=== PATIENT | male | born 1940 | race Caucasian/White ===

== ENCOUNTER 2018-08-21 10:20 | Day surgery (SDC) | payer MEDICARE, MEDICAID ==
[2018-08-20 13:38] VITALS: BMI 31.1
[2018-08-21] MEDS ORDERED: Iopamidol 370 76% 50 ML VIAL FS ONE (11:26)
[2018-08-21 11:27] LABS: INR-International Normal Ratio 2.1; PTT 56.7 SEC (22.9-36.1); Prothrombin Time 23.4 SEC (12.0-14.7)
[2018-08-21 11:31] LABS: Anion Gap 13 mmol/L (10-20); BUN (Urea Nitrogen) 41 mg/dL (8.4-25.7); Calc. Creatinine Clearance 21 mL/min (70-130); Calcium 9.2 mg/dL (7.8-10.44); Carbon Dioxide 25 mmol/L (23-31); Chloride 107 mmol/L (98-107); Estimated GFR-MDRD 14; Glucose 91 mg/dL (83-110); Potassium 4.4 mmol/L (3.5-5.1); Sodium 141 mmol/L (136-145)
[2018-08-21 11:47] LABS: #Eosinphils 0.4 thou/uL (0.0-0.7); #Neutrophils 8.5 thou/uL (1.40-6.50); %Basophils 0.3 % (0.0-1.0); %Eosinophils 3.4 % (0.0-10.0); %Lymphocytes 16.9 % (21.0-51.0); %Monocytes 8.3 % (0.0-10.0); %Neutrophils 71.2 % (42.0-75.0); Hemoglobin 11.7 g/dL (14.0-18.0); Mean Corpuscular HGB CONC 32.6 g/dL (32.0-36.0); Mean Corpuscular Hemoglobin 35.5 pg (27.0-31.0); Mean Platelet Volume 7.9 fL (7.4-10.4); Platelet Count 191 thou/uL (130-400); RBC Distribution Width 13.2 % (11.5-14.5); Red Blood Cell (RBC) Count 3.29 mill/uL (4.70-6.10); White Blood Cell (WBC) Count 11.9 thou/uL (4.8-10.8)
[2018-08-21 12:00] LABS: MDiff Complete? YES; Macrocytosis SLIGHT = 6-15 cells (100X) (0-5/hpf); PLT Morphology Comment Appears Adequate
[2018-08-21] MEDS ORDERED: CEFAZOLIN/Water 2 GM/20 ML SYRINGE ONE (13:11)
[2018-08-21] MEDS ORDERED: Lidocaine 1% (PF) 30 ML VIAL ONE (13:11)
[2018-08-21] MEDS ORDERED: Gentamicin 80 MG/2 ML VIAL ONE (13:11)
[2018-08-21] MEDS ORDERED: Midazolam HCl 2 mg/2 ml Vial ONE (14:31)
[2018-08-21] MEDS ORDERED: Ketamine 50 MG/ML VIAL ONE (14:31)
[2018-08-21] MEDS ORDERED: Propofol 500 MG/50 ML VIAL ONE (14:31)
[2018-08-21] MEDS ORDERED: Fentanyl 100 MCG/2 ML VIAL ONE (14:31)
[2018-08-21] MEDS ORDERED: PROPOFOL 200 MG/20 ML VIAL ONE (17:03)
--- NOTE | 2018-08-21 19:27 | RAD ---
CHEST ONE VIEW: 08/21/18 HISTORY: Defibrillator exchange. COMPARISON: 06/22/17. FINDINGS: Cardiac silhouette is magnified, enlarged, and partially obscured by patchy infiltrate or atelectasis at the left base that is similar in appearance to the previous study. Pulmonary vasculature remains engorged. Scattered calcified granuloma are consistent with healed granulomatous disease. Mediastinum is midline with a multilead left subclavian cardiac electronic device, postoperative hernandez ges, and aortic calcifications. IMPRESSION: Chronic left basilar infiltrate, atelectasis, not significantly changed from the exam over a year ago . Left subclavian cardiac electronic device is in good radiographic position. No evidence of pneumothor ax. Atherosclerosis. POS: [facility]
--- NOTE | 2018-08-23 08:10 | EKG ---
Test Reason : PREOP Blood Pressure : / mmHG Vent. Rate : 074 BPM Atrial Rate : 070 BPM P-R Int : 000 ms QRS Dur : 148 ms QT Int : 456 ms P-R-T Axes : 000 -50 -36 degrees QTc Int : 506 ms Ventricular-paced rhythm Biventricular pacemaker detected Abnormal ECG When compared with ECG of 14-MAR-2017 18:27, (Unconfirmed) Vent. rate has increased BY 4 BPM Confirmed by CORRIE HAWKINS ([id number]) on 08/23/2018 8:09:26 AM Referred By: TRAVIS Confirmed By:CORRIE HAWKINS
--- NOTE | 2018-08-23 08:11 | EKG ---
Test Reason : Blood Pressure : / mmHG Vent. Rate : 071 BPM Atrial Rate : 060 BPM P-R Int : 000 ms QRS Dur : 086 ms QT Int : 410 ms P-R-T Axes : 000 -14 142 degrees QTc Int : 445 ms Electronic ventricular pacemaker Biventricular pacemaker detected When compared with ECG of 14-MAR-2017 18:27, (Unconfirmed) No significant change was found Confirmed by CORRIE HAWKINS ([id number]) on 08/23/2018 8:10:29 AM Referred By: [facility] Confirmed By:CORRIE HAWKINS
== END 2018-08-21 19:40 | disposition home or self-care (01) ==
LOC: CCL 10:20
PROVIDERS: ATTEND Internal Medicine Cardiovascular Disease
PROC: 0JPT0PZ Removal of Cardiac Rhythm Related Device from Trunk Subcutaneous Tissue and Fascia, Open Approach (ICD-10-PCS; principal; 2018-08-21)
PROC: 0JH608Z Insertion of Defibrillator Generator into Chest Subcutaneous Tissue and Fascia, Open Approach (ICD-10-PCS; 2018-08-21)
PROC: 02PA3MZ Removal of Cardiac Lead from Heart, Percutaneous Approach (ICD-10-PCS; 2018-08-21)
PROC: 02HL3KZ Insertion of Defibrillator Lead into Left Ventricle, Percutaneous Approach (ICD-10-PCS; 2018-08-21)
DX: T82.190A Other mechanical complication of cardiac electrode, initial encounter (principal); N18.6 End stage renal disease; I50.22 Chronic systolic (congestive) heart failure; I25.5 Ischemic cardiomyopathy; I48.1 Persistent atrial fibrillation; I25.10 Atherosclerotic heart disease of native coronary artery without angina pectoris; Z79.01 Long term (current) use of anticoagulants; Z79.82 Long term (current) use of aspirin; Z79.899 Other long term (current) drug therapy; Z88.7 Allergy status to serum and vaccine; Z95.1 Presence of aortocoronary bypass graft; Z99.2 Dependence on renal dialysis
CPT/HCPCS: 33225; 33264; 36005; 71045; 75820; 80048; 85025; 85610; 85730; 93005; 93010; C1882; C1900; J1580; J2001; J2250; J2704; J3010; J3490

== ENCOUNTER 2018-09-23 08:13 | Emergency (ER) | payer MEDICARE, MEDICAID ==
[2018-09-23 09:49] LABS: #Eosinphils 0.4 thou/uL (0.0-0.7); #Lymphocytes 1.9 thou/uL (1.20-3.40); #Monocytes 0.9 thou/uL (0.11-0.59); #Neutrophils 5.8 thou/uL (1.40-6.50); %Basophils 0.3 % (0.0-1.0); %Eosinophils 4.1 % (0.0-10.0); %Lymphocytes 20.7 % (21.0-51.0); %Monocytes 9.8 % (0.0-10.0); Hemoglobin 11.6 g/dL (14.0-18.0); Mean Corpuscular HGB CONC 32.8 g/dL (32.0-36.0); Mean Corpuscular Hemoglobin 35.3 pg (27.0-31.0); Mean Platelet Volume 8.3 fL (7.4-10.4); Platelet Count 179 thou/uL (130-400); RBC Distribution Width 13.8 % (11.5-14.5); Red Blood Cell (RBC) Count 3.28 mill/uL (4.70-6.10)
[2018-09-23 09:55] LABS: INR-International Normal Ratio 2.8; PTT 54.2 SEC (22.9-36.1); Prothrombin Time 29.9 SEC (12.0-14.7)
[2018-09-23 10:13] LABS: ALT (SGPT) 10 U/L (8-55); AST (SGOT) 13 U/L (5-34); Albumin 3.8 g/dL (3.4-4.8); Alkaline Phosphatase 94 U/L (40-150); Anion Gap 15 mmol/L (10-20); BUN (Urea Nitrogen) 48 mg/dL (8.4-25.7); Bilirubin, Total 0.6 mg/dL (0.2-1.2); Calc. Creatinine Clearance 0 mL/min (70-130); Calcium 9.3 mg/dL (7.8-10.44); Carbon Dioxide 27 mmol/L (23-31); Chloride 107 mmol/L (98-107); Estimated GFR-MDRD 11; Glucose 97 mg/dL (83-110); Potassium 4.1 mmol/L (3.5-5.1); Protein, Total 6.8 g/dL (5.8-8.1); Sodium 145 mmol/L (136-145)
[2018-09-23 10:15] LABS: Troponin I Less than 0.010 ng/mL (< 0.028)
--- NOTE | 2018-09-23 10:48 | RAD ---
LEFT HAND 3 VIEWS: Date: 09/23/18 HISTORY: Injury. Left hand pain. FINDINGS/IMPRESSION: No acute fracture or dislocation is seen. POS: [facility]
--- NOTE | 2018-09-23 10:52 | RAD ---
LEFT FOREARM 2 VIEWS: Date: 09/23/18 HISTORY: Injury, left forearm pain. FINDINGS/IMPRESSION: The left radius and ulna appear intact. POS: [facility]
--- NOTE | 2018-09-23 10:54 | RAD ---
LEFT WRIST 3 VIEWS: Date: 09/23/18 HISTORY: Injury, left wrist pain. FINDINGS/IMPRESSION: No fracture or dislocation is seen. If there is tenderness in the anatomic snuffbox and symptoms do not improve, a follow-up exam should be obtained in 7-10 days. POS: [facility]
--- NOTE | 2018-09-23 11:18 | CT ---
CT BRAIN NONCONTRAST: DATE: 09/23/18 TIME: 0938 hours HISTORY: 78-year-old male with history of stroke, presents with increasing weakness. COMPARISON: 06/22/17. FINDINGS: Small to moderate size region of encephalomalacia and gliosis in the upper portion of the right front al lobe. Ventricles are normal in size and configuration. No mass effect, midline shift, acute intra- axial hemorrhage, acute extra-axial hemorrhage, or any extra-axial fluid collection. No calvarial fra cture. No interval change overall since last year. IMPRESSION: 1. Old infarction in the right frontal lobe, in the right middle cerebral artery territory. 2. No acute intracranial findings. THERESA Ordoñez POS: [facility]
--- NOTE | 2018-09-23 11:48 | CT ---
CT CERVICAL SPINE WITH CORONAL AND SAGITTAL REFORMATIONS: Date: 09/23/18 HISTORY: Trauma. Fall. Worsening weakness. FINDINGS/IMPRESSION: Comparison made with exam of 06/22/17. Extensive degenerative changes are again noted with bilateral neural foraminal stenosis and central c anal stenosis, most prominent at the C5-6 and C6-7 levels. No fracture or subluxation is identified. No facet malalignment is seen. POS: [facility]
== END 2018-09-23 11:04 | disposition home or self-care (01) ==
LOC: ERS 08:13
DX: S60.212A Contusion of left wrist, initial encounter (principal); I49.9 Cardiac arrhythmia, unspecified; I10 Essential (primary) hypertension; F17.220 Nicotine dependence, chewing tobacco, uncomplicated; Z71.6 Tobacco abuse counseling; W06.XXXA Fall from bed, initial encounter
CPT/HCPCS: 70450; 72125; 80053; 82553; 84484; 85025; 85610; 85730; 93005

== ENCOUNTER 2019-02-15 19:18 | Inpatient (IN) | payer MEDICARE, MEDICAID ==
[~2019-02-15 19:18] MED LIST: ISOVUE-370 76%-LOCM 1 ML ONE
--- NOTE | 2019-02-15 19:44 | RAD ---
Chest one view HISTORY: Chest pain. COMPARISON: 08/29/2018. FINDINGS: Cardiac silhouette is magnified, enlarged, and partially obscured by parenchymal opacity at the left base that has the appearance of atelectasis and is unchanged from the previous exam. Slight leftward shift of the mediastinum. Calcification in the aorta, postoperative changes, and a mu ltilead left subclavian cardiac electronic device again demonstrated. Pulmonary vasculature is unremarkable. No evidence of pneumothorax. IMPRESSION: Left basilar atelectasis and other chronic-type findings are stable.
[2019-02-15 19:51] LABS: Hemoglobin 11.4 g/dL (14.0-18.0); Mean Corpuscular HGB CONC 32.5 g/dL (32.0-36.0); Mean Corpuscular Hemoglobin 35.9 pg (27.0-31.0); Mean Platelet Volume 8.6 fL (7.4-10.4); Platelet Count 178 thou/uL (130-400); RBC Distribution Width 12.9 % (11.5-14.5); Red Blood Cell (RBC) Count 3.17 mill/uL (4.70-6.10); White Blood Cell (WBC) Count 20.5 thou/uL (4.8-10.8)
[2019-02-15 20:07] LABS: Band 7 % (5-11); Lymphocytes 4 % (21-51); MDiff Complete? YES; Monocytes 6 % (0-10); Neutrophil 83 % (42-75)
[2019-02-15 20:10] LABS: ALT (SGPT) 9 U/L (8-55); AST (SGOT) 14 U/L (5-34); Albumin 3.5 g/dL (3.4-4.8); Alkaline Phosphatase 110 U/L (40-150); Anion Gap 14 mmol/L (10-20); BUN (Urea Nitrogen) 24 mg/dL (8.4-25.7); Bilirubin, Total 0.7 mg/dL (0.2-1.2); CK (CPK) 74 U/L (30-200); Calc. Creatinine Clearance 0 mL/min (70-130); Calcium 8.9 mg/dL (7.8-10.44); Carbon Dioxide 32 mmol/L (23-31); Chloride 98 mmol/L (98-107); Estimated GFR-MDRD 17; Globulin 3.2 g/dL (2.4-3.5); Glucose 95 mg/dL (83-110); Lipase 12 U/L (8-78); Potassium 3.4 mmol/L (3.5-5.1); Protein, Total 6.7 g/dL (5.8-8.1); Sodium 141 mmol/L (136-145)
[2019-02-15] MEDS ORDERED: Piperacillin/Tazobactam 2.25 GM VIAL ONE (20:19)
[2019-02-15 20:31] LABS: CKMB 0.6 ng/mL (0-6.6)
[2019-02-15] MEDS ORDERED: Vancomycin HCl 1.5 GM in Sodium Chloride 0.9% 250 ML 300 ML IVPB SCH (20:45)
--- NOTE | 2019-02-15 20:58 | CT ---
CT ANGIOGRAM CHEST AND ABDOMEN WITH IV CONTRAST AND 3D MIP RECONSTRUCTIONS 02/15/19 PROVIDED CLINICAL HISTORY: Chest pain and fever. FINDINGS: Postoperative changes of CABG are demonstrated. Vascular calcification is noted. The heart, pericardi um and great vessels demonstrate no evidence for an acute abnormality. There is no evidence of aortic dissection. There is a left basilar loculated pleural fluid collection, which appears similar to CT examination p erformed of the abdomen and pelvis dated 07/18/16. There is consolidation involving the majority of th e left lower lobe. The right lung is free of significant opacity. There is no right sided pleural flu id. There is no evidence for pneumothorax. Left sided cardiac pacing device is noted. The solid abdominal organs are suboptimally evaluated in the arterial phase of contrast but demonstra te an unremarkable CT appearance for the phase of contrast in which this study was acquired. Increase d density within the gallbladder compatible with gallstones. Right renal cyst appears similar to the prior examination. No bowel dilatation, inflammatory fat stranding, free fluid or free air apparent. Extensive calcified and noncalcified atheromatous plaque involves the abdominal aorta and its branche s. The osseous structures demonstrate no concerning lytic or blastic lesions. IMPRESSION: 1. No evidence for aortic dissection. 2. Left lower lobe consolidation. This likely reflects some combination of volume loss and pneum onia. Other etiologies are not excluded and followup is recommended. 3. Loculated left pleural fluid collection, appearing similar to the CT examination of 07/18/16. POS: [facility]
[2019-02-15] MEDS ORDERED: Acetaminophen 325 MG TAB PO PRN (22:47)
[2019-02-15] MEDS ORDERED: Midodrine HCl 5 MG TAB PO SCH (23:00)
[2019-02-16 00:32] LABS: Lactic Acid 1.4 mmol/L (0.5-2.2)
[2019-02-16 00:54] VITALS: BMI 30.1
[2019-02-16] MEDS ORDERED: Vancomycin HCl 500 MG in Sodium Chloride 0.9% 100 ML IVPB SCH (01:30)
[2019-02-16] MEDS ORDERED: Vancomycin Sliding Scale 1 EACH FS ONE (01:30)
[2019-02-16] MEDS ORDERED: Vancomycin HCl 1 GM in Premix Bag 1 BAG IVPB SCH ×2 (01:30→09:00)
[2019-02-16] MEDS ORDERED: HOLD VANCOMYCIN FOR LEVEL >20 FS SCH (01:30)
[2019-02-16] MEDS ORDERED: Vancomycin HCl 1.25 GM in Sodium Chloride 0.9% 250 ML 250 ML IVPB SCH (01:30)
[2019-02-16] MEDS ORDERED: Vancomycin HCl 750 MG in Sodium Chloride 0.9% 250 ML 250 ML IVPB SCH (01:30)
--- NOTE | 2019-02-16 03:13 | HP ---
CHIEF COMPLAINT: Chest pain. HISTORY OF PRESENT ILLNESS: The patient is a 78-year-old male, who has end-stage renal disease and is on dialysis. The patient also has a history of prior [place] with a severe ischemic cardiomyopathy with an EF of 15% to 20% with a pacemaker defibrillator placed. The patient reports a history of two prior strokes, which has left him with some occasional memory issues and an intermittent Parkinson's like tremor of his right upper extremity. The patient went to dialysis today. Apparently, his weight was up because he overindulged with drinking too much water and tea as he is prone to do, and he had over 2 L of fluid removed. He reports that after dialysis on any given day, he feels generally washed out and weak, but today was slightly worse. He also experienced heaviness in his chest, which is not typical. He called his . She came home and assessed him and he was febrile and generally weak. He ultimately did not want to come to the hospital, but his daughter came over, saw that he was running fever and called an ambulance. He reports that he has developed a bit of a cough since he has been here over the last couple of hours, but it is generally nonproductive. He is feeling somewhat better here now. In the emergency department, the patient was noted to be somewhat hypotensive with his systolic pressures running in the mid 80s and diastolic in the 40s and 50s. Dr. Huff was called and he ordered 500 mL of fluid for the patient, but given his cardiomyopathy, no more than that. REVIEW OF SYSTEMS: The patient does admit to having some occasional dysphagia. His reports she has to cut his meats very small and even then he will occasionally have some vomiting. This has been true since the strokes, and as above, the patient does have this tremor in his right upper extremity that his reports occurs even while he is sleeping at night. He does have the ability to make it stop intentionally, but when he is not intentionally doing that, it will frequently recur. Note, the patient was given aspirin and Motrin in the emergency department. The patient reports that he typically only gets about half a liter of fluids taken off at dialysis. All other systems were reviewed and all pertinent positives and negatives noted in the history of present illness. PAST MEDICAL HISTORY: Significant for chronic systolic congestive heart failure. He has ischemic cardiomyopathy, [place] Heart Association class 3; ejection fraction of 15% to 20%; coronary artery disease, status post coronary artery bypass grafting; chronic atrial fibrillation requiring anticoagulation; end-stage renal disease, on dialysis; history of ventricular aneurysm resection; history of prior CVAs with the chronic intermittent tremor of the right upper extremity; and history of hyperlipidemia. PAST SURGICAL HISTORY: Four-vessel CABG in 2002; appendectomy; AICD and pacemaker placement, several months ago had wire replacement. FAMILY HISTORY: No coronary disease or cardiac disease. SOCIAL HISTORY: The patient dips snuff, but he does not smoke cigarettes. Denies drugs or alcohol. He is . He is willing to undergo initial resuscitation efforts, but states that he is really only interested in brief effort and if it does not work, he is okay with that. His states they have discussed this before in the past. He has typically been DNR, but that is his wish presently. ALLERGIES: TETANUS VACCINE AND TOXOID. MEDICATIONS: 1. Simvastatin 40 mg daily. 2. Aspirin 81 mg daily. 3. Eliquis 2.5 mg b.i.d. 4. Amiodarone 200 mg daily. 5. Midodrine 5 mg p.o. t.i.d. PHYSICAL EXAMINATION: GENERAL: Most recent blood pressure 104/50, pulse 88, respirations 16, O2 saturation 96% on room air. GENERAL APPEARANCE: Age-appropriate male, in no distress. He is awake, alert, oriented, pleasant, and cooperative. HEENT: PERRL. No OP lesions. NECK: Supple and symmetric. HEART: Irregular without significant murmurs, gallops, or rubs. LUNGS: Clear to auscultation bilaterally with no significant wheezes or rales. ABDOMEN: Soft, nontender, and nondistended. Positive bowel sounds. No masses. No organomegaly. EXTREMITIES: He has trace edema of the ankles. He has onychomycosis of the toenails. NEUROLOGIC: The patient does have an intermittent Parkinson's type low-frequency tremor of the right hand and upper extremity. PSYCHIATRIC: The patient has normal affect and behavior. LABORATORY DATA: White count is 20.5, hemoglobin 11.4, platelets 178, 83 neutrophils, 7 bands, 4 lymphocytes. Sodium 141, potassium 3.4, chloride 98, CO2 of 32, BUN 24, creatinine 3.52. Lactic acid 2.3. LFTs normal. Troponin 0.035. BNP 744.3. Flu screen is negative. Chest x-ray shows left basilar atelectasis and other chronic type findings, which are stable. CT chest with dissection protocol shows left lower lobe consolidation, likely reflecting some combination of volume loss and pneumonia. Loculated pleural fluid collection appearing stable from July 2016 on the left side. IMPRESSION AND PLAN: 1. Sepsis. This patient has a difficult assessment given that he has always felt poorly and apparently having some blood pressure problems following dialysis and requiring midodrine. Today, the patient had some hypotension as well, but it is in the setting of a white count of 20,000 and some evidence of pneumonia and an elevated lactic acid level. His fluids cannot be aggressively resuscitated because of his severe underlying cardiomyopathy. 2. Pneumonia. The patient has had vancomycin and Zosyn. We will continue those and have pharmacy help adjust the dosing based on his renal disease. 3. Chest pain, may be related to the pneumonia. We will continue to track his troponins. 4. Elevated troponin. This is normal given the patient's renal function and does not at present represent new pathology. 5. Severe cardiomyopathy. The patient has ischemic cardiomyopathy and has AICD in place, appears to be reasonably well compensated at the moment. 6. End-stage renal disease, on dialysis. Dr. Huff has been consulted. We will continue with his normal dialysis regimen. 7. Dysphagia. The patient reported dysphagia in his review of systems. He has some choking and vomiting. We will ask our speech therapist to evaluate the patient. 8. Chronic atrial fibrillation. Continue with amiodarone and Eliquis. 9. Hyperlipidemia. Continue simvastatin. 10. History of coronary artery disease. Continue with his aspirin. Job ID: [id number]
[2019-02-16] MEDS: Piperacillin/Tazobactam 2.25 GM in Sodium Chloride 0.9% 100 ML IVPB SCH ×3 (05:42→21:20)
[2019-02-16 06:29] LABS: Anion Gap 16 mmol/L (10-20); BUN (Urea Nitrogen) 29 mg/dL (8.4-25.7); Calc. Creatinine Clearance 20 mL/min (70-130); Calcium 8.7 mg/dL (7.8-10.44); Carbon Dioxide 30 mmol/L (23-31); Chloride 98 mmol/L (98-107); Estimated GFR-MDRD 13; Glucose 124 mg/dL (83-110); Potassium 3.6 mmol/L (3.5-5.1); Sodium 140 mmol/L (136-145)
[2019-02-16 06:42] LABS: Band 4 % (5-11); Eosinophils 1 % (0-10); Hemoglobin 10.7 g/dL (14.0-18.0); Lymphocytes 10 % (21-51); MDiff Complete? YES; Macrocytosis SLIGHT = 6-15 cells (100X) (0-5/hpf); Mean Corpuscular Hemoglobin 35.4 pg (27.0-31.0); Mean Platelet Volume 9.1 fL (7.4-10.4); Monocytes 2 % (0-10); Neutrophil 83 % (42-75); Platelet Count 175 thou/uL (130-400); RBC Distribution Width 13.1 % (11.5-14.5); Red Blood Cell (RBC) Count 3.02 mill/uL (4.70-6.10)
[2019-02-16] MEDS ORDERED: Enoxaparin Sodium 30 MG/0.3 ML SYRINGE SC SCH (09:00)
[2019-02-16] MEDS: Amiodarone 200 MG TAB PO SCH (10:07)
[2019-02-16] MEDS: Aspirin 81 mg Enteric Coated Tablet PO SCH (10:07)
[2019-02-16] MEDS: Apixaban 2.5 MG TAB PO SCH ×2 (10:07→21:25)
[2019-02-16] MEDS: Midodrine HCl 5 MG TAB PO SCH ×3 (10:07→21:21)
--- NOTE | 2019-02-16 12:22 | CON ---
DATE OF CONSULTATION: HISTORY OF PRESENT ILLNESS: A 78-year-old gentleman, who comes to the hospital with left-sided chest pain, shortness of breath, fever, chills, and cough. X-ray shows a left-sided pleural effusion. CT dissection protocol was unremarkable, except for the loculated pleural effusion. I reviewed some of his old x-rays from August 2018. He still had the pleural effusion at that time. In fact, his x-rays from 2017, two years ago also showed a left-sided pleural effusion. He has an AICD in place. This morning, he said he is feeling somewhat better. Apparently, he is nonsmoker prior history of TB, pneumonia. PAST MEDICAL HISTORY: Pertinent for a recent diagnosis of tremors, history of coronary artery disease, high cholesterol, hypertension, previous CVA, chronic renal failure, apparently on dialysis. PAST SURGICAL HISTORY: Appendix, AICD, aneurysm surgery. SOCIAL HISTORY: Alcohol, none. Tobacco, none. 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 HOME MEDICATIONS: 1. Cordarone 400. 2. Zocor 40. 3. Midodrine 5. 4. Pramipexole 0.125 at night. 5. Coreg 6.25. 6. Eliquis 2.5. 7. Now started on vancomycin and Zosyn. REVIEW OF SYSTEMS: Ten-point negative. PHYSICAL EXAMINATION: VITAL SIGNS: His saturations are 99% on room air. His pulse is 80, respiratory rate is 18, and blood pressure is 130/80. CHEST: Reveals decreased breath sounds at the left base. There is no wheezing or crackles. CARDIAC: Normal S1, S2. No gallops or masses. LABORATORY DATA: White count is 23,000, H and H 10 and 30, platelet count 175. Creatinine 4.5. IMPRESSION: 1. Left pleural effusion, possibly superimposed pneumonia. 2. Loculated pleural effusion, longstanding duration. 3. Cerebrovascular accident. 4. Automatic implantable cardioverter-defibrillator. PLAN: 1. Await sputum culture results. He is on broad-spectrum antibiotics. At this stage, I will not attempt to do a thoracentesis. Pleural effusion is loculated. 2. It looks like clinically he is improved. Nephrology has seen the patient. 3. Pulmonary will follow. TIME SPENT: 70 minutes, 50% direct patient care. Job ID: [id number]
--- NOTE | 2019-02-16 15:15 | CON ---
DATE OF CONSULTATION: HISTORY OF PRESENT ILLNESS: Mr. Chaudhary is a 78-year-old white male with ESRD and presented today complaining of fever and chills. He also had mild chest pain at that time. He was admitted and was empirically treated for a presumptive pneumonia. He is on IV antibiotics. We are being consulted for his maintenance hemodialysis. When he first came in, he was noted to be hypotensive. We gave him 500 mL of fluid. REVIEW OF SYSTEMS: Positive for fever and chills. Positive for mild chest pain. No syncopal episode. No nausea. No vomiting. No diarrhea. No constipation. No productive cough. No dysuria. Appetite and energy level are fair. Occasional joint pains. Positive for chronic resting tremor. MEDICATIONS: The patient is currently on, 1. Tylenol 650 mg q.4 p.r.n. 2. Cordarone 200 mg daily. 3. Eliquis 2.5 mg p.o. b.i.d. 4. Ecotrin 81 mg daily. 5. Lipitor 20 mg at bedtime. 6. Midodrine 5 mg p.o. t.i.d. 7. Zosyn 2.25 g IV q.8, status post vancomycin. PAST MEDICAL HISTORY: 1. The patient has history of cardiomyopathy-decreased EF. 2. Chronic atrial fibrillation. 3. ESRD and currently on maintenance hemodialysis. 4. The patient has history of chronic hypotension, on midodrine support. 5. Status post nephrolithiasis. 6. Coronary artery disease. 7. Peripheral vascular disease. 8. Type 2 diabetes mellitus. 9. History of hypertension. PAST SURGICAL HISTORY: Status post cardiac cath, status post CABG, status post appendectomy, status post AV fistula placement, status post percutaneous nephrostomy, status post ureteroscopy with stone extraction. ALLERGIES: TETANUS. TRAUMA: None. IMMUNIZATION: Up-to-date. HOSPITALIZATION: Please see past medical history. SOCIAL HISTORY: The patient is ,lives in [place]. 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 No alcohol intake. No history of smoking. No IV drug abuse. He occasionally uses snuff. Education, 12th grade. Sedentary lifestyle. FAMILY HISTORY: No family history of ESRD. PHYSICAL EXAMINATION: VITAL SIGNS: Blood pressure is 108/61, heart rate 60, respiratory rate 16, pulse ox is 97%. GENERAL: The patient is awake, comfortable, sitting, not in distress. SKIN: Adequate turgor. HEENT: He has a pinkish conjunctivae. Anicteric sclerae. No neck mass. No carotid bruits. No JVD. CHEST: No deformities. LUNGS: Decreased breath sounds. HEART: Irregular. No murmur, no gallops, no rubs. ABDOMEN: Globular, soft, nontender. No masses. EXTREMITIES: No edema. LABORATORY DATA: Laboratories of February 16, 2019; white count 23, hemoglobin 10.7. Sodium 140, potassium 3.6, chloride 98, carbon dioxide 30, BUN 29, creatinine 4.45, glucose 124, calcium 8.7. Troponin I 0.035. IMAGING STUDIES: Chest x-ray of February 15, 2019, left basilar atelectasis with chronic findings. Blood culture, no growth today. Influenza A and B negative. ASSESSMENT AND PLAN: 1. Fever and chills- empiric pneumonia. On IV antibiotics. Continue supportive care. Awaiting final results of blood culture. 2. End-stage renal disease, stable. No indication for any emergent hemodialysis. Continue Monday, Monday, Monday dialysis regimen with fluid removal only as tolerated. 3. Borderline anemia. We will continue to observe. If this further drops down, we will resume weekly Epogen with this patient. 4. Recheck CBC, basic metabolic profile in a.m. Job ID: [id number]
[2019-02-16 15:29] LABS: HBSAg Index 0.33 S/CO (0-0.99); Hep B Surf Ag Non-Reactive S/CO (NonReactive)
--- NOTE | 2019-02-16 16:58 | PDOC.PN ---
- Subjective Encounter Start Date: 02/16/19 Encounter Start Time: 10:30 Subjective: pt up in bed no complains - Objective Resuscitation Status - Order Detail: 02/15/19 22:47 Resuscitation Status Routine Resuscitation Status: FULL: Full Resuscitation Vital Signs & Weight: Vital Signs (12 hours) Temp BP BP Pulse Ox 02/16/19 14:51 98.4 F 02/16/19 12:36 110/46 L 02/16/19 12:25 172/66 H 02/16/19 10:33 98.2 F 02/16/19 08:00 97 02/16/19 07:07 98.2 F Weight Weight 215 lb 12.8 oz Most Recent Monitor Data Heart Rate from ECG 61 NIBP 115/50 NIBP BP-Mean 71 Respiration from ECG 17 SpO2 99 I&O: 02/15/19 02/16/19 02/17/19 06:59 06:59 06:59 Intake Total 500 Output Total 50 Balance 450 Result Diagrams: 02/16/19 05:14 02/16/19 05:13 Phys Exam - Physical Examination Neck: no nodes, no JVD, supple, full ROM Respiratory: no wheezing, no rales, no rhonchi, wheezing present, clear to auscultation bilateral Cardiovascular: RRR, no significant murmur, no rub, gallop, irregular Gastrointestinal: soft, non-tender, no distention, positive bowel sounds Dx/Plan (1) Sepsis Code(s): A41.9 - SEPSIS, UNSPECIFIED ORGANISM Status: Acute (2) Pneumonia Code(s): J18.9 - PNEUMONIA, UNSPECIFIED ORGANISM Status: Acute (3) HTN (hypertension) Code(s): I10 - ESSENTIAL (PRIMARY) HYPERTENSION Status: Chronic Qualifiers: Hypertension type: renovascular hypertension Qualified Code(s): I15.0 - Renovascular hypertension (4) Pleural effusion, left Code(s): J90 - PLEURAL EFFUSION, NOT ELSEWHERE CLASSIFIED Status: Acute - Plan continue broad abx for now -: pt's has chronic left plerual effusion -: if wbc continue to worsen may need thoracentesis -: vitals are stable * . Review of Systems - Review of Systems Respiratory: negative: Cough, Dry, Shortness of Breath, Hemoptysis, SOB with Excertion, Pleuritic Pain, Sputum, Wheezing Cardiovascular: negative: chest pain, palpitations, orthopnea, paroxysmal nocturnal dyspnea, edema, light headedness, other Gastrointestinal: negative: Nausea, Vomiting, Abdominal Pain, Diarrhea, Constipation, Melena, Hematochezia, Other - Medications/Allergies Allergies/Adverse Reactions: Allergies Allergy/AdvReac Type Severity Reaction Status Date / Time Tetanus Vaccines and Toxoid Allergy MOUTH Verified 08/20/18 13:39 SWELLING Medications: Current Medications Acetaminophen (Tylenol) 650 mg PO Q4H PRN PRN Reason: Headache/Fever/Mild Pain (1-3) Amiodarone HCl (Cordarone) 200 mg PO DAILY [facility] Last Admin: 02/16/19 10:07 Dose: 200 mg Apixaban (Eliquis) 2.5 mg PO BID [facility] Last Admin: 02/16/19 10:07 Dose: 2.5 mg Aspirin (Ecotrin) 81 mg PO DAILY [facility] Last Admin: 02/16/19 10:07 Dose: 81 mg Atorvastatin Calcium (Lipitor) 20 mg PO [facility] Piperacillin Sod/Tazobactam (Sod 2.25 gm/ Sodium Chloride) 100 mls @ 200 mls/ hr IVPB 0400,1200,2000 [facility] Last Admin: 02/16/19 12:25 Dose: 100 mls Vancomycin HCl 1.25 gm/ Sodium (Chloride) 250 mls @ 166.667 mls/hr IVPB [facility]CALL [facility] Vancomycin HCl 1 gm/ Device 200 mls @ 200 mls/hr IVPB [facility] Vancomycin HCl 750 mg/ Sodium (Chloride) 250 mls @ 250 mls/hr IVPB [facility] Vancomycin HCl 500 mg/ Sodium (Chloride) 100 mls @ 100 mls[facility]hr [facility] Midodrine (Proamatine) 5 mg PO TID [facility] Last Admin: 02/16/19 14:49 Dose: 5 mg Hold Vancomycin For (Level >20) 0 each FS .AT DIALYSIS [facility] Tamsulosin HCl (Flomax) 0.4 mg PO [facility]
[2019-02-16] MEDS ORDERED: Tamsulosin HCl 0.4 MG CAP PO SCH (17:30)
[2019-02-16] MEDS: Atorvastatin Calcium 20 MG TAB PO SCH (21:21)
[2019-02-16 22:31] LABS: Vancomycin, Random 14.3 ug/mL (See Comment)
[2019-02-17] MEDS: Piperacillin/Tazobactam 2.25 GM in Sodium Chloride 0.9% 100 ML IVPB SCH (04:03)
[2019-02-17 07:03] LABS: #Eosinphils 0.3 thou/uL (0.0-0.7); #Lymphocytes 1.7 thou/uL (1.20-3.40); #Monocytes 0.8 thou/uL (0.11-0.59); #Neutrophils 8.3 thou/uL (1.40-6.50); %Basophils 0.4 % (0.0-1.0); %Eosinophils 2.9 % (0.0-10.0); %Lymphocytes 15.4 % (21.0-51.0); %Monocytes 7.5 % (0.0-10.0); %Neutrophils 73.9 % (42.0-75.0); Hemoglobin 10.2 g/dL (14.0-18.0); Mean Corpuscular HGB CONC 33.9 g/dL (32.0-36.0); Mean Corpuscular Hemoglobin 36.8 pg (27.0-31.0); Mean Platelet Volume 8.9 fL (7.4-10.4); Platelet Count 159 thou/uL (130-400); RBC Distribution Width 12.9 % (11.5-14.5); Red Blood Cell (RBC) Count 2.78 mill/uL (4.70-6.10); White Blood Cell (WBC) Count 11.2 thou/uL (4.8-10.8)
[2019-02-17 07:12] LABS: Anion Gap 15 mmol/L (10-20); BUN (Urea Nitrogen) 45 mg/dL (8.4-25.7); Calc. Creatinine Clearance 15 mL/min (70-130); Carbon Dioxide 29 mmol/L (23-31); Chloride 100 mmol/L (98-107); Estimated GFR-MDRD 9; Glucose 91 mg/dL (83-110); Potassium 3.6 mmol/L (3.5-5.1); Sodium 140 mmol/L (136-145)
[2019-02-17] MEDS: Amiodarone 200 MG TAB PO SCH (09:15)
[2019-02-17] MEDS: Aspirin 81 mg Enteric Coated Tablet PO SCH (09:15)
[2019-02-17] MEDS: Apixaban 2.5 MG TAB PO SCH ×2 (09:15→20:01)
[2019-02-17] MEDS: Midodrine HCl 5 MG TAB PO SCH ×3 (09:15→20:57)
[2019-02-17] MEDS ORDERED: Epoetin (ESRD) 20,000 UNITS/ML SC SCH (10:15)
--- NOTE | 2019-02-17 10:58 | PRG ---
DATE OF SERVICE: 02/17/2019 SUBJECTIVE: This morning, he is better. OBJECTIVE: VITAL SIGNS: Temperature 97, pulse 62, blood pressure 139/51, and respiratory rate 18. CHEST: No wheezing or crackles. CARDIAC: Normal S1 and S2. No gallops. ABDOMEN: No masses. LABORATORY DATA: Creatinine 5.8. White count 11,000, hemoglobin and hematocrit unremarkable. ASSESSMENT: 1. Herminia pleural effusion, chronic, possibly superimposed pneumonia. 2. Chronic renal failure. PLAN: Switch over to oral antibiotics. All cultures are negative. Clearly, his white count is normal. He is afebrile. He can probably be transferred out of the MICU to an unmonitored bed. Job ID: [id number]
--- NOTE | 2019-02-17 11:38 | PRG ---
DATE OF SERVICE: 02/17/2019 SERVICE: Renal Medicine. SUBJECTIVE: Mr. Chaudhary is a 78-year-old white male with ESRD and followed by the Renal Service for his maintenance hemodialysis. I evaluated the patient. He does complain of some leg edema. I do not think there is any indication for an emergent hemodialysis today. In addition, he initially was admitted for fever and chills. He has a presumptive diagnosis of pneumonia and currently on IV antibiotics. It was made mention about his resting tremor. I have offered neurology consult in the past with him, but he has declined. He may have early Parkinson's versus just essential resting tremors. He also had difficulty passing his urine and was started on Flomax. No other complaints today. No chest pain or shortness of breath. OBJECTIVE: VITAL SIGNS: Blood pressure 139/51, heart rate 62, respiratory rate 15, temperature 98, pulse ox 99%. GENERAL: Awake, sitting, comfortable, not in distress. SKIN: Adequate turgor. HEENT: He has a slightly pale conjunctivae. Anicteric sclerae. NECK: No neck mass. No carotid bruits. No JVD. CHEST: No deformities. LUNGS: Clear breath sounds. HEART: Normal sinus rhythm. No murmur. No gallops. No rubs. ABDOMEN: Globular, soft, nontender. No masses. EXTREMITIES: No edema. No deformities. LABORATORY DATA: Blood culture on February 15, 2019, no growth to date. On February 17, 2019; white count 11.2, hemoglobin 10.2. Sodium 140, potassium 3.6, chloride 100, carbon dioxide 29, BUN 45, creatinine 5.83, glucose 91, calcium 9. ASSESSMENT AND PLAN: 1. End-stage renal disease, stable. Continuing Monday, Monday, and Monday hemodialysis. Fluid removal only as tolerated. No indication for any emergent hemodialysis today. 2. Anemia. We will start weekly Epogen 7500 units subcu every week. 3. Pneumonia, on IV antibiotics. 4. Resting tremor-continue to observe. Consider neurology consult as an outpatient. 5. BPH-currently started on Flomax. Overall, agree with current management. Job ID: [id number]
--- NOTE | 2019-02-17 17:48 | PDOC.PN ---
- Subjective Encounter Start Date: 02/17/19 Encounter Start Time: 17:47 Subjective: pt up in chair feels well, complains of soft stool - Objective Resuscitation Status - Order Detail: 02/15/19 22:47 Resuscitation Status Routine Resuscitation Status: FULL: Full Resuscitation Vital Signs & Weight: Vital Signs (12 hours) Temp Pulse Ox 02/17/19 15:42 97.8 F 02/17/19 10:23 97.5 F L 02/17/19 08:00 99 02/17/19 07:07 98.0 F Weight Weight 219 lb Most Recent Monitor Data Heart Rate from ECG 60 NIBP 117/59 NIBP BP-Mean 78 Respiration from ECG 15 SpO2 99 I&O: 02/16/19 02/17/19 02/18/19 06:59 06:59 06:59 Intake Total 500 400 Output Total 50 75 Balance 450 325 Result Diagrams: 02/17/19 06:38 02/17/19 06:38 Phys Exam - Physical Examination Neck: no nodes, no JVD, supple, full ROM decreased breath sound to left lower lung Cardiovascular: RRR, no significant murmur, no rub, gallop, irregular Gastrointestinal: soft, non-tender, no distention, positive bowel sounds Musculoskeletal: no edema, pulses present, edema present Dx/Plan (1) Sepsis Code(s): A41.9 - SEPSIS, UNSPECIFIED ORGANISM Status: Acute (2) Pneumonia Code(s): J18.9 - PNEUMONIA, UNSPECIFIED ORGANISM Status: Acute (3) HTN (hypertension) Code(s): I10 - ESSENTIAL (PRIMARY) HYPERTENSION Status: Chronic Qualifiers: Hypertension type: renovascular hypertension Qualified Code(s): I15.0 - Renovascular hypertension (4) Pleural effusion, left Code(s): J90 - PLEURAL EFFUSION, NOT ELSEWHERE CLASSIFIED Status: Acute - Plan pt's wbc has improved. He states he did not have any cough -: just had chills and fever. His LLL effusion has been [id number] -: would recommend follow up ct chest as ouptatient. -: will start pt on floastar. * . Review of Systems - Review of Systems Respiratory: negative: Cough, Dry, Shortness of Breath, Hemoptysis, SOB with Excertion, Pleuritic Pain, Sputum, Wheezing Cardiovascular: negative: chest pain, palpitations, orthopnea, paroxysmal nocturnal dyspnea, edema, light headedness, other Genitourinary: negative: Dysuria, Frequency, Incontinence, Hematuria, Retention , Other - Medications/Allergies Allergies/Adverse Reactions: Allergies Allergy/AdvReac Type Severity Reaction Status Date / Time Tetanus Vaccines and Toxoid Allergy MOUTH Verified 08/20/18 13:39 SWELLING Medications: Current Medications Acetaminophen (Tylenol) 650 mg PO Q4H PRN PRN Reason: Headache/Fever/Mild Pain (1-3) Amiodarone HCl (Cordarone) 200 mg PO DAILY [facility] Last Admin: 02/17/19 09:15 Dose: 200 mg Amoxicillin/Clavulanate Potassium (Augmentin) 250 mg PO Q12HR [facility] Apixaban (Eliquis) 2.5 mg PO BID [facility] Last Admin: 02/17/19 09:15 Dose: 2.5 mg Aspirin (Ecotrin) 81 mg PO DAILY [facility] Last Admin: 02/17/19 09:15 Dose: 81 mg Atorvastatin Calcium (Lipitor) 20 mg PO HS [facility] Last Admin: 02/16/19 21:21 Dose: 20 mg Epoetin Danial (Procrit) 7,500 units SC Q7D [facility] Midodrine (Proamatine) 5 mg PO TID [facility] Last Admin: 02/17/19 14:39 Dose: 5 mg Hold Vancomycin For (Level >20) 0 each FS .AT DIALYSIS [facility] Saccharomyces Boulardii (Florastor) 250 mg PO DAILY [facility] Tamsulosin HCl (Flomax) 0.4 mg PO HS [facility]
[2019-02-17] MEDS: Atorvastatin Calcium 20 MG TAB PO SCH (20:00)
[2019-02-17] MEDS: Tamsulosin HCl 0.4 MG CAP PO SCH (20:00)
[2019-02-17] MEDS: Amoxicillin/Potassium Clav 250 MG TAB PO SCH (20:00)
--- NOTE | 2019-02-18 08:03 | RAD ---
EXAM: Single view of the chest HISTORY: chest pain COMPARISON: 02/15/2019 FINDINGS: Single view of the chest shows an enlarged cardiomediastinal silhouette. The pacemaker is u nchanged in position. The patient is status post sternotomy. Opacity is again seen in the inferior aspect of the left thorax which likely represents a pleural effusion and adjacent atelectasis versus infiltrate. A calcified granuloma projects over the right mid thorax. Degenerative changes are seen in the spine. IMPRESSION: Left pleural effusion with adjacent atelectasis versus infiltrate
[2019-02-18 08:25] LABS: #Eosinphils 0.3 thou/uL (0.0-0.7); #Lymphocytes 1.5 thou/uL (1.20-3.40); #Monocytes 0.6 thou/uL (0.11-0.59); #Neutrophils 6.1 thou/uL (1.40-6.50); %Basophils 0.2 % (0.0-1.0); %Lymphocytes 17.7 % (21.0-51.0); %Monocytes 7.4 % (0.0-10.0); %Neutrophils 70.8 % (42.0-75.0); Hemoglobin 10.2 g/dL (14.0-18.0); Mean Corpuscular HGB CONC 33.2 g/dL (32.0-36.0); Mean Corpuscular Hemoglobin 36.5 pg (27.0-31.0); Mean Platelet Volume 9.2 fL (7.4-10.4); Platelet Count 196 thou/uL (130-400); Red Blood Cell (RBC) Count 2.78 mill/uL (4.70-6.10); White Blood Cell (WBC) Count 8.6 thou/uL (4.8-10.8)
[2019-02-18] MEDS: Amiodarone 200 MG TAB PO SCH (09:27)
[2019-02-18] MEDS: Midodrine HCl 5 MG TAB PO SCH ×3 (09:27→20:48)
[2019-02-18] MEDS: Saccharomyces boulardii 250 MG CAP PO SCH (09:27)
[2019-02-18] MEDS: Doxycycline 100 MG CAP PO SCH ×2 (09:27→20:47)
[2019-02-18] MEDS: Aspirin 81 mg Enteric Coated Tablet PO SCH (09:27)
[2019-02-18] MEDS: Apixaban 2.5 MG TAB PO SCH ×2 (09:28→20:47)
[2019-02-18] MEDS: Amoxicillin/Potassium Clav 250 MG TAB PO SCH ×2 (09:28→20:47)
--- NOTE | 2019-02-18 10:15 | PRG ---
DATE OF SERVICE: SUBJECTIVE: Mr. Chaudhary is a 78-year-old white male with ESRD and followed up by the Renal Service and continue to have his maintenance hemodialysis. He is due for dialysis this morning. He voices no new complaints. He denies any chest pain or shortness of breath. He was initially admitted for fever and chills. Empiric IV antibiotics has been given. He is feeling better. OBJECTIVE: VITAL SIGNS: Blood pressure 104/62, heart rate 60, respiratory rate 20, temperature 97.9, pulse ox 97%. GENERAL: Awake, alert, comfortable, not in distress. SKIN: Adequate turgor. HEENT: Pinkish conjunctivae. Anicteric sclerae. NECK: No neck mass. No carotid bruits. No JVD. CHEST: No deformities. LUNGS: Decreased breath sounds. HEART: Normal sinus rhythm. No murmurs. No gallops. No rubs. ABDOMEN: Globular, soft, nontender. No masses. EXTREMITIES: Positive for edema. No deformities. MEDICATIONS: Medications of February 18, 2019, was reviewed. LABORATORY DATA: Laboratories of February 18, 2019; white count 8.6, hemoglobin 10.2. Sodium 140, potassium 3.6, chloride 100, carbon dioxide 29, BUN 45, creatinine 5.83, glucose 91, calcium 9.0. Chest x-ray of February 18, 2019, showed left pleural effusion with adjacent infiltrate/atelectasis. ASSESSMENT AND PLAN: 1. Fever and chills-presumptive pneumonia, currently on p.o. antibiotics. Clinically improving. 2. End-stage renal disease, stable. Continue current Monday, Monday, and Monday hemodialysis. Again, fluid removal only as tolerated by the patient. Overall, agree with current management. Job ID: [id number]
--- NOTE | 2019-02-18 15:16 | PDOC.PN ---
- Subjective Encounter Start Date: 02/18/19 Encounter Start Time: 11:14 Subjective: Seen and examined . No new problem. Feeling better. -: Denied chest pain, fever or dizziness. -: For HD today. - Objective Resuscitation Status - Order Detail: 02/15/19 22:47 Resuscitation Status Routine Resuscitation Status: FULL: Full Resuscitation Vital Signs & Weight: Vital Signs (12 hours) Temp Pulse Resp BP BP Pulse Ox 02/18/19 08:00 97.9 F 60 20 104/62 97 02/18/19 04:49 98.2 F 59 L 18 94/54 L 96 Weight Weight 219 lb Most Recent Monitor Data Heart Rate from ECG 62 NIBP 129/54 NIBP BP-Mean 79 Respiration from ECG 18 SpO2 98 I&O: 02/17/19 02/18/19 02/19/19 06:59 06:59 06:59 Intake Total 400 720 480 Output Total 75 150 Balance 325 570 480 Result Diagrams: 02/18/19 07:59 02/17/19 06:38 Phys Exam - Physical Examination Constitutional: NAD HEENT: moist MMs Neck: no JVD, supple Respiratory: no wheezing, no rales, no rhonchi, clear to auscultation bilateral Cardiovascular: RRR Gastrointestinal: soft, non-tender, no distention, positive bowel sounds mild bilateral leg edema Neurological: moves all 4 limbs ambulant Psychiatric: A&O x 3 Dx/Plan (1) Gram-negative bacteremia Code(s): R78.81 - BACTEREMIA Status: Acute (2) Sepsis Code(s): A41.9 - SEPSIS, UNSPECIFIED ORGANISM Status: Acute (3) Pleural effusion, left Code(s): J90 - PLEURAL EFFUSION, NOT ELSEWHERE CLASSIFIED Status: Acute (4) Pneumonia Code(s): J18.9 - PNEUMONIA, UNSPECIFIED ORGANISM Status: Acute (5) Demand ischemia of myocardium Code(s): I24.8 - OTHER FORMS OF ACUTE ISCHEMIC HEART DISEASE Status: Acute (6) Chronic systolic CHF (congestive heart failure) Code(s): I50.22 - CHRONIC SYSTOLIC (CONGESTIVE) HEART FAILURE Status: Acute (7) Atrial fibrillation, chronic Code(s): I48.2 - CHRONIC ATRIAL FIBRILLATION Status: Chronic (8) Chronic anticoagulation Code(s): Z79.01 - CHCF (CURRENT) USE OF ANTICOAGULANTS Status: Chronic Comment: Coumadin therapeutic again (9) Ischemic cardiomyopathy Code(s): I25.5 - ISCHEMIC CARDIOMYOPATHY Status: Chronic Comment: s/p AICD in the past.s/p BiV Pacer upgrade 02/23/17 (10) Hypotension Status: Resolved Qualifiers: Hypotension type: hemodialysis-associated hypotension Qualified Code(s): I95.3 - Hypotension of hemodialysis - Plan Patient has been afebrile on augmentin. Will add doxycycline for atypicals -: Await microbial ID and susceptibility. -: HD as per Nephrology. -: Continue other treatments * .
[2019-02-18] MEDS: Atorvastatin Calcium 20 MG TAB PO SCH (20:47)
[2019-02-18] MEDS: Tamsulosin HCl 0.4 MG CAP PO SCH (20:48)
[2019-02-19 06:16] LABS: #Eosinphils 0.4 thou/uL (0.0-0.7); #Lymphocytes 1.5 thou/uL (1.20-3.40); #Monocytes 0.6 thou/uL (0.11-0.59); #Neutrophils 3.8 thou/uL (1.40-6.50); %Basophils 0.1 % (0.0-1.0); %Eosinophils 5.7 % (0.0-10.0); %Lymphocytes 23.9 % (21.0-51.0); %Monocytes 10.1 % (0.0-10.0); %Neutrophils 60.2 % (42.0-75.0); Hemoglobin 10.2 g/dL (14.0-18.0); Mean Corpuscular HGB CONC 32.5 g/dL (32.0-36.0); Mean Corpuscular Hemoglobin 35.9 pg (27.0-31.0); Mean Platelet Volume 8.5 fL (7.4-10.4); Platelet Count 182 thou/uL (130-400); RBC Distribution Width 12.9 % (11.5-14.5); Red Blood Cell (RBC) Count 2.84 mill/uL (4.70-6.10); White Blood Cell (WBC) Count 6.3 thou/uL (4.8-10.8)
[2019-02-19] MEDS: Amoxicillin/Potassium Clav 250 MG TAB PO SCH ×2 (07:58→20:33)
[2019-02-19] MEDS: Apixaban 2.5 MG TAB PO SCH ×2 (07:58→20:33)
[2019-02-19] MEDS: Doxycycline 100 MG CAP PO SCH ×2 (07:58→20:33)
[2019-02-19] MEDS: Midodrine HCl 5 MG TAB PO SCH ×3 (07:58→20:33)
[2019-02-19] MEDS: Amiodarone 200 MG TAB PO SCH (07:59)
[2019-02-19] MEDS: Aspirin 81 mg Enteric Coated Tablet PO SCH (07:59)
[2019-02-19] MEDS: Saccharomyces boulardii 250 MG CAP PO SCH (07:59)
--- NOTE | 2019-02-19 08:30 | PRG ---
DATE OF SERVICE: 02/19/2019 SERVICE: Renal Medicine SUBJECTIVE: Mr. Chaudhary is a 78-year-old white male with known history of ESRD and followed by the Renal Service for his maintenance hemodialysis. He underwent hemodialysis yesterday. His treatment was shortened to 3 hours due to cramping. This morning, he voices no new complaints. He denies any chest pain or shortness of breath. Please note, he was admitted for presumptive pneumonia/fever and chills. Doing better, currently on p.o. antibiotics. Blood cultures showed a gram-negative patrick in 1/2 blood cultures. Sensitivity is still currently pending. OBJECTIVE: VITAL SIGNS: Blood pressure 114/65 with a heart rate of 62, respiratory rate 16, temperature 97.6, and pulse ox 97%. GENERAL: Noted to be awake, alert, comfortable, not in overt distress. SKIN: Adequate turgor. HEENT: He has a pinkish conjunctivae. Anicteric sclerae. NECK: No neck mass. No carotid bruits. No JVD. CHEST: No deformities. LUNGS: Clear breath sounds. HEART: Normal sinus rhythm. No murmur. No gallops. No rubs. ABDOMEN: Globular, soft, and nontender. No masses. EXTREMITIES: No edema. No deformities. MEDICATIONS: Medications of February 19, 2019, was reviewed. LABORATORY DATA: Laboratories of February 19, 2019; white count 6.2, hemoglobin 10.2. Sodium 140, potassium 3.6, chloride 100, carbon dioxide 29, BUN 45, creatinine 5.83, glucose 91, and calcium 9. ASSESSMENT AND PLAN: 1. Left lower lobe pneumonia - clinically improved. Blood culture did show gram-negative rods. Sensitivities pending. He is currently on empiric p.o. antibiotics - on Augmentin and doxycycline. 2. End-stage renal disease, stable. We will continue current Monday, Monday, and Monday hemodialysis. Fluid removal only as tolerated. Overall, agree with current management. Job ID: [id number]
--- NOTE | 2019-02-19 14:07 | PRG ---
DATE OF SERVICE: 02/19/2019 SERVICE: Pulmonary Medicine. INTERVAL HISTORY: The patient is doing okay from respiratory standpoint. Breathing comfortably. Denies any current chest pain, fevers, chills, nausea, or vomiting. He is down to room air. He had no complaints other than a little bit of a cough. He does not bring up any sputum with this. PHYSICAL EXAMINATION: VITAL SIGNS: Afebrile, pulse 62, blood pressure 114/65, respirations 16, and saturation 97% on room air. GENERAL: The patient is awake and alert, in no apparent distress. LUNGS: Decent air entry. Dependent crackles are present on the left. No prolonged expiratory phase or wheezing is appreciated. HEART: Normal rate and regular. ABDOMEN: Soft, nontender, and nondistended. Bowel sounds are positive. MUSCULOSKELETAL: No cyanosis or clubbing. No pitting in the bilateral lower extremities. NEUROLOGIC: Grossly nonfocal. LABORATORY DATA: WBC 6.3, hemoglobin 10.2, and platelets 182,000. Creatinine 5.83. Basic metabolic profile is otherwise unremarkable. One of two blood cultures growing gram-negative rods. Influenza A and B are negative. IMAGING STUDIES: Chest x-ray demonstrates left pleural effusion with adjacent atelectasis versus infiltrate. ASSESSMENT: 1. Acute hypoxic respiratory failure. 2. Health care associated pneumonia. 3. There is not a pleural effusion. The chest x-ray is suggestive of it, but the CT on presentation did not have any fluid in the pleural space. DISCUSSION AND PLAN: The patient is doing really well from respiratory perspective. At this point, he is stable for transition out of the hospital. He will need to repeat a chest x-ray in the outpatient setting in 4 to 6 weeks once he returns to euvolemia. Antibiotic course of 7 to 10 days more than adequate. At this point , he has no further inpatient requirements for Pulmonary/Critical Care opinion, and I will sign off. Please call with additional questions or concerns through time. Job ID: [id number] [facility]
--- NOTE | 2019-02-19 16:01 | PDOC.PN ---
- Subjective Encounter Start Date: 02/19/19 Encounter Start Time: 10:59 Subjective: Seen and examined. -: No new complaints. -: Denied fever, SOB or cough. - Objective Resuscitation Status - Order Detail: 02/15/19 22:47 Resuscitation Status Routine Resuscitation Status: FULL: Full Resuscitation Vital Signs & Weight: Vital Signs (12 hours) Temp Pulse Resp BP Pulse Ox 02/19/19 14:59 97.6 F 62 16 107/62 97 02/19/19 08:00 97 02/19/19 07:31 97.6 F 62 16 114/65 97 02/19/19 04:00 97.8 F 62 18 112/65 98 Weight Weight 219 lb Most Recent Monitor Data Heart Rate from ECG 62 NIBP 129/54 NIBP BP-Mean 79 Respiration from ECG 18 SpO2 98 I&O: 02/18/19 02/19/19 02/20/19 06:59 06:59 06:59 Intake Total 720 1440 Output Total 150 Balance 570 1440 Result Diagrams: 02/19/19 05:53 02/17/19 06:38 Phys Exam - Physical Examination Constitutional: NAD HEENT: PERRLA, moist MMs Neck: supple good air entry with mildly decrease air entry left basewith few crackles Cardiovascular: RRR Gastrointestinal: soft, non-tender, no distention, positive bowel sounds mild to moderate bilateral leg edema Neurological: non-focal, moves all 4 limbs ambulant. Tremor ++ mostly with intention and stress Psychiatric: A&O x 3 Dx/Plan (1) Gram-negative bacteremia Code(s): R78.81 - BACTEREMIA Status: Acute Comment: Gram negative rods noted in 1/2 bottles. (2) Sepsis Code(s): A41.9 - SEPSIS, UNSPECIFIED ORGANISM Status: Acute Comment: Resolved. (3) Pleural effusion, left Code(s): J90 - PLEURAL EFFUSION, NOT ELSEWHERE CLASSIFIED Status: Acute Comment: chronic but loculated. ? Infectious or related to ESRD. (4) Pneumonia Code(s): J18.9 - PNEUMONIA, UNSPECIFIED ORGANISM Status: Acute (5) Demand ischemia of myocardium Code(s): I24.8 - OTHER FORMS OF ACUTE ISCHEMIC HEART DISEASE Status: Acute (6) Chronic systolic CHF (congestive heart failure) Code(s): I50.22 - CHRONIC SYSTOLIC (CONGESTIVE) HEART FAILURE Status: Acute (7) Atrial fibrillation, chronic Code(s): I48.2 - CHRONIC ATRIAL FIBRILLATION Status: Chronic (8) Chronic anticoagulation Code(s): Z79.01 - USP (CURRENT) USE OF ANTICOAGULANTS Status: Chronic Comment: On Eliquis. (9) Ischemic cardiomyopathy Code(s): I25.5 - ISCHEMIC CARDIOMYOPATHY Status: Chronic Comment: s/p AICD in the past.s/p BiV Pacer upgrade 02/23/17 (10) Hypotension Status: Resolved Qualifiers: Hypotension type: hemodialysis-associated hypotension Qualified Code(s): I95.3 - Hypotension of hemodialysis Comment: Improved. 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 - Plan Continue current antibiotic augmentin anddoxycycline. -: Await microbe ID and susceptibility -: Consult ID. -: care plan discussed with patient. -: HD as per Nephrology. * .
--- NOTE | 2019-02-19 19:01 | CON ---
DATE OF CONSULTATION: 02/19/2019 REASON FOR CONSULTATION: Positive blood cultures. HISTORY OF PRESENT ILLNESS: A 78-year-old patient, whom I had seen in 2016 when he presented with a history of end-stage renal disease, hypertension, prior CVAs, cardiomyopathy with AICD in place. At that time, he had a hemodialysis catheter tunneled in the right IJ position and he had some exit site changes with erythema. He was treated with antimicrobial therapy, eventually had an AV fistula placed, which has been used at this moment for his hemodialysis. He presents to the hospital this time with new onset of fever and pain in the chest area, dull in nature, radiating to the back. He had some dysuria in the first 2 days after admission. His temperature elevation was maximum of 102.9. His blood pressure on arrival was 86/39 and initial findings included are normal heart exam and the lungs with diminished breath sounds in the lower bases. The patient had a chest CT which showed no evidence of aortic dissection and there was a loculated left pleural effusion which is unchanged from the findings in July 2016. The patient was given Zosyn for about 3 days and then transition to oral Augmentin. His white cell count has diminished from 20.5 to 6.3, hemoglobin is at 10.2, platelets 182, and now we have 1 out of 2 sets of blood cultures positive for gram-negative patrick. Currently, Mr. Chaudhary is sitting in a chair at the bedside. He appears awake, alert, and oriented. Denies any headaches. No visual symptoms, sore throat, odynophagia, dysphagia, chest pain has improved. The back pain has improved. He has no abdominal pain or diarrhea. Dysuria has improved. He still has pretty good urinary output. No joint symptoms. No skin disorder. PAST MEDICAL HISTORY: Includes CHF, EF in 15% range with AICD in place, bypass graft surgery, chronic atrial fibrillation on anticoagulation, end-stage renal disease on hemodialysis with an AV fistula, prior CVAs, and ventricular aneurysm resection. PAST SURGICAL HISTORY: Also includes appendectomy and AICD placement. FAMILY HISTORY: Noncontributory. SOCIAL HISTORY: He dips tobacco, but does not smoke. No alcoholic beverage use. . ALLERGIES: TETANUS VACCINE. CURRENT MEDICATIONS: 1. Tylenol. 2. Cordarone. 3. Augmentin. 4. Eliquis. 5. Ecotrin. 6. Lipitor. 7. Vibramycin. 8. Primatene. PHYSICAL EXAMINATION: VITAL SIGNS: Temperature has been normal through the hospital stay. BP 107/62, pulse 62, respirations 16, and O2 saturation 97%. SKIN: He has a functioning AV fistula left upper extremity and peripheral IV access and is urinating in the urinal. No lymphadenopathy. HEENT: Ocular movements conjugate. Oral cavity with numerous missing teeth. Oral mucosa is normal. NECK: Supple. No jugular vein distention or carotid bruits. LUNGS: With diminished breath sounds on the left base with inspiratory crackles. HEART: S1 and S2 with irregular rate with a soft aortic murmur. AICD pocket site appears normal ABDOMEN: Soft, not distended or tender. No ascites. No bladder distention. No organomegaly. EXTREMITIES: No joint inflammatory activity. The patient is able to move extremities equally. Plantar response are flexor. Pulse 1+ in dorsalis pedis. NEUROLOGIC: He is awake and oriented. He does have a resting tremor in the right upper extremity. A little bit of lack of facial expression suggestive of Parkinson disease. LABORATORY DATA: White cell count is now at 6.3, hemoglobin 10, and platelets 182,000. Differential has improved over the past few days and blood cultures 1 out of 2 sets with gram-negative patrick, yet to be identified and susceptibility tested. Influenza A and B were negative. ASSESSMENT: 1. Atrial fibrillation with prior cerebrovascular accidents, ischemic cardiomyopathy with AICD in place, end-stage renal disease on hemodialysis. Chest pain and back pain. Some dysuria. 2. Gram-negative patrick bacteremia. DISCUSSION: Differential diagnosis includes a respiratory tract infection versus a vascular infection, endocarditis, colonization of the AICD lead or urinary tract infection with bacteremia. Spondylodiskitis would be another possibility, but the pain has pretty much resolved in the back area at this time. I would advise awaiting for the full identification and susceptibility of the organism. The nature of the organism may give us some clues as to where it is coming from. For example, if he were to have Haemophilus species bacteremia, then an upper respiratory tract infection would be more likely. In the other hand, if there was an E. coli or Klebsiella, then the either urinary tract or intraabdominal source would be more likely. The left chest changes are chronic and unchanged and I do not think that they are contributing to the current presentation. If only 1 out of 2 sets remain positive, then colonization of the AICD lead with bacteremia would be less likely. Job ID: [id number]
[2019-02-19] MEDS: Tamsulosin HCl 0.4 MG CAP PO SCH (20:33)
[2019-02-19] MEDS: Atorvastatin Calcium 20 MG TAB PO SCH (20:33)
[2019-02-20] MEDS: Amoxicillin/Potassium Clav 250 MG TAB PO SCH (08:08)
[2019-02-20] MEDS: Midodrine HCl 5 MG TAB PO SCH ×2 (08:09→15:12)
[2019-02-20] MEDS: Doxycycline 100 MG CAP PO SCH ×2 (08:09→17:48)
[2019-02-20] MEDS: Apixaban 2.5 MG TAB PO SCH (08:09)
--- NOTE | 2019-02-20 08:55 | PDOC.PN ---
- Subjective Encounter Start Date: 02/20/19 Encounter Start Time: 08:53 Subjective: No new problem -: Awaiting blood culture result. - Objective Resuscitation Status - Order Detail: 02/15/19 22:47 Resuscitation Status Routine Resuscitation Status: FULL: Full Resuscitation Vital Signs & Weight: Vital Signs (12 hours) Temp Pulse Resp BP Pulse Ox 02/20/19 07:58 97.9 F 63 18 119/70 98 Weight Weight 219 lb Most Recent Monitor Data Heart Rate from ECG 62 NIBP 129/54 NIBP BP-Mean 79 Respiration from ECG 18 SpO2 98 I&O: 02/19/19 02/20/19 02/21/19 06:59 06:59 06:59 Intake Total 1440 1080 Balance 1440 1080 Result Diagrams: 02/19/19 05:53 02/17/19 06:38 Phys Exam - Physical Examination Constitutional: NAD HEENT: moist MMs Neck: no JVD, supple Respiratory: no rales fair air entry bilaterally Cardiovascular: RRR Gastrointestinal: soft, non-tender, no distention, positive bowel sounds Musculoskeletal: pulses present moderate bilateral leg edema Neurological: non-focal, moves all 4 limbs Psychiatric: A&O x 3 Dx/Plan (1) Gram-negative bacteremia Code(s): R78.81 - BACTEREMIA Status: Acute Comment: Gram negative rods noted in 1/2 bottles. (2) Sepsis Code(s): A41.9 - SEPSIS, UNSPECIFIED ORGANISM Status: Acute Comment: Resolved. (3) Pleural effusion, left Code(s): J90 - PLEURAL EFFUSION, NOT ELSEWHERE CLASSIFIED Status: Acute Comment: chronic but loculated. ? Infectious or related to ESRD. (4) Pneumonia Code(s): J18.9 - PNEUMONIA, UNSPECIFIED ORGANISM Status: Acute (5) Demand ischemia of myocardium Code(s): I24.8 - OTHER FORMS OF ACUTE ISCHEMIC HEART DISEASE Status: Acute (6) Chronic systolic CHF (congestive heart failure) Code(s): I50.22 - CHRONIC SYSTOLIC (CONGESTIVE) HEART FAILURE Status: Acute (7) Atrial fibrillation, chronic Code(s): I48.2 - CHRONIC ATRIAL FIBRILLATION Status: Chronic (8) Chronic anticoagulation Code(s): Z79.01 - LICENSED PROFESSIONAL COUNSELOR (CURRENT) USE OF ANTICOAGULANTS Status: Chronic Comment: On Eliquis. (9) Ischemic cardiomyopathy Code(s): I25.5 - ISCHEMIC CARDIOMYOPATHY Status: Chronic Comment: s/p AICD in the past.s/p BiV Pacer upgrade 02/23/17 (10) Hypotension Status: Resolved Qualifiers: Hypotension type: hemodialysis-associated hypotension Qualified Code(s): I95.3 - Hypotension of hemodialysis Comment: Resolved. 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 - Plan Continue current antibiotics -: Awaiting blood culture microbe ID and susceptibility asrecommended by ID -: HD asper Nephrology. * .
--- NOTE | 2019-02-20 10:19 | PRG ---
DATE OF SERVICE: 02/20/2019 SERVICE: Renal Medicine. SUBJECTIVE: Mr. Chaudhary is a 78-year-old white male with ESRD and admitted for fever and chills. He had a presumptive diagnosis of pneumonia. Blood culture showed a gram-negative bacilli in 1/2 cultures. He is on empiric antibiotics. ID consult has been done. Currently, we are awaiting for full identification of this gram-negative bacilli. No other complaints today. No chest pain or shortness of breath. He is currently undergoing dialysis. I am at the bedside supervising his dialysis. OBJECTIVE: VITAL SIGNS: Blood pressure 119/70, heart rate 63, respiratory rate 18, temperature 97.9, and pulse ox 98%. GENERAL: Awake, alert, comfortable, not in distress. SKIN: Adequate turgor. HEENT: Pinkish conjunctivae. Anicteric sclerae. NECK: No neck mass. No carotid bruits. No JVD. CHEST: No deformities. LUNGS: Decreased breath sounds. HEART: Normal sinus rhythm. No murmurs. No gallops. No rubs. ABDOMEN: Globular, soft, and nontender. No masses. EXTREMITIES: No edema. No deformities. MEDICATIONS: Medications of February 20, 2019, reviewed. LABORATORY DATA: Laboratories of February 19, 2019; white count 6.3, hemoglobin 10.2. On February 17, 2019; sodium 140, potassium 3.6, chloride 100, carbon dioxide 29, BUN 45, creatinine 5.83, glucose 91, and calcium 9. ASSESSMENT AND PLAN: 1. End-stage renal disease, stable. Continue current Monday, Monday, and Monday dialysis. Fluid removal only as tolerated. 2. Pneumonia - gram-negative patrick bacilli on blood culture - empiric antibiotics. The patient currently on Augmentin and doxycycline. Awaiting full identification of the gram-negative bacilli. 3. Chronic hypotension, on midodrine supplementation. 4. Anemia, continuing weekly Epogen. Overall, agree with current management. Job ID: [id number]
[2019-02-20] MEDS: Saccharomyces boulardii 250 MG CAP PO SCH (13:12)
[2019-02-20] MEDS: Amiodarone 200 MG TAB PO SCH (13:12)
[2019-02-20] MEDS: Aspirin 81 mg Enteric Coated Tablet PO SCH (13:12)
[2019-02-20 15:13] VITALS: BP 110/64
[2019-02-20 17:54] VITALS: TEMP 97.8
[2019-02-22 16:04] LABS: Ref Lab Test Ordered SUSCEPTIBILITY; Reference Lab Name LABCORP
[2019-02-24] MEDS ORDERED: Epoetin (ESRD) 20,000 UNITS/ML SC SCH (13:00)
== END 2019-02-20 18:00 | disposition home or self-care (01) | DRG 871 ==
LOC: ERS 19:18 → IMCU/EMU 21:28 → T4-A 02-17 20:32
PROVIDERS: ADMIT Internal Medicine; ATTEND Internal Medicine
PROC: 5A1D70Z Performance of Urinary Filtration, Intermittent, Less than 6 Hours Per Day (ICD-10-PCS; principal; 2019-02-15)
DX: A41.59 Other Gram-negative sepsis (principal); J15.6 Pneumonia due to other Gram-negative bacteria; N18.6 End stage renal disease; I13.2 Hypertensive heart and chronic kidney disease with heart failure and with stage 5 chronic kidney disease, or end stage renal disease; I24.8 Other forms of acute ischemic heart disease; I50.22 Chronic systolic (congestive) heart failure; Z66 Do not resuscitate; Z95.0 Presence of cardiac pacemaker; I25.5 Ischemic cardiomyopathy; I25.10 Atherosclerotic heart disease of native coronary artery without angina pectoris; I48.2 Chronic atrial fibrillation; E78.00 Pure hypercholesterolemia, unspecified; R13.10 Dysphagia, unspecified; N40.0 Benign prostatic hyperplasia without lower urinary tract symptoms; G25.2 Other specified forms of tremor; D63.1 Anemia in chronic kidney disease; I95.3 Hypotension of hemodialysis; T50.3X5A Adverse effect of electrolytic, caloric and water-balance agents, initial encounter; Z79.01 Long term (current) use of anticoagulants; Z95.810 Presence of automatic (implantable) cardiac defibrillator; Z99.2 Dependence on renal dialysis; Z95.1 Presence of aortocoronary bypass graft; Z90.49 Acquired absence of other specified parts of digestive tract; Z88.7 Allergy status to serum and vaccine; Z79.82 Long term (current) use of aspirin; Z79.899 Other long term (current) drug therapy
CPT/HCPCS: 36415; 71045; 71275; 80048; 80053; 80202; 82550; 82553; 83605; 83690; 83880; 84484; 85025; 87040; 87077; 87149; 87340; 87804; 93005; 94760; 96365; 96366; 96367; J2543; J3370; J3490; J7050; Q4081; Q9966

== ENCOUNTER 2019-03-26 11:12 | Outpatient (CLI) | payer MEDICARE, MEDICAID ==
[2019-03-26 12:16] LABS: Hemoglobin 11.1 g/dL (14.0-18.0); Mean Corpuscular HGB CONC 33.2 g/dL (32.0-36.0); Mean Corpuscular Hemoglobin 36.3 pg (27.0-31.0); Mean Platelet Volume 8.2 fL (7.4-10.4); Platelet Count 184 thou/uL (130-400); RBC Distribution Width 12.6 % (11.5-14.5); Red Blood Cell (RBC) Count 3.05 mill/uL (4.70-6.10); White Blood Cell (WBC) Count 8.2 thou/uL (4.8-10.8)
[2019-03-26 12:19] LABS: INR-International Normal Ratio 1.4; PTT 40.3 SEC (22.9-36.1); Prothrombin Time 16.8 SEC (12.0-14.7)
[2019-03-26 12:41] LABS: Anion Gap 17 mmol/L (10-20); BUN (Urea Nitrogen) 45 mg/dL (8.4-25.7); Calc. Creatinine Clearance 0 mL/min (70-130); Calcium 9.4 mg/dL (7.8-10.44); Carbon Dioxide 31 mmol/L (23-31); Chloride 99 mmol/L (98-107); Estimated GFR-MDRD 10; Glucose 99 mg/dL (83-110); Potassium 3.5 mmol/L (3.5-5.1); Sodium 143 mmol/L (136-145)
== END 2019-03-26 11:13 | disposition home or self-care (01) ==
LOC: LABBT 11:12
PROVIDERS: ATTEND Internal Medicine Cardiovascular Disease
DX: Z01.818 Encounter for other preprocedural examination (principal)
CPT/HCPCS: 80048; 85027; 85610; 85730; 93005; 93010

== ENCOUNTER → 2019-03-28 | Day surgery (SDC) | payer MEDICARE, MEDICAID ==
[2019-03-26 11:51] VITALS: BMI 30.7
[~2019-03-28] MED LIST changes: -ISOVUE-370 76%-LOCM 1 ML ONE; +Ketamine 50 MG/ML (10ML VIAL) ONE; +PROPOFOL 20 ML ONE
--- NOTE | 2019-03-28 12:31 | ECHO ---
REFERRING PHYSICIAN: Dr. Alfredo Kaye REASON FOR PROCEDURE: The patient is a 78-year-old male with prior history of ischemic cardiomyopathy. Previously severely reduced LVEF at 15-20%, persistent atrial fibrillation and end-stage renal disease on dialysis. He i s here for a PRABHU to evaluate clot burden on a somewhat suboptimal Eliquis dose prior to planned cardi oversion. PROCEDURE: The patient received Propofol by Anesthesia specialist. After adequate level of sedation achieved, a standard transesophageal echocardiogram probe was passed into the esophagus without diff iculty. Patient tolerated the procedure well, no complications noted. RESULTS: Left atrium is moderately enlarged about 5.2 cm in horizontal diameter. The left atrial appendage we ll visualized and contains very heavy spontaneous echo contrast, possible early formation of clots ca nnot be ruled out. The left atrial appendage velocities are severely reduced. Four out of four pulmon anastasia veins were well seen. Intra-atrial septum is free of defect. The mitral valve has only mild regu rgitation. The left ventricular systolic function is moderately reduced. LVEF estimated at about 40% with global hypokinesis. Right sided chambers has a pacemaker wires in place. No pericardial effusion is seen. Tricuspid valve has mild regurgitation. The aortic valve has three leaflets without regurg itation or stenosis. The pulmonary valve is borderline visualized and appears to be normal. Right nicki ed chambers are minimally dilated. The visualized portion of ascending and descending aorta without aneurysm, dissection or significant atheroma. CONCLUSION: 1. Heavy spontaneous echo contrast visualized in the left atrial appendage, possibly early formation of clots cannot be ruled out. 2. Moderate left atrial enlargement. 3. Mild mitral regurgitation and tricuspid regurgitation. 4. Moderately reduced LVEF about 40% noted. 5. Pacemaker/ICD wires in the right sided chambers in appropriate location. PLAN: At this point, I would hold off anticoagulation and increase Eliquis to full 5 mg dose twice a day, m onitor for bleeding and strokes. Consider repeat PRABHU cardioversion in a month or six weeks.
== END ==
LOC: CCL 05:35
PROVIDERS: ATTEND Internal Medicine Cardiovascular Disease
PROC: B245ZZ4 Ultrasonography of Left Heart, Transesophageal (ICD-10-PCS; principal; 2019-03-28)
DX: I48.1 Persistent atrial fibrillation (principal); I25.5 Ischemic cardiomyopathy; I08.1 Rheumatic disorders of both mitral and tricuspid valves; N18.6 End stage renal disease; I50.22 Chronic systolic (congestive) heart failure; I25.10 Atherosclerotic heart disease of native coronary artery without angina pectoris; Z79.01 Long term (current) use of anticoagulants; Z79.82 Long term (current) use of aspirin; Z79.899 Other long term (current) drug therapy; Z88.7 Allergy status to serum and vaccine; Z95.1 Presence of aortocoronary bypass graft; Z95.810 Presence of automatic (implantable) cardiac defibrillator; Z98.890 Other specified postprocedural states
CPT/HCPCS: 92960; 93312; J2704

== ENCOUNTER → 2019-04-22 | Day surgery (SDC) | payer MEDICARE, MEDICAID ==
[2019-04-18 11:39] VITALS: BMI 30.7
== END ==
LOC: CCL 06:00
PROVIDERS: ATTEND Internal Medicine Cardiovascular Disease
DX: I48.91 Unspecified atrial fibrillation (principal); E78.5 Hyperlipidemia, unspecified; I10 Essential (primary) hypertension; I42.9 Cardiomyopathy, unspecified; N28.9 Disorder of kidney and ureter, unspecified; Z86.73 Personal history of transient ischemic attack (TIA), and cerebral infarction without residual deficits; Z79.01 Long term (current) use of anticoagulants; Z79.82 Long term (current) use of aspirin; Z79.899 Other long term (current) drug therapy; Z88.7 Allergy status to serum and vaccine; Z53.9 Procedure and treatment not carried out, unspecified reason; Z95.1 Presence of aortocoronary bypass graft; Z95.810 Presence of automatic (implantable) cardiac defibrillator; Z99.2 Dependence on renal dialysis; Z98.890 Other specified postprocedural states

== ENCOUNTER 2019-05-14 17:08 | Observation (INO) | payer MEDICARE, MEDICAID ==
--- NOTE | 2019-05-14 19:20 | PDOC.FPRHP ---
- History of Present Illness Chief Complaint: Fall, Weakness History of Present Illness: Patient is a 78 yo male with PMHx of CKD on HD, CHF, and AFib who presents today after falling earlier this morning. He has experienced several falls over the past month for which he has been seen at the ER in [place] 2-3x. He usually falls during the 1st 24 hours after he has had a dialysis treatment. He is aware during all of his falls and denies any loss of consciousness prior to falls. He says he usually feels extremely weak and knows he is about to fall so he shouts out to family members he is falling/has fallen. Additionally patient was treated for a UTI approx. 2 weeks ago. It is unclear if he completed the ABx course. A urine culture on 05/08/19 showed no growth. Patient's reports that she noticed blood in patient's urine yesterday and today. Patient denies dysuria, frequency. Patient usually sees Dr. Headley, Cardiology for management of his pacemaker and chronic Afib. Pacemaker was placed in approx. 2016. At that time cardioversion procedure was considered but abandoned after RPABHU showed possible clots. He recently had his pacemaker interrogated about 1 month ago and it was normal at that time. Pacemaker interrogation in the ER today also showed that the device was working normally. He was started on Amiodarone about 2 months ago. Subsequently he developed a tremor in his right arm which may or may not be related. The patient also usually sees Dr. Huff, Nephrology for management of his chronic kidney disease and dialysis. He has been on dialysis since about 2017 and goes to dialysis [facility]. Patient was told by Dr. Huff that he has chronic anemia, and that he should take iron. However he has not started this. ED Course: Patient was initially seen in [place] ER where labs and head CT were obtained. Head CT was negative for bleeding or any acute pathology. Labs demonstrated Hgb 9.7, Troponin 0.46, and BNP 2200. Patient was transferred to [place] ER for pacemaker interrogation and further workup. Pacemaker interrogation completed in ER showed no issues with device or lead performance. Patient was then admitted to [facility] for Telemetry placement. - Allergies/Adverse Reactions Allergies Allergy/AdvReac Type Severity Reaction Status Date / Time Tetanus Vaccines and Toxoid Allergy MOUTH Verified 04/18/19 11:40 SWELLING - Home Medications Medication Instructions Recorded Confirmed Type Amiodarone [Cordarone] 200 mg PO BID 02/16/19 05/14/19 History Apixaban [Eliquis] 5 mg PO BID 02/16/19 05/14/19 History Midodrine HCl 5 mg PO TID 02/16/19 05/14/19 History Pramipexole Di-HCl [Pramipexole 0.125 mg PO HS 02/16/19 05/14/19 History Dihydrochloride] Tamsulosin HCl [Flomax] 0.4 mg PO HS #30 cap 02/17/19 05/14/19 Rx Aspirin [Ecotrin] 81 mg PO DAILY 05/14/19 05/14/19 History Atorvastatin Calcium 40 mg PO DAILY 05/14/19 05/14/19 History - History PMHx: CKD on HD, HTN, HLD, Right UE tremor x 6 mo, OK in 2002, CVA x2 in 2015 PSHx: Pacemaker placement 2017, Appendectomy at unknown date Social: Tobacco dip x 40 years, rare EtOH use. Denies smoking, drug use. - Review of Systems General: reports: fatigue. denies: fever/chills Eyes: denies: vision changes Respiratory: denies: cough, congestion, shortness of breath Cardiovascular: reports: edema (swelling in bilateral lower extremities.). denies: chest pain Gastrointestinal: reports: constipation (chronic, uses Miralax regularly at home ). denies: nausea, vomiting, diarrhea Genitourinary: denies: incontinence, dysuria, polyuria Skin: reports: lesions (healing cut across right forehead/brow). denies: rashes , itching Musculoskeletal: reports: other (general weakness). denies: pain, tenderness, swelling Neurological: reports: other (Dizziness upon standing.) Psychological: denies: anxiety, depression - Vital signs BP: 100/64 HR: 63, paced RR: 16 Tmax: 97.7F Pox: 100% on RA Wt: 100 kg - Physical Exam Constitutional: NAD, awake, alert and oriented -Constitutional: appears chronically ill HEENT: EOMI, conjunctiva clear, grossly normal vision, grossly normal hearing Neck: supple, no JVD Heart: RRR, normal S1/S2, pulses present -Heart: 1+ pitting edema in bilateral lower extremities Lungs: CTAB, no respiratory distress, no wheezing Abdomen: soft, non-tender, bowel sounds present Musculoskeletal: normal structure, normal tone -Neurological: Resting tremor present in right hand and upper extremity Skin: good turgor, no jaundice -Skin: Healing lesion on right forehead, present from previous fall. Psychiatric: normal mood and affect, intact recent and remote memory -Psychiatric: Alert and oriented to person, place, time. Recent and remote memory intact. Appropriate mood and affect. Insight and judgment appropriate. FMR H&P: Results - Labs Lab results: Laboratory Tests 05/14/19 05/14/19 05/14/19 05/14/19 11:24 11:24 11:24 17:59 WBC 6.1 RBC 2.74 L Hgb 9.5 L Hct 28.6 L MCV 104.3 H MCH 34.6 H MCHC 33.2 RDW 13.0 Plt Count 149 MPV 8.8 Neutrophils % 58.6 Lymphocytes % 22.9 Monocytes % 13.7 H Eosinophils % 3.7 Basophils % 1.2 H Neutrophils # 3.6 Lymphocytes # 1.4 Monocytes # 0.8 H Eosinophils # 0.2 Basophils # 0.1 Polychromasia SLIGHT = 2-3 cells Macrocytosis SLIGHT = 6-15 cells PT 21.5 H INR 1.9 APTT 41.7 H Sodium 142 Potassium 4.1 Chloride 99 Carbon Dioxide 32 H Anion Gap 15 BUN 37 H Creatinine 5.19 H Estimated GFR (MDRD) 11 Glucose 79 L Calcium 8.8 Magnesium 2.1 Total Bilirubin 0.5 AST 21 ALT 17 Alkaline Phosphatase 94 CK-MB (CK-2) 1.1 Troponin I 0.045 H 0.031 H B-Natriuretic Peptide 2214.4 H Serum Total Protein 6.7 Albumin 3.6 Globulin 3.1 Albumin/Globulin Ratio 1.2 TSH 3rd Generation 4.5161 - EKG Interpretation EKG: Ventricular paced rhythm at 60 bpm - Radiology Interpretation Other Status: report reviewed by me (Pacemaker interrogation 05/14/19 showed no device or lead performance issues. On 05/14/19 at 1800 there were 10 treated atrial arrhythmias, 13 min, 36 sec, A=174 bpm, V=61bpm and the device delivered 14 sequences of Antitachycardia pacing. The most recent ventricular sensing episode was on 05/14/19 at 1115, 13 sec, A=167 bpm, V=75 bpm. There was possible intrathoracic fluid accumulation based on Optivol data. The device and leads appear to be functioning as programmed.) FMR H&P: A/P - Problem List (1) Multiple falls Current Visit: Yes Status: Acute Code(s): R29.6 - REPEATED FALLS (2) Pre-syncope Current Visit: Yes Status: Acute (3) Atrial fibrillation, chronic Current Visit: Yes Status: Chronic Code(s): I48.2 - CHRONIC ATRIAL FIBRILLATION (4) Chronic anticoagulation Current Visit: Yes Status: Chronic Code(s): Z79.01 - CUSTODIAL (CURRENT) USE OF ANTICOAGULANTS Comment: On Eliquis. (5) ESRD (end stage renal disease) on dialysis Current Visit: Yes Status: Chronic Code(s): N18.6 - END STAGE RENAL DISEASE ; Z99.2 - DEPENDENCE ON RENAL DIALYSIS (6) Ischemic cardiomyopathy Current Visit: Yes Status: Chronic Code(s): I25.5 - ISCHEMIC CARDIOMYOPATHY Comment: s/p AICD in the past.s/p BiV Pacer upgrade 02/23/17 (7) Anemia in chronic kidney disease (CKD) Current Visit: Yes Status: Acute Code(s): N18.9 - CHRONIC KIDNEY DISEASE, UNSPECIFIED; D63.1 - ANEMIA IN CHRONIC KIDNEY DISEASE (8) Heart failure with reduced ejection fraction Current Visit: Yes Status: Acute Code(s): I50.20 - UNSPECIFIED SYSTOLIC ( CONGESTIVE) HEART FAILURE (9) History of CVA (cerebrovascular accident) Current Visit: Yes Status: Acute Code(s): Z86.73 - PRSNL HX OF TIA (TIA), AND CEREB INFRC W/O RESID DEFICITS (10) Tremor of right hand Current Visit: Yes Status: Acute Code(s): R25.1 - TREMOR, UNSPECIFIED (11) Hematuria Current Visit: Yes Status: Acute Code(s): R31.9 - HEMATURIA, UNSPECIFIED Qualifiers: Hematuria type: unspecified type Qualified Code(s): R31.9 - Hematuria, unspecified - Plan 1. Multiple Falls--Patient will see Cardiology consult with Dr. Kaye and Nephrology consult with Dr. Huff in the morning for further evaluation for etiology of falls. He sees both these physicians normally as outpatient. Will hold Amiodarone for now per Dr. Hooker recommendation. 2. Presyncope--as above 3. Anemia in Chronic Kidney Disease--Will continue to monitor with AM CBC. May consider further workup on outpatient basis. 4. Tremor of right hand--Continue to monitor. Consider Parkinson disease vs. Amiodarone cause vs. idiopathic 5. Heart failure with reduced ejection fraction--Recent echo showed EF of 40%. Patient to see Cardiology in the morning. 6. Chronic Atrial Fibrillation--Has pacemaker placed with ventricular paced rhythm about 60 bpm. Pacemaker interrogated today showed no issue with device. Will continue Eliquis and ASA home meds. 7. End stage renal disease on hemodialysis--Patient due for next dialysis tomorrow. Dr. Huff is aware and will assess in the AM. Will monitor with CMP in AM. 8. History of CVA 9. Ischemic cardiomyopathy 10. Chronic anticoagulation--Will continue Eliquis home med. 11. Hematuria--Possible UTI considered. UA was ordered in ER with results pending. Will address with consideration of ABx when results received. Code Status: Cardiac only, DNI Diet: Renal with high protein, Heart Healthy, and Low Sodium VTE PPX: Eliquis, ASA, SCDs Disposition/LOS: Admitted to Observation on Telemetry, expected stay of <48 hours. D/C to home expected. FMR H&P: Upper Level - Pertinent history 78 y/o M PMHx ESRD on HD, chronic a-fib, HFrEF (EF 40%), Ischemic Cardiomyopathy presented to [place] ED for recurrent falls. The patient reports that over the past month he has started falling more frequently. He will start to feel weak and then suddenly falls. Denies any mechanical falls, denies any syncope. He doesn't miss dialysis and reports he last received it yesterday. Most of his falls are within 24 hours of dialysis and he reports that he feels more weak after dialysis. He also was started on amiodarone about 2 months ago and that is when he started falling more. He reports a tremor in his right hand for the past 6 months or so, but says that doesn't contribute to his falls. He walks with a walker when he is at home and with a cane out of the house. 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 Pertinent changes/additions are listed here. 1. Recurrent Falls 2/2 presyncope DDx: amiodarone side effect vs fluid shifts during dialysis vs vertigo vs cardiac arrythmia. The last one is less likely as pt is ventricularly paced. No electrolyte abnormalities or CT changes found. Spoke to Dr. Hooker who recommended holding amiodarone. -Will obs on telemetry -Will hold amio -Dr. Kaye with cardiology has been consulted, appreciate recs -Dr. Huff with nephrology has been consulted, appreciate recs -Fall precautions -Consult PT/OT 2. ESRD on HD Pt gets MWF dialysis -Dr. Huff with nephrology has been consulted, appreciate recs -Renally dose medications 3. HFrEF Last EF was 40% on PRABHU when pt being evaluated for possible cardioversion 2/2 chronic a-fib. This was not performed due to possible thrombus. AICD in place. -Strict I/O's -Fluid restrict 4. Chronic a-fib Pt was on amiodarone, but we have held this. Ventricularly paced. -Continue eliquis and aspirin -Fall precautions -Monitor on tele 5. Tremor -Continue mirapex 6. Anemia of CKD -stable, consider further workup if worsens 7. h/o CVA -Cont atorvastatin VTE ppx: Eliquis Code status: cardiac code only, DNI Diet: renal high protein Dispo: Obs on tele
[2019-05-14 19:48] LABS: Troponin I 0.031 ng/mL (< 0.028)
[2019-05-14 19:52] VITALS: BMI 30.8
[2019-05-14] MEDS ORDERED: Acetaminophen 325 MG TAB PO PRN (20:10)
[2019-05-14] MEDS ORDERED: Calcium Carbonate 500 MG ChewTAB PO PRN (20:10)
[2019-05-14] MEDS ORDERED: Senokot S 8.6-50 MG TAB PO PRN (20:10)
[2019-05-14] MEDS ORDERED: Ondansetron ODT 4 MG TAB PO PRN (20:10)
[2019-05-14] MEDS: Pramipexole Di-HCl 0.125 MG TAB PO SCH (21:35)
[2019-05-14] MEDS: Apixaban 5 MG TAB PO SCH (21:35)
[2019-05-14] MEDS: Midodrine HCl 5 MG TAB PO SCH (21:35)
[2019-05-14] MEDS: Tamsulosin HCl 0.4 MG CAP PO SCH ×2 (21:35→21:36)
[2019-05-14] MEDS: Atorvastatin Calcium 10 MG TAB PO SCH (21:35)
[2019-05-14 22:14] LABS: Bilirubin Negative (Negative); Blood, Urine Negative (Negative); Glucose, Urine (Dipstick) Negative (Negative); Leukocyte Negative (Negative); Nitrite Negative (Negative); Protein, Urine (Dipstick) 100 mg/dL (Neg-Trace)
[2019-05-14 22:16] LABS: Clarity Clear (Clear)
[2019-05-14 22:18] LABS: Bacteria/HPF None Seen HPF (None Seen); RBC/HPF 0-3 HPF (0-3); Squamous Epithelial 0-3 HPF (0-3); WBC/HPF 0-3 HPF (0-3)
--- NOTE | 2019-05-15 05:54 | PDOC.FM ---
- Subjective Subjective: Mr. Chaudhary is doing well this morning and in good spirits. He states that earlier this morning he did have one episode similar to his presyncopal events prior to admission. He was sitting in the chair when he began to fill light- headed and faint. He states he did not experience any nausea/vomiting, complete LOC, or seizure-like activity. He states the episode lasted just a few seconds and after initial confusion thinking he was on the floor, he was back to baseline and A/O. He states that all of these sxs began and worsened since starting Amiodarone 2 months ago and attributes the symptoms to the medication. He is eager to find answers and get back to being able to ambulate without fear of syncope and falls. He also states he feels constipated and has not have a BM in >2days. - Objective MAR Reviewed: Yes Vital Signs & Weight: Vital Signs (12 hours) Temp Pulse Resp BP BP BP Pulse Ox 05/15/19 03:45 60 96/51 L 05/15/19 03:44 62 83/44 L 05/15/19 03:43 98.0 F 60 16 105/54 L 99 05/14/19 23:26 97.6 F 82 16 137/87 97 05/14/19 19:34 97.7 F 63 16 100/64 100 Weight Weight 100.244 kg I&O: 05/13/19 05/14/19 05/15/19 06:59 06:59 06:59 Intake Total 240 Output Total 400 Balance -160 Result Diagrams: 05/15/19 05:41 05/15/19 05:41 Additional Labs: Hb 9.5, MCV 104.3, WBC 6.1, Plt 149. INR 1.9, PTT 41.7 Trop 0.045 -> 0.031 TSH 4.516 Mg 2.1 EKG Reviewed by me: Yes (Tele: V-paced in 60s) Phys Exam - Physical Examination Constitutional: NAD HEENT: moist MMs Neck: supple Respiratory: no wheezing, no rales, no rhonchi, clear to auscultation bilateral Cardiovascular: RRR, no significant murmur, no rub Gastrointestinal: soft, non-tender, no distention, positive bowel sounds Musculoskeletal: no edema, pulses present Neurological: non-focal, moves all 4 limbs resting tremor of RUE Psychiatric: normal affect, A&O x 3 Dx/Plan (1) Multiple falls Code(s): R29.6 - REPEATED FALLS Status: Acute (2) Anemia in chronic kidney disease (CKD) Code(s): N18.9 - CHRONIC KIDNEY DISEASE, UNSPECIFIED; D63.1 - ANEMIA IN CHRONIC KIDNEY DISEASE Status: Chronic (3) Heart failure with reduced ejection fraction Code(s): I50.20 - UNSPECIFIED SYSTOLIC (CONGESTIVE) HEART FAILURE Status: Chronic (4) Atrial fibrillation, chronic Code(s): I48.2 - CHRONIC ATRIAL FIBRILLATION Status: Chronic (5) Chronic anticoagulation Code(s): Z79.01 - NURSING HOME (CURRENT) USE OF ANTICOAGULANTS Status: Chronic (6) ESRD (end stage renal disease) on dialysis Code(s): N18.6 - END STAGE RENAL DISEASE; Z99.2 - DEPENDENCE ON RENAL DIALYSIS Status: Chronic - Plan Plan: 78yo M with h/o ESRD on HD, CHF, and Afib on anticoagulation presents with multiple falls. 1. Recurrent Falls 2/2 presyncope - Medications (amiodarone) vs fluid shifts during dialysis vs vertigo vs cardiac arrhythmia. Arrhythmia less likely due to pt ventricularly paced and no events on Pacemaker with interrogation. - No electrolyte abnormalities or CT changes found. Spoke to Dr. Hooker who recommended holding amiodarone. - No acute events on Tele, will continue to monitor and hold Amiodarone at this time. - TSH WNL, Lytes WNL. - Vit D low. Will replace. - Will d/c flomax. Pt states he no longer takes and this could contribute to his orthostatics. - Dr. Kaye with cardiology has been consulted, appreciate recs - Dr. Huff with nephrology has been consulted, appreciate recs - Fall precautions. Consulted PT/OT 2. ESRD on HD - Pt gets MWF dialysis - Dr. Huff with nephrology has been consulted, appreciate recs - Renally dose medications 3. HFrEF - Last EF was 40% on PRABHU when pt being evaluated for possible cardioversion 2/2 chronic a-fib. This was not performed due to possible thrombus. - AICD in place. - Strict I/O's - Fluid restrict 4. Chronic a-fib - Pt was on amiodarone, but currently held. Ventricularly paced. - Continue eliquis and aspirin - Fall precautions - Continue to monitor on tele 5. Tremor - Continue home mirapex 6. Anemia of CKD - stable, macrocytic in nature. B12 normal. Folate low, will replace. 7. h/o CVA - Cont home atorvastatin 8. Constipation - Last BM >2days ago. Will provide Miralax prn. VTE ppx: Eliquis Diet: renal high protein Code status: cardiac code only, DNI Dispo: Placed on Obs in Tele. Will await cards and nerphro recs and further workup for falls this morning. Anticipate d/c within 48 hours of admission. Addendum - Attending - Attending Attestation Date/Time: 05/15/19 [id number] I personally evaluated the patient and discussed the management with Dr. Herrmann. I agree with the History, Examination, Assessment and Plan documented above with any addition or exceptions noted below.
[2019-05-15 06:03] LABS: #Eosinphils 0.3 thou/uL (0.0-0.7); #Lymphocytes 1.6 thou/uL (1.20-3.40); #Monocytes 0.7 thou/uL (0.11-0.59); #Neutrophils 3.4 thou/uL (1.40-6.50); %Basophils 0.5 % (0.0-1.0); %Eosinophils 4.8 % (0.0-10.0); %Lymphocytes 26.6 % (21.0-51.0); %Monocytes 11.7 % (0.0-10.0); %Neutrophils 56.5 % (42.0-75.0); Mean Corpuscular HGB CONC 32.3 g/dL (32.0-36.0); Mean Corpuscular Hemoglobin 35.4 pg (27.0-31.0); Mean Platelet Volume 8.9 fL (7.4-10.4); Platelet Count 147 thou/uL (130-400); RBC Distribution Width 13.3 % (11.5-14.5); Red Blood Cell (RBC) Count 2.83 mill/uL (4.70-6.10); White Blood Cell (WBC) Count 5.9 thou/uL (4.8-10.8)
[2019-05-15 06:24] LABS: ALT (SGPT) 21 U/L (8-55); AST (SGOT) 24 U/L (5-34); Albumin 3.5 g/dL (3.4-4.8); Alkaline Phosphatase 89 U/L (40-150); Anion Gap 14 mmol/L (10-20); BUN (Urea Nitrogen) 45 mg/dL (8.4-25.7); Bilirubin, Total 0.6 mg/dL (0.2-1.2); Calc. Creatinine Clearance 14 mL/min (70-130); Carbon Dioxide 32 mmol/L (23-31); Chloride 99 mmol/L (98-107); Estimated GFR-MDRD 8; Glucose 81 mg/dL (83-110); Potassium 3.8 mmol/L (3.5-5.1); Protein, Total 6.5 g/dL (5.8-8.1); Sodium 141 mmol/L (136-145)
[2019-05-15 08:00] LABS: Phosphorus 4.7 mg/dL (2.3-4.7)
[2019-05-15 08:35] LABS: Folate (Folic Acid) 5.1 ng/mL (7.0-31.4)
[2019-05-15] MEDS: Aspirin 81 mg Enteric Coated Tablet PO SCH (08:49)
[2019-05-15] MEDS: Midodrine HCl 5 MG TAB PO SCH ×3 (08:49→21:24)
[2019-05-15] MEDS: Apixaban 5 MG TAB PO SCH ×2 (08:49→21:24)
[2019-05-15] MEDS ORDERED: Polyethylene Glycol 3350 17 GM Packet PO PRN (08:51)
[2019-05-15] MEDS: Folic Acid 1 MG TAB PO SCH (09:38)
[2019-05-15] MEDS: Cholecalciferol (Vitamin D3) 400 UNITS TAB PO SCH (09:38)
--- NOTE | 2019-05-15 10:08 | PRG ---
DATE OF SERVICE: 05/15/2019 SUBJECTIVE: Mr. Chaudhary is a 78-year-old white male with history of ESRD and currently on maintenance hemodialysis. He has been having frequent falls and near syncopal episode. He tells me this usually happens after his dialysis. We have made adjustment with his dialysis regimen, where we are pulling less fluid with him. He also has underlying cardiac problem. Please note he has a history of atrial fibrillation. At one time, his Cardiology is contemplating to do a cardioversion with him. We are being consulted for his maintenance hemodialysis. REVIEW OF SYSTEMS: Positive for generalized malaise. Positive for occasional dizziness. No chest pain or shortness of breath. No nausea. No vomiting. No diarrhea. No constipation. Appetite and energy level are fair. No headache. No hematochezia. No melena. No dysuria. No fever or chills. No chest pain. MEDICATIONS: Medications of May 15, 2019: 1. Tylenol 650 mg q.4 p.r.n. 2. Eliquis 5 mg p.o. b.i.d. 3. Ecotrin 81 mg daily. 4. Lipitor 40 mg at bedtime. 5. Tums 1000 mg q.4 p.r.n. 6. Folvite 1 mg daily. 7. Vitamin D 400 international units daily. 8. Midodrine 5 mg p.o. t.i.d. 9. MiraLAX 17 g daily. 10. Flomax 0.4 mg at bedtime. PAST MEDICAL HISTORY: 1. Status post CHF. 2. ESRD - maintenance hemodialysis. 3. Atrial fibrillation. 4. History of cardiomyopathy, decreased EF. 5. Chronic hypotension, on midodrine. 6. Status post nephrolithiasis. 7. Coronary artery disease. 8. Peripheral vascular disease. 9. Type 2 diabetes mellitus. 10. History of hypertension. PAST SURGICAL HISTORY: Status post ureteroscopy with stone extraction, status post percutaneous nephrostomy, status post AV fistula placement, status post appendectomy, status post cardiac cath, status post CABG, status post tunneled dialysis catheter placement. ALLERGIES: TETANUS. TRAUMA: None. IMMUNIZATION: Up-to-date. HOSPITALIZATIONS: Please see past medical history. SOCIAL HISTORY: The patient is , lives in [place]. 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 No alcohol. No history of smoking. No IV drug abuse. Education, 12th grade. Status post blood transfusion. Sedentary lifestyle. FAMILY HISTORY: No family history of ESRD. PHYSICAL EXAMINATION: VITAL SIGNS: Blood pressure is ranging from 83/44 to 110/59, heart rate 77, respiratory rate 16, temperature 97.4, and pulse ox 97%. GENERAL: Noted to be awake, alert, comfortable, not in overt distress. SKIN: Adequate turgor. HEENT: Slightly pale conjunctivae. Anicteric sclerae. NECK: No neck mass. No carotid bruits. No JVD. CHEST: No deformities. LUNGS: Clear breath sounds. HEART: Irregularly irregular. No murmur. No gallops. No rubs. ABDOMEN: Globular, soft, and nontender. No masses. EXTREMITIES: No edema. No deformities. NEUROLOGIC: Awake and oriented to 3 spheres. Moving all extremities. No tremors. No asterixis. No ataxia. LABORATORY DATA: CT scan of the brain May 14, 2019, no acute intracranial abnormalities. Laboratories of May 15, 2019; white count 5.9, hemoglobin 10. Sodium 141, potassium 3.8, chloride 99, carbon dioxide 32, BUN 45, creatinine 6.47, glucose 81. AST 24, ALT 21, phosphorus 4.7. Troponin I 0.031. Albumin is 3.5, vitamin D of 22, and TSH is 4.5. ASSESSMENT AND PLAN: 1. Near syncopal episode - frequent fall - unclear etiology. CT scan of the head was essentially negative. We are trying to remove less fluid with the dialysis with this patient. 2. Chronic hypotension, on midodrine support. 3. End-stage renal disease. We will continue current Monday, Monday, and Monday dialysis. Schedule for dialysis today. The plan is to remove minimal fluid with him due to episodes of dizziness. 4. Chronic atrial fibrillation. Cardiology consult has been done. Previously, he was considered for a possible cardiac ablation. 5. Overall agree with current management. Job ID: [id number]
--- NOTE | 2019-05-15 15:14 | CON ---
DATE OF CONSULTATION: 05/15/2019 HISTORY OF PRESENT ILLNESS: I am seeing Mr. 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 His problems are; 1. Recurrent atrial arrhythmias. a. Chronic persistent atrial fibrillation status post amiodarone loading. b. Recent improved rhythm control noted after full amiodarone loading with intermittent recurrence of atrial fibrillation still seen. 2. Complete AV block. 3. Chronic systolic congestive heart failure with ischemic cardiomyopathy. a. History of myocardial infarction in 2004. b. History of coronary artery bypass grafting surgery. 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 c. Reduced LVEF of 20% to 25% range. 4. History of a Bi-V ICD status post lead revision. 5. End-stage renal disease, on hemodialysis. 6. Orthostatic hypotension, on midodrine. 7. Chronic anticoagulation, on apixaban. 8. History of hypertension and hypercholesterolemia. 9. History of peripheral vascular disease. ALLERGIES: TETANUS VACCINE TOXOID. MEDICATIONS: At home included; 1. Pramipexole. 2. Midodrine 5 mg three times a day. 3. Apixaban 5 mg twice a day. 4. Amiodarone 2 mg p.o. b.i.d. 5. Aspirin 81 mg daily. 6. Lipitor 40 mg daily. SUBJECTIVE: Mr. Chaudhary is here due to weakness and falls. This seems to have occurred on the days when he gets hemodialysis, which seems to be worrying him now fairly much. He does not seem to be losing consciousness. He also complains of poor balance. He has some tremors. He denies chest pains. No ICD shocks. No recent angina. He did have a UTI about 2 weeks ago. Rest of 12-point system otherwise unremarkable. PAST MEDICAL HISTORY: As above. The patient has a history of persistent atrial fibrillation, but high grade AV block required RV pacing. He had a failing LV lead and it was revised in August 2018. Subsequently, he continued to be symptomatic, it is adequate with LV pacing and we concerned restoring sinus rhythm. Due to his comorbidities, he is a poor candidate for ablation therapy and amiodarone was initiated. Initial cardioversion was postponed due to early formation of clots noted on PRABHU in March. A subsequent PRABHU and cardioversion were not necessary, hence the patient already returned to sinus rhythm. He currently continues on low-dose amiodarone 200 mg a day and mostly maintained sinus rhythm with intermittent episodes of atrial fibrillation still noted, but decreasing in tendency. SOCIAL HISTORY: The patient denies smoking, EtOH, or drug abuse. FAMILY HISTORY: Not contributory. OBJECTIVE DATA: VITAL SIGNS: Blood pressure is most recently 107/71, heart rate 60, respiratory rate is 18, temperature 97.1 degrees Fahrenheit. Blood pressures from this morning reveals supine blood pressure 105/54 and sitting 93/44. GENERAL: The physical exam reveals an alert and oriented elderly man in no apparent distress. NECK: Supple. Jugular veins difficult to visualize. CHEST: Coarse without crackles. HEART: Sounds are regular to rate and rhythm. No murmur or gallop. ABDOMEN: Benign. Bowel sounds are positive. EXTREMITIES: Lower extremities without edema, clubbing, or cyanosis. NEUROLOGIC: The patient is nonfocal. Tremors are noted. MUSCULOSKELETAL: No joint swelling or deformity. SKIN: Without rash. Left precordial ICD insertion site is well healed. DIAGNOSTIC STUDIES: Interrogation of ICD reveals adequately functioning Medtronic Viva quad ACID BATH MIXER-D device. The battery longevity is 4.8 years. Lead parameters are adequate 380, 323, and 513 ohms impedances respectively. Sensing 0.6 and 14.4 mV. The LV capture threshold is 2.25 with 4.8 milliseconds. The atrial fibrillation, which persisted since implant up until April, now has decreasing tendency since last interrogation in end of April. Occasional up to five-day duration of atrial fibrillation since May 04, but since May 09, less than one day duration of atrial fibrillation is seen. Atrial ATP seems to be partially terminating the arrhythmia. LABORATORY DATA: White cell count 5.9, hemoglobin 10, and platelet count is 147. Sodium 141, potassium 3.8, BUN is 45, and creatinine 6.47. Troponin I 0.031. ASSESSMENT AND PLAN: 1. Mr. Chaudhary is a 78-year-old man with history of chronic atrial fibrillation, currently on amiodarone with intermittent success of termination of the atrial fibrillation/flutter with atrial ATP therapies. He still has significant burden though, but somewhat better than before. He has episodes of weakness and dizziness, falls, not truly loss of consciousness associated with hemodialysis. He also has lower blood pressure standing up. He is taking midodrine for this. The fall is not clearly associated with arrhythmias. Even though, his atrial fibrillation still comes and goes. His ventricular rates are well controlled and I suspect there is no direct correlation with his symptoms to this. On the other hand, blood pressure still fluctuates and he has some orthostatic hypotension, possibly due to hypovolemia. Dr. Huff is already following the case and we will adjust dialysis accordingly. Also, the patient raises the possibility of peritoneal dialysis, which also a potential possibility, if Dr. Huff agrees. 2. Chronic systolic congestive heart failure, poor LV function. Maintain sinus rhythm will be desired. So far, we were not able to achieve with amiodarone alone. Ablation option is potential possibility and he feels better in sinus rhythm, even though his AV block is present. He is high risk due to his comorbidities. We will for now keep this a remote possibility in the future. 3. His falls makes anticoagulation difficult proposition. For now, he continues on full dose Eliquis. Watchman device placement may be a consideration for him. 4. Chronic amiodarone use could potentially worsen his neuropathy. Neurologic evaluation might be a consideration hence the significant tremors, evaluate alternative explanations as well. For now if possible, continue amiodarone, hence the improving trend in sinus rhythm. 5. Congestive heart failure, currently appears to be compensated. We discussed this with Dr. Kaye. Thank you for allowing me to participate in care of this patient. Job ID: [id number]
--- NOTE | 2019-05-15 16:03 | CON ---
DATE OF CONSULTATION: HISTORY OF PRESENT ILLNESS: The patient is a 78-year-old gentleman who presents after having several falls. This patient has a history of an ischemic cardiomyopathy. He has previously undergone coronary artery bypass surgery and had resection of a ventricular aneurysm. The patient also has placement of automatic implantable cardioverter-defibrillator. The patient has previously suffered a cerebrovascular accident and is on chronic anticoagulation therapy. The patient has subsequently developed end-stage renal disease and he has been undergoing dialysis. He has had great difficulty since with dialysis treatments. He has had multiple falls. The patient once again presented after having a fall. Most recently, the patient underwent a PRABHU to possibly undergo cardioversion for atrial fibrillation and he was found to have a left ventricular clot. He then went back into sinus rhythm. The patient has been treated with amiodarone. PAST MEDICAL HISTORY: 1. Ischemic cardiomyopathy. 2. Hypertension. 3. Dyslipidemia. 4. Atrial fibrillation. 5. Peripheral vascular disease. 6. COPD. 7. End-stage renal disease. PAST SURGICAL HISTORY: 1. Appendectomy. 2. Coronary artery bypass surgery. 3. Aneurysm resection. ALLERGIES: LIPITOR, PRAVACHOL, TETANUS. MEDICATIONS: See nursing list. FAMILY HISTORY: Strong family history of heart disease. REVIEW OF SYSTEMS: A 10-point system otherwise unremarkable for increasing weakness. PHYSICAL EXAMINATION: GENERAL: Elderly gentleman, in no acute distress. VITAL SIGNS: Blood pressure 112/53. NECK: No jugular venous distention. LUNGS: Clear to auscultation. HEART: Regular rate and rhythm. Normal S1 and S2. A 1/6 systolic murmur. ABDOMEN: Distended. EXTREMITIES: Mild edema. LABORATORY DATA: Sodium 141, potassium 3.8, chloride 99, bicarbonate 32, BUN 45 , creatinine 6.47, and glucose 81. White blood cell count 5.9, hemoglobin 10.0, hematocrit 31.0, and platelets are 147. EKG electronic ventricular pacemaker. IMPRESSION: 1. Multiple falls. 2. History of coronary artery disease status post coronary artery bypass surgery. 3. Ischemic cardiomyopathy. 4. End-stage renal disease. 5. History of automatic implantable cardioverter-defibrillator. PLAN: This is an unfortunate gentleman who continues to have falls. He has been treated with midodrine for a while. He has been off Flomax. From a cardiac standpoint, the only medication that lowers his blood pressure is amiodarone. I would recommend EP to evaluate his AICD. Interrogation shows multiple episodes of atrial fibrillation. The patient's prognosis is guarded. Job ID: [id number] [facility]
[2019-05-15] MEDS ORDERED: Amiodarone 200 MG TAB PO SCH ×2 (18:00→21:00)
[2019-05-15] MEDS: Atorvastatin Calcium 10 MG TAB PO SCH (21:23)
[2019-05-15] MEDS: Pramipexole Di-HCl 0.125 MG TAB PO SCH (21:24)
[2019-05-16] MEDS ORDERED: Calcitriol 0.25 MCG CAP PO SCH (09:00)
[2019-05-16] MEDS: Midodrine HCl 5 MG TAB PO SCH ×2 (09:06→16:36)
[2019-05-16] MEDS: Apixaban 5 MG TAB PO SCH (09:06)
[2019-05-16] MEDS: Aspirin 81 mg Enteric Coated Tablet PO SCH (09:06)
[2019-05-16] MEDS: Folic Acid 1 MG TAB PO SCH (09:06)
--- NOTE | 2019-05-16 09:37 | PRG ---
DATE OF SERVICE: 05/16/2019 SERVICE: Renal Medicine. SUBJECTIVE: Mr. Chaudhary is a 78-year-old white male with ESRD and followed by the Renal Service for his maintenance hemodialysis. He underwent hemodialysis yesterday, but he requested to shorten the treatment. We are currently minimizing the fluid removal due to the fact that the patient has been having frequent falls. Cardiology has evaluated the patient and the feeling is that the frequent falls are not related to his cardiac problem. This morning, he feels better. He denies any chest pain or shortness of breath. OBJECTIVE: VITAL SIGNS: Blood pressure is 126/59, heart rate 108, respiratory rate 18, temperature 97.5, pulse ox 99% on room air. GENERAL: Awake, alert, sitting comfortable, not in distress. SKIN: Adequate turgor. HEENT: Pinkish conjunctivae. Anicteric sclerae. NECK: No neck mass. No carotid bruits. No JVD. CHEST: No deformities. LUNGS: Clear breath sounds. HEART: Normal sinus rhythm. No murmurs. No gallops. No rubs. ABDOMEN: Globular, soft, nontender. No masses. EXTREMITIES: No edema. No deformities. MEDICATIONS: Medications of May 16, 2019, reviewed. LABORATORY DATA: Laboratories of May 15, 2019; BUN is 45, creatinine 6.47. Hemoglobin 10, hematocrit 31. ASSESSMENT AND PLAN: 1. History of frequent falls/dizziness-the patient may be volume depleted. For this reason, we are minimizing fluid removal with dialysis. 2. End-stage renal disease, stable, tolerating current hemodialysis regimen. The patient had shortened treatment yesterday per his request. 3. Borderline anemia. We will simply observe this. He will resume back his Epogen and outpatient dialysis. 4. Overall agree with current management. Job ID: [id number]
[2019-05-16] MEDS: Cholecalciferol (Vitamin D3) 400 UNITS TAB PO SCH (12:43)
[2019-05-16 16:11] VITALS: BP 124/60; TEMP 97.3
--- NOTE | 2019-05-16 17:33 | PRG ---
DATE OF SERVICE: 05/16/2019 SUBJECTIVE: Mr. Chaudhary seems to be doing well. He still has some tremor and imbalance sensation on walking, but improved, hence he did not receive hemodialysis today. OBJECTIVE: VITAL SIGNS: Blood pressure is 124/60, heart rate 60, respiratory rate 18, and temperature 97.3 degrees Fahrenheit. GENERAL: Alert and oriented man, in no apparent distress. NECK: Supple. Jugular veins not distended. CHEST: Coarse without crackles. HEART: Sounds are regular to rate and rhythm. No murmur or gallop. ABDOMEN: Benign. Bowel sounds positive. EXTREMITIES: Lower extremities without edema, clubbing, or cyanosis. Left precordial ICD insertion site is well healed. DIAGNOSTIC DATA: The telemetry strips revealed continued atrial flutter with ventricular pacing. ASSESSMENT AND PLAN: 1. Mr. Chaudhary is a pleasant 78-year-old man with history of congestive heart failure and ischemic cardiomyopathy, remote bypass surgery, who has reduced left ventricular ejection fraction 20% to 25% range. He has high-grade atrioventricular block . On the other hand, he also has recurrent atrial fibrillation and recently has been placed on amiodarone, has continued dyspneic symptoms, now has intermittent episodes of sinus rhythm after atrial overdrive pacing to maintain. 2. The current admission is regarding post hemodialysis dizziness and falling suggesting most likely orthostatic as witnessed by our measurements, and some degree of imbalance could also contribute to this. 3. Due to his falls, I think he is at some risk of bleeding, but also significant stroke risk. Therefore, I would continue Eliquis, but would consider Watchman device placement terminal makeup operator. Risks and benefits of this discussed with the patient. We will see him in the office for making further arrangements. 4. For now, continue amiodarone, as some degree of success is seen on the implantable cardioverter defibrillator interrogation. 5. Implantable cardioverter defibrillator function adequate, no recent medical arrhythmias to correlate to his falls. 6. End-stage renal disease on hemodialysis. Dr. Huff adjusting the volume status. Job ID: [id number] [facility]
== END 2019-05-16 18:10 | disposition home or self-care (01) ==
LOC: ERS 17:08 → 2SW 18:18
PROVIDERS: ADMIT Family Medicine; ATTEND Family Medicine
DX: R29.6 Repeated falls (principal); R55 Syncope and collapse; I13.2 Hypertensive heart and chronic kidney disease with heart failure and with stage 5 chronic kidney disease, or end stage renal disease; N18.6 End stage renal disease; D63.1 Anemia in chronic kidney disease; I50.20 Unspecified systolic (congestive) heart failure; I25.5 Ischemic cardiomyopathy; I48.2 Chronic atrial fibrillation; R25.1 Tremor, unspecified; R31.9 Hematuria, unspecified; Z79.01 Long term (current) use of anticoagulants; Z79.82 Long term (current) use of aspirin; Z79.899 Other long term (current) drug therapy; Z86.73 Personal history of transient ischemic attack (TIA), and cerebral infarction without residual deficits; Z88.7 Allergy status to serum and vaccine; Z99.2 Dependence on renal dialysis
CPT/HCPCS: 80053; 81001; 82306; 82607; 82746; 84100; 84484; 85025; 97116; 97139 ×3; 97530; 99284; G0378 ×2; 36415; 90935; G0257

== ENCOUNTER 2019-09-13 12:57 | Inpatient (IN) | payer MEDICARE, MEDICAID ==
[2019-09-13] MEDS ORDERED: Acetaminophen 325 MG TAB PO PRN (15:41)
[2019-09-13] MEDS ORDERED: Acetaminophen 650 MG Suppository PR PRN (15:41)
[2019-09-13 15:57] LABS: Hemoglobin 9.8 g/dL (14.0-18.0)
--- NOTE | 2019-09-13 16:07 | RAD ---
XR Ribs Lt>=2 View W/PA CXR HISTORY: Fall with left rib injury. COMPARISON: None. FINDINGS: The heart size is enlarged with postop sternotomy change and an internal defibrillator heike ce. No pneumothorax is identified. There is blunting to the left costophrenic angle, this is similar to a previous 02/18/2019 study and is felt to represent chronic pleural change. No acute rib f ractures are identified. IMPRESSION: No evidence of rib fracture.
--- NOTE | 2019-09-13 17:12 | HP ---
TIME OF ADMISSION: 1500. PRIMARY CARE PHYSICIAN: Solange Robbins MD CHIEF COMPLAINT: Bleeding from AV fistula during hemodialysis. HISTORY OF PRESENT ILLNESS: Mr. Chaudhary is a pleasant 79-year-old gentleman with known history of end-stage renal disease, who is under the care of Dr. Huff and was undergoing hemodialysis this morning when he suddenly began to bleed from the fistula. He states he was about an hour and a half into the hemodialysis session. He states clamps were placed and eventually the bleeding was controlled. Denies feeling lightheaded or dizzy. States typically after completing dialysis he tends to be short of breath. The patient denies having any shortness of breath at this present time. He was brought to the emergency department and underwent laboratory studies which showed a hemoglobin of 9.7. On assessment, he notified the ED physician that he had been experiencing dark blood, maroon in color, in his stool for the last week. Denies any associated abdominal pain. Has not had any nausea or vomiting. The patient states he has not experienced in the past and has never had bleeding from his fistula in the past either. He is on anticoagulation with Xarelto, was previously on Coumadin for a long time and this was switched to Eliquis by Dr. Kaye due to history of strokes. Eventually, the Eliquis was then switched to Xarelto. He currently takes a dose of 50 mg by mouth daily. The patient denies any other symptoms of bleeding. Has not had any hematuria. No bleeding of his gums. No hemoptysis. The patient states he had a fall yesterday. He sat in a chair that suddenly broke underneath him causing him to injure his right elbow, left knee and left lower back. He denies any head injury. Has not had any headaches or dizziness. He denies any pain at this present time at any of those sites. He states he feels well in himself. He did not seek medical attention for this. REVIEW OF SYSTEMS: The patient reports having a fairly good appetite. Again denies any nausea or vomiting. No abdominal pain. Has not had any headaches or dizziness. No vision changes. No speech changes. All other review of systems apart from those mentioned above in HPI are negative. PAST MEDICAL HISTORY: 1. Hypertension. 2. End-stage renal disease, on dialysis. 3. Coronary artery disease. 4. Atrial fibrillation. 5. History of UTIs. 6. Right upper extremity tremor. 7. History of HI in 2002. 8. CVA x1 in 2015. 9. Hyperlipidemia. 10. Nephrolithiasis. PAST SURGICAL HISTORY: 1. Pacemaker placement in 2016. 2. AICD. 3. Left arm dialysis fistula. 4. Heart surgery, repair of aneurysm in 2002. 5. CABG x4 in 2002. 6. Pacemaker/defibrillator placement in September 2018. SOCIAL HISTORY: The patient lives with his . Fully independent. The patient currently dips. Denies any alcohol consumption or illicit drug use. FAMILY HISTORY: Noncontributory. ALLERGIES: TETANUS TOXOID. CURRENT MEDICATIONS: 1. Amiodarone 200 mg p.o. daily. 2. Aspirin 81 mg p.o. daily. 3. Carvedilol 6.25 mg p.o. daily. 4. Xarelto 50 mg p.o. daily. 5. Atorvastatin 40 mg p.o. daily. 6. Pramipexole 0.125 mg p.o. daily. 7. Tylenol with Codeine 1 tablet p.o. every 6 hours as needed. PHYSICAL EXAMINATION: GENERAL: The patient appears well developed, well nourished, and is in no acute distress. He is resting comfortably on the stretcher. VITAL SIGNS: Temperature 98.2, pulse 60, blood pressure 124/59, respirations 14, O2 saturation 100% on room air. HEENT: Normocephalic and atraumatic. Pupils are equal, round, and reactive to light. Extraocular movements intact. Oropharynx is clear. NECK: Supple with full range of motion. No tenderness on palpation. LUNGS: Notable for crackles at the bilateral bases. Area of ecchymosis involving the left lower posterior ribs. No rib deformity. No palpable emphysema. Nontender to palpation. CARDIAC: Regular rate and rhythm. No chest wall tenderness, bruising, or bone deformities. ABDOMEN: Soft, obese, nontender, nondistended. No guarding or rigidity. Normal bowel sounds present. EXTREMITIES: Notable for +2 edema bilaterally. No calf tenderness. No erythema. Very small superficial abrasion involving the left knee with well-healing scab, very small area of bruising over the right elbow with good range of movement and no tenderness to palpation. NEUROLOGIC: Alert and oriented x3. No neuro deficits on exam. SKIN: Bruising as mentioned above, otherwise normal. Warm and dry. LABORATORY DATA: Laboratory studies showed a white count of 6.4, hemoglobin of 9.7, hematocrit 31.8, platelets 221. PT 19.5, INR 1.7, PTT 42.2. Sodium 144, potassium 4.1, chloride 99, carbon dioxide 29, anion gap of 20, BUN 41, creatinine 5.74, GFR 10, glucose 98, calcium 8.5, total bilirubin 0.6, AST 19, ALT 11, alkaline phosphatase 99, total protein 6.8, albumin 3.5. IMAGING DATA: None. IMPRESSION AND PLAN: Mr. Chaudhary is a very pleasant 79-year-old gentleman, who has been referred for management of the following. 1. Acute bleeding from AV fistula. Bleeding is under control. This was the first time this has happened. Hemoglobin was 9.7 when he came in this morning. We will repeat H and H given complaints of lower gastrointestinal bleed. On assessment to ensure no further drop in his hemoglobin. With regard to the AV fistula. Consultation has been placed to Dr. Huff who is aware and initially did advise consultation to General Surgery. However, he will wait to assess in the morning and recheck to General Surgery if input needed. We will hold anticoagulation. 2. Gastrointestinal bleed. The patient with blood in stools for the last week. No associated abdominal pain. Consultation has been placed to GI. As mentioned above, given bleeding, we will hold his Xarelto. Per discussion with Dr. Larsen, we will continue Protonix. 3. End-stage renal disease, on hemodialysis. The patient did only complete 1.5 hours of his hemodialysis session. Dr. Huff is aware. Further dialysis as per Dr. Huff's recommendations. 4. Fall. The patient with area of bruising over the left lower posterior ribs and did not seek medical attention for this. Rib series has been requested as well as a chest x-ray. The patient without any significant pain at present. No head injury. Therefore, CT head imaging not indicated. 5. Fluid overload. The patient with +2 edema and crackles on exam at the bilateral bases. BNP added on to labs. We will assess for evidence of fluid overload on the chest x-ray once that is complete. 6. Code status full. The patient's surrogate decision maker is his , Kamini Chaudhary. The patient's case was discussed with Dr. Larsen, who agrees with plan of care as described above. Job ID: [id number]
[2019-09-13 18:00] VITALS: BMI 30.7
[2019-09-13] MEDS: Pantoprazole 80 MG in Sodium Chloride 0.9% 100 ML IVP SCH (18:27)
[2019-09-14] MEDS: Pantoprazole 80 MG in Sodium Chloride 0.9% 100 ML IVP SCH (04:04)
[2019-09-14 05:17] LABS: Anion Gap 17 mmol/L (10-20); BUN (Urea Nitrogen) 50 mg/dL (8.4-25.7); Calc. Creatinine Clearance 13 mL/min (70-130); Calcium 8.3 mg/dL (7.8-10.44); Carbon Dioxide 27 mmol/L (23-31); Chloride 101 mmol/L (98-107); Estimated GFR-MDRD 8; Glucose 88 mg/dL (83-110); Potassium 4.1 mmol/L (3.5-5.1); Sodium 141 mmol/L (136-145)
[2019-09-14 07:13] LABS: #Eosinphils 0.3 thou/uL (0.0-0.7); #Lymphocytes 1.6 thou/uL (1.20-3.40); #Monocytes 0.7 thou/uL (0.11-0.59); #Neutrophils 3.2 thou/uL (1.40-6.50); %Basophils 0.3 % (0.0-1.0); %Eosinophils 5.7 % (0.0-10.0); %Lymphocytes 27.2 % (21.0-51.0); %Monocytes 11.8 % (0.0-10.0); %Neutrophils 55.1 % (42.0-75.0); Anisocytosis SLIGHT = 6-15 cells (100X) (0-5/hpf); Hemoglobin 9.5 g/dL (14.0-18.0); MDiff Complete? YES; Macrocytosis SLIGHT = 6-15 cells (100X) (0-5/hpf); Mean Corpuscular Hemoglobin 36.5 pg (27.0-31.0); Mean Platelet Volume 7.7 fL (7.4-10.4); Platelet Count 160 thou/uL (130-400); Platelet Morphology Comment Appears Adequate; RBC Distribution Width 14.4 % (11.5-14.5); Red Blood Cell (RBC) Count 2.61 mill/uL (4.70-6.10); White Blood Cell (WBC) Count 5.8 thou/uL (4.8-10.8)
[2019-09-14] MEDS ORDERED: Calcium Carbonate 500 MG ChewTAB PO PRN (08:08)
[2019-09-14] MEDS ORDERED: FLU VACC TS2019-20(65YR UP)/PF 180 MCG/0.5 ML SYRINGE IM ONE (09:00)
--- NOTE | 2019-09-14 09:53 | CON ---
DATE OF CONSULTATION: 09/14/2019 REASON FOR CONSULTATION: GI bleeding. HISTORY OF PRESENT ILLNESS: Mr. Rylan Chaudhary is a very pleasant 79-year-old man with a history significant for end-stage renal disease, on hemodialysis, also coronary artery disease and atrial fibrillation. He has a prior history of stroke. He has CHF with AICD placement in September 2018. He reports that he had been on Coumadin for many years. He was switched from this to Eliquis by Dr. Kaye, he says about a month ago. Around that time, he started having blood in his stool. He describes this as bright red or dark red blood occurring with every bowel movement. He denies melena. There is no abdominal or anal pain associated with this. His baseline constipation is well controlled on stool softeners, and he does not have to strain to defecate. Regardless, he will typically have blood with every bowel movements over the past four weeks. The Eliquis was then switched to Xarelto within the past 2 weeks, but he states nothing changed regarding his bloody stools. He has been having worse bruising in the upper extremities since switching to the Xarelto. He was admitted to the hospital yesterday after undergoing hemodialysis and being noted to have significant bleeding from his fistula site. Upon admission here, his hemoglobin was 9.8. This morning, it is essentially stable at 9.5. His baseline hemoglobin appears to be in the 10 to 11 range. He has not had any hematemesis. He has never undergone EGD or colonoscopy in the past. He is not on any acid suppression. He is currently getting dialysis. REVIEW OF SYSTEMS: Full review of systems including constitutional, head, eyes, ears, nose, throat, GI, , cardiovascular, respiratory, musculoskeletal, neurologic systems is negative except as noted in the HPI. PAST MEDICAL HISTORY: Hypertension, end-stage renal disease on dialysis, coronary artery disease, atrial fibrillation, right upper extremity tremor, myocardial infarction 2002, CVA 2015, hyperlipidemia, nephrolithiasis, pacemaker placement 2016, pacemaker/defibrillator placement September 2018, left arm dialysis fistula, CABG x4 2002. SOCIAL HISTORY: The patient is fully independent. Lives with his . He uses chewing tobacco. No alcohol or drug use. FAMILY HISTORY: Noncontributory. ALLERGIES: TETANUS TOXOID. OUTPATIENT MEDICATIONS: 1. Amiodarone. 2. Aspirin 81 mg daily. 3. Xarelto 50 mg daily. 4. Carvedilol 6.25 mg daily. 5. Lipitor 40 mg daily. 6. Pramipexole 0.125 mg daily. 7. Tylenol with Codeine every 6 hours as needed. INPATIENT MEDICATIONS: 1. Pantoprazole drip. 2. Tylenol p.r.n. PHYSICAL EXAMINATION: VITAL SIGNS: Temperature 97.8, pulse 61, blood pressure 127/60, 99% oxygen saturation on room air. GENERAL: A 79-year-old man, lying in dialysis bed comfortably, appearing frail, but nontoxic. SKIN: No jaundice. No rashes were palpable, but he does have significant ecchymosis to multiple areas in the upper extremities with some minor skin breaks, which are oozing. EYES: No scleral icterus. Extraocular movements intact. ENT: Mucous membranes moist. No oral lesions. LYMPH: No submandibular or supraclavicular lymphadenopathy. Thyroid nontender to palpation. HEART: Regular rate and rhythm. LUNGS: Clear to auscultation bilaterally. ABDOMEN: Bowel sounds present. Soft, nontender to palpation throughout. EXTREMITIES: No peripheral edema. VESSELS: Radial pulses 2+ bilaterally. NEURO: Cranial nerves 2 through 12 intact bilaterally. No focal deficits. MENTAL STATUS: Alert and fully oriented. Pleasant, conversational. Can give a detailed coherent history. LABORATORY STUDIES: Hemoglobin initially 9.8, today is 9.5. MCV is 111. WBC 5.8, platelets 160. BNP elevated to 821.8. Magnesium 2.3. Sodium 141, potassium 4.1, BUN 50, creatinine 6.73, glucose 88. ASSESSMENT AND PLAN: 1. Gastrointestinal bleeding, in the context of chronic anticoagulation with Xarelto. 2. Anemia, chronic. 3. End-stage renal disease, on hemodialysis. The patient has been having overt bleeding for several weeks. Despite this, hemoglobin is only slightly below his baseline. Further investigation is certainly warranted. Xarelto has been held today and he is currently getting dialysis. We will plan for bowel preparation this evening followed by EGD and colonoscopy tomorrow. I discussed the risks and benefits of the procedure with the patient and he desires to proceed. Please continue to hold Xarelto in the meantime. Thank you for the consultation. Please call anytime with questions or concerns. Job ID: [id number]
[2019-09-14] MEDS ORDERED: Cyanocobalamin (Vitamin B-12) 1,000 MCG TAB PO SCH (10:15)
[2019-09-14] MEDS ORDERED: Folic Acid 1 MG TAB PO SCH (10:15)
[2019-09-14] MEDS ORDERED: EPOETIN ALFA-EPBX (ESRD) 4,000 UNIT/ML VIAL SC SCH (10:30)
--- NOTE | 2019-09-14 10:47 | CON ---
DATE OF CONSULTATION: HISTORY OF PRESENT ILLNESS: Mr. Chaudhary is a 79-year-old white male with known history of ESRD-on maintenance hemodialysis and was initially admitted for GI bleed. He also has a bleeding site from his AV fistula. Of interest, this patient has been on Xarelto. He also makes mention about passing some melena in the last few days. We are being consulted for his maintenance hemodialysis. He had an incomplete dialysis treatment yesterday. For that reason, he is undergoing hemodialysis today. REVIEW OF SYSTEMS: Positive for hematoma. Positive for melena. No nausea. No vomiting. No diarrhea or constipation. Occasional dizziness. No chest pain. No shortness of breath. No syncopal episode. No fever or chills. Appetite and energy level are fair. No gross hematuria. No dysuria. MEDICATIONS: 1. Currently on amiodarone 200 mg at bedtime. 2. Xarelto on hold. 3. Cyanocobalamin 1000 mcg once a day. 4. Folic acid 1 mg tablet daily. 5. Protonix 80 mg tablet once a day. PAST MEDICAL HISTORY: 1. BPH, atrial fibrillation, ESRD, hyperlipidemia. 2. Status post nephrolithiasis, coronary artery disease, peripheral vascular disease, type 2 diabetes mellitus, history of hypertension, cardiomyopathy, decreased EF. PAST SURGICAL HISTORY: Status post cardiac cath, status post CABG, status post appendectomy, status post AV fistula placement, status post percutaneous nephrostomy, status post ureteroscopy with stone extraction, status post cuffed dialysis catheter placement, status post cardioversion? ALLERGIES: TETANUS. TRAUMA: None. IMMUNIZATIONS: Up-to-date. HOSPITALIZATIONS: Please see past medical history. 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 He is . The patient lives in [place]. No history of smoking. No alcohol intake. No IV drug abuse. Occasionally uses snuff. Education, 12th grade. Sedentary lifestyle. FAMILY HISTORY: No family history of ESRD. PHYSICAL EXAMINATION: VITAL SIGNS: Blood pressure 129/67, heart rate 80. GENERAL: Awake, alert, supine, comfortable, not in overt distress. SKIN: Adequate turgor. HEENT: Slightly pale conjunctivae. Anicteric sclerae. NECK: No neck mass. No carotid bruits. No JVD. CHEST: No deformities. LUNGS: Clear breath sounds. No wheezing. No crackles. HEART: Irregular. Grade 2/6 systolic murmur. No gallops or rubs. ABDOMEN: Globular, soft, nontender. EXTREMITIES: Trace edema. LABORATORY DATA: Laboratories of September 14, 2019; white count 5.8, hemoglobin 9.5. Sodium 141, potassium 4.1, chloride 101, carbon dioxide 27, BUN 50, creatinine 6.73, calcium 8.3, magnesium 2.3. ASSESSMENT AND PLAN: 1. GI bleed-GI has evaluated this patient. His Xarelto is placed on hold. The patient will undergo a planned upper and lower GI endoscopy. Dr. Mayo is following this patient. 2. End-stage renal disease, stable. We will continue current Monday, Monday, and Monday hemodialysis regimen. Currently using no heparin due to the recent bleed. Fluid removal only as tolerated. 3. Chronic anemia. I have restarted Epogen at 7500 units subcu weekly. 4. Overall agree with current management. Job ID: [id number]
--- NOTE | 2019-09-14 12:24 | PRG ---
DATE OF SERVICE: 09/14/2019 PRIMARY TONGUE STITCHER: Dr. Alfredo Kaye. SUBJECTIVE: A 79-year-old white male with atrial fibrillation, on anticoagulation, end-stage renal disease, on hemodialysis and coronary artery disease, presented to the hospital with bleeding from the AV fistula during hemodialysis. His bleeding was controlled. He was sent to the emergency room for evaluation. He notified the ED physician that he has been experiencing dark blood in his stool over the last 1 week. He denies any hematemesis or melena. Last night he had 2 episodes of bowel movement mixed with fresh blood. He denies any dizziness or syncope. No fever or chills reported. OBJECTIVE: VITAL SIGNS: Temperature 97.8, pulse rate of 61, respiration of 16, blood pressure 127/60, O2 saturation 99% on room air. EKG by my review showed paced rhythm. GENERAL: A 79-year-old male in no apparent distress. LUNGS: Showed scattered rhonchi. No significant rales. Lungs were symmetrical. No wheezing appreciated. HEART: S1 and S2 present. Regular. No rubs or gallops. No heaves or pulsation. ABDOMEN: Soft, nontender. Bowel sounds present. No rebound or guarding. EXTREMITIES: 2+ edema in bilateral lower extremity. No calf tenderness PSYCHIATRY: Alert, awake, and oriented x3. Normal affect. LABORATORY FINDINGS: Hemoglobin 9.5 today. His baseline hemoglobin is between 10 and 11. Creatinine 6.73 with BUN of 50, magnesium 2.3. IMAGING STUDIES: Chest x-ray by my review was negative for infiltrate. IMPRESSION: 1. Gastrointestinal bleeding. 2. Acute blood loss anemia. 3. Chronic atrial fibrillation, on Xarelto. 4. Benign prostatic hypertrophy. 5. End-stage renal disease, on hemodialysis, with bleeding from the dialysis access yesterday. 6. Coronary artery disease. 7. Peripheral vascular disease. 8. Diabetes mellitus type 2. 9. Hypertension. 10. Chronic systolic heart failure, status post AICD. 11. History of myocardial infarction in the past. 12. Obesity with a BMI of 30.7. 13. History of folic acid deficiency. PLAN: 1. We will continue monitoring in the observation unit. Gastroenterology team has been consulted. We will monitor hemoglobin closely. We will also check orthostatic vitals every morning. The patient has been typed and screen if needed. Bleeding from the dialysis access has resolved. Dr. Huff has been notified for maintenance hemodialysis. Yulyrelheide is currently on hold. We will resume home medications once verified. Continue Protonix drip for now. We will recheck labs in a.m. We will add vitamin B12 and folic acid supplementation. 2. Plan was discussed with the patient in detail. He stated understanding. Job ID: [id number]
[2019-09-14] MEDS ORDERED: GoLYTELY 4,000 ml Bottle PO SCH (16:00)
[2019-09-14 16:29] LABS: Hemoglobin 9.8 g/dL (14.0-18.0)
[2019-09-14] MEDS: Amiodarone 200 MG TAB PO SCH (21:05)
[2019-09-15] MEDS: Pantoprazole 80 MG in Sodium Chloride 0.9% 100 ML IVP SCH (01:54)
[2019-09-15 06:42] LABS: #Eosinphils 0.2 thou/uL (0.0-0.7); #Lymphocytes 1.4 thou/uL (1.20-3.40); #Monocytes 0.8 thou/uL (0.11-0.59); %Basophils 0.3 % (0.0-1.0); %Eosinophils 2.9 % (0.0-10.0); %Lymphocytes 22.2 % (21.0-51.0); %Neutrophils 62.5 % (42.0-75.0); Hemoglobin 9.5 g/dL (14.0-18.0); Mean Corpuscular HGB CONC 32.9 g/dL (32.0-36.0); Mean Corpuscular Hemoglobin 35.9 pg (27.0-31.0); Mean Platelet Volume 8.1 fL (7.4-10.4); Platelet Count 189 thou/uL (130-400); RBC Distribution Width 14.6 % (11.5-14.5); Red Blood Cell (RBC) Count 2.65 mill/uL (4.70-6.10); White Blood Cell (WBC) Count 6.4 thou/uL (4.8-10.8)
[2019-09-15 07:04] LABS: ALT (SGPT) 10 U/L (8-55); AST (SGOT) 14 U/L (5-34); Albumin 3.6 g/dL (3.4-4.8); Alkaline Phosphatase 95 U/L (40-110); Anion Gap 16 mmol/L (10-20); BUN (Urea Nitrogen) 28 mg/dL (8.4-25.7); Bilirubin, Total 0.8 mg/dL (0.2-1.2); Calc. Creatinine Clearance 17 mL/min (70-130); Calcium 8.7 mg/dL (7.8-10.44); Carbon Dioxide 27 mmol/L (23-31); Chloride 101 mmol/L (98-107); Estimated GFR-MDRD 11; Globulin 2.9 g/dL (2.4-3.5); Glucose 78 mg/dL (83-110); Potassium 4.3 mmol/L (3.5-5.1); Protein, Total 6.5 g/dL (5.8-8.1); Sodium 140 mmol/L (136-145)
[2019-09-15] MEDS ORDERED: Ketamine 50 MG/ML (10ML VIAL) ONE (09:29)
[2019-09-15] MEDS ORDERED: Promethazine HCl 25 MG/ML VIAL IM PRN (10:29)
[2019-09-15] MEDS ORDERED: Promethazine HCl 25 MG/ML VIAL SLOW IVP PRN (10:29)
[2019-09-15] MEDS ORDERED: Ondansetron HCl/PF 4 MG/2 ML Vial IVP PRN (10:29)
[2019-09-15] MEDS ORDERED: Pantoprazole 80 MG, Admixture Fee 1 EACH in Sodium Chloride 0.9% 100 ML IVP SCH (11:30)
[2019-09-15] MEDS: Folic Acid 1 MG TAB PO SCH (11:49)
[2019-09-15] MEDS: Cyanocobalamin (Vitamin B-12) 1,000 MCG TAB PO SCH (11:49)
--- NOTE | 2019-09-15 14:48 | OP ---
DATE OF PROCEDURE: 09/15/2019 GAME OPERATOR SURGEON: None. PROCEDURES: 1. EGD. 2. Colonoscopy with control of hemorrhage, and snare polypectomy. INDICATIONS: 1. Overt gastrointestinal bleeding, in a patient on Xarelto with end-stage renal disease, on dialysis. 2. Chronic anemia. MEDICATIONS: See Anesthesia record. FINDINGS: After discussion of the risks, benefits, and alternatives of the procedure, informed consent was obtained and witnessed. Pre-endoscopic cardiopulmonary examination was satisfactory. Time-out was performed before sedation was achieved. Sedation was achieved with Anesthesia assistance in the endoscopy unit. A Pentax adult upper endoscope was placed into the oropharynx and passed through the cricopharyngeus under direct visualization. The esophageal mucosa appeared normal throughout with a normal-appearing Z-line at 45 cm from the incisors. The endoscope was advanced into the stomach. Forward and retroflexed views of the entire gastric mucosa were obtained. The gastric mucosa appeared normal throughout. The endoscope was advanced through the pylorus and into the first and second portions of the duodenum, which also appeared normal. The upper endoscope was completely withdrawn and the patient was repositioned. Digital rectal exam was performed, which was unremarkable. A Pentax adult colonoscope was inserted into the anus and passed forward to the cecum in the usual fashion. The cecal base was identified by the appendiceal orifice as well as the ileocecal valve. The terminal ileum was not intubated. The colonoscope was slowly withdrawn in a gradual and circumferential manner with careful examination of the entire colonic mucosa. The quality of the prep was good. There was a moderate amount of bloody effluent throughout the entire colon. This was able to be completely suctioned and the entire colon examined. In the ascending colon in close proximity to the ileocecal valve, there is a single tiny arteriovenous malformation. However, it is actively bleeding. This area was watched for over 3 minutes, and bleeding continued from this area spontaneously. This AVM was treated with argon plasma coagulation at settings of 0.5 L/minute and 15 kraft. Good hemostasis was achieved. Following this, there was no evidence of any further bleeding or any new blood coming into the colon. The remainder of the colonic mucosa appeared normal. There were no other bleeding lesions. There is diverticulosis throughout the colon, particularly in the left side of the colon. In the descending colon, there was a single sessile polyp measuring 2 mm in diameter. This was completely removed with cold snare and retrieved for pathology. Retroflexion in the rectum demonstrates small internal hemorrhoids. The colonoscope was completely withdrawn and the patient allowed to recover. The patient tolerated the procedure well. There were no immediate postprocedure complications. IMPRESSION: 1. Normal esophagogastroduodenoscopy. 2. 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 3. A 2 mm descending colon polyp, completely removed with cold snare and retrieved for pathology. 4. Left-sided diverticulosis of the colon. 5. Small internal hemorrhoids. RECOMMENDATIONS: 1. Advance diet. 2. Follow up pathology on the colon polyp. But no repeat colonoscopy will be recommended, given the patient's age and comorbidities. 3. I would recommend consideration of discontinuing the Xarelto in favor of some other agent if possible, in this patient with gastrointestinal AVMs and end-stage renal disease, on dialysis. GI will sign off, but please call back anytime with questions or concerns. Job ID: [id number]
[2019-09-15] MEDS: Amiodarone 200 MG TAB PO SCH (21:06)
--- NOTE | 2019-09-15 21:16 | PDOC.HOSPP ---
- Subjective Encounter Date: 09/15/19 Encounter Time: 08:00 Subjective: Patient seen and examined for GI bleeding. No new episodes of melena or hematochezia. No N/V. No new complaints. No overnight events - Objective Vital Signs & Weight: Vital Signs (12 hours) Temp Pulse Resp BP BP Pulse Ox 09/15/19 20:11 98.3 F 63 14 115/62 95 09/15/19 15:45 98.0 F 62 20 121/60 98 09/15/19 11:35 60 16 138/70 98 09/15/19 11:09 98.2 F 61 20 132/65 100 Weight Weight 218 lb 14.4 oz I&O: 09/14/19 09/15/19 09/16/19 06:59 06:59 06:59 Intake Total 345 5320 720 Output Total 150 2200 Balance 195 3120 720 Result Diagrams: 09/15/19 06:12 09/15/19 06:12 Hospitalist ROS - Review of Systems Respiratory: denies: cough, dry, shortness of breath, hemoptysis, SOB with excertion, pleuritic pain, sputum, wheezing, other Cardiovascular: denies: chest pain, palpitations, orthopnea, paroxysmal noc. dyspnea, edema, light headedness, other - Medication Medications: Active Medications Generic Name Dose Route Start Last Admin Trade Name Rajiv PRN Reason Stop Dose Admin Amiodarone HCl 200 mg 09/14/19 21:00 09/15/19 21:06 Cordarone PO 200 mg HS CHARISSE Administration Cyanocobalamin 1,000 mcg 09/15/19 09:00 09/15/19 11:49 Vitamin B-12 PO 1,000 mcg DAILY CHARISSE Administration Epoetin Danial-epbx 7,500 unit 09/14/19 10:30 09/14/19 11:49 Retacrit SC 7,500 unit Q7D CHARISSE Administration Folic Acid 1 mg 09/15/19 09:00 09/15/19 11:49 Folvite PO 1 mg DAILY CHARISSE Administration - Exam General Appearance: NAD Neck: supple, no JVD Heart: RRR, no gallops Respiratory: CTAB, no rales Gastrointestinal: soft, non-tender, non-distended, normal bowel sounds Extremities: no edema Hosp A/P - Plan DVT proph w/SCDs IMPRESSION: 1. Gastrointestinal bleeding. 2. Acute blood loss anemia. 3. Chronic atrial fibrillation, on Xarelto. 4. Benign prostatic hypertrophy. 5. End-stage renal disease, on hemodialysis, with bleeding from the dialysis access yesterday. 6. Coronary artery disease. 7. Peripheral vascular disease. 8. Diabetes mellitus type 2. 9. Hypertension. 10. Chronic systolic heart failure, status post AICD. 11. History of myocardial infarction in the past. 12. Obesity with a BMI of 30.7. 13. History of folic acid deficiency. PLAN: EGD/Colon today Cont Protonix drip Clarify home meds Dialysis per Nephrology Cont other meds
[2019-09-16] MEDS ORDERED: PROPOFOL 200 MG/20 ML VIAL ONE (00:01)
[2019-09-16] MEDS ORDERED: Lidocaine 1% PF 5 ML VIAL ONE (00:01)
--- NOTE | 2019-09-16 08:58 | PRG ---
DATE OF SERVICE: 09/16/2019 SUBJECTIVE: Mr. Chaudhary is a 79-year-old white male with ESRD, was admitted for GI bleed. He underwent an upper GI endoscopy. The lower GI endoscopy found an AV malformation which was treated with argon plasma coagulation. He has no new complaints today. Recommendation is to temporarily hold off anticoagulation with Xarelto. No other complaints today. OBJECTIVE: VITAL SIGNS: Blood pressure is 132/62, heart rate 65, respiratory rate 16, temperature 97.4, pulse ox 98%. GENERAL: Awake, alert, comfortable, not in distress. SKIN: Adequate turgor. HEENT: Slightly pale conjunctivae. Anicteric sclerae. NECK: No neck mass. No carotid bruits. No JVD. CHEST: No deformities. LUNGS: Clear breath sounds. No wheezing. No crackles. HEART: Normal sinus rhythm. No murmurs, gallops, or rubs. ABDOMEN: Globular, soft, nontender, no masses. EXTREMITIES: No edema, no deformities. MEDICATIONS: September 16, 2019, reviewed. LABORATORY DATA: September 15, 2019, white count 6.4, hemoglobin 9.5. Sodium 140, potassium 4.3, chloride 101, carbon dioxide 27, BUN 28, creatinine 5.17, calcium 8.7. LFTs normal. ASSESSMENT AND PLAN: 1. Lower gastrointestinal bleed-arteriovenous malformation/angiodysplasia-plasma argon coagulation was done. Stable. Recheck CBC in a.m. 2. Endstage renal disease, stable. Currently using heparin free hemodialysis. Fluid removal with this patient as tolerated. Agree with current management. Job ID: [id number]
[2019-09-16] MEDS: Cyanocobalamin (Vitamin B-12) 1,000 MCG TAB PO SCH (12:36)
[2019-09-16] MEDS: Folic Acid 1 MG TAB PO SCH (12:36)
--- NOTE | 2019-09-16 15:51 | PDOC.HOSPP ---
- Subjective Encounter Date: 09/16/19 Encounter Time: 13:30 Subjective: Patient seen and examined for GI bleeding. No new episodes of GI bleeding. No CP /SOB. No new complaints. No overnight events - Objective Vital Signs & Weight: Vital Signs (12 hours) Temp Pulse Resp BP BP BP Pulse Ox 09/16/19 12:00 60 20 112/69 99 09/16/19 07:28 97.4 F L 65 16 132/62 98 09/16/19 04:20 98.0 F 60 16 129/68 96 Weight Weight 218 lb 14.4 oz I&O: 09/15/19 09/16/19 09/17/19 06:59 06:59 06:59 Intake Total 5320 960 Output Total 2200 75 Balance 3120 885 Result Diagrams: 09/15/19 06:12 09/15/19 06:12 Hospitalist ROS - Review of Systems Respiratory: denies: cough, dry, shortness of breath, hemoptysis, SOB with excertion, pleuritic pain, sputum, wheezing, other Cardiovascular: denies: chest pain, palpitations, orthopnea, paroxysmal noc. dyspnea, edema, light headedness, other Gastrointestinal: denies: nausea, vomiting, abdominal pain, diarrhea, constipation, melena, hematochezia, other - Medication Medications: Active Medications Generic Name Dose Route Start Last Admin Trade Name Brianq PRN Reason Stop Dose Admin Amiodarone HCl 200 mg 09/14/19 21:00 09/15/19 21:06 Cordarone PO 200 mg HS CHARISSE Administration Cyanocobalamin 1,000 mcg 09/15/19 09:00 09/16/19 12:36 Vitamin B-12 PO 1,000 mcg DAILY CHARISSE Administration Epoetin Danial-epbx 7,500 unit 09/14/19 10:30 09/14/19 11:49 Retacrit SC 7,500 unit Q7D CHARISSE Administration Folic Acid 1 mg 09/15/19 09:00 09/16/19 12:36 Folvite PO 1 mg DAILY CHARISSE Administration - Exam General Appearance: NAD Neck: supple, no JVD Heart: RRR, no rubs Respiratory: CTAB, no rales, no ronchi Gastrointestinal: soft, non-tender, non-distended, normal bowel sounds Extremities: no cyanosis Neurological: no new deficit Hosp A/P - Plan DVT proph w/SCDs IMPRESSION: 1. Gastrointestinal bleeding due to AVMs in ascending colon with active hemorrhage. 2. Acute blood loss anemia. 3. Chronic atrial fibrillation, on Xarelto. 4. Benign prostatic hypertrophy. 5. End-stage renal disease, on hemodialysis, with bleeding from the dialysis access yesterday. 6. Coronary artery disease. 7. Peripheral vascular disease. 8. Diabetes mellitus type 2. 9. Hypertension. 10. Chronic systolic heart failure, status post AICD. 11. History of myocardial infarction in the past. 12. Obesity with a BMI of 30.7. 13. History of folic acid deficiency. 14. Colon polyp/Diverticulosis/Small hemorrhoids PLAN: s/p EGD/Colonoscopy Await Cardiology input on anticoagulation Resume ASA Dialysis per Nephrology I d/w Dr Mayo Cont other meds
[2019-09-16 16:22] VITALS: BP 118/58; TEMP 97.3
[2019-09-16] MEDS ORDERED: Warfarin Sodium 2 MG TAB PO SCH (17:30)
--- NOTE | 2019-09-16 21:19 | CON ---
DATE OF CONSULTATION: I am seeing Mr. Chaudhary at our [facility] Telemetry Floor as Electrophysiology technical services consultant. PROBLEMS: 1. Elevated CHADS-VASc score, previously on Coumadin then Eliquis, more recently on Xarelto. a. Current admission with GI bleed prompting discontinuation of Xarelto. 2. Recurrent atrial arrhythmias. a. Persistent atrial fibrillation eventually prompting amiodarone initiation earlier this year with intermittently maintaining normal rhythm on amiodarone. Adequate ventricular rate control and atrial fibrillation. 3. Chronic systolic congestive heart failure with ischemic cardiomyopathy. a. Reduced LVEF about 40% on the most recent PRABHU in 03/29/2019, presently 15 to 20 percent. 4. Status post Bi-V ICD implantation in 04/20/2004 with generator change on 08/21/2018. Currently with [employer] Viva quad device without evident new function. 5. End-stage renal disease on hemodialysis. 6. Remote history of ventricular aneurysm resection. 7. History of coronary artery disease with remote bypass surgery. 8. History of hypertension. 9. History of orthostatic hypotension on midodrine. 10. History of peripheral vascular disease. ALLERGIES: TETANUS VACCINE AND TOXOID. MEDICATIONS: At home included: Pramipexole. 1. Midodrine. 2. Aspirin. 3. Lipitor. 4. Amiodarone 200 mg p.o. at bedtime. 5. Cholecalciferol. 6. Tamsulosin. 7. Rivaroxaban 50 mg daily. SUBJECTIVE: Mr. Chaudhary is here due to GI bleed. His hemoglobin dropped to 9.8. 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 Active hemorrhage is treated with APC with good hemostasis achieved. Also 2 mm descending colon polyp noted, which was snared. Left colon diverticulosis is seen. Internal hemorrhoids are noted. Currently he is doing better. His hemoglobin levels are stable. He is overall feeling well. Denies PND or orthopnea. No chest pain. No fever, chills, or cough. Rest of 12-point system unremarkable. PAST MEDICAL HISTORY: Past history as above. He has been routinely followed in the office and most recently on August 08 due to falls and skin discoloration. We are discussing the option of Watchman device. In fact he was in touch with the loan secretary, but so far he has not been able to organize a trip up there. He did change his Eliquis to Xarelto as requested to a lower dose to appropriate his renal function. Now, he is though off Xarelto and Eliquis both. His device function was adequate in the office. SOCIAL HISTORY: The patient denies smoking, EtOH or drug abuse. FAMILY HISTORY: Not contributory. OBJECTIVE DATA: VITAL SIGNS: Blood pressure is 112/69, heart rate 60, respirations 20, temperature 97.4 degrees Fahrenheit. PHYSICAL EXAMINATION: GENERAL: Alert and oriented man, in no apparent distress. NECK: Supple. Jugular veins not distended. CHEST: Coarse without crackles. HEART: Sounds are regular to rate and rhythm. Left precordial ICD insertion site is well healed. ABDOMEN: Benign. Bowel sounds positive. EXTREMITY: Lower extremity with 1+ lower extremity edema. NEUROLOGIC: The patient is nonfocal. MUSCULOSKELETAL: No joint deformity, skin without rash, but significant bruising in the left and right upper extremity is seen. LABORATORY DATA: The initial hemoglobin is 9.8, white cells 5.8, platelet count is 160. Sodium 141, potassium 4.5, BUN is 50, creatinine is 6.73. The chest x-ray shows no rib fracture. IMAGING: EKG is reviewed revealing an ongoing atypical atrial flutter with ventricular pacing. ASSESSMENT AND PLAN: Mr. Chaudhary is a 79-year-old man with history of congestive heart failure, ischemic cardiomyopathy, moderately reduced left ventricular ejection fraction adequate functioning biventricular implantable cardioverter defibrillator in place, recurrent atrial arrhythmias with intermittent success with suppression with amiodarone. Due to his falls extreme skin bruising as well as more recent gastrointestinal bleed, he clearly has difficulty maintaining anticoagulation with both Eliquis and Xarelto. He has done well with Coumadin in the past, although he did not like the regular checks. Now, he indeed has a gastrointestinal bleed. Even though that is treated with polyp removal, recurrence of gastrointestinal bleed in the future is very high. At this point, I would encourage him to again consider Watchman device. He will likely need to be back on some form of anticoagulation once gastroenterology service allows, Coumadin would be most optimal. I expedite his appointment in [place] to have this procedure performed. Persistent atrial fibrillation, suboptimally suppressed with amiodarone, but with adequate rate control. For now, we will continue hence in the past some efficacy was noted with amiodarone alone. He is a limited ablation candidate, but especially in view of the persistent left atrial clot seen on prior transesophageal echocardiographies. History of presumed left atrial clot also could jeopardize the option for Watchman device placement. He needs to start back his anticoagulation as soon as GI service arrives and possibly a CT scan prior to the procedure is advocated. I will make arrangements to see him back in the office within next month. Thank you again for letting me to participate in the care of this patient. Job ID: [id number]
--- NOTE | 2019-09-16 23:28 | CON ---
DATE OF CONSULTATION: HISTORY OF PRESENT ILLNESS: The patient is a pleasant 79-year-old gentleman who presented with a GI hemorrhage and has a history of chronic atrial fibrillation. The patient has previously undergone coronary artery bypass surgery and a resection of a ventricular aneurysm. He has also had placement of AICD. The patient also has a history of cerebrovascular accident. He has had previous TIAs that have revealed clots to be in his left atrial appendage. The patient is followed by EP and has been evaluated for Watchman device. The patient prior to his admission for a GI hemorrhage was on Xarelto. He presented with GI bleed. The patient denied to have any chest pain or dyspnea. PAST MEDICAL HISTORY: 1. Ischemic cardiomyopathy. 2. Atrial fibrillation. 3. History of ventricular aneurysm resection. 4. Peripheral vascular disease. 5. End-stage renal disease. 6. Hypertension. 7. Dyslipidemia. 8. COPD. PAST SURGICAL HISTORY: Appendectomy, aneurysm dissection, coronary artery bypass graft surgery. ALLERGIES: HE IS ALLERGIC TO LIPITOR, PRAVACHOL, TETANUS. MEDICATIONS: See nursing list. SOCIAL HISTORY: Strong family history of heart disease. REVIEW OF SYSTEMS: Ten-point system is otherwise unremarkable. PHYSICAL EXAMINATION: GENERAL: Well-developed gentleman, in no acute distress. VITAL SIGNS: Blood pressure 118/58. NECK: No jugular venous distention. LUNGS: Clear to auscultation. HEART: Regular rate and rhythm. Normal S1, S2. ABDOMEN: Distended. EXTREMITIES: Show trace edema. VASCULAR: Radial pulses are 2+. LABORATORY DATA: White blood cell count 6.4, hemoglobin 9.5, hematocrit 28.9, and his platelets are 189. Sodium is 140, potassium 4.3, chloride 101, bicarbonate 27, BUN 28, creatinine 5.1. BNP 821. EKG revealed atrial fibrillation with electronic ventricular pacemaker. IMPRESSION: 1. Gastrointestinal hemorrhage. 2. Chronic atrial fibrillation. 3. History of atrial clot. 4. History of ventricular aneurysm resection. 5. Ischemic cardiomyopathy. 6. End-stage renal disease. 7. Peripheral vascular disease. 8. Dyslipidemia. PLAN: This gentleman presents with a GI bleed. He has a history of cerebrovascular accident and atrial fibrillation. From a cardiac standpoint, EP consultation has been obtained. It is recommended he switch to Coumadin. We will need to find from Gastroenterology when he can be safely started on this medication. The patient is agreeable to the Watchman device which will be hopefully arranged in the near future. Job ID: [id number]
--- NOTE | 2019-09-17 03:40 | DIS ---
DATE OF ADMISSION: 09/16/2019 DATE OF DISCHARGE: 09/16/2019 DISCHARGE DISPOSITION: Home. FOLLOWUP: 1. Follow up with primary care physician, Dr. Robbins, in 1 week. 2. Follow up with Dr. Alfredo Kaye and Electrophysiology, Dr. Angelo as scheduled. 3. PT/INR after three days is recommended. Primary care physician advised to follow. DISCHARGE MEDICATION: Coumadin 2 mg daily. Patient was advised to discontinue Xarelto. All other home medications were left unchanged. SIGNIFICANT LABS: Hemoglobin at discharge was 9.5. His baseline hemoglobin is between 10 and 11. Creatinine at discharge was 5.17. INPATIENT PROCEDURES: On September 15, 2019, patient underwent EGD and colonoscopy. The EGD was normal. Colonoscopy showed small arteriovenous malformation in the ascending colon with active hemorrhage treated with argon plasma coagulation with good hemostasis. There was also a 2 mm descending colon polyp that was completely removed with cold snare and retrieved for pathology. It showed left-sided diverticulosis of the colon with small internal hemorrhoid. BRIEF HOSPITAL COURSE: Patient is a 79-year-old male with atrial fibrillation, on anticoagulation, presented to the hospital with bleeding from the AV fistula. While in the emergency room, he mentioned that he has been having dark tarry stool of one week duration. Please refer to the history and physical for further details. The patient was admitted to the hospital with a diagnosis of GI bleeding. He was closely monitored with frequent hemoglobin check. His hemoglobin stabilized around 9.5. Patient was also evaluated by Cardiology and Electrophysiology for anticoagulation recommendation. He will follow up as outpatient for Watchman device. For time being, he will be started on warfarin 2 mg daily. He was advised to follow up with Dr. Robbins for PT/INR check in 2 to 3 days. Patient was also seen by Nephrology for maintenance hemodialysis. FINAL DIAGNOSES: 1. Gastrointestinal bleeding secondary to arteriovenous malformations in the ascending colon with active hemorrhage. 2. Acute blood loss anemia. 3. Chronic atrial fibrillation. Patient was on Xarelto on admission. This has been changed to Coumadin. 4. Benign prostatic hypertrophy. 5. End-stage renal disease, on hemodialysis with bleeding from the dialysis access on admission, resolved. 6. Coronary artery disease. 7. Peripheral vascular disease. 8. Diabetes mellitus, type 2. 9. Hypertension. 10. Chronic systolic heart failure, status post AICD. 11. History of myocardial infarction in the past. 12. Obesity with a BMI of 30.7. 13. History of folic acid deficiency. Folic acid prescription was sent to the pharmacy. 14. Colonic polyp. 15. Diverticulosis. 16. Small hemorrhoid. PLAN: Plan of care was discussed with the patient in detail. He stated understanding. Job ID: [id number]
[2019-09-17] MEDS ORDERED: Aspirin 81 mg Enteric Coated Tablet PO SCH (09:00)
[2019-09-17] MEDS ORDERED: Warfarin Sodium 2 MG TAB PO SCH (17:00)
== END 2019-09-16 18:21 | disposition home or self-care (01) | DRG 377 ==
LOC: ERS 12:57 → 2SW 14:38 → OBSVTOIN 09-16 10:50
PROVIDERS: ADMIT Internal Medicine; ATTEND Internal Medicine
PROC: 5A1D70Z Performance of Urinary Filtration, Intermittent, Less than 6 Hours Per Day (ICD-10-PCS; 2019-09-13)
PROC: 3E02340 Introduction of Influenza Vaccine into Muscle, Percutaneous Approach (ICD-10-PCS; 2019-09-14)
PROC: 0DJ08ZZ Inspection of Upper Intestinal Tract, Via Natural or Artificial Opening Endoscopic (ICD-10-PCS; principal; 2019-09-15)
PROC: 0W3P8ZZ Control Bleeding in Gastrointestinal Tract, Via Natural or Artificial Opening Endoscopic (ICD-10-PCS; 2019-09-15)
PROC: 0DBM8ZZ Excision of Descending Colon, Via Natural or Artificial Opening Endoscopic (ICD-10-PCS; 2019-09-15)
DX: K55.21 Angiodysplasia of colon with hemorrhage (principal); N18.6 End stage renal disease; I13.2 Hypertensive heart and chronic kidney disease with heart failure and with stage 5 chronic kidney disease, or end stage renal disease; Z23 Encounter for immunization; D62 Acute posthemorrhagic anemia; I50.22 Chronic systolic (congestive) heart failure; I48.19 Other persistent atrial fibrillation; T82.838A Hemorrhage due to vascular prosthetic devices, implants and grafts, initial encounter; I25.10 Atherosclerotic heart disease of native coronary artery without angina pectoris; E78.5 Hyperlipidemia, unspecified; D63.1 Anemia in chronic kidney disease; N40.0 Benign prostatic hyperplasia without lower urinary tract symptoms; E11.22 Type 2 diabetes mellitus with diabetic chronic kidney disease; E11.51 Type 2 diabetes mellitus with diabetic peripheral angiopathy without gangrene; E66.9 Obesity, unspecified; I25.5 Ischemic cardiomyopathy; J44.9 Chronic obstructive pulmonary disease, unspecified; K63.5 Polyp of colon; K57.30 Diverticulosis of large intestine without perforation or abscess without bleeding; K64.8 Other hemorrhoids; Y84.8 Other medical procedures as the cause of abnormal reaction of the patient, or of later complication, without mention of misadventure at the time of the procedure; Z90.49 Acquired absence of other specified parts of digestive tract; Z68.30 Body mass index [BMI] 30.0-30.9, adult; Z99.2 Dependence on renal dialysis; Z91.81 History of falling; Z91.15 Patient's noncompliance with renal dialysis; Z86.73 Personal history of transient ischemic attack (TIA), and cerebral infarction without residual deficits; Z87.440 Personal history of urinary (tract) infections; I25.2 Old myocardial infarction; Z95.810 Presence of automatic (implantable) cardiac defibrillator; Z95.1 Presence of aortocoronary bypass graft; Z88.7 Allergy status to serum and vaccine; Z79.01 Long term (current) use of anticoagulants; Z79.82 Long term (current) use of aspirin; Z79.899 Other long term (current) drug therapy
CPT/HCPCS: 36415; 80048; 80053; 83735; 83880; 85025; 86850; 86900; 86901; 88305; 93005; C9113; J2001; J2704; J3490; Q5105

== ENCOUNTER 2019-11-30 10:13 | Inpatient (IN) | payer MEDICARE, MEDICAID ==
[2019-11-30] MEDS ORDERED: Iopamidol-370 76% 500 ML 1 ML ONE (11:14)
--- NOTE | 2019-11-30 11:20 | RAD ---
Portable chest: HISTORY: Cough. Pneumonia follow-up. COMPARISON: 11/12/2019 FINDINGS:Persistent opacification of left lung base consistent with left effusion and left basilar in filtrate/consolidation. Right lung appears clear and stable. Calcified granuloma in the right midlung. Cardiomegaly and postop sternotomy changes appear stable. IMPRESSION:Continued left basilar opacification, increased since prior exam.
[2019-11-30 11:58] LABS: #Eosinphils 0.1 thou/uL (0.0-0.7); #Lymphocytes 1.3 thou/uL (1.20-3.40); #Monocytes 1.1 thou/uL (0.11-0.59); #Neutrophils 4.8 thou/uL (1.40-6.50); %Basophils 0.5 % (0.0-1.0); %Eosinophils 1.7 % (0.0-10.0); %Lymphocytes 17.9 % (21.0-51.0); %Monocytes 14.4 % (0.0-10.0); %Neutrophils 65.6 % (42.0-75.0); Hemoglobin 12.3 g/dL (14.0-18.0); Mean Corpuscular HGB CONC 31.7 g/dL (32.0-36.0); Mean Corpuscular Hemoglobin 32.5 pg (27.0-31.0); Platelet Count 179 thou/uL (130-400); RBC Distribution Width 16.5 % (11.5-14.5); Red Blood Cell (RBC) Count 3.77 mill/uL (4.70-6.10); White Blood Cell (WBC) Count 7.3 thou/uL (4.8-10.8)
--- NOTE | 2019-11-30 12:02 | CT ---
EXAM: CT brain without contrast HISTORY: Fall from standing with head trauma COMPARISON: 05/14/2019 TECHNIQUE: Multiple contiguous axial images were obtained and a CT of the brain without contrast. FINDINGS: There are scattered hypodensities in the subcortical and periventricular white matter consi stent with small vessel ischemic disease. There is no evidence of hydrocephalus, intracranial hemorrhage, or extra-axial fluid collection. The calvarium and overlying soft tissues are unremarkable. There is partial opacification of the fron vianca sinuses. The other mastoid air cells are well aerated. IMPRESSION: No evidence of acute intracranial abnormality
--- NOTE | 2019-11-30 12:03 | CT ---
EXAM: CT of the cervical spine without contrast HISTORY: Head trauma with neck pain COMPARISON: 04/23/2019 TECHNIQUE: Multiple contiguous axial images were obtained in a CT of the cervical spine without contr ast. Sagittal and coronal reformats were performed. FINDINGS: The vertebral bodies demonstrate normal height and alignment without fracture or subluxatio n. Moderate degenerative changes are seen throughout the cervical spine with intervertebral disc space narrowing and osteophyte formation. No prevertebral soft tissue swelling is seen. The posterior facets are well aligned. Normal alignment of the skull base with the cervical spine is seen. The lung apices and cervical soft tissues are unremarkable. IMPRESSION: Stable severe degenerative changes without evidence of acute osseous abnormality of the c ervical spine.
[2019-11-30 12:09] LABS: INR-International Normal Ratio 2.9; PTT 49.2 SEC (22.9-36.1); Prothrombin Time 29.9 SEC (12.0-14.7)
[2019-11-30 12:20] LABS: ALT (SGPT) 13 U/L (8-55); AST (SGOT) 20 U/L (5-34); Albumin 3.7 g/dL (3.4-4.8); Alkaline Phosphatase 120 U/L (40-110); Anion Gap 16 mmol/L (10-20); BUN (Urea Nitrogen) 29 mg/dL (8.4-25.7); Bilirubin, Total 0.9 mg/dL (0.2-1.2); Calc. Creatinine Clearance 0 mL/min (70-130); Calcium 9.5 mg/dL (7.8-10.44); Carbon Dioxide 33 mmol/L (23-31); Chloride 100 mmol/L (98-107); Estimated GFR-MDRD 10; Globulin 3.6 g/dL (2.4-3.5); Glucose 82 mg/dL (83-110); Potassium 3.9 mmol/L (3.5-5.1); Protein, Total 7.3 g/dL (5.8-8.1); Sodium 145 mmol/L (136-145)
[2019-11-30] MEDS ORDERED: Cefepime 2 GM VIAL ONE (12:25)
[2019-11-30 12:43] LABS: CKMB 2.5 ng/mL (0-6.6)
--- NOTE | 2019-11-30 12:47 | RAD ---
EXAM: 2 views of the right forearm HISTORY: Forearm pain after fall COMPARISON: None FINDINGS: There is no evidence of acute fracture or dislocation. No soft tissue swelling is seen. No degenerative changes are seen in the wrist or elbow. Vascular calcifications are seen. IMPRESSION: No evidence of acute osseous abnormality.
[2019-11-30 16:34] VITALS: BMI 30.2
[2019-11-30] MEDS ORDERED: Acetaminophen 325 MG TAB PO PRN (17:06)
[2019-11-30] MEDS ORDERED: Ondansetron PF 4 MG/2 ML Vial IVP PRN (17:06)
[2019-11-30] MEDS ORDERED: Ondansetron ODT 4 MG TAB SL PRN (17:06)
[2019-11-30 18:11] LABS: Troponin I 0.044 ng/mL (< 0.028)
[2019-11-30] MEDS ORDERED: Vancomycin HCl 1 GM in Premix Bag 1 BAG IVPB SCH (18:45)
[2019-11-30] MEDS: Tamsulosin HCl 0.4 MG CAP PO SCH (22:23)
[2019-11-30] MEDS: Midodrine HCl 5 MG TAB PO SCH (22:23)
[2019-11-30] MEDS: Pramipexole Di-HCl 0.125 MG TAB PO SCH (22:23)
[2019-11-30] MEDS: Atorvastatin Calcium 40 MG TAB PO SCH (22:23)
[2019-11-30] MEDS: Amiodarone 200 MG TAB PO SCH (22:23)
[2019-12-01 05:06] LABS: #Eosinphils 0.1 thou/uL (0.0-0.7); #Lymphocytes 1.2 thou/uL (1.20-3.40); #Neutrophils 4.8 thou/uL (1.40-6.50); %Basophils 0.1 % (0.0-1.0); %Eosinophils 0.8 % (0.0-10.0); %Lymphocytes 16.4 % (21.0-51.0); %Monocytes 14.5 % (0.0-10.0); %Neutrophils 68.3 % (42.0-75.0); Hemoglobin 10.4 g/dL (14.0-18.0); Mean Corpuscular HGB CONC 31.3 g/dL (32.0-36.0); Mean Corpuscular Hemoglobin 32.1 pg (27.0-31.0); Mean Platelet Volume 8.6 fL (7.4-10.4); Platelet Count 173 thou/uL (130-400); RBC Distribution Width 16.8 % (11.5-14.5); Red Blood Cell (RBC) Count 3.23 mill/uL (4.70-6.10); White Blood Cell (WBC) Count 7.1 thou/uL (4.8-10.8)
[2019-12-01 05:22] LABS: Anion Gap 15 mmol/L (10-20); BUN (Urea Nitrogen) 41 mg/dL (8.4-25.7); Calc. Creatinine Clearance 13 mL/min (70-130); Calcium 8.3 mg/dL (7.8-10.44); Carbon Dioxide 30 mmol/L (23-31); Chloride 100 mmol/L (98-107); Estimated GFR-MDRD 8; Glucose 86 mg/dL (83-110); Sodium 141 mmol/L (136-145)
[2019-12-01] MEDS: Levothyroxine Sodium 25 MCG TAB PO SCH (06:20)
[2019-12-01] MEDS: Cholecalciferol (Vitamin D3) 400 UNITS TAB PO SCH (09:20)
[2019-12-01] MEDS: Midodrine HCl 5 MG TAB PO SCH ×2 (09:20→20:51)
[2019-12-01] MEDS: Aspirin 81 mg Enteric Coated Tablet PO SCH (09:20)
[2019-12-01] MEDS: Folic Acid 1 MG TAB PO SCH (09:20)
[2019-12-01] MEDS ORDERED: HOLD VANCOMYCIN FOR LEVEL >20 FS SCH (10:00)
[2019-12-01] MEDS ORDERED: Vancomycin HCl 1.25 GM in Sodium Chloride 0.9% 250 ML 250 ML IVPB SCH (10:00)
[2019-12-01] MEDS ORDERED: Vancomycin HCl 750 MG in Sodium Chloride 0.9% 250 ML 250 ML IVPB SCH (10:00)
[2019-12-01] MEDS ORDERED: Vancomycin HCl 1 GM in Premix Bag 1 BAG IVPB SCH (10:00)
[2019-12-01] MEDS ORDERED: Vancomycin HCl 500 MG in Sodium Chloride 0.9% 100 ML IVPB SCH (10:00)
--- NOTE | 2019-12-01 10:45 | CT ---
CT CHEST WITH IV CONTRAST: INDICATIONS: Persistent pleural effusion. CORRELATION: Chest film from 11/30/2019, which demonstrated left basilar opacification. FINDINGS: There is dense consolidation and atelectasis in the posterior left lung base. There is a focal fluid collection in the posterior lung base, which appears loculated posteriorly and may represent developi ng empyema. The right lung is clear. The left upper lobe is clear. The mediastinum shows nonspecific lymph nodes. There is nonspecific hilar adenopathy. There are calci fied mediastinal and hilar lymph nodes, indicating a prior granulomatous process. Images through the upper abdomen are unremarkable. IMPRESSION: Dense left basilar consolidation and atelectasis. There is a loculated fluid collection in the wire technician ior left lung base. POS: H
[2019-12-01] MEDS ORDERED: Cefepime 0.5 GM in Sodium Chloride 0.9% 100 ML IVPB SCH (12:00)
--- NOTE | 2019-12-01 12:50 | PDOC.HOSPP ---
- Subjective Encounter Date: 12/01/19 Encounter Time: 07:00 Subjective: Pt seen for followup re; pneumonia. Cough+, minimal sputum. - Objective Vital Signs & Weight: Vital Signs (12 hours) Temp Pulse Resp BP BP Pulse Ox 12/01/19 08:05 98.1 F 60 18 108/55 L 97 12/01/19 04:48 18 93/46 L 12/01/19 03:15 99.7 F H 63 16 99/54 L 92 L Weight Weight 216 lb 14.4 oz I&O: 11/30/19 12/01/19 12/02/19 06:59 06:59 06:59 Intake Total 240 Output Total 50 Balance 190 Result Diagrams: 12/01/19 04:34 12/01/19 04:34 Additional Labs: Labs and MARs reviewed by me EKG Reviewed by me: Yes (Tele: V-paced) Hospitalist ROS - Review of Systems Constitutional: reports: weakness. denies: fever, chills, sweats, malaise Respiratory: reports: cough, dry, SOB with excertion. denies: shortness of breath, hemoptysis, pleuritic pain, sputum, wheezing Cardiovascular: denies: chest pain, palpitations, orthopnea, paroxysmal noc. dyspnea, edema, light headedness Gastrointestinal: denies: nausea, vomiting, abdominal pain, diarrhea, constipation, melena, hematochezia Genitourinary: denies: dysuria, frequency, incontinence, hematuria, retention - Medication Medications: Active Medications Generic Name Dose Route Start Last Admin Trade Name Freq PRN Reason Stop Dose Admin Amiodarone HCl 200 mg 11/30/19 21:00 11/30/19 22:23 Cordarone PO 200 mg HS CHARISSE Administration Aspirin 81 mg 12/01/19 09:00 12/01/19 09:20 Ecotrin PO 81 mg DAILY CHARISSE Administration Atorvastatin Calcium 40 mg 11/30/19 21:00 11/30/19 22:23 Lipitor PO 40 mg QPM CHARISSE Administration Cholecalciferol 400 units 12/01/19 09:00 12/01/19 09:20 Vitamin D PO 400 units DAILY CHARISSE Administration Folic Acid 1 mg 12/01/19 09:00 12/01/19 09:20 Folvite PO 1 mg DAILY CHARISSE Administration Cefepime HCl 0.5 gm/ Sodium 100 mls @ 200 mls/hr 12/01/19 12:00 12/01/19 12: 36 Chloride IVPB 100 mls Q24HR CHARISSE Administration Levothyroxine Sodium 25 mcg 12/01/19 06:00 12/01/19 06:20 Synthroid PO 25 mcg 0600 CHARISSE Administration Midodrine 5 mg 11/30/19 21:00 12/01/19 09:20 Proamatine PO 5 mg BID CHARISSE Administration Pramipexole Dihydrochloride 0.125 mg 11/30/19 21:00 11/30/19 22:23 Mirapex PO 0.125 mg HS CHARISSE Administration Tamsulosin HCl 0.4 mg 11/30/19 21:00 11/30/19 22:23 Flomax PO 0.4 mg QPM CHARISSE Administration - Exam General Appearance: NAD Eye: anicteric sclera ENT: moist mucosa Neck: supple, symmetric, no JVD, no thyromegaly Heart: RRR, no gallops, no rubs, normal peripheral pulses Respiratory - other findings: L bronchial breathing Gastrointestinal: soft, non-tender, non-distended, normal bowel sounds Extremities: 1+ LE edema Psychiatric: normal affect, normal behavior, A&O x 3 Hosp A/P - Plan IMPRESSION: 1. Pneumonia 2. Pleural effusion 3. Fall 4. Benign prostatic hypertrophy. 5. End-stage renal disease, on hemodialysis MWF 6. Coronary artery disease. 7. Peripheral vascular disease. 8. Diabetes mellitus type 2. 9. Hypertension. 10. Chronic systolic heart failure, status post AICD. 11. History of myocardial infarction in the past. 12. Obesity with a BMI of 30.7. 13. History of folic acid deficiency. 14. Colon polyp/Diverticulosis/Small hemorrhoids 15. Hypothyroidism 3. Chronic atrial fibrillation, on warfarin. PLAN: Discussed with pulm service. No clear evidence of infection, and the effusion is chronic. Will deescalate antibiotics. Continue synthroid HTN controlled.
[2019-12-01] MEDS: Warfarin Sodium 3 MG TAB PO SCH (16:27)
[2019-12-01] MEDS ORDERED: diphenhydrAMINE 50 MG/ML VIAL IVP PRN (16:45)
[2019-12-01] MEDS: Pramipexole Di-HCl 0.125 MG TAB PO SCH (20:51)
[2019-12-01] MEDS: Amiodarone 200 MG TAB PO SCH (20:51)
[2019-12-01] MEDS: Atorvastatin Calcium 40 MG TAB PO SCH (20:52)
[2019-12-01] MEDS: Cefdinir 300 MG CAP PO SCH (20:52)
[2019-12-01] MEDS: Tamsulosin HCl 0.4 MG CAP PO SCH (20:52)
[2019-12-02 04:45] LABS: INR-International Normal Ratio 2.1; Prothrombin Time 23.6 SEC (12.0-14.7)
[2019-12-02] MEDS: Levothyroxine Sodium 25 MCG TAB PO SCH (05:35)
--- NOTE | 2019-12-02 07:51 | HP ---
CHIEF COMPLAINT: Fall. HISTORY OF PRESENT ILLNESS: This patient is a 79-year-old male with a history of end-stage renal disease, on dialysis; history of severely reduced ejection fraction at 15% to 20% with apparent improvement up to 40% and also atrial fibrillation. The patient reports that he has had numerous previous falls and presented to the emergency department today after experiencing a fall as well. The patient reports that he got up to go the bathroom, he walked a bit and subsequently fell. He believes he likely passed out, he does not remember feeling any premonition or lightheadedness prior to the event. Denied any chest pain, shortness of breath, or headache. Feels basically back to baseline now. Reports he believes this has happened to him about 20 times. He is suspicious that medications are culprit. He says he feels profoundly weak on the days that he is getting dialysis, ambulates with a walker. Feels better on days when he is not dialyzed. Of note, the patient was diagnosed with pneumonia on 11/12, looks like he presented to the [place] [facility] at that time. He had a chest x-ray that revealed left lower lobe pneumonia and he subsequently had repeat chest x-ray today which shows slight worsening with some pleural effusion. He has had a persistent cough over the past week. He denies any significant pain in the chest. REVIEW OF SYSTEMS: All systems reviewed. All pertinent positives and negatives noted in the history of present illness. PAST MEDICAL HISTORY: Hypertension; end-stage renal disease, on dialysis; coronary artery disease, atrial fibrillation, history of UTIs, right upper extremity tremor, history of LA in 2002, CVA in 2015, hyperlipidemia, nephrolithiasis, and apparent history of strokes requiring change from Eliquis to Xarelto, sounds like he is currently on Coumadin. The patient did have admission here in September for GI bleeding from AVMs. PAST SURGICAL HISTORY: Pacemaker placement in 2016, AICD, left arm dialysis fistula, aneurysm repair in 2002, coronary artery bypass in 2002 at the same time. FAMILY HISTORY: Reviewed and noncontributory. SOCIAL HISTORY: The patient continues to live independently. Lives with his . Denies alcohol or drugs. He does use snuff tobacco. CURRENT MEDICATIONS: 1. Warfarin 6 mg p.o. daily. 2. Flomax 0.4 mg at bedtime. 3. Pramipexole 0.125 mg at bedtime. 4. Midodrine 5 mg b.i.d. 5. Levothyroxine 25 mcg daily. 6. Folic acid 1 mg p.o. daily. 7. Vitamin D3 400 units p.o. daily. 8. Atorvastatin 40 mg q.p.m. 9. Aspirin 81 mg daily. 10. Amiodarone 200 mg p.o. at bedtime. ALLERGIES: TETANUS VACCINE AND TOXOID. PHYSICAL EXAMINATION: VITAL SIGNS: Temperature was 99.2, pulse 67, respirations 18, O2 saturation 96% on room air, BP 110/57. GENERAL APPEARANCE: Age-appropriate male. He is in no distress. He is awake and alert, pleasant, cooperative. HEENT: PERRL. Has no OP lesions. He does have approximately 1 cm occipital scalp laceration with one staple closing it, scab that has dried bleeding and minimal area of ecchymoses around it. NECK: Supple and symmetric without lymphadenopathy, JVD, or carotid bruits. HEART: Regular rate and rhythm without murmurs presently. LUNGS: Diminished on the left without wheezes or rales. ABDOMEN: Soft, nontender, and nondistended. Positive bowel sounds. No masses. No organomegaly. EXTREMITIES: No cyanosis, clubbing, or edema. MUSCULOSKELETAL: The patient demonstrates his weakness by trying to get up out of a chair and is unable to come to a fully erect position. However, when I re-entered the room sometime later, the patient had gotten up and got himself over to the portable toilet and was able to stand himself up and over, grabbed his pants, pulled them up and did not seem to have major challenges with that. PSYCH: Normal affect. NEUROLOGICAL: He tends to have a bit of a stone face, but otherwise seems to be moving all extremities spontaneously. Has a significant tremor in the right upper extremity, which is severe at times, but it appears that he can voluntarily control it. LABORATORY DATA: White count 7.3, hemoglobin 13.1, platelets 179. INR is 2.9, PTT 49.2. Sodium is 145, potassium 3.9, chloride 100, CO2 is 33, BUN 29, creatinine is 5.71, glucose 82, lactic acid 1.5, calcium 9.5, AST 20, ALT 13, alkaline phosphatase 120. Troponin initial 0.049, subsequent 0.020 and 0.044. BNP 974.5, TSH 5.93. Flu screen negative for flu A and flu B. CT of the brain, no evidence of acute intracranial abnormality. CT of the C-spine, stable severe degenerative changes without evidence of acute osseous abnormalities of the cervical spine. Chest x-ray shows continued left basilar opacification, increased from the prior exam on 11/12. Forearm x-ray shows no evidence of acute osseous abnormality. EKG shows paced rhythm at 61 beats per minute. IMPRESSION AND PLAN: 1. Fall. The patient has a history of repeated falls. It sounds like he had a syncopal event with this particular episode concerning for possible orthostatic hypotension. The patient is on tamsulosin, but also on midodrine, suggesting that it has been the treatment for these falls. He does demonstrates some generalized weakness. We will get orthostatic vital signs and PT and OT evaluations. 2. Left lower lobe pneumonia. This appears to be worse from his exam on chest x-ray on 11/12/2019. We will obtain CT of the chest in order to reassess in the emergency department. He did receive antibiotics including vancomycin and cefepime. We will continue those until this is further elucidated, although this may only represent a normal progression of what was initially an early pneumonia. 3. End-stage renal disease. He had dialysis yesterday. We will consult Dr. Huff. 4. History of chronic atrial fibrillation, therapeutic on warfarin. Continue with his usual home dose. 5. History of tremor. Continue with the pramipexole. 6. Hypothyroidism. Continue levothyroxine supplementation. 7. Hyperlipidemia. Continue statin. 8. Atrial fibrillation. Continue with Coumadin and amiodarone. Job ID: [id number]
[2019-12-02] MEDS ORDERED: Epoetin (ESRD) 20,000 UNITS/ML SC SCH (08:30)
[2019-12-02 09:00] LABS: Hemoglobin 10.6 g/dL (14.0-18.0); Platelet Count 152 thou/uL (130-400)
--- NOTE | 2019-12-02 09:40 | CON ---
DATE OF CONSULTATION: HISTORY OF PRESENT ILLNESS: Mr. Chaudhary is a 79-year-old white male, who was admitted due to frequent falls. The patient also history of ESRD and currently on maintenance hemodialysis. The patient has also been diagnosed with pneumonia previously and continues to have persistent cough. He was admitted for further management of this pneumonia. Please note, the patient has significant heart problem with a decreased EF. A Watchman procedure has been contemplated by his roll scale man. We are following this patient for management of his ESRD. He is currently undergoing hemodialysis. I am attempting about 3 L fluid removal with this patient as tolerated. REVIEW OF SYSTEMS: Positive for generalized malaise. Positive for frequent falls. Occasional shortness of breath. No chest pain. Denies syncopal episode. No gross hematuria. No productive cough. No fever or chills. No sore throat. Appetite and energy level are fair. No abdominal pain. No diarrhea. No constipation. No dysuria. MEDICATIONS: The patient is currently on, 1. Amiodarone 200 mg daily. 2. Ecotrin 81 mg daily. 3. Lipitor 40 mg q.p.m. 4. Omnicef 300 mg p.o. b.i.d. 5. Vitamin D 400 units daily. 6. Folvite 1 mg once a day. 7. Levothyroxine 25 mcg daily. 8. Midodrine 5 mg p.o. b.i.d., status post vancomycin. 9. Pramipexole 0.125 mg at bedtime. 10. Flomax 0.4 mg q.p.m., status post vancomycin. 11. Coumadin as directed. PAST MEDICAL HISTORY: 1. ESRD - maintenance hemodialysis, Monday, Monday and Monday. 2. Hypothyroidism. 3. AFib, status post CHF with decreased ejection fraction. 4. Cardiomyopathy. 5. Hypertension. 6. Type 2 diabetes mellitus. 7. Peripheral vascular disease status post nephrolithiasis. 8. Status post GI bleed - Xarelto was change previously. PAST SURGICAL HISTORY: Status post cardiac cath, status post CABG, status post cardioversion, status post cuffed dialysis catheter placement, status post ureteroscopy with stone extraction, status post percutaneous nephrostomy placement, status post AV fistula placement, and status post appendectomy. ALLERGIES: TETANUS. TRAUMA: None. IMMUNIZATION: Up-to-date. HOSPITALIZATIONS: Please see past medical history. SOCIAL HISTORY: The patient is , lives in [place]. 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 Two children. No history of smoking. No alcohol intake. No IV drug abuse. Education, 12th grade. Sedentary lifestyle. FAMILY HISTORY: No family history of ESRD. PHYSICAL EXAMINATION: VITAL SIGNS: Blood pressure is noted at 130/70 and heart rate 70. GENERAL: Awake, lethargic, not in overt distress. SKIN: Adequate turgor. HEENT: He has slightly pale conjunctivae. Anicteric sclerae. No neck mass. No carotid bruits. No JVD. CHEST: No deformities. LUNGS: Decreased breath sounds. HEART: Irregular, grade 2/6 systolic murmur. No gallops. No rubs. ABDOMEN: Globular, soft, and nontender. No masses. EXTREMITIES: No edema. No deformities. LABORATORY DATA: December 01, 2019; white count 7.1, hemoglobin 10.4, sodium 141 , potassium 4, chloride 100, carbon dioxide 30, BUN 41, creatinine 6.81, glucose 86, and calcium 8.3. ASSESSMENT AND PLAN: 1. End stage renal disease, stable. We will continue current Monday, Monday , and Monday hemodialysis. Fluid removal only as tolerated. 2. Anemia. Start Epogen at 7500 units subcu every week. 3. Pneumonia, currently on p.o. cefdinir and on vancomycin. He has a failed treatment for outpatient pneumonia. 4. Overall agree with current management. We will recheck base met and CBC in a.m. Job ID: [id number] [facility]
[2019-12-02 10:07] LABS: INR-International Normal Ratio 1.9; Prothrombin Time 21.5 SEC (12.0-14.7)
[2019-12-02] MEDS ORDERED: EPOETIN ALFA-EPBX (ESRD) 4,000 UNIT/ML VIAL SC SCH (12:00)
[2019-12-02] MEDS: Cefdinir 300 MG CAP PO SCH ×2 (12:01→21:02)
[2019-12-02] MEDS: Cholecalciferol (Vitamin D3) 400 UNITS TAB PO SCH (12:02)
[2019-12-02] MEDS: Midodrine HCl 5 MG TAB PO SCH ×2 (12:02→21:03)
[2019-12-02] MEDS: Folic Acid 1 MG TAB PO SCH (12:02)
[2019-12-02] MEDS: Aspirin 81 mg Enteric Coated Tablet PO SCH (12:02)
[2019-12-02 14:14] LABS: Vancomycin, Random 14.6 ug/mL (See Comment)
--- NOTE | 2019-12-02 16:01 | PDOC.HOSPP ---
- Subjective Encounter Date: 12/02/19 Encounter Time: 07:20 Subjective: Pt seen for followup re: generalized weakness. feels weak. No chest pain or shortness of breath. No fevers. - Objective Vital Signs & Weight: Vital Signs (12 hours) Temp Pulse Pulse Pulse Resp BP BP 12/02/19 15:07 99.3 F 61 20 12/02/19 12:45 69 65 141/59 H 100/55 L 12/02/19 12:44 69 65 141/59 H 100/55 L 12/02/19 11:56 98.6 F 61 20 12/02/19 07:42 98.1 F 61 20 12/02/19 07:40 12/02/19 04:00 98.9 F 76 18 BP Pulse Ox Pulse Ox Pulse Ox Pulse Ox 12/02/19 15:07 114/70 97 12/02/19 12:45 100 90 L 98 12/02/19 12:44 100 90 L 98 12/02/19 11:56 132/61 98 12/02/19 07:42 131/55 L 98 12/02/19 07:40 98 12/02/19 04:00 127/61 98 Weight Admit Weight 216 lb 14.4 oz Weight 216 lb 14.4 oz I&O: 12/01/19 12/02/19 12/03/19 06:59 06:59 06:59 Intake Total 240 600 Output Total 50 250 Balance 190 350 Result Diagrams: 12/02/19 08:41 12/01/19 04:34 Additional Labs: Labs and MARs reviewed by me EKG Reviewed by me: Yes (Tele; V-paced) Hospitalist ROS - Review of Systems Constitutional: reports: weakness Respiratory: denies: cough, shortness of breath, SOB with excertion, pleuritic pain, wheezing Cardiovascular: denies: chest pain, palpitations, orthopnea, paroxysmal noc. dyspnea, edema, light headedness Gastrointestinal: denies: nausea, vomiting, abdominal pain, diarrhea, constipation, melena, hematochezia Genitourinary: denies: dysuria, frequency, incontinence, hematuria, retention Skin: denies: rash, lesions, kimberli, bruising Neurological: reports: weakness - Medication Medications: Active Medications Generic Name Dose Route Start Last Admin Trade Name Freq PRN Reason Stop Dose Admin Amiodarone HCl 200 mg 11/30/19 21:00 12/01/19 20:51 Cordarone PO 200 mg HS CHARISSE Administration Aspirin 81 mg 12/01/19 09:00 12/02/19 12:02 Ecotrin PO 81 mg DAILY CHARISSE Administration Atorvastatin Calcium 40 mg 11/30/19 21:00 12/01/19 20:52 Lipitor PO 40 mg QPM CHARISSE Administration Cefdinir 300 mg 12/01/19 21:00 12/02/19 12:01 Omnicef PO 300 mg BID CHARISSE Administration Cholecalciferol 400 units 12/01/19 09:00 12/02/19 12:02 Vitamin D PO 400 units DAILY CHARISSE Administration Diphenhydramine HCl 25 mg 12/01/19 16:45 12/01/19 17:48 Benadryl IVP 25 mg Q8H PRN Administration Allergies Epoetin Danial-epbx 7,500 unit 12/02/19 12:00 12/02/19 13:16 Retacrit SC 7,500 unit Q7D CHARISSE Administration Folic Acid 1 mg 12/01/19 09:00 12/02/19 12:02 Folvite PO 1 mg DAILY CHARISSE Administration Vancomycin HCl 1 gm/ Device 200 mls @ 200 mls/hr 12/01/19 10:00 12/02/19 14: 34 IVPB 200 mls WILLCALL CHARISSE Administration Levothyroxine Sodium 25 mcg 12/01/19 06:00 12/02/19 05:35 Synthroid PO 25 mcg 0600 CHARISSE Administration Midodrine 5 mg 11/30/19 21:00 12/02/19 12:02 Proamatine PO 5 mg BID CHARISSE Administration Pramipexole Dihydrochloride 0.125 mg 11/30/19 21:00 12/01/19 20:51 Mirapex PO 0.125 mg HS CHARISSE Administration Tamsulosin HCl 0.4 mg 11/30/19 21:00 12/01/19 20:52 Flomax PO 0.4 mg QPM CHARISSE Administration Warfarin Sodium 6 mg 12/01/19 17:00 12/01/19 16:27 Coumadin PO 6 mg 1700 CHARISSE Administration - Exam General - other findings: Obese Eye: anicteric sclera ENT: moist mucosa Neck: supple, symmetric, no JVD, no thyromegaly Heart: RRR, no gallops, no rubs, normal peripheral pulses Respiratory: no wheezes, no rales, no ronchi Respiratory - other findings: L bronchial breathing Gastrointestinal: soft, non-tender, non-distended, normal bowel sounds Musculoskeletal: no muscle wasting Psychiatric: normal affect, normal behavior, A&O x 3 Hosp A/P - Plan IMPRESSION: 1. Generalized weakness 2. Pleural effusion 3. Pneumonia 4. Benign prostatic hypertrophy. 5. End-stage renal disease, on hemodialysis MWF 6. Coronary artery disease. 7. Peripheral vascular disease. 8. Diabetes mellitus type 2. 9. Hypertension. 10. Chronic systolic heart failure, status post AICD. 11. History of myocardial infarction in the past. 12. Obesity with a BMI of 30.7. 13. History of folic acid deficiency. 14. Colon polyp/Diverticulosis/Small hemorrhoids 15. Hypothyroidism 16. Chronic atrial fibrillation, on warfarin. PLAN: Continue cefdinir, discontinue vancomycin. Dialysis per nephrology service. Await PT/OT recommendations. Continue synthroid HTN controlled.
[2019-12-02] MEDS: Warfarin Sodium 3 MG TAB PO SCH (17:04)
[2019-12-02] MEDS: Atorvastatin Calcium 40 MG TAB PO SCH (21:02)
[2019-12-02] MEDS: Amiodarone 200 MG TAB PO SCH (21:02)
[2019-12-02] MEDS: Pramipexole Di-HCl 0.125 MG TAB PO SCH (21:03)
[2019-12-02] MEDS: Tamsulosin HCl 0.4 MG CAP PO SCH (21:03)
[2019-12-03 04:50] LABS: INR-International Normal Ratio 1.8; Prothrombin Time 20.4 SEC (12.0-14.7)
[2019-12-03 05:13] LABS: Anion Gap 15 mmol/L (10-20); BUN (Urea Nitrogen) 42 mg/dL (8.4-25.7); Calc. Creatinine Clearance 13 mL/min (70-130); Calcium 8.3 mg/dL (7.8-10.44); Carbon Dioxide 28 mmol/L (23-31); Chloride 101 mmol/L (98-107); Estimated GFR-MDRD 9; Glucose 95 mg/dL (83-110); Potassium 4.1 mmol/L (3.5-5.1); Sodium 140 mmol/L (136-145)
[2019-12-03 05:25] LABS: Band 4 % (5-11); Eosinophils 6 % (0-10); Hemoglobin 10.9 g/dL (14.0-18.0); Hypochromia SLIGHT = 6-15 cells (100X) (0-5/hpf); Lymphocytes 28 % (21-51); MDiff Complete? YES; Macrocytosis SLIGHT = 6-15 cells (100X) (0-5/hpf); Mean Corpuscular HGB CONC 31.4 g/dL (32.0-36.0); Mean Corpuscular Hemoglobin 32.6 pg (27.0-31.0); Mean Platelet Volume 8.8 fL (7.4-10.4); Monocytes 10 % (0-10); Neutrophil 52 % (42-75); Platelet Count 140 thou/uL (130-400); Platelet Morphology Comment Appears Adequate; RBC Distribution Width 16.8 % (11.5-14.5); Red Blood Cell (RBC) Count 3.35 mill/uL (4.70-6.10); White Blood Cell (WBC) Count 4.1 thou/uL (4.8-10.8)
[2019-12-03] MEDS: Levothyroxine Sodium 25 MCG TAB PO SCH (06:50)
--- NOTE | 2019-12-03 08:44 | PRG ---
DATE OF SERVICE: 12/03/2019 SUBJECTIVE: Mr. Chaudhary is a 79-year-old white male with known history of ESRD and followed by the Renal Service for his hemodialysis. He underwent dialysis yesterday without any problem. He was initially admitted for a failed outpatient treatment of the pneumonia, currently on IV antibiotics. No new complaints today. OBJECTIVE: VITAL SIGNS: Blood pressure is 101/52 heart rate 60, respiratory rate 16, temperature 97.7, and pulse ox 95%. GENERAL: Awake, alert, and comfortable, not in distress. SKIN: Adequate turgor. HEENT: Pinkish conjunctivae. Anicteric sclerae. NECK: No neck mass. No carotid bruits. No JVD. CHEST: No deformities. LUNGS: Clear breath sounds. HEART: Irregular. No murmur. No gallops or rubs. ABDOMEN: Globular, soft, and nontender. No masses. EXTREMITIES: No edema. No deformities. MEDICATIONS: Medications of December 03, 2019 reviewed. LABORATORY DATA: Laboratories of December 03, 2019; white count 4.1, hemoglobin 10.9, sodium 140, potassium 4.1, chloride 101, carbon dioxide 28, BUN 42, creatinine 6.27, and calcium 8.3. ASSESSMENT AND PLAN: 1. End-stage renal disease, stable. Continue current Monday, Monday, and Monday hemodialysis tolerating said treatment. Fluid removal as tolerated. 2. Anemia. We have restarted him on weekly Epogen. 3. Pneumonia, currently on antibiotics. Continue current management. 4. Recheck basic metabolic panel and CBC in a.m. Job ID: [id number]
[2019-12-03 09:42] LABS: INR-International Normal Ratio 1.7; Prothrombin Time 19.7 SEC (12.0-14.7)
[2019-12-03] MEDS: Aspirin 81 mg Enteric Coated Tablet PO SCH (09:44)
[2019-12-03] MEDS: Midodrine HCl 5 MG TAB PO SCH ×2 (09:44→20:12)
[2019-12-03] MEDS: Cefdinir 300 MG CAP PO SCH ×2 (09:44→20:12)
[2019-12-03] MEDS: Cholecalciferol (Vitamin D3) 400 UNITS TAB PO SCH (09:44)
[2019-12-03] MEDS: Folic Acid 1 MG TAB PO SCH (09:44)
--- NOTE | 2019-12-03 15:58 | PDOC.HOSPP ---
- Subjective Encounter Date: 12/03/19 Encounter Time: 07:20 Subjective: Pt seen for followup re: generalized weakness. Continues to feel weak. - Objective Vital Signs & Weight: Vital Signs (12 hours) Temp Pulse Resp BP Pulse Ox 12/03/19 15:38 97.8 F 60 18 120/56 L 94 L 12/03/19 11:05 97.6 F 60 19 102/55 L 96 12/03/19 07:42 97.7 F 60 16 101/52 L 95 12/03/19 07:40 95 Weight Admit Weight 216 lb 14.4 oz Weight 211 lb 3.2 oz I&O: 12/02/19 12/03/19 12/04/19 06:59 06:59 06:59 Intake Total 600 1300 Output Total 250 360 Balance 350 940 Result Diagrams: 12/03/19 04:21 12/03/19 04:21 Additional Labs: labs and MARs reviewed by me EKG Reviewed by me: Yes (Tele: A-paced) Hospitalist ROS - Review of Systems Constitutional: reports: weakness Respiratory: reports: cough, sputum. denies: shortness of breath, hemoptysis, SOB with excertion, pleuritic pain, wheezing Cardiovascular: denies: chest pain, palpitations, orthopnea, paroxysmal noc. dyspnea, edema, light headedness - Medication Medications: Active Medications Generic Name Dose Route Start Last Admin Trade Name Freq PRN Reason Stop Dose Admin Amiodarone HCl 200 mg 11/30/19 21:00 12/02/19 21:02 Cordarone PO 200 mg HS CHARISSE Administration Aspirin 81 mg 12/01/19 09:00 12/03/19 09:44 Ecotrin PO 81 mg DAILY CHARISSE Administration Atorvastatin Calcium 40 mg 11/30/19 21:00 12/02/19 21:02 Lipitor PO 40 mg QPM CHARISSE Administration Cefdinir 300 mg 12/01/19 21:00 12/03/19 09:44 Omnicef PO 300 mg BID CHARISSE Administration Cholecalciferol 400 units 12/01/19 09:00 12/03/19 09:44 Vitamin D PO 400 units DAILY CHARISSE Administration Diphenhydramine HCl 25 mg 12/01/19 16:45 12/01/19 17:48 Benadryl IVP 25 mg Q8H PRN Administration Allergies Epoetin Danial-epbx 7,500 unit 12/02/19 12:00 12/02/19 13:16 Retacrit SC 7,500 unit Q7D CHARISSE Administration Folic Acid 1 mg 12/01/19 09:00 12/03/19 09:44 Folvite PO 1 mg DAILY CHARISSE Administration Levothyroxine Sodium 25 mcg 12/01/19 06:00 12/03/19 06:50 Synthroid PO 25 mcg 0600 CHARISSE Administration Midodrine 5 mg 11/30/19 21:00 12/03/19 09:44 Proamatine PO 5 mg BID CHARISSE Administration Pramipexole Dihydrochloride 0.125 mg 11/30/19 21:00 12/02/19 21:03 Mirapex PO 0.125 mg HS CHARISSE Administration Tamsulosin HCl 0.4 mg 11/30/19 21:00 12/02/19 21:03 Flomax PO 0.4 mg QPM CHARISSE Administration - Exam General Appearance: NAD Eye: PERRL, anicteric sclera ENT: moist mucosa Neck: supple, symmetric Heart: RRR Respiratory: CTAB Gastrointestinal: soft, non-tender Musculoskeletal: no muscle wasting Psychiatric: normal affect, normal behavior Hosp A/P - Plan IMPRESSION: 1. Generalized weakness 2. Pleural effusion 3. Pneumonia 4. Benign prostatic hypertrophy. 5. End-stage renal disease, on hemodialysis MWF 6. Coronary artery disease. 7. Peripheral vascular disease. 8. Diabetes mellitus type 2. 9. Hypertension. 10. Chronic systolic heart failure, status post AICD. 11. History of myocardial infarction in the past. 12. Obesity with a BMI of 30.7. 13. History of folic acid deficiency. 14. Colon polyp/Diverticulosis/Small hemorrhoids 15. Hypothyroidism 16. Chronic atrial fibrillation, on warfarin. PLAN: Dispo: to swing bed. Continue cefdinir Dialysis per nephrology service. Continue synthroid HTN controlled.
[2019-12-03] MEDS: Warfarin Sodium 7.5 MG TAB PO SCH (17:06)
[2019-12-03] MEDS: Atorvastatin Calcium 40 MG TAB PO SCH (20:12)
[2019-12-03] MEDS: Tamsulosin HCl 0.4 MG CAP PO SCH (20:12)
[2019-12-03] MEDS: Pramipexole Di-HCl 0.125 MG TAB PO SCH (20:12)
[2019-12-03] MEDS: guaiFENesin 200 MG TAB PO PRN (20:12)
[2019-12-03] MEDS: Amiodarone 200 MG TAB PO SCH (20:12)
[2019-12-03] MEDS: Benzonatate 100 MG CAP PO PRN (20:12)
[2019-12-04] MEDS: Benzonatate 100 MG CAP PO PRN (02:15)
[2019-12-04] MEDS: guaiFENesin 200 MG TAB PO PRN ×2 (02:15→07:43)
[2019-12-04 04:26] LABS: INR-International Normal Ratio 1.6; Prothrombin Time 19.3 SEC (12.0-14.7)
[2019-12-04 04:48] LABS: Anion Gap 16 mmol/L (10-20); BUN (Urea Nitrogen) 60 mg/dL (8.4-25.7); Calc. Creatinine Clearance 11 mL/min (70-130); Calcium 8.1 mg/dL (7.8-10.44); Carbon Dioxide 28 mmol/L (23-31); Chloride 100 mmol/L (98-107); Estimated GFR-MDRD 7; Glucose 87 mg/dL (83-110); Potassium 4.2 mmol/L (3.5-5.1); Sodium 140 mmol/L (136-145)
[2019-12-04 04:56] LABS: Eosinophils 10 % (0-10); Hemoglobin 10.1 g/dL (14.0-18.0); Lymphocytes 37 % (21-51); MDiff Complete? YES; Mean Corpuscular Hemoglobin 31.6 pg (27.0-31.0); Mean Platelet Volume 8.4 fL (7.4-10.4); Monocytes 11 % (0-10); Neutrophil 42 % (42-75); Platelet Count 135 thou/uL (130-400); Platelet Morphology Comment Appears Adequate; RBC Distribution Width 16.4 % (11.5-14.5); Red Blood Cell (RBC) Count 3.18 mill/uL (4.70-6.10); White Blood Cell (WBC) Count 3.7 thou/uL (4.8-10.8)
[2019-12-04] MEDS: Levothyroxine Sodium 25 MCG TAB PO SCH (05:35)
--- NOTE | 2019-12-04 08:48 | PRG ---
DATE OF SERVICE: 12/04/2019 SERVICE: Renal Medicine. SUBJECTIVE: Mr. Chaudhary is a 79-year-old white male with ESRD-on maintenance hemodialysis for pneumonia. He is still complaining of cough. He has been empirically treated with antibiotics. No complaints of chest pain or shortness of breath. He still feels tired. OBJECTIVE: VITAL SIGNS: Blood pressure 102/54, heart rate 68, respiratory rate 18, temperature 97.5, pulse ox 99%. GENERAL: Noted to be awake, alert, comfortable, not in overt distress. SKIN: Adequate turgor. HEENT: He has a slightly pale conjunctivae. Anicteric sclerae. NECK: No neck mass. No carotid bruits. No JVD. CHEST: No deformities. LUNGS: Decreased breath sounds. HEART: Irregular. ABDOMEN: Globular, soft, nontender. No masses. EXTREMITIES: No edema. No deformities. MEDICATIONS: Medications of December 04, 2019, was reviewed. LABORATORY DATA: Laboratories of December 04, 2019, white count 3.7, hemoglobin 10.1. Sodium 140, potassium 4.2, chloride 100, carbon dioxide 28, BUN 60, creatinine 7.53, glucose 87, calcium 8.1. Hemoglobin 10.1. ASSESSMENT AND PLAN: 1. Chronic cough/bronchitis/pneumonia-on p.o. antibiotics. Continue supportive care. 2. End-stage renal disease, stable, tolerating current hemodialysis regimen. He is undergoing dialysis and we are trying to max out fluid removal only as tolerated by the patient. 3. Anemia. Continuing weekly Epogen with the patient. 4. Chronic atrial fibrillation-the patient being evaluated for possible Watchman procedure this coming month. 5. Agree with current management. Job ID: [id number]
[2019-12-04] MEDS: Cefdinir 300 MG CAP PO SCH (12:34)
[2019-12-04] MEDS: Aspirin 81 mg Enteric Coated Tablet PO SCH (12:34)
[2019-12-04] MEDS: Folic Acid 1 MG TAB PO SCH (12:35)
[2019-12-04] MEDS: Midodrine HCl 5 MG TAB PO SCH (12:36)
[2019-12-04] MEDS: Cholecalciferol (Vitamin D3) 400 UNITS TAB PO SCH (12:38)
[2019-12-04 15:35] VITALS: TEMP 97.6
[2019-12-04 15:59] VITALS: BP 110/56
[2019-12-04] MEDS: Warfarin Sodium 7.5 MG TAB PO SCH (16:39)
--- NOTE | 2019-12-04 19:09 | DIS ---
DATE OF ADMISSION: 11/30/2019 DATE OF DISCHARGE: 12/04/2019 PRIMARY CARE PROVIDER: Solange Robbins MD DISCHARGE DIAGNOSES: 1. Pleural effusion. 2. Generalized weakness. 3. Acute bronchitis, present on admission. CONDITION OF PATIENT ON THE DAY OF DISCHARGE: Stable. I assessed Mr. Chaudhary on the day of discharge. He denies any chest pain. Cough is better. Vital signs are stable. S1 and S2 are heard, regular. Lungs are clear to auscultation bilaterally. DISCHARGE MEDICATIONS: 1. Aspirin 81 mg daily. 2. Atorvastatin 40 mg every evening. 3. Synthroid 25 mcg daily. 4. Midodrine 5 mg 2 times a day. 5. Pramipexole 0.125 mg at bedtime. 6. Flomax 0.4 mg in the evening. 7. Warfarin 6 mg daily. 8. Amiodarone 200 mg at bedtime. 9. Tessalon 100 mg every 8 hours as needed. 10. Omnicef 300 mg 2 times a day for 6 more days. 11. Vitamin D3 400 units daily. 12. Folic acid 1 mg daily. HOSPITAL COURSE: Mr. Chaudhary is a pleasant 79-year-old gentleman, who was admitted to [facility] on 11/30/2019, for suspected pneumonia and pleural effusion on the left side. He was started on antibiotics. I discussed his case with Pulmonology Service. After review of films, they felt that this was a chronic process and not pneumonia. He did have cough and sputum production suggestive of bronchitis. He was continued on oral antibiotics. He also had generalized weakness and came in to the hospital following a fall. He was seen by Therapy Services and recommended senior care. He was referred to swing bed at [place]. The patient did not wish to go to swing bed at [place] after learning that it will be a few days before he can have a bed there. He also did not wish to stay in the hospital and wanted to be discharged home with home health for senior care and therapy services. This is being done at the time of discharge. LABORATORY DATA: On the day of discharge, he has white count 3700, hemoglobin 10.1, platelet count 135,000. Sodium 140, potassium 4.2, blood urea nitrogen 60, and creatinine 7.53 prior to dialysis. INR is 1.6. He is advised to follow up with primary care provider for management of warfarin. Many thanks for allowing me to participate in your patient's care. Please feel free to contact me with any questions or concerns. DISCHARGE DESTINATION: Home with home health. DIET: Renal and cardiac. ACTIVITY: As tolerated. TIME SPENT: Total amount of time spent coordinating this discharge: 32 minutes. POST-ACUTE CARE FOLLOWUP: With primary care provider in 3 days. CONSULTATIONS DURING THIS HOSPITALIZATION: Nephrology, Dr. Huff. Job ID: [id number]
== END 2019-12-04 15:35 | disposition home or self-care (01) | DRG 202 ==
LOC: ERS 10:13 → 2NO 14:24
PROVIDERS: ADMIT Internal Medicine; ATTEND Internal Medicine
PROC: 5A1D70Z Performance of Urinary Filtration, Intermittent, Less than 6 Hours Per Day (ICD-10-PCS; principal; 2019-12-02)
DX: J20.9 Acute bronchitis, unspecified (principal); N18.6 End stage renal disease; I13.2 Hypertensive heart and chronic kidney disease with heart failure and with stage 5 chronic kidney disease, or end stage renal disease; J90 Pleural effusion, not elsewhere classified; I50.22 Chronic systolic (congestive) heart failure; I48.20 Chronic atrial fibrillation, unspecified; I42.9 Cardiomyopathy, unspecified; I95.1 Orthostatic hypotension; Z99.2 Dependence on renal dialysis; I25.10 Atherosclerotic heart disease of native coronary artery without angina pectoris; I25.2 Old myocardial infarction; Z86.73 Personal history of transient ischemic attack (TIA), and cerebral infarction without residual deficits; Z87.440 Personal history of urinary (tract) infections; Z95.1 Presence of aortocoronary bypass graft; Z95.810 Presence of automatic (implantable) cardiac defibrillator; E78.5 Hyperlipidemia, unspecified; Z79.01 Long term (current) use of anticoagulants; Z79.82 Long term (current) use of aspirin; Z79.899 Other long term (current) drug therapy; E03.9 Hypothyroidism, unspecified; N40.0 Benign prostatic hyperplasia without lower urinary tract symptoms; I73.9 Peripheral vascular disease, unspecified; E66.9 Obesity, unspecified; Z68.30 Body mass index [BMI] 30.0-30.9, adult
CPT/HCPCS: 12001; 36415; 70450; 71045; 71260; 72125; 80048; 80053; 80202; 82553; 83605; 83880; 84443; 84484; 85014; 85018; 85025; 85049; 85610; 85730; 87040; 87804; 93005; 94640; 94760; 96365; 96367; J0692; J1200; J3370; J3490; J7050; J7620; Q5105; Q9967

== ENCOUNTER 2019-12-07 19:19 | Inpatient (IN) | payer MEDICARE, MEDICAID ==
[2019-12-07 21:04] LABS: Troponin I 0.038 ng/mL (< 0.028)
--- NOTE | 2019-12-07 22:11 | HP ---
PRIMARY CARE PHYSICIAN: Solange Robbins MD. CHIEF COMPLAINT: Weakness and falls with persistent cough. HISTORY OF PRESENT ILLNESS: This is a 79-year-old white male with a known history of end-stage renal disease and systolic congestive heart failure with atrial fibrillation. He has a history of hypotension after dialysis and recurrent falls over the last year, has been admitted multiple times for this and 2 weeks ago he developed a productive cough with some chest tightness and wheezing. The patient was admitted to the hospital on November 30. He was given IV antibiotics. CT scan of the chest was done. This showed a persistent loculated pleural effusion that looked similar to the CT scan done a year ago. Pulmonology was consulted and they looked at it and it was found that this was not a pneumonia. He had no elevated white blood cell count, so he was transitioned to oral Omnicef for bronchitis. The patient was weak with ambulation and so was recommended an unstable unsteady and so it was recommended that he go to a swing bed or fci facility; however, there were no beds left at [facility] until 2 days later and so patient determined he wanted to go home instead, so he went home with Home Health on Monday, 3 days ago. The patient has felt bad ever since. He has had persistent cough. Apparently his antibiotics were called in to a different pharmacy in [place] than he expected and so he never picked them up. He is going to be on 6 more days of Omnicef. He has not had any fevers though and the cough is the same as it was previously. He went to dialysis yesterday evening. He reports that there was no fluid for them to take off at that time. He felt really bad afterwards than normal after his dialysis. He was in a car driving out of town and when he got to the person's house he could not get out of the car, he felt too weak. His family had to drag him inside the house, and later he was walking to the door and went to go open the door and he felt his legs become like concrete and he could not move at all and eventually had to be lowered down to the ground. So the patient presented back to the [place] [facility]. There he had a chest x-ray that showed a persistent left-sided infiltrate/effusion and he had a single episode of hypotension as well going from 100 systolic down to 60 and it went back up to 100 in about 10 minutes systolic. No tachycardia with this. He was given fluids because of that, and there was concern for possibility of sepsis given his chest x-ray, so he was given cefepime and transferred back over here. Speaking to the patient now he states he just feels about the same over the last 2 weeks, but he has significant weakness after his dialysis, was the reason he went back into the emergency room. PAST MEDICAL HISTORY: 1. Hypertension. 2. End-stage renal disease, on dialysis with post dialysis hypotension. 3. Coronary artery disease. 4. Systolic congestive heart failure with improved ejection fraction up to 40% most recently. 5. Chronic atrial fibrillation. 6. History of UTIs. 7. Right upper extremity tremor. 8. History of previous NC. 9. History of ischemic stroke in 2016. 10. Hyperlipidemia. 11. Nephrolithiasis. 12. 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 PAST SURGICAL HISTORY: 1. Pacemaker placement in 2016. 2. AICD. 3. Left arm dialysis fistula. 4. Aneurysm repair in 2002. 5. Coronary artery bypass grafting in 2002. FAMILY HISTORY: No family history of early heart disease. SOCIAL HISTORY: The patient continues to live independently. He lives with his . He uses snuff tobacco. No alcohol or illicit drugs. ALLERGIES: TETANUS VACCINE AND TOXOID. MEDICATIONS: 1. Amiodarone 200 mg at night. 2. Aspirin 81 mg daily. 3. Atorvastatin 40 mg at night. 4. Benzoate Tessalon Perles 100 mg every 8 hours as needed for cough. 5. Cefdinir 300 mg twice a day. He is not on this. 6. Vitamin D3 at 400 units daily. 7. Folic acid 1 mg daily. 8. Levothyroxine 25 mcg daily. 9. Midodrine 5 mg twice a day. 10. Pramipexole 0.125 mg at night. 11. Tamsulosin 0.4 mg at night. 12. Warfarin 6 mg every afternoon. REVIEW OF SYSTEMS: CONSTITUTIONAL: No fevers. No chills. EYES: No double vision or blurred vision. ENT: He has had chronic nasal congestion and drainage, nothing unusual. No sore throat. CARDIOVASCULAR: No chest pain. No palpitations or racing heart. PULMONARY: See HPI. GASTROINTESTINAL: No abdominal pain. No nausea or vomiting. No diarrhea or constipation. GENITOURINARY: No dysuria or hematuria. MUSCULOSKELETAL: No muscle aches or joint pain. SKIN: No rashes or lesions noted. NEUROLOGIC: See HPI. No focal weakness or numbness or tingling. PHYSICAL EXAMINATION: VITAL SIGNS: Blood pressure 117/50, pulse 60, respirations 16, temperature 98.2, O2 saturation 97% on room air. GENERAL: This is a well-developed, well-nourished white male, in no acute distress with occasional coughing fits. HEENT: Pupils equal, round, and reactive to light. Oropharynx clear without lesions, erythema, or exudate. NECK: Supple. No lymphadenopathy. No thyroid nodules or enlargement. No JVD. HEART: Regular rate and rhythm. No murmurs, rubs, or gallops. LUNGS: The patient has some mild expiratory wheezing bilaterally. No focal findings and decent air movement throughout. ABDOMEN: Soft, nontender to palpation. Normoactive bowel sounds. No hepatosplenomegaly or other masses. EXTREMITIES: No clubbing, cyanosis, or edema. SKIN: No rashes or other lesions noted. NEUROLOGIC: The patient has intact strength and sensation in all extremities. No facial droop. PSYCHIATRIC: Alert and oriented x3. Normal mood and affect. LABORATORY DATA: Labs from the [place] shows a CBC with a normal white blood cell count, hemoglobin is 10 which is stable from previous. The rest is normal. Complete metabolic panel is notable for sodium of 146, carbon dioxide of 32, BUN of 41, creatinine of 7, AST of 39, alkaline phosphatase of 133. The rest is all normal. Brain natriuretic peptide was elevated at 713, which is actually about average for him. Troponin is 0.048, which is chronic for him. Lactic acid was negative. Chest x-ray, I did review the chest x-ray done in the emergency room along with the radiologist's report. The patient does have a persistent left lower lobe effusion versus dense infiltrate consistent with his previous x-rays and CTs over the last year. ASSESSMENT: 1. Persistent cough with loculated left lower lobe pleural effusion and lung consolidation. This looks similar to patient's previous x-rays. I suspect he has a bronchitis, which was diagnosed with last hospitalization. No elevated white count. No fevers. No other symptoms concerning for an actual pneumonia or infected effusion. Given the patient's representation, we will have Pulmonology formally consult tomorrow to make sure he does not need any further antibiotics. He has had a good fairly long course of oral followed by IV antibiotics prior to his discharge on Monday. He may benefit though from steroids and DuoNeb, so we will go ahead and start him on some steroids. 2. Hypotension. The patient has a history of hypertensive episodes the one in the emergency room. It looks like it was self-limited and was normal just previous to the low blood pressure check and then quickly came back up even before he had been given much in the way of fluids and has not gone back down since, this may have been positional as well. He has no evidence of sepsis at this time or significant bacterial infection. We will monitor him closely overnight on telemetry and check blood pressures. He has a history of orthostatic hypotension, which is why he is on midodrine, so I suspect if he stands up he does have some low blood pressures as he has had previously. 3. End-stage renal disease, on dialysis. We will have patient Dr. Huff consult to continue dialysis. 4. Code status: I did discuss with the patient he is a full code. Should he be incapacitated, he stated his would be his medical decision maker, her name is Wisam Chaudhary. Job ID: [id number]
[2019-12-07] MEDS ORDERED: Diabetic Tussin 200 MG/10 ML UDCUP PO SCH (22:45)
[2019-12-07] MEDS ORDERED: Ondansetron ODT 4 MG TAB PO PRN (23:05)
[2019-12-07] MEDS ORDERED: Acetaminophen 325 MG TAB PO PRN (23:05)
[2019-12-07] MEDS ORDERED: Ondansetron PF 4 MG/2 ML Vial IVP PRN (23:05)
[2019-12-07] MEDS ORDERED: Acetaminophen 650 MG Suppository PR PRN (23:05)
[2019-12-07] MEDS ORDERED: Senokot S 8.6-50 MG TAB PO PRN (23:05)
[2019-12-07 23:09] VITALS: BMI 30.5
[2019-12-07] MEDS ORDERED: Famotidine 20 MG TAB PO SCH (23:15)
[2019-12-07] MEDS ORDERED: Tamsulosin HCl 0.4 MG CAP PO SCH (23:15)
[2019-12-07] MEDS ORDERED: Atorvastatin Calcium 40 MG TAB PO SCH (23:15)
[2019-12-07] MEDS: Benzonatate 100 MG CAP PO PRN (23:34)
[2019-12-07] MEDS: Midodrine HCl 5 MG TAB PO SCH (23:35)
[2019-12-07 23:37] LABS: Troponin I 0.057 ng/mL (< 0.028)
[2019-12-08 04:45] LABS: #Eosinphils 0.2 thou/uL (0.0-0.7); #Lymphocytes 1.2 thou/uL (1.20-3.40); #Monocytes 0.8 thou/uL (0.11-0.59); #Neutrophils 4.5 thou/uL (1.40-6.50); %Basophils 0.2 % (0.0-1.0); %Eosinophils 2.4 % (0.0-10.0); %Lymphocytes 18.3 % (21.0-51.0); %Neutrophils 67.1 % (42.0-75.0); Hemoglobin 9.5 g/dL (14.0-18.0); Mean Corpuscular HGB CONC 31.4 g/dL (32.0-36.0); Mean Corpuscular Hemoglobin 32.1 pg (27.0-31.0); Mean Platelet Volume 9.4 fL (7.4-10.4); Platelet Count 138 thou/uL (130-400); RBC Distribution Width 16.3 % (11.5-14.5); Red Blood Cell (RBC) Count 2.96 mill/uL (4.70-6.10); White Blood Cell (WBC) Count 6.8 thou/uL (4.8-10.8)
[2019-12-08 04:49] LABS: INR-International Normal Ratio 2.4; Prothrombin Time 25.7 SEC (12.0-14.7)
[2019-12-08 05:05] LABS: Anion Gap 16 mmol/L (10-20); BUN (Urea Nitrogen) 42 mg/dL (8.4-25.7); Calc. Creatinine Clearance 12 mL/min (70-130); Calcium 7.8 mg/dL (7.8-10.44); Carbon Dioxide 30 mmol/L (23-31); Chloride 102 mmol/L (98-107); Estimated GFR-MDRD 7; Glucose 94 mg/dL (83-110); Potassium 3.8 mmol/L (3.5-5.1); Sodium 144 mmol/L (136-145)
[2019-12-08] MEDS: Levothyroxine Sodium 25 MCG TAB PO SCH (05:10)
[2019-12-08] MEDS: Guaifenesin DM 100-10/5 ML UDCUP PO PRN ×3 (06:12→21:00)
[2019-12-08] MEDS ORDERED: Famotidine 20 MG TAB PO SCH (09:00)
[2019-12-08] MEDS: Aspirin 81 mg Enteric Coated Tablet PO SCH (09:56)
[2019-12-08] MEDS: Folic Acid 1 MG TAB PO SCH (09:56)
[2019-12-08] MEDS: Midodrine HCl 5 MG TAB PO SCH ×2 (09:56→20:59)
[2019-12-08] MEDS: Cholecalciferol (Vitamin D3) 400 UNITS TAB PO SCH (09:57)
--- NOTE | 2019-12-08 11:07 | PRG ---
DATE OF SERVICE: 12/08/2019 SUBJECTIVE: Mr. Chaudhary is a 79-year-old white male with ESRD, was readmitted for generalized weakness and persistent cough. Of interest, this patient was treated for presumptive pneumonia in last hospitalization, but he was not able to get his antibiotics until several days later. Yesterday, he was noted to be having generalized weakness and he has fallen twice. In addition, he had persistent cough. He is now being retreated for his presumptive pneumonia/bronchitis. The patient is interested again in pursuing a alf facility placement at the [place]. No other complaints today. No chest pain. No shortness of breath. We are being consulted for his maintenance hemodialysis. I have scheduled him for hemodialysis in a.m. OBJECTIVE: VITAL SIGNS: Blood pressure 147/69, heart rate 60, respiratory rate 16, temperature 97.5, and pulse ox 99%. GENERAL: The patient is awake, alert, comfortable, sitting, not in distress. SKIN: Adequate turgor. HEENT: Pinkish conjunctivae. Anicteric sclerae. NECK: No neck mass. No carotid bruits. No JVD. CHEST: No deformities. LUNGS: Clear breath sounds. No wheezing. No crackles. HEART: Irregular. ABDOMEN: Globular, soft, and nontender. EXTREMITIES: No edema. MEDICATIONS: Medications of December 08, 2019, were reviewed. LABORATORY DATA: Laboratories of December 08, 2019; white count 6.8, hemoglobin 9.5. Sodium 144, potassium 3.8, chloride 102, carbon dioxide 30, BUN 72, creatinine 7.39, and calcium 7.8. ASSESSMENT AND PLAN: 1. End-stage renal disease, stable. We will continue current Monday, Monday, and Monday hemodialysis with fluid removal only as tolerated. 2. Anemia. Start weekly Epogen 7500 units subcu weekly. 3. Bronchitis/pneumonia. The patient has been treated with antibiotics for several days. He is remaining afebrile. We will continue to observe. We will consult Case Management for alf facility placement in [place]. Job ID: [id number]
--- NOTE | 2019-12-08 15:06 | PDOC.HOSPP ---
- Subjective Encounter Date: 12/08/19 Encounter Time: 11:15 Subjective: has dry cough, no fever is ambulating in room says he gets very tired after full session of HD and wants to have shorter session if possible - Objective Vital Signs & Weight: Vital Signs (12 hours) Temp Pulse Resp BP BP BP Pulse Ox 12/08/19 13:41 64 16 12/08/19 10:59 98.0 F 62 16 110/59 L 99 12/08/19 08:30 60 18 12/08/19 07:44 97.5 F L 60 16 147/69 H 99 12/08/19 03:48 98.1 F 61 17 102/51 L 98 Weight Weight 219 lb 1.6 oz I&O: 12/07/19 12/08/19 12/09/19 06:59 06:59 06:59 Intake Total 400 Output Total 300 Balance 100 Result Diagrams: 12/08/19 04:29 12/08/19 04:29 Hospitalist ROS - Medication Medications: Active Medications Generic Name Dose Route Start Last Admin Trade Name Freq PRN Reason Stop Dose Admin Albuterol/Ipratropium 3 ml 12/08/19 01:00 12/08/19 13:41 Duoneb NEB 3 ml [id number] CHARISSE Administration Aspirin 81 mg 12/08/19 09:00 12/08/19 09:56 Ecotrin PO 81 mg DAILY CHARISSE Administration Benzonatate 100 mg 12/07/19 23:05 12/07/19 23:34 Tessalon PO 100 mg Q8H PRN Administration Cough Cholecalciferol 400 units 12/08/19 09:00 12/08/19 09:57 Vitamin D PO 400 units DAILY CHARISSE Administration Folic Acid 1 mg 12/08/19 09:00 12/08/19 09:56 Folvite PO 1 mg DAILY CHARISSE Administration Guaifenesin/Dextromethorphan 15 ml 12/07/19 23:05 12/08/19 14:57 Robitussin Dm PO 15 ml Q4H PRN Administration Cough Levothyroxine Sodium 25 mcg 12/08/19 06:00 12/08/19 05:10 Synthroid PO 25 mcg 0600 CHARISSE Administration Midodrine 5 mg 12/08/19 09:00 12/08/19 09:56 Proamatine PO 5 mg BID CHARISSE Administration Midodrine 5 mg 12/07/19 23:15 12/07/19 23:35 Proamatine PO 12/08/19 23:16 5 mg NOW CHARISSE Administration - Exam General Appearance: awake alert Eye: PERRL, anicteric sclera ENT: no oropharyngeal lesions, moist mucosa Neck: supple, no JVD Heart: RRR, no murmur Respiratory: no wheezes, no rales Gastrointestinal: soft, non-tender, non-distended, normal bowel sounds Extremities: no cyanosis, no edema Neurological: cranial nerve grossly intact, no focal deficits Psychiatric: normal affect, A&O x 3 Hosp A/P (1) Physical deconditioning Code(s): R53.81 - OTHER MALAISE Status: Acute (2) Acute bronchitis Code(s): J20.9 - ACUTE BRONCHITIS, UNSPECIFIED Status: Acute (3) Multiple falls Code(s): R29.6 - REPEATED FALLS Status: Acute (4) History of CVA (cerebrovascular accident) Code(s): Z86.73 - PRSNL HX OF TIA (TIA), AND CEREB INFRC W/O RESID DEFICITS Status: Chronic (5) Anemia in chronic kidney disease (CKD) Code(s): N18.9 - CHRONIC KIDNEY DISEASE, UNSPECIFIED; D63.1 - ANEMIA IN CHRONIC KIDNEY DISEASE Status: Chronic Qualifiers: Chronic kidney disease stage: on chronic dialysis Qualified Code(s): N18.6 - End stage renal disease; D63.1 - Anemia in chronic kidney disease; Z99.2 - Dependence on renal dialysis (6) CAD (coronary artery disease) Code(s): I25.10 - ATHSCL HEART DISEASE OF [place] CORONARY ARTERY W/O ANG PCTRS Status: Chronic Qualifiers: Coronary Disease-Associated Artery/Lesion type: bypass graft [place] vs. 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
[2019-12-08] MEDS: Warfarin Sodium 2 MG TAB PO SCH (17:42)
[2019-12-08] MEDS ORDERED: predniSONE 20 MG TAB PO SCH (20:00)
[2019-12-08] MEDS ORDERED: Azithromycin 250 MG TAB PO SCH (20:00)
[2019-12-08] MEDS: Pramipexole Di-HCl 0.125 MG TAB PO SCH (20:59)
[2019-12-08] MEDS: Benzonatate 100 MG CAP PO PRN (20:59)
[2019-12-08] MEDS: Amiodarone 200 MG TAB PO SCH (20:59)
[2019-12-08] MEDS: Atorvastatin Calcium 40 MG TAB PO SCH (21:00)
[2019-12-08] MEDS: Tamsulosin HCl 0.4 MG CAP PO SCH (21:01)
--- NOTE | 2019-12-08 21:54 | CON ---
DATE OF CONSULTATION: 12/08/2019 SERVICE: Pulmonary Medicine. REASON FOR CONSULTATION: Abnormal CT. HISTORY OF PRESENT ILLNESS: The patient is a very pleasant 79-year-old white male with past medical history significant for end-stage renal disease. He is in his usual state of health until about 3 weeks ago. He noticed that he started having increasing weakness after. This happened on the days of dialysis. If he could get into a lying position for about 12 hours after dialysis, he would recover very nicely and would not have any difficulties. That being said, if he try to walk within the first 6 hours after dialysis, he would get weak in the legs, and has sustained multiple falls. On one of these occasions, he fell behind his door in his home. He was not able to get back up and EMS Services were contacted. They subsequently brought him to the emergency department. Two days prior to this event, he started having increasing fatigue, weakness, and cough with a little bit yellow phlegm. He did not have much in the way of shortness of breath or dyspnea that limited his activity. He denies having nausea, vomiting, diarrhea, hot and red swollen joints, or arthralgias. Ultimately, in the emergency department, a chest x-ray was performed. This was stable compared to prior x-rays and there was bilateral vascular congestion that appeared more prominent than the prior study. Since he has been in the hospital, he was put back on antibiotics and he is feeling much improved. He has dialysis yesterday. His lower extremity swelling has dramatically increased over the last 2 days. I was consulted owing to this pleural effusion. PAST MEDICAL HISTORY: 1. End-stage renal disease. 2. Hypertension. 3. Dyslipidemia. 4. Coronary artery disease. 5. Chronic systolic heart failure with 40% EF. 6. Atrial fibrillation, chronic. 7. Right upper extremity intention tremor. 8. Ischemic stroke in 2016. 9. History of nephrolithiasis. 10. 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 PAST SURGICAL HISTORY: 1. Pacemaker/AICD in 2016. 2. Left arm dialysis fistula. 3. Aneurysm repair in 2002. 4. Coronary artery bypass graft in 2002. FAMILY HISTORY: Noncontributory. SOCIAL HISTORY: Negative for alcohol, tobacco, or illicit drug use currently. He uses snuff tobacco. He has no exposure to chemicals, dust, asbestos, or tuberculosis. He dialyzes Mondays, Wednesdays, and Fridays. ALLERGIES: TETANUS VACCINE, AND TOXOID. MEDICATIONS: List of the patient's inpatient medications were reviewed. No specific updates were made at this time. REVIEW OF SYSTEMS: General, head, ears, eyes, nose, throat, cardiovascular, respiratory, GI, , musculoskeletal, neurologic, and skin is negative except as mentioned in the HPI. PHYSICAL EXAMINATION: VITAL SIGNS: Afebrile, pulse 65, blood pressure 112/57, respirations 20, and saturation 96%, currently on room air. GENERAL: The patient is awake and alert, in no apparent distress. LUNGS: Wonderful air entry on the right. There is some dependent crackles present on the bibasilar region. There is decreased air entry at the left base. There is a slightly prolonged expiratory phase, and I hear rhonchi that clear with cough, but no wheezing. HEART: Normal rate and regular. ABDOMEN: Soft, nontender, and nondistended. Bowel sounds are positive. MUSCULOSKELETAL: No cyanosis or clubbing. No pitting in the bilateral lower extremities. NEUROLOGIC: He has decreased hand flapping on the right. He also has decreased coordination when trying to do the heel-gomez test with the right leg. He has an intention tremor of the right upper extremity, but not the left upper extremity. IMAGING STUDIES: 1. Chest x-ray shows that he has a left pleural-parenchymal changes. These have been stable for quite some time. 2. CT of the chest from last week demonstrates either an infiltrate or an area of rounded atelectasis of the left base. Seemed to be some pleural plaques developing on the left side. There is a subpulmonic collection of fluid, which I can date back to 2016. The appearance of that fluid collection has not changed significantly in that period of time. ASSESSMENT: 1. Abnormal CT including rounded atelectasis, pleural plaques, and small effusion that has been roughly stable since 2016, consistent with asbestosis related lung disease. 2. Acute bronchitis. 3. Healthcare-associated pneumonia, possible. 4. End-stage renal disease. 5. New tremor over the last month with abnormal cerebellar findings. DISCUSSION AND PLAN: The patient relates that these falls, tremor, and lack of coordination in the right upper extremity are new in the past couple of months. As such, we will move forward getting an MRI, to specifically look closely at the cerebellum. A 5-day course of antibiotics would be reasonable, but only directed at acute bronchitis. A brief course of steroids, and nebulized medications will be provided. These findings on the recent CT scan are actually most consistent with a history of asbestos exposure. These findings have also been roughly stable since 2016. The infiltrate is starting to take on an appearance of rounded atelectasis and I am doubtful that we are dealing with pneumonia, or different infection. Pulmonary will continue to follow for the time being. 70 minutes have been devoted to this patient in various activities. I personally reviewed all imaging studies and laboratory data noted within this document. For fifty percent of this time, I was interacting with the patient at the bedside or coordinating care with the care team. For the remainder of the time I was immediately available to the patient in the hospital unit. Job ID: [id number] MTDD
[2019-12-09] MEDS: Midodrine HCl 5 MG TAB PO SCH ×3 (00:45→20:15)
[2019-12-09] MEDS: Guaifenesin DM 100-10/5 ML UDCUP PO PRN (01:24)
--- NOTE | 2019-12-09 04:43 | PDOC.EVN ---
Event Note - Event Note Event Note: RN called - Pt has AMS. Also has h/o falls. on Warfarin. Will check labs/CT brain/Sitter/Neurochecks
[2019-12-09 04:51] LABS: INR-International Normal Ratio 2.5; Prothrombin Time 26.8 SEC (12.0-14.7)
[2019-12-09 04:53] LABS: #Lymphocytes 0.3 thou/uL (1.20-3.40); #Monocytes 0.2 thou/uL (0.11-0.59); #Neutrophils 6.8 thou/uL (1.40-6.50); %Basophils 0.3 % (0.0-1.0); %Eosinophils 0.2 % (0.0-10.0); %Lymphocytes 4.2 % (21.0-51.0); %Monocytes 2.8 % (0.0-10.0); %Neutrophils 92.5 % (42.0-75.0); Hemoglobin 9.8 g/dL (14.0-18.0); Mean Corpuscular HGB CONC 30.2 g/dL (32.0-36.0); Mean Corpuscular Hemoglobin 30.4 pg (27.0-31.0); Mean Platelet Volume 9.5 fL (7.4-10.4); Platelet Count 164 thou/uL (130-400); RBC Distribution Width 16.4 % (11.5-14.5); Red Blood Cell (RBC) Count 3.21 mill/uL (4.70-6.10); White Blood Cell (WBC) Count 7.4 thou/uL (4.8-10.8)
[2019-12-09 05:18] LABS: ALT (SGPT) 24 U/L (8-55); AST (SGOT) 27 U/L (5-34); Albumin 3.3 g/dL (3.4-4.8); Alkaline Phosphatase 112 U/L (40-110); BUN (Urea Nitrogen) 55 mg/dL (8.4-25.7); Bilirubin, Total 0.6 mg/dL (0.2-1.2); Calc. Creatinine Clearance 10 mL/min (70-130); Calcium 7.8 mg/dL (7.8-10.44); Carbon Dioxide 25 mmol/L (23-31); Chloride 100 mmol/L (98-107); Estimated GFR-MDRD 6; Globulin 3.1 g/dL (2.4-3.5); Glucose 136 mg/dL (83-110); Potassium 4.4 mmol/L (3.5-5.1); Protein, Total 6.4 g/dL (5.8-8.1); Sodium 142 mmol/L (136-145)
[2019-12-09 05:28] LABS: CKMB 1.7 ng/mL (0-6.6)
[2019-12-09 05:40] LABS: Anion Gap 21 mmol/L (10-20)
[2019-12-09] MEDS: Levothyroxine Sodium 25 MCG TAB PO SCH (05:44)
[2019-12-09] MEDS ORDERED: EPOETIN ALFA-EPBX (ESRD) 4,000 UNIT/ML VIAL SC SCH (09:00)
[2019-12-09] MEDS: Cholecalciferol (Vitamin D3) 400 UNITS TAB PO SCH (09:18)
[2019-12-09] MEDS: predniSONE 20 MG TAB PO SCH (09:18)
[2019-12-09] MEDS: Famotidine 20 MG TAB PO SCH (09:18)
[2019-12-09] MEDS: Aspirin 81 mg Enteric Coated Tablet PO SCH (09:18)
[2019-12-09] MEDS: Azithromycin 250 MG TAB PO SCH (09:18)
[2019-12-09] MEDS: Folic Acid 1 MG TAB PO SCH (09:19)
--- NOTE | 2019-12-09 09:19 | PRG ---
DATE OF SERVICE: 12/09/2019 SERVICE: Renal Medicine. SUBJECTIVE: Mr. Chaudhary is a 79-year-old white male, who was admitted for frequent falls. He had an episode of confusion this morning. An MRI of the brain has been ordered. We are following him up for his maintenance hemodialysis. I have scheduled him for his regular dialysis today of 3.5 hour treatment. He voices no chest pain or shortness of breath. OBJECTIVE: VITAL SIGNS: Blood pressure 126/61, heart rate 86, respiratory rate 16, temperature 98.5, and pulse ox 97%. GENERAL: Noted to be awake, sitting comfortable, not in overt distress. SKIN: Adequate turgor. HEENT: Slightly pale conjunctivae. Anicteric sclerae. NECK: No neck mass. No carotid bruits. No JVD. CHEST: No deformities. LUNGS: Clear breath sounds. HEART: Irregular. No murmur. No gallops. ABDOMEN: Globular, soft, nontender. No masses. EXTREMITIES: No edema. NEUROLOGIC: Positive for resting tremors. MEDICATIONS: Medications of December 09, 2019, were reviewed. LABORATORY DATA: Laboratories of December 09, 2019; white count 7.4, hemoglobin 9.8. Sodium 142, potassium 4.4, chloride 100, carbon dioxide 25, BUN 55, creatinine 9.05, AST 27, ALT 24. ASSESSMENT AND PLAN: 1. End-stage renal disease, stable. We will continue current Monday, Monday, and Monday hemodialysis. Fluid removal only as tolerated. 2. Frequent falls-possible [facility] facility placement for further physical therapy. 3. Anemia. Start weekly Epogen at 7500 units subcutaneous every week. 4. Confusion. MRI of the brain has been ordered. 5. Overall, agree with current management. Job ID: [id number]
--- NOTE | 2019-12-09 10:11 | CT ---
Exam: Head CT without contrast HISTORY: Altered mental status. Past medical history of stroke. COMPARISON: 11/30/2019 FINDINGS: Hemorrhage: No intraparenchymal hemorrhage or extra-axial hematoma. Brain parenchyma: Stable gliosis and encephalomalacia in the right frontal cortex. The remainder the cerebrum demonstrates preservation of cortical conteh-white matter differentiation. Minimal white matter hypodensities due to chronic small vessel ischemic change. No parenchymal mass effect or midli ne shift. Ventricular system: Ventricles and sulci are patent and symmetric. Calvarium: Intact. Sinuses and mastoid air cells: Adequate aeration. IMPRESSION: No acute intracranial process.
--- NOTE | 2019-12-09 14:45 | PDOC.HOSPP ---
- Subjective Encounter Date: 12/09/19 Encounter Time: 11:00 Subjective: got confused and agitated early this am, is calm now. Son and at bedside responds well to verbal stimuli, is not oriented. Is scared of getting HD and the weakness that comes on later. - Objective Vital Signs & Weight: Vital Signs (12 hours) Temp Pulse Resp BP Pulse Ox 12/09/19 08:13 86 16 12/09/19 08:00 97.6 F 100 17 117/57 L 95 12/09/19 03:55 98.5 F 64 18 126/61 97 Weight Weight 219 lb 1.6 oz I&O: 12/08/19 12/09/19 12/10/19 06:59 06:59 06:59 Intake Total 400 1170 Output Total 300 400 Balance 100 770 Result Diagrams: 12/09/19 04:20 12/09/19 04:20 Hospitalist ROS - Medication Medications: Active Medications Generic Name Dose Route Start Last Admin Trade Name Freq PRN Reason Stop Dose Admin Albuterol/Ipratropium 3 ml 12/08/19 01:00 12/09/19 13:46 Duoneb NEB Not Given [id number] CHARISSE Amiodarone HCl 200 mg 12/08/19 21:00 12/08/19 20:59 Cordarone PO 200 mg HS CHARISSE Administration Aspirin 81 mg 12/08/19 09:00 12/09/19 09:18 Ecotrin PO 81 mg DAILY CHARISSE Administration Atorvastatin Calcium 40 mg 12/08/19 21:00 12/08/19 21:00 Lipitor PO 40 mg QPM CHARISSE Administration Azithromycin 250 mg 12/09/19 09:00 12/09/19 09:18 Zithromax PO 12/12/19 09:01 250 mg DAILY CHARISSE Administration Benzonatate 100 mg 12/07/19 23:05 12/08/19 20:59 Tessalon PO 100 mg Q8H PRN Administration Cough Cholecalciferol 400 units 12/08/19 09:00 12/09/19 09:18 Vitamin D PO 400 units DAILY CHARISSE Administration Epoetin Danial-epbx 7,500 unit 12/09/19 09:00 12/09/19 11:31 Retacrit SC 7,500 unit Q7D CHARISSE Administration Famotidine 20 mg 12/09/19 09:00 12/09/19 09:18 Pepcid PO 20 mg DAILY CHARISSE Administration Folic Acid 1 mg 12/08/19 09:00 12/09/19 09:19 Folvite PO 1 mg DAILY CHARISSE Administration Levothyroxine Sodium 25 mcg 12/08/19 06:00 12/09/19 05:44 Synthroid PO Not Given 0600 CHARISSE Midodrine 5 mg 12/08/19 09:00 12/09/19 09:19 Proamatine PO 5 mg BID CHARISSE Administration Pramipexole Dihydrochloride 0.125 mg 12/08/19 21:00 12/08/19 20:59 Mirapex PO 0.125 mg HS CHARISSE Administration Prednisone 40 mg 12/09/19 08:00 12/09/19 09:18 Prednisone PO 12/12/19 08:01 40 mg QAM-WM CHARISSE Administration Tamsulosin HCl 0.4 mg 12/08/19 21:00 12/08/19 21:01 Flomax PO Not Given QPM CHARISSE Warfarin Sodium 6 mg 12/08/19 17:00 12/08/19 17:42 Coumadin PO 6 mg 1700 CHARISSE Administration - Exam General Appearance: awake alert Eye: PERRL, anicteric sclera ENT: no oropharyngeal lesions, moist mucosa Neck: supple, no JVD Heart: RRR, no murmur Respiratory: no wheezes, no rales, rhonchi Gastrointestinal: soft, non-tender, non-distended, normal bowel sounds Extremities: no cyanosis, no edema Neurological: cranial nerve grossly intact, no focal deficits Hosp A/P (1) Physical deconditioning Code(s): R53.81 - OTHER MALAISE Status: Acute (2) Acute bronchitis Code(s): J20.9 - ACUTE BRONCHITIS, UNSPECIFIED Status: Acute Qualifiers: Bronchitis organism: unspecified organism Qualified Code(s): J20.9 - Acute bronchitis, unspecified (3) Multiple falls Code(s): R29.6 - REPEATED FALLS Status: Acute (4) History of CVA (cerebrovascular accident) Code(s): Z86.73 - PRSNL HX OF TIA (TIA), AND CEREB INFRC W/O RESID DEFICITS Status: Chronic (5) Anemia in chronic kidney disease (CKD) Code(s): N18.9 - CHRONIC KIDNEY DISEASE, UNSPECIFIED; D63.1 - ANEMIA IN CHRONIC KIDNEY DISEASE Status: Chronic Qualifiers: Chronic kidney disease stage: on chronic dialysis Qualified Code(s): N18.6 - End stage renal disease; D63.1 - Anemia in chronic kidney disease; Z99.2 - Dependence on renal dialysis (6) CAD (coronary artery disease) Code(s): I25.10 - ATHSCL HEART DISEASE OF [place] CORONARY ARTERY W/O ANG PCTRS Status: Chronic Qualifiers: Coronary Disease-Associated Artery/Lesion type: bypass graft [place] vs. transplanted heart: [place] heart Associated angina: without angina Qualified Code(s): I25.810 - Atherosclerosis of coronary artery bypass graft(s) without angina pectoris (7) Chronic anticoagulation Code(s): Z79.01 - SENIOR LIVING (CURRENT) USE OF ANTICOAGULANTS Status: Chronic (8) ESRD (end stage renal disease) on dialysis Code(s): N18.6 - END STAGE RENAL DISEASE; Z99.2 - DEPENDENCE ON RENAL DIALYSIS Status: Chronic (9) Hypotension Status: Chronic Qualifiers: (10) CHF (NYHA class III, ACC/AHA stage C) Code(s): I50.9 - HEART FAILURE, UNSPECIFIED Status: Chronic (11) Acute metabolic encephalopathy Code(s): G93.41 - METABOLIC ENCEPHALOPATHY Status: Acute - Plan is on asp, lipitor, amiodarone, synthroid, midodrine, flomax and coumadin hemostable await swing bed placement in [facility] prn d/w son, and patient. CT brain was -ve for any ac changes d/w , he will try to cut down his time on HD, is scheduled for one today with no fluid removal family is worried he is giving up.
--- NOTE | 2019-12-09 15:07 | PRG ---
DATE OF SERVICE: 12/09/2019 SERVICE: Pulmonary Medicine. INTERVAL HISTORY: The patient is doing really well from respiratory standpoint. He went down for an MRI yesterday. He is surrounded by his family today. The patient told me that his tremors are new within the past couple of weeks. It turns out it has been present for several years. The family is suggesting the patient is starting to have a little difficult time with his memory. As such, I did a part of mini-mental status exam on him. He is not able to get past one letter when spelling world backwards, and in the serial 7s, he only got one correct. His three-item recall was 1/3, and the other two, he could not even get with prompting. While he has been in the hospital, he has had an episode of agitation, delirium, and psychosis. As such, this could all be an acute event, but based on what the family is telling me, my suspicion is he has moderate to severe dementia that has been masked for quite some period of time. Otherwise, there has been no interval change to his condition. PHYSICAL EXAMINATION: VITAL SIGNS: Afebrile, pulse 100, blood pressure 117/57, respirations 17, and saturation 95%, currently on room air. GENERAL: The patient is awake and alert, in no apparent distress. LUNGS: Decent air entry. Crackles are present throughout bilateral lung velázquez. HEART: Normal rate, regular. ABDOMEN: Soft, nontender, nondistended, bowel sounds are positive. MUSCULOSKELETAL: No cyanosis or clubbing. There is no pitting in the bilateral lower extremities. NEUROLOGIC: The patient has demonstrated pill-rolling tremor. He has difficulty using the right upper extremity, particularly with intention. He demonstrates good strength throughout. Rapidly alternating movements of the right upper extremity are slower than the left despite the fact he is right-handed. LABORATORY DATA: WBC 7.4, hemoglobin 9.8, and platelets 164,000. INR 2.5. Creatinine 9.05. BUN 55. Basic metabolic profile is otherwise unremarkable. Liver function studies are negative. Troponin continues to trend downward, and ammonia is normal. CT of the brain was performed. I would not have transitioned this study over to a CT of the brain from the MRI. I simply would not have done this study at all. It is of note surprise to me that there was no acute process identified. We were looking for a very subtle chronic finding in the cerebellum. ASSESSMENT: 1. Acute bronchitis, improving. 2. Healthcare-associated pneumonia, unlikely. 3. Abnormal CT findings, stable since 2016 including rounded atelectasis, pleural plaques, and small effusion. 4. End-stage renal disease. 5. Dementia, strongly suspect and likely moderate to severe. DISCUSSION AND PLAN: The abnormal CT findings require no additional investigation. Limit his antibiotics directed at lung issues to 5- to 7-day course. I have counseled the patient to discuss his memory with his primary care physician in the outpatient setting. He understands that there are multiple things that can create difficulties with remembering while he is in the hospital. As such, I have encouraged him to discuss this with his primary care physician in 2 to 3 weeks in the outpatient setting. I ordered MRI under the assumption that he had a new onset tremor and dysdiadochokinesia. That being said, based on what the family is telling me, all of these findings are chronic. As such, I am not really that suspicions of a cerebellar lesion and will not need to pursue an MRI. At this point, he has no further requirements for inpatient Pulmonary or Critical Care opinion, and I will sign off. With additional questions or concerns, please notify me. Job ID: [id number] MTDD
[2019-12-09] MEDS: Benzonatate 100 MG CAP PO PRN (15:43)
[2019-12-09] MEDS: Warfarin Sodium 2 MG TAB PO SCH (18:23)
[2019-12-09] MEDS: Tamsulosin HCl 0.4 MG CAP PO SCH (20:15)
[2019-12-09] MEDS: Atorvastatin Calcium 40 MG TAB PO SCH (20:15)
[2019-12-09] MEDS: Pramipexole Di-HCl 0.125 MG TAB PO SCH (20:15)
[2019-12-09] MEDS ORDERED: Haloperidol Lactate 5 MG/ML VIAL IM SCH (20:15)
[2019-12-09] MEDS: Amiodarone 200 MG TAB PO SCH (20:15)
[2019-12-10] MEDS: Levothyroxine Sodium 25 MCG TAB PO SCH (05:49)
[2019-12-10 06:07] LABS: Prothrombin Time 30.7 SEC (12.0-14.7)
--- NOTE | 2019-12-10 08:11 | PRG ---
DATE OF SERVICE: 12/10/2019 SUBJECTIVE: Mr. Chaudhary is a 79-year-old white male, who was admitted for frequent falls. In the interim, he has been having intermittent confusion. He is being treated with p.r.n. haloperidol. We are following him up for his maintenance hemodialysis. He underwent with dialysis yesterday without any difficulty. OBJECTIVE: VITAL SIGNS: Blood pressure is 110/57, heart rate 68, respiratory rate 20, temperature 98.1, and pulse ox 94%. GENERAL: The patient is sleeping, comfortable, not in distress. SKIN: Adequate turgor. HEENT: Pinkish conjunctivae. Anicteric sclerae. NECK: No neck mass. No carotid bruits. No JVD. CHEST: No deformities. LUNGS: Clear breath sounds. HEART: Normal sinus rhythm. No murmur. No gallops. No rubs. ABDOMEN: Globular, soft, and nontender. No masses. EXTREMITIES: No edema. MEDICATIONS: Medications of December 10, 2019, were reviewed. LABORATORY DATA: Laboratories of December 09, 2019; hemoglobin 9.8. Sodium 142, potassium 4.4, chloride 100, carbon dioxide 25, BUN 55, creatinine 9.05, AST 27, ALT 24, and albumin 3.3. ASSESSMENT AND PLAN: 1. Agitation, confusion. The patient on p.r.n. Haldol and is on quetiapine. Please note on December 09, 2019; the patient underwent a CT scan of the brain with no acute intracranial process noted. 2. Anemia. Continue weekly Epogen with this patient. Agree with current management. Job ID: [id number]
[2019-12-10] MEDS: Azithromycin 250 MG TAB PO SCH (09:45)
[2019-12-10] MEDS: Folic Acid 1 MG TAB PO SCH (09:46)
[2019-12-10] MEDS: Cholecalciferol (Vitamin D3) 400 UNITS TAB PO SCH (09:46)
[2019-12-10] MEDS: predniSONE 20 MG TAB PO SCH (09:46)
[2019-12-10] MEDS: Midodrine HCl 5 MG TAB PO SCH ×2 (09:46→21:21)
[2019-12-10] MEDS: Aspirin 81 mg Enteric Coated Tablet PO SCH (09:46)
[2019-12-10] MEDS: Famotidine 20 MG TAB PO SCH (09:46)
--- NOTE | 2019-12-10 14:42 | PDOC.HOSPP ---
- Subjective Encounter Date: 12/10/19 Encounter Time: 10:15 Subjective: is a bit lethargic but responds well to verbal questions not agitated and is very calm this am had HD yesterday no sob or palp - Objective Vital Signs & Weight: Vital Signs (12 hours) Temp Pulse Pulse Pulse Resp BP BP 12/10/19 13:31 80 16 12/10/19 12:01 65 64 135/75 133/74 12/10/19 11:40 98.2 F 60 16 12/10/19 08:00 97.7 F 71 18 12/10/19 06:39 82 16 12/10/19 03:49 98.1 F 68 20 BP Pulse Ox 12/10/19 13:31 94 L 12/10/19 12:01 12/10/19 11:40 126/67 97 12/10/19 08:00 126/58 L 96 12/10/19 06:39 94 L 12/10/19 03:49 110/57 L 94 L Weight Weight 219 lb 1.6 oz I&O: 12/09/19 12/10/19 12/11/19 06:59 06:59 06:59 Intake Total 1170 880 Output Total 400 1700 Balance 770 -820 Result Diagrams: 12/09/19 04:20 12/09/19 04:20 Hospitalist ROS - Medication Medications: Active Medications Generic Name Dose Route Start Last Admin Trade Name Freq PRN Reason Stop Dose Admin Albuterol/Ipratropium 3 ml 12/08/19 01:00 12/10/19 13:31 Duoneb NEB 3 ml [id number] CHARISSE Administration Amiodarone HCl 200 mg 12/08/19 21:00 12/09/19 20:15 Cordarone PO 200 mg HS CHARISSE Administration Aspirin 81 mg 12/08/19 09:00 12/10/19 09:46 Ecotrin PO 81 mg DAILY CHARISSE Administration Atorvastatin Calcium 40 mg 12/08/19 21:00 12/09/19 20:15 Lipitor PO 40 mg QPM CHARISSE Administration Azithromycin 250 mg 12/09/19 09:00 12/10/19 09:45 Zithromax PO 12/12/19 09:01 250 mg DAILY CHARISSE Administration Benzonatate 100 mg 12/07/19 23:05 12/09/19 15:43 Tessalon PO 100 mg Q8H PRN Administration Cough Cholecalciferol 400 units 12/08/19 09:00 12/10/19 09:46 Vitamin D PO 400 units DAILY [facility] Administration Epoetin Danial-epbx 7,500 unit 12/09/19 09:00 12/09/19 11:31 Retacrit SC 7,500 unit Q7D CHARISSE Administration Famotidine 20 mg 12/09/19 09:00 12/10/19 09:46 Pepcid PO 20 mg DAILY [facility] Administration Folic Acid 1 mg 12/08/19 09:00 12/10/19 09:46 Folvite PO 1 mg DAILY CHARISSE Administration Levothyroxine Sodium 25 mcg 12/08/19 06:00 12/10/19 05:49 Synthroid PO Not Given 0600 [facility] Midodrine 5 mg 12/08/19 09:00 12/10/19 09:46 Proamatine PO 5 mg BID [facility] Administration Pramipexole Dihydrochloride 0.125 mg 12/08/19 21:00 12/09/19 20:15 Mirapex PO 0.125 mg HS [facility] Administration Prednisone 40 mg 12/09/19 08:00 12/10/19 09:46 Prednisone PO 12/12/19 08:01 40 mg QAM-WM [facility] Administration Quetiapine Fumarate 25 mg 12/09/19 21:00 12/09/19 20:15 Seroquel PO 25 mg HS [facility] Administration Tamsulosin HCl 0.4 mg 12/08/19 21:00 12/09/19 20:15 Flomax PO 0.4 mg QPM CHARISSE Administration Warfarin Sodium 6 mg 12/08/19 17:00 12/09/19 18:23 Coumadin PO 6 mg 1700 [facility] Administration - Exam General Appearance: NAD, awake alert Eye: PERRL, anicteric sclera ENT: no oropharyngeal lesions, moist mucosa Neck: supple, no JVD Heart: RRR, no murmur Respiratory: no wheezes, no rales Gastrointestinal: soft, non-tender, non-distended, normal bowel sounds Extremities: no cyanosis, no edema Neurological: cranial nerve grossly intact, no focal deficits Hosp A/P (1) Physical deconditioning Code(s): R53.81 - OTHER MALAISE Status: Acute (2) Acute bronchitis Code(s): J20.9 - ACUTE BRONCHITIS, UNSPECIFIED Status: Acute Qualifiers: Bronchitis organism: unspecified organism Qualified Code(s): J20.9 - Acute bronchitis, unspecified (3) Multiple falls Code(s): R29.6 - REPEATED FALLS Status: Acute (4) History of CVA (cerebrovascular accident) Code(s): Z86.73 - PRSNL HX OF TIA (TIA), AND CEREB INFRC W/O RESID DEFICITS Status: Chronic (5) Anemia in chronic kidney disease (CKD) Code(s): N18.9 - CHRONIC KIDNEY DISEASE, UNSPECIFIED; D63.1 - ANEMIA IN CHRONIC KIDNEY DISEASE Status: Chronic Qualifiers: Chronic kidney disease stage: on chronic dialysis Qualified Code(s): N18.6 - End stage renal disease; D63.1 - Anemia in chronic kidney disease; Z99.2 - Dependence on renal dialysis (6) CAD (coronary artery disease) Code(s): I25.10 - ATHSCL HEART DISEASE OF [place] CORONARY ARTERY W/O ANG PCTRS Status: Chronic Qualifiers: Coronary Disease-Associated Artery/Lesion type: bypass graft [place] vs. transplanted heart: [place] heart Associated angina: without angina Qualified Code(s): I25.810 - Atherosclerosis of coronary artery bypass graft(s) without angina pectoris (7) Chronic anticoagulation Code(s): Z79.01 - INTERMEDIATE (CURRENT) USE OF ANTICOAGULANTS Status: Chronic (8) ESRD (end stage renal disease) on dialysis Code(s): N18.6 - END STAGE RENAL DISEASE; Z99.2 - DEPENDENCE ON RENAL DIALYSIS Status: Chronic (9) Hypotension Status: Chronic Qualifiers: (10) CHF (NYHA class III, ACC/AHA stage C) Code(s): I50.9 - HEART FAILURE, UNSPECIFIED Status: Chronic (11) Acute metabolic encephalopathy Code(s): G93.41 - METABOLIC ENCEPHALOPATHY Status: Acute - Plan is on asp, lipitor, amiodarone, synthroid, midodrine, flomax and coumadin hemostable await swing bed placement in [facility] prn CT brain was -ve for any ac changes d/w , he will try to cut down his time on HD dc planning tx pt to medical floor. To ambulate as tolerated with PT encourage po intake
[2019-12-10] MEDS: Warfarin Sodium 2 MG TAB PO SCH (17:26)
[2019-12-10] MEDS: Atorvastatin Calcium 40 MG TAB PO SCH (21:20)
[2019-12-10] MEDS: Tamsulosin HCl 0.4 MG CAP PO SCH (21:21)
[2019-12-10] MEDS: Pramipexole Di-HCl 0.125 MG TAB PO SCH (21:21)
[2019-12-10] MEDS: Amiodarone 200 MG TAB PO SCH (21:21)
[2019-12-11] MEDS: Levothyroxine Sodium 25 MCG TAB PO SCH (05:56)
[2019-12-11 06:19] LABS: INR-International Normal Ratio 2.6; Prothrombin Time 27.3 SEC (12.0-14.7)
--- NOTE | 2019-12-11 09:18 | PRG ---
DATE OF SERVICE: 12/11/2019 SUBJECTIVE: Mr. Chaudhary is a 79-year-old white male, who was admitted for frequent falls. He has been agitated with this hospitalization, but he is on haloperidol p.r.n. He is undergoing hemodialysis. He is tolerating said treatment. Attempting to remove between 600 mL to 1000 mL of fluid as tolerated. No new complaints. No chest pain or shortness of breath. He is less agitated. OBJECTIVE: VITAL SIGNS: Blood pressure 145/77, heart rate 61, respiratory rate 20, temperature 98.4, and pulse ox 95%. GENERAL: Awake, alert, comfortable, not in distress. SKIN: Adequate turgor. HEENT: Pinkish conjunctivae. Anicteric sclerae. NECK: No neck mass. No carotid bruits. No JVD. CHEST: No deformities. LUNGS: Clear breath sounds. HEART: Normal sinus rhythm. No murmurs. No gallops. No rubs. ABDOMEN: Globular, soft, nontender. No masses. EXTREMITIES: No edema. NEUROLOGIC: The patient is less confused. Mild resting tremor. MEDICATIONS: Medications of December 11, 2019, was reviewed. LABORATORY DATA: Laboratories of December 09, 2019; hemoglobin 9.8. Sodium 142, potassium 4.4, chloride 100, carbon dioxide 25, BUN 55, creatinine 9.05. ASSESSMENT AND PLAN: 1. End-stage renal disease, stable. We will continue current Monday, Monday, and Monday hemodialysis regimen. Fluid removal only as tolerated by the patient. 2. Anemia. We are continuing weekly Epogen with this patient 7500 units subcu every 7 days. 3. Agitation, much improved ? of metabolic encephalopathy. CAT scan showed no acute intracranial abnormality. 4. Agree with current management. Job ID: [id number]
--- NOTE | 2019-12-11 13:22 | PDOC.HOSPP ---
- Subjective Encounter Date: 12/11/19 Encounter Time: 11:20 Subjective: is getting HD, no sob or chest pain oriented well - Objective Vital Signs & Weight: Vital Signs (12 hours) Temp Pulse Resp BP Pulse Ox 12/11/19 08:00 95 12/11/19 04:17 98.4 F 61 20 145/77 H 95 Weight Weight 219 lb 1.6 oz I&O: 12/10/19 12/11/19 12/12/19 06:59 06:59 06:59 Intake Total 880 690 Output Total 1700 Balance -820 690 Result Diagrams: 12/09/19 04:20 12/09/19 04:20 Hospitalist ROS - Medication Medications: Active Medications Generic Name Dose Route Start Last Admin Trade Name Freq PRN Reason Stop Dose Admin Acetaminophen 650 mg 12/07/19 23:05 12/10/19 21:22 Tylenol PO 650 mg Q4H PRN Administration Headache/Fever/Mild Pain (1-3) Albuterol/Ipratropium 3 ml 12/08/19 01:00 12/11/19 07:36 Duoneb NEB Not Given [id number] CHARISSE Amiodarone HCl 200 mg 12/08/19 21:00 12/10/19 21:21 Cordarone PO 200 mg HS CHARISSE Administration Aspirin 81 mg 12/08/19 09:00 12/10/19 09:46 Ecotrin PO 81 mg DAILY CHARISSE Administration Atorvastatin Calcium 40 mg 12/08/19 21:00 12/10/19 21:20 Lipitor PO 40 mg QPM CHARISSE Administration Azithromycin 250 mg 12/09/19 09:00 12/10/19 09:45 Zithromax PO 12/12/19 09:01 250 mg DAILY CHARISSE Administration Benzonatate 100 mg 12/07/19 23:05 12/09/19 15:43 Tessalon PO 100 mg Q8H PRN Administration Cough Cholecalciferol 400 units 12/08/19 09:00 12/10/19 09:46 Vitamin D PO 400 units DAILY CHARISSE Administration Epoetin Danial-epbx 7,500 unit 12/09/19 09:00 12/09/19 11:31 Retacrit SC 7,500 unit Q7D CHARISSE Administration Famotidine 20 mg 12/09/19 09:00 12/10/19 09:46 Pepcid PO 20 mg DAILY CHARISSE Administration Folic Acid 1 mg 12/08/19 09:00 12/10/19 09:46 Folvite PO 1 mg DAILY CHARISSE Administration Levothyroxine Sodium 25 mcg 12/08/19 06:00 12/11/19 05:56 Synthroid PO 25 mcg 0600 CHARISSE Administration Midodrine 5 mg 12/08/19 09:00 12/10/19 21:21 Proamatine PO 5 mg BID CHARISSE Administration Pramipexole Dihydrochloride 0.125 mg 12/08/19 21:00 12/10/19 21:21 Mirapex PO 0.125 mg HS CHARISSE Administration Prednisone 40 mg 12/09/19 08:00 12/10/19 09:46 Prednisone PO 12/12/19 08:01 40 mg QAM-WM CHARISSE Administration Quetiapine Fumarate 25 mg 12/09/19 21:00 12/10/19 21:21 Seroquel PO 25 mg HS CHARISSE Administration Tamsulosin HCl 0.4 mg 12/08/19 21:00 12/10/19 21:21 Flomax PO 0.4 mg QPM CHARISSE Administration Warfarin Sodium 6 mg 12/08/19 17:00 12/10/19 17:26 Coumadin PO 6 mg 1700 CHARISSE Administration - Exam General Appearance: awake alert Eye: PERRL, anicteric sclera ENT: no oropharyngeal lesions, moist mucosa Neck: supple, no JVD Heart: RRR, no murmur Respiratory: no wheezes, no rales Gastrointestinal: soft, non-tender, non-distended, normal bowel sounds Extremities: no cyanosis, no edema Neurological: cranial nerve grossly intact, no focal deficits Psychiatric: normal affect, A&O x 3 Hosp A/P (1) Physical deconditioning Code(s): R53.81 - OTHER MALAISE Status: Acute (2) Acute bronchitis Code(s): J20.9 - ACUTE BRONCHITIS, UNSPECIFIED Status: Acute Qualifiers: Bronchitis organism: unspecified organism Qualified Code(s): J20.9 - Acute bronchitis, unspecified (3) Multiple falls Code(s): R29.6 - REPEATED FALLS Status: Acute (4) History of CVA (cerebrovascular accident) Code(s): Z86.73 - PRSNL HX OF TIA (TIA), AND CEREB INFRC W/O RESID DEFICITS Status: Chronic (5) Anemia in chronic kidney disease (CKD) Code(s): N18.9 - CHRONIC KIDNEY DISEASE, UNSPECIFIED; D63.1 - ANEMIA IN CHRONIC KIDNEY DISEASE Status: Chronic Qualifiers: Chronic kidney disease stage: on chronic dialysis Qualified Code(s): N18.6 - End stage renal disease; D63.1 - Anemia in chronic kidney disease; Z99.2 - Dependence on renal dialysis (6) CAD (coronary artery disease) Code(s): I25.10 - ATHSCL HEART DISEASE OF [place] CORONARY ARTERY W/O ANG PCTRS Status: Chronic Qualifiers: Coronary Disease-Associated Artery/Lesion type: bypass graft [place] vs. transplanted heart: [place] heart Associated angina: without angina Qualified Code(s): I25.810 - Atherosclerosis of coronary artery bypass graft(s) without angina pectoris (7) Chronic anticoagulation Code(s): Z79.01 - SPORTS MARKETING SPECIALIST (CURRENT) USE OF ANTICOAGULANTS Status: Chronic (8) ESRD (end stage renal disease) on dialysis Code(s): N18.6 - END STAGE RENAL DISEASE; Z99.2 - DEPENDENCE ON RENAL DIALYSIS Status: Chronic (9) Hypotension Status: Chronic Qualifiers: (10) CHF (NYHA class III, ACC/AHA stage C) Code(s): I50.9 - HEART FAILURE, UNSPECIFIED Status: Chronic (11) Acute metabolic encephalopathy Code(s): G93.41 - METABOLIC ENCEPHALOPATHY Status: Acute - Plan is on asp, lipitor, amiodarone, synthroid, midodrine, flomax and coumadin hemostable may dc anytime if swing bed placement in [place] is available nebs prn CT brain was -ve for any ac changes d/w , he will try to cut down his time on HD To ambulate as tolerated with PT encourage po intake
[2019-12-11] MEDS: Famotidine 20 MG TAB PO SCH (14:09)
[2019-12-11] MEDS: Aspirin 81 mg Enteric Coated Tablet PO SCH (14:10)
[2019-12-11] MEDS: Midodrine HCl 5 MG TAB PO SCH ×2 (14:10→20:27)
[2019-12-11] MEDS: Folic Acid 1 MG TAB PO SCH (14:10)
[2019-12-11] MEDS: Azithromycin 250 MG TAB PO SCH (14:10)
[2019-12-11] MEDS: Cholecalciferol (Vitamin D3) 400 UNITS TAB PO SCH (14:10)
[2019-12-11] MEDS: predniSONE 20 MG TAB PO SCH (14:10)
--- NOTE | 2019-12-11 15:16 | PQF ---
CLINICAL DOCUMENTATION IMPROVEMENT CLARIFICATION FORM: ICD-10 Updated PLEASE DO AN ADDENDUM TO THE PROGRESS NOTE WITH ANY DOCUMENTATION UPDATES OR ADDITIONS AND CARRY THROUGH TO DC SUMMARY. THANK YOU. DATE: 12/11/19 ATTN: DR. CONTRERAS Please exercise your independent, professional judgment in responding to the clarification form. Clinical indicators are provided on the bottom of this form for your review Please check appropriate box(s) to clarify if the following diagnosis has been ruled in or ruled out: LOCULATED PLEURAL EFFUSION [ ] Ruled in diagnosis [ ] Continue to treat [ ] Resolved [ ] Ruled out diagnosis [ ] Cannot rule out diagnosis [ x ] Other diagnosis __pleural effusion is due to volume overload and it is not significant [ ] Unable to determine In addition, please specify: Present on Admission (POA): [ x] Yes [ ] No [ ] Unable to determine For continuity of documentation, please document condition throughout progress notes and discharge summary. Thank You. CLINICAL INDICATORS - SIGNS / SYMPTOMS / LABS / RESULTS AND LOCATION IN MR H&P 2/2 : "LOCULATED LEFT LOWER LOBE PLEURAL EFFUSION AND LUNG CONSOLIDATION" RISKS: PERSISTENT COUGH (H&P 2/2) RECENT HOSPITALIZATION- DIAGNOSED WITH PNEUMONIA (ER NOTE) ESRD (ER NOTE) TREATMENT: GUAIFENASIN (ER) DUONEB (ER-PRESENT) PREDNISONE (2/3-2/6) ZITHROMAX (2/3-/) (This form is maintained as a part of the permanent medical record) 2014 [employer]. All Rights Reserved [employer] [email or web address] Office: [phone] [facility]
[2019-12-11] MEDS: Warfarin Sodium 2 MG TAB PO SCH (17:00)
[2019-12-11] MEDS: Amiodarone 200 MG TAB PO SCH (20:26)
[2019-12-11] MEDS: Pramipexole Di-HCl 0.125 MG TAB PO SCH (20:26)
[2019-12-11] MEDS: Atorvastatin Calcium 40 MG TAB PO SCH (20:27)
[2019-12-11] MEDS: Tamsulosin HCl 0.4 MG CAP PO SCH ×2 (20:27→20:29)
[2019-12-12 05:47] LABS: INR-International Normal Ratio 2.3; Prothrombin Time 25.3 SEC (12.0-14.7)
[2019-12-12] MEDS: Levothyroxine Sodium 25 MCG TAB PO SCH (06:02)
[2019-12-12 07:52] VITALS: BP 107/59; TEMP 97.5
[2019-12-12] MEDS: predniSONE 20 MG TAB PO SCH (08:43)
[2019-12-12] MEDS: Aspirin 81 mg Enteric Coated Tablet PO SCH (08:43)
[2019-12-12] MEDS: Azithromycin 250 MG TAB PO SCH (08:43)
[2019-12-12] MEDS: Famotidine 20 MG TAB PO SCH (08:43)
[2019-12-12] MEDS: Folic Acid 1 MG TAB PO SCH (08:43)
[2019-12-12] MEDS: Midodrine HCl 5 MG TAB PO SCH (08:44)
[2019-12-12] MEDS: Cholecalciferol (Vitamin D3) 400 UNITS TAB PO SCH (08:44)
--- NOTE | 2019-12-12 17:32 | DIS ---
DATE OF ADMISSION: 12/09/2019 DATE OF DISCHARGE: 12/12/2019 DISCHARGE DISPOSITION: [facility] at [facility]. PRIMARY DISCHARGE DIAGNOSES: Acute metabolic encephalopathy; recurrent falls; bilateral pleural effusion due to volume overload; multiple falls; chronic anemia; history of cerebrovascular accident; deconditioning; coronary artery disease; end-stage renal disease, on hemodialysis; chronic anticoagulation; hypotension; and history of congestive heart failure, stage C, AHA. PROCEDURES DONE DURING HOSPITALIZATION: CT brain showed no acute intracranial process. H and H 10 and 32, platelet count 164, MCV 101. PT and INR on the day of discharge 25 and 2.3. BUN 55, creatinine 9.0, serum bicarb 25, albumin 3.3. INPATIENT CONSULTS: 1. Dr. Huff for Nephrology. 2. Dr. Bran for Pulmonology. DISCHARGE MEDICATIONS: 1. Aspirin 81 mg p.o. daily. 2. Lipitor 40 mg p.o. q.p.m. 3. Tylenol No. 3 q.6 hourly p.r.n. 4. Synthroid 25 mcg p.o. daily. 5. Midodrine 5 mg twice daily. 6. Pramipexole 0.125 mg p.o. at bedtime. 7. Coumadin 6 mg p.o. q.p.m. 8. Amiodarone 200 mg p.o. at bedtime. 9. Vitamin D3 of 400 units p.o. daily. 10. Folic acid 1 mg p.o. daily. 11. DuoNeb q.4 hourly p.r.n. 12. Seroquel 25 mg p.o. at bedtime. ALLERGIES: TETANUS TOXOID. DISCHARGE PLAN: The patient to follow up with his primary care physician, Dr. Robbins in 1 week. BRIEF COURSE DURING HOSPITALIZATION: The patient initially got admitted on the 1st with generalized weakness, falls, and persistent cough. This happened after he was recently discharged. The patient has had issues with tolerating hemodialysis with him becoming very lethargic and tired after dialysis. In view of this, he was closely monitored on telemetry. The first two hemodialysis was done without fluid removal. The third time, he has had dialysis with Fluid removal. Dr. Huff is aware of the patient's symptoms. If the patient continues to have persistent symptoms after dialysis with him becoming very lethargic, then the duration of dialysis will be reduced. This needs to be closely coordinated with Dr. Huff. He was on brief antibiotics during his stay for acute bronchitis, which has resolved. Prior to discharge, he is ambulating with Physical Therapy. He is more oriented and responds well to verbal questions. In view of recurrent falls, deconditioning, and above symptoms, the patient is being discharged to swing bed in [place] shortly. Please note, I have seen and examined the patient on the day of discharge. TIME SPENT: A total of 35 minutes was spent on discharge plan. Job ID: [id number] [facility] HOSPITALWaleska
--- NOTE | 2019-12-13 07:48 | PQF ---
MARCE GARCIA VINAYA KUMAR MD [id number] [facility] [id number] CLINICAL DOCUMENTATION CLARIFICATION FORM: POST DISCHARGE Addendum to original discharge summary date: ____ Late entry note date: __ DATE: 12/13/2019 ATTN: Tg Cuadra Please exercise your independent, professional judgment in responding to the clarification form. Clinical indicators are provided on the bottom of this form for your review Please check appropriate box(s): In your clinical opinion based on clinical findings below, can you please specify Etiology of Metabolic Encephalopathy if due to: [ ] Acute Bronchitis [ ] Fluid Overload associated with CHF [ ] Fluid Overload associated with ESRD [ ] Other diagnosis [ x ] Unable to determine In addition, please specify: Present on Admission (POA): [ x ] Yes [ ] No [ ] Unable to determine For continuity of documentation, please document condition throughout progress notes and discharge summary. Thank You. CLINICAL INDICATORS - SIGNS / SYMPTOMS / LABS Laboratory Chemistry 2/2 BUN 42, Crea 7.39, GFR 7 Laboratory Chemistry 2/3 BUN 55, Crea 9.05, GFR 6 H&P p1 2/ Dr Juan Presented with weakness and falls with persistent cough H&P p4 2/ Dr Juan Persistent cough with loculated left lower lobe pleural effusion and lung consolidation. I suspect he has bronchitis Hospitalist PN p1 2/3 Pt got confused and agitated early this AM Hospitalist PN p1 2/3 Pt scared of getting HD and the weakness that comes on later Hospitalist PN p6 2/3 Dr Honeycutt He will cut down his time on HD Discharge Summary p1 12/12 Dr Honeycutt Bilateral pleural effusion due to volume overload RISK FACTORS H&P p1 2/ - 79-year old Male H&P p1 2/1 ESRD on dialysis H&P p1 2/ Systolic CHF H&P p4 2/1 - Hypotension Pulmonology consult p3 12/08 Acute bronchitis Hospitalist PN p1 3 - Anemia of CKD Hospitalist PN p6 12/09 - Acute metabolic Encephalopathy TREATMENTS: Hemodialysis 12/[address] Huff JAN 05 DuoNeb 3ml Neb JAN 05 Tessalon 100mg po JAN 05 Robitussin Sf 100 mg po JAN 05 Azithromycin 250mg po Pulmonology consult 12/08 chrissy Joyner Nephrology consult 12/08 Kristopher Pozo (This form is maintained as a part of the permanent medical record) 2014 [employer], [employer]. All Rights Reserved [email or web address]
== END 2019-12-12 11:34 | disposition swing bed (61) | DRG 70 ==
LOC: ERS 19:19 → 2NO 20:10 → OBSVTOIN 12-09 10:44 → T4-B 12-10 16:40
PROVIDERS: ADMIT Emergency Medicine; ATTEND Emergency Medicine
PROC: 5A1D70Z Performance of Urinary Filtration, Intermittent, Less than 6 Hours Per Day (ICD-10-PCS; principal; 2019-12-10)
DX: G93.41 Metabolic encephalopathy (principal); N18.6 End stage renal disease; I13.2 Hypertensive heart and chronic kidney disease with heart failure and with stage 5 chronic kidney disease, or end stage renal disease; I50.22 Chronic systolic (congestive) heart failure; I48.20 Chronic atrial fibrillation, unspecified; J20.9 Acute bronchitis, unspecified; R29.6 Repeated falls; D63.1 Anemia in chronic kidney disease; I25.10 Atherosclerotic heart disease of native coronary artery without angina pectoris; I95.89 Other hypotension; E78.5 Hyperlipidemia, unspecified; I25.2 Old myocardial infarction; Z95.810 Presence of automatic (implantable) cardiac defibrillator; Z86.73 Personal history of transient ischemic attack (TIA), and cerebral infarction without residual deficits; Z79.01 Long term (current) use of anticoagulants; Z99.2 Dependence on renal dialysis
CPT/HCPCS: 36415; 70450; 80048; 80053; 82140; 82553; 84484; 85025; 85610; 90935; 93005; 94640; G0257; J1630; J7512; J7620; Q5105

== ENCOUNTER 2020-06-28 14:26 | Inpatient (IN) | payer MEDICARE, MEDICAID, OTHER ==
[2020-06-28 15:01] LABS: #Eosinphils 0.2 thou/uL (0.0-0.7); #Lymphocytes 1.3 thou/uL (1.20-3.40); #Monocytes 0.5 thou/uL (0.11-0.59); #Neutrophils 3.3 thou/uL (1.40-6.50); %Basophils 0.4 % (0.0-1.0); %Eosinophils 3.9 % (0.0-10.0); %Lymphocytes 24.9 % (21.0-51.0); %Monocytes 10.1 % (0.0-10.0); %Neutrophils 60.7 % (42.0-75.0); Hemoglobin 10.8 g/dL (14.0-18.0); Mean Corpuscular HGB CONC 32.5 g/dL (32.0-36.0); Mean Corpuscular Hemoglobin 35.9 pg (27.0-31.0); Mean Platelet Volume 8.9 fL (7.4-10.4); Platelet Count 158 thou/uL (130-400); RBC Distribution Width 15.8 % (11.5-14.5); White Blood Cell (WBC) Count 5.4 thou/uL (4.8-10.8)
[2020-06-28 15:22] LABS: ALT (SGPT) 17 U/L (8-55); AST (SGOT) 24 U/L (5-34); Albumin 3.5 g/dL (3.4-4.8); Alkaline Phosphatase 122 U/L (40-110); Anion Gap 16 mmol/L (10-20); BUN (Urea Nitrogen) 43 mg/dL (8.4-25.7); Bilirubin, Total 0.7 mg/dL (0.2-1.2); Calc. Creatinine Clearance 0 mL/min (70-130); Calcium 8.4 mg/dL (7.8-10.44); Carbon Dioxide 30 mmol/L (23-31); Chloride 100 mmol/L (98-107); Estimated GFR-MDRD 7; Globulin 3.3 g/dL (2.4-3.5); Glucose 79 mg/dL (83-110); Potassium 4.3 mmol/L (3.5-5.1); Protein, Total 6.8 g/dL (5.8-8.1); Sodium 142 mmol/L (136-145)
[2020-06-28 15:47] LABS: CKMB 2.5 ng/mL (0-6.6)
--- NOTE | 2020-06-28 16:15 | CT ---
CT BRAIN WITHOUT CONTRAST: HISTORY:Fall. Head injury COMPARISON:06/22/2020 FINDINGS: There are foci of decreased attenuation in the periventricular white matter, consistent with chronic small vessel ischemic disease. There is stable encephalomalacia in the posterior right frontal lobe. Vascular calcifications are again seen intracranially. No evidence of acute infarct, hemorrhage, midline shift or abnormal extra-axial fluid collections is seen. The ventricular size is appropriate and the basilar cisterns are patent. The bony calvarium is intact. There is mucosal disease in the paranasal sinuses. IMPRESSION: No CT evidence of acute intracranial process.
--- NOTE | 2020-06-28 16:22 | CT ---
CT CERVICAL SPINE WITH CORONAL AND SAGITTAL REFORMATIONS AND NO IV CONTRAST: HISTORY: Fall, neck pain COMPARISON: 06/08/2020 FINDINGS: Multilevel degenerative changes are present. Minimal anterolisthesis T cc of C3 over C4 and C4 over C 5 vertebral bodies is stable. There is loss of cervical lordosis. No fracture, subluxation or facet malalignment is identified. No prevertebral soft tissue swelling is apparent. The visualized lung apices are unremarkable. IMPRESSION: No CT evidence for fracture or traumatic subluxation.
[2020-06-28] MEDS ORDERED: Ondansetron PF 4 MG/2 ML Vial IVP PRN (21:13)
[2020-06-28] MEDS ORDERED: Acetaminophen 325 MG TAB PO PRN (21:13)
[2020-06-28] MEDS ORDERED: Ondansetron ODT 4 MG TAB SL PRN (21:13)
[2020-06-28 23:30] VITALS: BMI 30.2
--- NOTE | 2020-06-29 03:38 | HP ---
REASON FOR ADMISSION: Multiple falls. HISTORY OF PRESENT ILLNESS: This is a 80-year-old male patient who was recently discharged from our hospital approximately 7 days ago. He was admitted at that time for right hand weakness and slurred speech with left facial droop, so he was admitted to rule out a stroke. He was seen by Neurology and was seen by Physical Therapy. He was advised to go to [facility], but patient refused, so he was discharged home with home health and PT at home. Since his discharge, he has been falling a lot and came to the emergency room reporting dizziness before falling. Otherwise, no other complaints. PAST MEDICAL HISTORY: 1. End-stage renal disease. 2. High blood pressure. 3. Coronary artery disease. 4. Atrial fibrillation. 5. Status post pacemaker and AICD placement. 6. Kidney stones. 7. Hyperlipidemia. 8. Stroke with left-sided weakness. 9. CABG. 10. Appendectomy. FAMILY HISTORY: Positive for kidney failure and heart disease. SOCIAL HISTORY: Does not smoke. Does not drink alcohol. REVIEW OF SYSTEMS: All systems reviewed except the above mentioned, found to be negative. PHYSICAL EXAMINATION: GENERAL: Awake, alert, oriented, does not appear in distress. VITAL SIGNS: His blood pressure is 105/66, heart rate of 63, temperature is 97.6, saturating 99% on room air. HEENT: Head is nontraumatic, normocephalic. Pupils equal, reactive. Extraocular movements are intact. Nonicteric sclerae. Well-injected conjunctivae. Oral mucosa normal. Nasal mucosa normal. NECK: Supple. No adenopathy. No murmur. Thyroid is not palpable. Trachea is midline. No supraclavicular lymphadenopathy. HEART: S1, S2. Regular. No murmur. No gallop. No friction rubs. No displacement of PMI. LUNGS: Clear to auscultation bilaterally. No wheezes. No rhonchi. No crackles. ABDOMEN: Bowel sounds are positive. Nontender abdomen. No hepatosplenomegaly. EXTREMITIES: 1+ pitting edema in bilateral lower extremities. NEURO: Cranial nerves 2 through 12 within normal limits. Normal motor function. Normal sensory function. Normal reflexes. LABORATORY DATA: Blood work shows WBC of 5.4, hemoglobin of 10.8, platelets of 158. Sodium of 142, potassium 4.3, bicarb of 30, creatinine of 7.74. Troponin 0.060. Last troponin was 0.072. ASSESSMENT AND PLAN: This is a 80-year-old male patient who was recently here for transient ischemic attack. During his stay, he was advised to go to a rehab facility because of his increased risk of fall, but the patient refused. He went home to come back today for frequent falls. Neurology: Patient will be maintained on aspirin, statins. We will ask Physical Therapy to reassess him. He will be maintained on his levothyroxine. He will be maintained on his midodrine and Coumadin which will be adjusted as per his PT/INR. Patient is on hemodialysis. We will consult Nephrology for continuation of that. I did discuss with him his code status. He wishes to be a full code. Job ID: [id number]
[2020-06-29] MEDS ORDERED: Polyethylene Glycol 3350 17 GM Packet PO PRN (05:24)
[2020-06-29 05:39] LABS: #Eosinphils 0.2 thou/uL (0.0-0.7); #Lymphocytes 1.4 thou/uL (1.20-3.40); #Monocytes 0.6 thou/uL (0.11-0.59); #Neutrophils 3.5 thou/uL (1.40-6.50); %Basophils 0.2 % (0.0-1.0); %Eosinophils 4.1 % (0.0-10.0); %Lymphocytes 23.7 % (21.0-51.0); %Monocytes 10.9 % (0.0-10.0); %Neutrophils 61.2 % (42.0-75.0); Hemoglobin 10.3 g/dL (14.0-18.0); INR-International Normal Ratio 2.1; Mean Corpuscular HGB CONC 31.6 g/dL (32.0-36.0); Mean Corpuscular Hemoglobin 35.2 pg (27.0-31.0); Platelet Count 154 thou/uL (130-400); Prothrombin Time 23.8 sec (12.0-14.7); RBC Distribution Width 15.9 % (11.5-14.5); Red Blood Cell (RBC) Count 2.94 mill/uL (4.70-6.10); White Blood Cell (WBC) Count 5.8 thou/uL (4.8-10.8)
[2020-06-29 05:57] LABS: Anion Gap 19 mmol/L (10-20); BUN (Urea Nitrogen) 48 mg/dL (8.4-25.7); Calc. Creatinine Clearance 10 mL/min (70-130); Calcium 8.2 mg/dL (7.8-10.44); Carbon Dioxide 25 mmol/L (23-31); Chloride 101 mmol/L (98-107); Estimated GFR-MDRD 6; Glucose 82 mg/dL (83-110); Potassium 4.4 mmol/L (3.5-5.1); Sodium 141 mmol/L (136-145)
[2020-06-29] MEDS: Tamsulosin HCl 0.4 MG CAP PO SCH (08:01)
[2020-06-29] MEDS: Levothyroxine Sodium 25 MCG TAB PO SCH (08:01)
[2020-06-29] MEDS: Aspirin 81 mg Enteric Coated Tablet PO SCH (08:01)
[2020-06-29] MEDS: Folic Acid/Vit B Comp W-C PO SCH (08:02)
[2020-06-29] MEDS: Midodrine HCl 5 MG TAB PO SCH ×3 (09:00→21:51)
[2020-06-29] MEDS ORDERED: EPOETIN ALFA-EPBX (ESRD) 4,000 UNIT/ML VIAL SC SCH (09:15)
[2020-06-29] MEDS ORDERED: Epoetin (ESRD) 20,000 UNITS/ML SC SCH (09:15)
--- NOTE | 2020-06-29 09:25 | PRG ---
DATE OF SERVICE: 06/29/2020 SUBJECTIVE: Mr. Chaudhary is a 80-year-old white male with ESRD and currently on maintenance hemodialysis. He was admitted due to multiple falls. This is a chronic problem for the patient. A CT scan of the brain was done on June 28, 2020, which showed no acute intracranial process. In addition, a CT scan of the cervical spine was also done, which showed no fracture or any traumatic subluxation. We are being consulted for management of his ESRD. OBJECTIVE: VITAL SIGNS: Blood pressure is 142/83, heart rate 65, respiratory rate 18, temperature 97.1, and O2 saturation 96%. GENERAL: The patient is awake, but somewhat confused, but not in cardiorespiratory distress. SKIN: Adequate turgor. HEENT: He has a pinkish conjunctivae. Anicteric sclerae. No neck mass. No carotid bruits. No JVD. CHEST: No deformities. LUNGS: Clear breath sounds. No wheezing. No crackles. HEART: Normal sinus rhythm. No murmurs, gallops, or rubs. ABDOMEN: Globular, soft, and nontender. No masses. EXTREMITIES: No edema. MEDICATIONS: On June 29, 2020, was reviewed. LABORATORY DATA: Laboratories of June 29, 2020; white count 5.8 and hemoglobin 10.3. Sodium 141, potassium 4.4, chloride 101, carbon dioxide 25, BUN 48, creatinine 8.28, and calcium 8.2. Troponin I 0.060. ASSESSMENT AND PLAN: 1. Frequent falls-chronic in nature. The patient has also history of resting tremors. Consideration made for possible? Parkinson's disease remains with this patient. Consider outpatient neurological workup. 2. End-stage renal disease, stable. We will continue current Monday, Monday, and Monday hemodialysis. We will do a 3-hour hemodialysis with this patient. 3. Anemia, start weekly Epogen. 4. Recheck CBC and basic metabolic profile in a.m. Job ID: [id number]
[2020-06-29 14:59] LABS: SARS-CoV-2 MS2 Positive; SARS-CoV-2 N Gene Negative; SARS-CoV-2 S Gene Negative; SARS-CoV-2 by NAA Not Detected (NotDetected); SARS-CoV-2 orf1ab Negative
[2020-06-29] MEDS: Warfarin Sodium 3 MG TAB PO SCH (17:15)
[2020-06-29] MEDS: Atorvastatin Calcium 40 MG TAB PO SCH ×2 (21:41→21:52)
[2020-06-30] MEDS: Levothyroxine Sodium 25 MCG TAB PO SCH ×2 (05:38→09:24)
[2020-06-30 05:57] LABS: #Eosinphils 0.2 thou/uL (0.0-0.7); #Lymphocytes 1.6 thou/uL (1.20-3.40); #Monocytes 0.7 thou/uL (0.11-0.59); %Basophils 0.5 % (0.0-1.0); %Eosinophils 4.4 % (0.0-10.0); %Lymphocytes 28.2 % (21.0-51.0); %Neutrophils 53.9 % (42.0-75.0); Hemoglobin 10.3 g/dL (14.0-18.0); Mean Corpuscular HGB CONC 31.6 g/dL (32.0-36.0); Mean Corpuscular Hemoglobin 35.3 pg (27.0-31.0); Mean Platelet Volume 8.8 fL (7.4-10.4); Platelet Count 152 thou/uL (130-400); RBC Distribution Width 16.1 % (11.5-14.5); White Blood Cell (WBC) Count 5.5 thou/uL (4.8-10.8)
[2020-06-30 06:05] LABS: INR-International Normal Ratio 2.2
[2020-06-30 06:15] LABS: Anion Gap 18 mmol/L (10-20); BUN (Urea Nitrogen) 33 mg/dL (8.4-25.7); Calc. Creatinine Clearance 13 mL/min (70-130); Calcium 8.5 mg/dL (7.8-10.44); Carbon Dioxide 25 mmol/L (23-31); Chloride 103 mmol/L (98-107); Estimated GFR-MDRD 8; Glucose 69 mg/dL (83-110); Potassium 4.2 mmol/L (3.5-5.1); Sodium 142 mmol/L (136-145)
[2020-06-30] MEDS: Midodrine HCl 5 MG TAB PO SCH ×2 (09:23→20:25)
[2020-06-30] MEDS: Tamsulosin HCl 0.4 MG CAP PO SCH (09:24)
[2020-06-30] MEDS: Aspirin 81 mg Enteric Coated Tablet PO SCH (09:24)
[2020-06-30] MEDS: Folic Acid/Vit B Comp W-C PO SCH (09:24)
--- NOTE | 2020-06-30 10:15 | PDOC.HOSPP ---
- Subjective Encounter Date: 06/30/20 Subjective: Remains confused. - Objective Vital Signs & Weight: Vital Signs (12 hours) Temp Pulse Resp BP BP Pulse Ox 06/30/20 08:00 99.7 F H 65 20 124/63 96 06/30/20 04:30 99.4 F 68 24 H 126/65 97 06/30/20 00:00 99.5 F 70 20 113/60 96 Weight Weight 217 lb I&O: 06/29/20 06/30/20 07/01/20 06:59 06:59 06:59 Intake Total 1240 700 Output Total 200 Balance 1040 700 Result Diagrams: 06/30/20 05:38 06/30/20 05:38 Hospitalist ROS - Medication Medications: Active Medications Generic Name Dose Route Start Last Admin Trade Name Brianq PRN Reason Stop Dose Admin Aspirin 81 mg 06/29/20 09:00 06/30/20 09:24 Ecotrin PO 81 mg DAILY CHARISSE Administration Atorvastatin Calcium 40 mg 06/29/20 21:00 06/29/20 21:52 Lipitor PO Not Given QPM CHARISSE Levothyroxine Sodium 25 mcg 06/29/20 06:00 06/30/20 09:24 Synthroid PO 25 mcg 0600 CHARISSE Administration Midodrine 10 mg 06/29/20 09:00 06/30/20 09:23 Proamatine PO 10 mg BID CHARISSE Administration Tamsulosin HCl 0.4 mg 06/29/20 09:00 06/30/20 09:24 Flomax PO 0.4 mg DAILY CHARISSE Administration Vitamin B Complex/Vit C/Folic Acid 1 tab 06/29/20 09:00 06/30/20 09:24 Nephro-Radha Tablet PO 1 tab DAILY CHARISSE Administration Warfarin Sodium 6 mg 06/29/20 17:00 06/29/20 17:15 Coumadin PO 6 mg 1700 CHARISSE Administration - Exam General Appearance: ill appearing Neck: supple, no JVD Heart: RRR, no murmur, no gallops, no rubs Respiratory: CTAB, no wheezes, no rales, no ronchi, normal chest expansion Gastrointestinal: soft, non-tender, non-distended, normal bowel sounds Hosp A/P (1) Confusion Code(s): R41.0 - DISORIENTATION, UNSPECIFIED Status: Acute (2) Tremor of both hands Code(s): R25.1 - TREMOR, UNSPECIFIED Status: Acute (3) Postural instability Code(s): R29.3 - ABNORMAL POSTURE Status: Acute (4) CAD (coronary artery disease) Code(s): I25.10 - ATHSCL HEART DISEASE OF [place] CORONARY ARTERY W/O ANG PCTRS Status: Chronic Qualifiers: Coronary Disease-Associated Artery/Lesion type: bypass graft [place] vs. transplanted heart: [place] heart Associated angina: without angina Qualified Code(s): I25.810 - Atherosclerosis of coronary artery bypass graft(s) without angina pectoris (5) CHF (NYHA class III, ACC/AHA stage C) Code(s): I50.9 - HEART FAILURE, UNSPECIFIED Status: Chronic (6) ESRD (end stage renal disease) on dialysis Code(s): N18.6 - END STAGE RENAL DISEASE; Z99.2 - DEPENDENCE ON RENAL DIALYSIS Status: Chronic - Plan The patient presenting with confusion, bilateral pill-rolling tremors of the hands, postural stability and frequent falls. Differential diagnosis include Parkinson's disease and Lewy body dementia. Neurology consult. PT and OT evaluation. Continue dialysis per nephrology.
[2020-06-30] MEDS ORDERED: Acetaminophen 325 MG TAB PO PRN (11:42)
--- NOTE | 2020-06-30 12:26 | CON ---
NEUROLOGY CONSULTATION DATE OF CONSULTATION: 06/30/2020 REASON FOR CONSULTATION: Multiple falls, altered mental status, increased tremors. HISTORY OF PRESENT ILLNESS: Mr. Rylan Chaudhary is a 80-year-old male with medical history significant for end-stage renal disease, hypertension, coronary artery disease, chronic atrial fibrillation, status post pacemaker and AICD placement, hyperlipidemia, prior stroke with left-sided weakness, status post CABG, who now presented with multiple falls. The patient has been recently discharged from the hospital 7 days ago because of right hand weakness and slurred speech with left facial droop, which resolved on its own. A stroke workup was done including a head CT 48 hours after symptom onset, which was negative for acute stroke at that time. The patient could not have MRI because of AICD not compatible with MRI. He also had carotid Dopplers which were negative for hemodynamically significant stenosis and 2D echo which was essentially unremarkable. He had ongoing issues with dizziness and falls. He was advised to go to [facility], but the patient wanted to be discharged home with home health and PT, but since he has been home, he has multiple issues with increased tremors. Neurology was consulted for further evaluation. REVIEW OF SYSTEMS: Unobtainable due to the patient's mental status. PAST MEDICAL HISTORY: End-stage renal disease, hypertension, coronary artery disease, atrial fibrillation, status post pacemaker placement, AICD placement, hyperlipidemia, prior stroke with left-sided deficits, CABG, appendectomy. FAMILY HISTORY: Significant for renal failure and coronary artery disease. SOCIAL HISTORY: The patient lives at home. Denies smoking. Drinks alcohol occasionally. - Objective Vital Signs & Weight: Vital Signs (12 hours) Temp Pulse Resp BP BP Pulse Ox 06/30/20 08:00 99.7 F H 65 20 124/63 96 06/30/20 04:30 99.4 F 68 24 H 126/65 97 06/30/20 00:00 99.5 F 70 20 113/60 96 Weight Weight 217 lb I&O: 06/29/20 06/30/20 07/01/20 06:59 06:59 06:59 Intake Total 1240 700 Output Total 200 Balance 1040 700 Active Medications Generic Name Dose Route Start Last Admin Trade Name Freq PRN Reason Stop Dose Admin Aspirin 81 mg 06/29/20 09:00 06/30/20 09:24 Ecotrin PO 81 mg DAILY CHARISSE Administration Atorvastatin Calcium 40 mg 08/24/20 21:00 06/29/20 21:52 Lipitor PO Not Given QPM CHARISSE Levothyroxine Sodium 25 mcg 06/29/20 06:00 06/30/20 09:24 Synthroid PO 25 mcg 0600 CHARISSE Administration Midodrine 10 mg 06/29/20 09:00 06/30/20 09:23 Proamatine PO 10 mg BID CHARISSE Administration Tamsulosin HCl 0.4 mg 06/29/20 09:00 06/30/20 09:24 Flomax PO 0.4 mg DAILY CHARISSE Administration Vitamin B Complex/Vit C/Folic Acid 1 tab 06/29/20 09:00 06/30/20 09:24 Nephro-Radha Tablet PO 1 tab DAILY CHARISSE Administration Warfarin Sodium 6 mg 06/29/20 17:00 06/29/20 17:15 Coumadin PO 6 mg 1700 CHARISSE Administration PHYSICAL EXAMINATION: VITAL SIGNS: Blood pressure 100/60, pulse 80, respiratory rate 18. CVS: Regular rate and rhythm. CHEST: Clear. ABDOMEN: Soft. NECK: Supple. NEUROLOGICAL EXAMINATION: MENTAL STATUS: The patient is somnolent. He is not oriented at this time. He does not follow commands, does not maintain eye contact. CRANIAL NERVES: Pupils 4 mm, round and reactive to light. Face symmetric. Tongue midline. Moves neck in both directions. MOTOR: Muscle tone is increased. There are bilateral tremors of the upper extremities, increased tone. Did not cooperate much with the testing. CEREBELLAR: Did not cooperate with the testing. GAIT: Deferred due to the patient's safety reasons. DATA REVIEWED: I reviewed the labs which show hemoglobin of 5.4, platelets 158. Sodium 152. ASSESSMENT AND PLAN: (1) Confusion Code(s): R41.0 - DISORIENTATION, UNSPECIFIED Status: Acute (2) Tremor of both hands Code(s): R25.1 - TREMOR, UNSPECIFIED Status: Acute (3) Postural instability Code(s): R29.3 - ABNORMAL POSTURE Status: Acute (4) CAD (coronary artery disease) Code(s): I25.10 - ATHSCL HEART DISEASE OF [place] CORONARY ARTERY W/O ANG PCTRS Status: Chronic Qualifiers: Coronary Disease-Associated Artery/Lesion type: bypass graft [place] vs. transplanted heart: [place] heart Associated angina: without angina Qualified Code(s): I25.810 - Atherosclerosis of coronary artery bypass graft(s) without angina pectoris (5) CHF (NYHA class III, ACC/AHA stage C) Code(s): I50.9 - HEART FAILURE, UNSPECIFIED Status: Chronic (6) ESRD (end stage renal disease) on dialysis Code(s): N18.6 - END STAGE RENAL DISEASE; Z99.2 - DEPENDENCE ON RENAL DIALYSIS Status: Chronic Mr. Rylan Chaudhary is consulted for altered mental status and persistent falls. There is a concern about transient ischemic attack. The patient does have risk factors. He is already on aspirin and statin for secondary stroke prevention. Continue aspirin and statin. Further testing has already been completed during the last visit, so consider followup head CT and EEG for altered mental status. Patient has tremors .The differential diagnosis for tremors includes renal myoclonus - bilateral tremors secondary to metabolic encephalopathy versus Parkinson disease but tremors are usually unilateral on presentation. The workup for Parkinson disease should be done as outpatient since the patient is not cooperative with the testing and should be done as outpatient. Will defer a trial of sinemet due to persistent confusion which will worsen with the treatment. Neuro checks every 4 hours. Check orthostatics. The patient has been diagnosed with orthostatic hypotension during the last visit, so continue midodrine and adjust Coumadin per his PT/INR. Continue hemodialysis and consider Nephrology input. Continue home medications. Continue medical management per primary team and Nephrology. We will continue to follow. Thank you for the consult. Job ID: [id number] MTDD
[2020-06-30] MEDS: Warfarin Sodium 3 MG TAB PO SCH (17:24)
[2020-06-30] MEDS: Atorvastatin Calcium 40 MG TAB PO SCH (20:25)
[2020-07-01 06:01] LABS: INR-International Normal Ratio 2.2; Prothrombin Time 24.2 sec (12.0-14.7)
--- NOTE | 2020-07-01 08:44 | PRG ---
DATE OF SERVICE: 07/01/2020 SUBJECTIVE: Mr. Chaudhary is a 80-year-old white male with ESRD and followed up by the Renal Service for his management of his ESRD. He is currently undergoing hemodialysis. He has been evaluated by Neurology due to confusion, increase tremors, and multiple falls. The patient has had metabolic encephalopathy and a possibility of Parkinson, which will be workup as an outpatient. OBJECTIVE: VITAL SIGNS: Blood pressure 133/79, heart rate 69, respiratory rate 20, temperature 98.3, O2 saturation 96%. GENERAL: The patient is sleepy, but arousable. HEENT: Has pinkish conjunctivae. Anicteric sclerae. No neck mass. No carotid bruits. No JVD. CHEST: No deformities. LUNGS: Clear breath sounds. HEART: Normal sinus rhythm. No murmurs, no gallops, no rubs. ABDOMEN: Globular, soft, and nontender. No masses. EXTREMITIES: No edema. No deformities. MEDICATIONS: Medications of July 01, 2020, was reviewed. LABORATORY DATA: Laboratories of June 30, 2020; white count 5.5, hemoglobin 10.3. Sodium 142, potassium 4.2, chloride 103, carbon dioxide 25, BUN 33, creatinine 6.45, glucose 69, calcium 8.5. ASSESSMENT/PLAN: 1. Anemia, currently on weekly Epogen. 2. End-stage renal disease. We will continue current Monday, Monday, and Monday hemodialysis regimen. Fluid removal as tolerated by the patient. 3. Mental status change-consideration for metabolic encephalopathy is made. Neurology has evaluated this patient. He will have a workup for Parkinson disease as an outpatient. Job ID: [id number]
--- NOTE | 2020-07-01 09:12 | EEG ---
DATE OF SERVICE: 06/30/2020 ATTENDING PHYSICIAN: Elsa Reed MD This EEG was performed using 24-channel [employer] video digital EEG machine with 24-disk electrodes. This was an extended 2 hours 7 minutes of inpatient video EEG recording. Digital analysis of the EEG was done for spike and seizure detection, which revealed no abnormalities. BACKGROUND: The posterior background rhythm is 7 to 7.5 Hz. Minimal reactivity is seen with eye opening and closure. HYPERVENTILATION: Not performed. PHOTIC STIMULATION: No significant response seen with photic stimulation. SLEEP: Drowsiness and sleep are observed. EEG DIAGNOSES: 1. Occasional irregular theta activity seen during the recording. 2. Absence of posterior background rhythm. CLINICAL INTERPRETATION: This EEG is consistent with moderate generalized nonspecific cerebral dysfunction. Job ID: [id number]
[2020-07-01] MEDS: Aspirin 81 mg Enteric Coated Tablet PO SCH (11:14)
[2020-07-01] MEDS: Midodrine HCl 5 MG TAB PO SCH ×2 (11:16→20:51)
[2020-07-01] MEDS: Tamsulosin HCl 0.4 MG CAP PO SCH (11:16)
[2020-07-01] MEDS: Folic Acid/Vit B Comp W-C PO SCH (11:16)
--- NOTE | 2020-07-01 12:59 | PDOC.HOSPP ---
- Subjective Encounter Date: 07/01/20 Subjective: NEUROLOGY PROGRESS NOTE Patient more awake today and oriented to his name. He was undergoing dialysis. - Objective Vital Signs & Weight: Vital Signs (12 hours) Temp Pulse Resp BP Pulse Ox 07/01/20 11:21 98.2 F 63 12 147/70 H 95 07/01/20 08:00 98.3 F 69 20 133/79 96 07/01/20 07:35 95 Weight Weight 217 lb I&O: 06/30/20 07/01/20 07/02/20 06:59 06:59 06:59 Intake Total 700 480 Balance 700 480 Result Diagrams: 06/30/20 05:38 06/30/20 05:38 Radiology Reviewed by me: Yes EKG Reviewed by me: Yes Hospitalist ROS - Review of Systems ROS unobtainable: due to mental status - Medication Medications: Active Medications Generic Name Dose Route Start Last Admin Trade Name Brianq PRN Reason Stop Dose Admin Aspirin 81 mg 06/29/20 09:00 07/01/20 11:14 Ecotrin PO 81 mg DAILY CHARISSE Administration Atorvastatin Calcium 40 mg 06/29/20 21:00 06/30/20 20:25 Lipitor PO 40 mg QPM CHARISSE Administration Levothyroxine Sodium 25 mcg 06/29/20 06:00 06/30/20 09:24 Synthroid PO 25 mcg 0600 CHARISSE Administration Midodrine 10 mg 06/29/20 09:00 07/01/20 11:16 Proamatine PO 10 mg BID CHARISSE Administration Tamsulosin HCl 0.4 mg 06/29/20 09:00 07/01/20 11:16 Flomax PO 0.4 mg DAILY CHARISSE Administration Vitamin B Complex/Vit C/Folic Acid 1 tab 06/29/20 09:00 07/01/20 11:16 Nephro-Radha Tablet PO 1 tab DAILY CHARISSE Administration Warfarin Sodium 6 mg 06/29/20 17:00 06/30/20 17:24 Coumadin PO 6 mg 1700 CHARISSE Administration - Exam General Appearance: ill appearing Eye: PERRL ENT: normocephalic atraumatic Neck: supple Heart: RRR Respiratory: CTAB Gastrointestinal: soft Extremities: no cyanosis Skin: normal turgor Neurological: no new deficit Musculoskeletal: normal tone, no muscle wasting Psychiatric: oriented to person, flat affect Hosp A/P (1) AMS (altered mental status) Code(s): R41.82 - ALTERED MENTAL STATUS, UNSPECIFIED Status: Acute (2) Confusion Code(s): R41.0 - DISORIENTATION, UNSPECIFIED Status: Acute (3) Postural instability Code(s): R29.3 - ABNORMAL POSTURE Status: Acute (4) Tremor of both hands Code(s): R25.1 - TREMOR, UNSPECIFIED Status: Acute (5) ESRD (end stage renal disease) Code(s): N18.6 - END STAGE RENAL DISEASE Status: Acute - Plan PT/OT, speech therapy, DVT proph w/lovenox 80 year old male consulted for altered mental status. Patient more awake today but according to dialysis nurse he was very agitated and combative earlier. Parkinson disease is in the differential due to tremor more on the right . However, he should be evaluated once more stable as outpatient. Sinemet has side -effects including mental status changes and hallucinations so will defer at this time since patient is already confused and agitated. Head CT reviewed and was negative for acute bleed or subacute infarction. EEG reviewed and was negative for seizure activity. Neurochecks evety 4 hours. Continue home medications. PT/OT/Speech. Continue medical management per primary team and nephrology.
--- NOTE | 2020-07-01 14:31 | PDOC.HOSPP ---
- Subjective Encounter Date: 07/01/20 Subjective: The patient was reportedly agitated today. At the time of my evaluation during hemodialysis, he was sleeping. - Objective Vital Signs & Weight: Vital Signs (12 hours) Temp Pulse Resp BP BP Pulse Ox 07/01/20 11:21 98.2 F 63 12 147/70 H 147/70 H 95 07/01/20 08:00 98.3 F 69 20 133/79 96 07/01/20 07:35 95 Weight Weight 217 lb I&O: 06/30/20 07/01/20 07/02/20 06:59 06:59 06:59 Intake Total 700 480 Balance 700 480 Result Diagrams: 06/30/20 05:38 06/30/20 05:38 Hospitalist ROS - Medication Medications: Active Medications Generic Name Dose Route Start Last Admin Trade Name Freq PRN Reason Stop Dose Admin Aspirin 81 mg 06/29/20 09:00 07/01/20 11:14 Ecotrin PO 81 mg DAILY CHARISSE Administration Atorvastatin Calcium 40 mg 06/29/20 21:00 06/30/20 20:25 Lipitor PO 40 mg QPM CHARISSE Administration Levothyroxine Sodium 25 mcg 06/29/20 06:00 06/30/20 09:24 Synthroid PO 25 mcg 0600 CHARISSE Administration Midodrine 10 mg 06/29/20 09:00 07/01/20 11:16 Proamatine PO 10 mg BID CHARISSE Administration Tamsulosin HCl 0.4 mg 06/29/20 09:00 07/01/20 11:16 Flomax PO 0.4 mg DAILY CHARISSE Administration Vitamin B Complex/Vit C/Folic Acid 1 tab 06/29/20 09:00 07/01/20 11:16 Nephro-Radha Tablet PO 1 tab DAILY CHARISSE Administration Warfarin Sodium 6 mg 06/29/20 17:00 06/30/20 17:24 Coumadin PO 6 mg 1700 CHARISSE Administration - Exam ENT: normocephalic atraumatic Neck: supple, no JVD Heart: RRR, no murmur, no gallops, no rubs Respiratory: CTAB, no wheezes, no rales, no ronchi Gastrointestinal: soft, non-tender, non-distended, normal bowel sounds Hosp A/P (1) Confusion Code(s): R41.0 - DISORIENTATION, UNSPECIFIED Status: Acute (2) Tremor of both hands Code(s): R25.1 - TREMOR, UNSPECIFIED Status: Acute (3) Postural instability Code(s): R29.3 - ABNORMAL POSTURE Status: Acute (4) CAD (coronary artery disease) Code(s): I25.10 - ATHSCL HEART DISEASE OF [place] CORONARY ARTERY W/O ANG PCTRS Status: Chronic Qualifiers: Coronary Disease-Associated Artery/Lesion type: bypass graft [place] vs. transplanted heart: [place] heart Associated angina: without angina Qualified Code(s): I25.810 - Atherosclerosis of coronary artery bypass graft(s) without angina pectoris (5) CHF (NYHA class III, ACC/AHA stage C) Code(s): I50.9 - HEART FAILURE, UNSPECIFIED Status: Chronic (6) ESRD (end stage renal disease) on dialysis Code(s): N18.6 - END STAGE RENAL DISEASE; Z99.2 - DEPENDENCE ON RENAL DIALYSIS Status: Chronic - Plan The patient presenting with confusion, bilateral pill-rolling tremors of the hands, postural stability and frequent falls. Differential diagnosis include Parkinson's disease and Lewy body dementia. EEG did not show any evidence of seizures, brain images also negative. Due to intermittent agitation, neurology recommended against starting levodopa carbidopa as an inpatient. PT and OT evaluation. Continue dialysis per nephrology.
[2020-07-01] MEDS: Warfarin Sodium 3 MG TAB PO SCH (16:32)
[2020-07-01] MEDS: Levothyroxine Sodium 25 MCG TAB PO SCH (16:39)
[2020-07-01] MEDS: Atorvastatin Calcium 40 MG TAB PO SCH (20:15)
[2020-07-02 05:31] LABS: Hemoglobin 10.3 g/dL (14.0-18.0); Platelet Count 143 thou/uL (130-400)
[2020-07-02 05:37] LABS: INR-International Normal Ratio 2.5; Prothrombin Time 26.6 sec (12.0-14.7)
[2020-07-02] MEDS: Levothyroxine Sodium 25 MCG TAB PO SCH (06:21)
[2020-07-02 07:32] VITALS: TEMP 98.3
[2020-07-02] MEDS: Aspirin 81 mg Enteric Coated Tablet PO SCH (07:52)
[2020-07-02] MEDS: Tamsulosin HCl 0.4 MG CAP PO SCH (07:52)
[2020-07-02] MEDS: Midodrine HCl 5 MG TAB PO SCH (07:52)
[2020-07-02] MEDS: Folic Acid/Vit B Comp W-C PO SCH (07:52)
[2020-07-02] MEDS: Warfarin Sodium 3 MG TAB PO SCH (16:24)
[2020-07-02 16:29] VITALS: BP 114/64
--- NOTE | 2020-07-02 22:04 | DIS ---
DATE OF ADMISSION: 06/28/2020 DATE OF DISCHARGE: 07/02/2020 DISCHARGE DIAGNOSES: 1. Confusion. 2. Tremors of the hands. 3. postural instability. 4. Coronary artery disease. 5. End-stage renal disease, on hemodialysis. DISCHARGE MEDICATIONS: Unchanged from presentation. HISTORY OF PRESENT ILLNESS AND HOSPITAL COURSE: The patient is a 80-year-old gentleman with past medical history of end-stage renal disease on hemodialysis, hypertension, coronary artery disease, atrial fibrillation, hyperlipidemia, strokes, who was sent to the hospital due to frequent falls and generalized weakness. The patient recently was discharged from the hospital for a possible TIA event. At this time, the patient was found to be slightly confused, unsteady and bilateral tremors were noted on his hands. Parkinson disease was suggested as one of the possibilities. The patient underwent an EEG, which did not show any evidence of CVA. His mental status improved significantly after hemodialysis. Neurology suggested outpatient workup for Parkinson disease once the patient's condition stabilizes. Job ID: [id number] [facility]
== END 2020-07-02 17:35 | disposition home or self-care (01) | DRG 56 ==
LOC: ERS 14:26 → OBSVTOIN 21:05 → T4-A 21:05
PROVIDERS: ADMIT Internal Medicine; ATTEND Internal Medicine
PROC: 5A1D70Z Performance of Urinary Filtration, Intermittent, Less than 6 Hours Per Day (ICD-10-PCS; principal; 2020-06-29)
DX: G20 Parkinson's disease (principal); N18.6 End stage renal disease; G93.41 Metabolic encephalopathy; I69.954 Hemiplegia and hemiparesis following unspecified cerebrovascular disease affecting left non-dominant side; I25.810 Atherosclerosis of coronary artery bypass graft(s) without angina pectoris; I13.2 Hypertensive heart and chronic kidney disease with heart failure and with stage 5 chronic kidney disease, or end stage renal disease; Z20.828 Contact with and (suspected) exposure to other viral communicable diseases; E78.5 Hyperlipidemia, unspecified; D63.1 Anemia in chronic kidney disease; R29.6 Repeated falls; I48.91 Unspecified atrial fibrillation; E78.00 Pure hypercholesterolemia, unspecified; R25.1 Tremor, unspecified; F17.210 Nicotine dependence, cigarettes, uncomplicated; R29.3 Abnormal posture; I50.9 Heart failure, unspecified; Z99.2 Dependence on renal dialysis; Z95.810 Presence of automatic (implantable) cardiac defibrillator; Z88.7 Allergy status to serum and vaccine; Z88.5 Allergy status to narcotic agent; Z79.82 Long term (current) use of aspirin; Z79.899 Other long term (current) drug therapy; Z87.442 Personal history of urinary calculi; Z95.1 Presence of aortocoronary bypass graft; Z90.49 Acquired absence of other specified parts of digestive tract
CPT/HCPCS: 36415; 70450; 72125; 80048; 80053; 82553; 84484; 85014; 85018; 85025; 85049; 85610; 87635; 90935; 93005; 95712; 95816; 95819; 95957; G0257; G0378; U0003

== ENCOUNTER 2020-07-06 19:01 | Inpatient (IN) | payer MEDICARE, MEDICAID ==
[2020-07-06 22:46] VITALS: BMI 29.9
[2020-07-06] MEDS ORDERED: Acetaminophen 500 MG TAB PO PRN (23:09)
[2020-07-06] MEDS ORDERED: Polyethylene Glycol 3350 17 GM Packet PO PRN (23:09)
[2020-07-06] MEDS ORDERED: Ondansetron PF 4 MG/2 ML Vial IVP PRN (23:09)
[2020-07-06] MEDS ORDERED: hydrALAZINE 20 MG/ML VIAL SLOW IVP PRN (23:09)
[2020-07-06] MEDS ORDERED: Ondansetron ODT 4 MG TAB PO PRN (23:09)
[2020-07-07 00:04] LABS: Troponin I 0.039 ng/mL (< 0.028)
--- NOTE | 2020-07-07 03:21 | HP ---
PRIMARY CARE PROVIDER: Solange Robbins MD PRIMARY MANAGER AGRICULTURAL: Dr. Kristopher Huff. CHIEF COMPLAINT: Chest burning and pain. HISTORY OF PRESENT ILLNESS: This is a 80-year-old male, who was transferred to [facility] from [facility], where the patient has been undergoing half-way care for deconditioning, unsteady gait, and recent falls. The patient has been admitted on 3 separate occasions during the month of June to [facility] regarding TIA and CVA workups. The patient was referred to the half-way unit in [place] where patient states he has been undergoing physical therapy as well as receiving his maintenance hemodialysis. The patient states he underwent a physical therapy session on the date of this evaluation as well as a complete hemodialysis session. The patient states he had burning sensation in his chest radiating down his ribcage into his abdomen. The patient with a long-standing history of chronic atrial fibrillation with chronic anticoagulation with Coumadin in addition to cardiomyopathy, status post AICD placement. Nursing staff became concerned when patient complained of chest discomfort and were concerned that his AICD may be discharging. The patient denied any specific blow to the chest, loss of consciousness, fever, chills, or cough. The patient states most of the sensation was burning sensation, now resolved. The patient denied any associated nausea, vomiting, or left arm discomfort. The patient states he may have overdone it with physical therapy in addition to his hemodialysis session all in 1 day. Initial EKG strips revealed ventricular pacing with heart rates in the 70s. No ectopic beats, pauses, or discharges noted. Formal interrogation of AICD/pacemaker device pending. PAST MEDICAL HISTORY: 1. Parkinson disease. 2. Recurrent falls. 3. Unsteady gait. 4. Postural hypotension treated with midodrine. 5. Question of TIA. 6. Chronic anticoagulation with Coumadin. 7. Congestive heart failure with ejection fraction of 45% to 50% and diastolic dysfunction. 8. Multiple hospital admissions in June 2020. 9. End-stage renal disease with hemodialysis Monday, Monday, and Monday. 10. Chronic atrial fibrillation, status post pacemaker and AICD device. 11. Dyslipidemia. 12. Hypothyroidism. 13. Benign prostatic hyperplasia. PAST SURGICAL HISTORY: 1. Status post coronary artery bypass grafting. 2. Status post appendectomy. 3. Status post AICD placement. 4. Status post AV fistula placement. CURRENT MEDICATIONS: 1. Enteric-coated aspirin 81 mg p.o. daily. 2. Lipitor 40 mg p.o. daily. 3. Levothyroxine 25 mcg p.o. q.a.m. 4. Lipitor 40 mg p.o. at bedtime. 5. Folic acid with vitamin B12 one tablet daily p.o. daily. 6. Midodrine 10 mg p.o. b.i.d. 7. Polyethylene glycol 17 g p.o. daily p.r.n. 8. Tamsulosin 0.4 mg p.o. daily. 9. Coumadin 6 mg p.o. daily. ALLERGIES: TO CODEINE, TETANUS VACCINE, AND TOXOID. FAMILY HISTORY: Positive for end-stage renal disease and coronary artery disease. SOCIAL HISTORY: . Resides in [place], [place]. No alcohol or illicit drug use. Smokeless tobacco use. Multiple falls and uses a rolling walker for ambulation. REVIEW OF SYSTEMS: CONSTITUTIONAL: Negative for weight loss or gain, ability to conduct usual activities. SKIN: Negative for rash, itching. EYES: Negative for double vision, pain. ENT/MOUTH: Negative for nose bleeding, neck stiffness, pain, tenderness. CARDIOVASCULAR: Negative for palpitations, dyspnea on exertion, orthopnea. RESPIRATORY: Negative for shortness of breath, wheezing, cough, hemoptysis, fever or night sweats. GASTROINTESTINAL: Negative for poor appetite, abdominal pain, heartburn, nausea, vomiting, constipation, or diarrhea. GENITOURINARY: Negative for urgency, frequency, dysuria, nocturia. MUSCULOSKELETAL: Negative for pain, swelling. NEUROLOGIC/PSYCHIATRIC: Negative for anxiety, depression. ALLERGY/IMMUNOLOGIC: Negative for skin rash, bleeding tendency. Otherwise negative except as stated per HPI. PHYSICAL EXAMINATION: VITAL SIGNS: On admission, blood pressure 114/53, pulse 61, respiratory rate 16, temperature 98.2 degrees Fahrenheit, O2 saturation 96% on room air. GENERAL APPEARANCE: This is a 80-year-old male, alert and oriented x3, pleasant, responsive, in no acute distress. HEENT: Pupils are equal, round, reactive to light and accommodation. Extraocular muscles are intact. No scleral icterus. No conjunctival injection. Nares patent. OP is clear. Teeth in fair repair. NECK: Supple. No cervical adenopathy. No thyromegaly. No carotid bruits. No JVD appreciated. Cervical spine with full active and passive range of motion. No meningeal signs noted. CHEST: Lungs are clear to auscultation bilaterally. CARDIOVASCULAR: S1 and S2 with distant heart sounds. No murmur, rub, or gallop appreciated. ABDOMEN: Rounded, soft, nontender, and nondistended. Bowel sounds are positive in all 4 quadrants. There is no hepatosplenomegaly. No abdominal bruits. No rebound or guarding appreciated. EXTREMITIES: Warm and dry with fair turgor. Multiple areas of ecchymoses and contusions on upper and lower extremities. Left forearm AV fistula in place. NEUROLOGIC: Cranial nerves II through XII are grossly intact. Unilateral resting tremor of the right hand noted. Not observed ambulatory during this exam. PERTINENT LAB AND X-RAY FINDINGS: Laboratory data based on 06/30/2020 labs showed a sodium 142, potassium 4.2, chloride 103, CO2 of 25, BUN 33, creatinine 6.45, estimated GFR of 8. Troponin I 0.060 on 06/28/2020. CBC dated 07/06/2020, showed a hemoglobin of 10, hematocrit 32, platelet count 159. COVID-19 PCR not detected, 06/28/2020. EKG dated 07/06/2020, by my interpretation shows ventricular paced rhythm in the 60s to 70s. ASSESSMENT AND PLAN: 1. Chest pain. Etiology unclear. Not typical for cardiac etiology. Suspected combination of increased activity level with physical therapy in conjunction with hemodialysis session today. We will continue to trend troponin I. No current evidence to suggest acute coronary syndrome. No current evidence to suggest AICD malfunction or dysfunction. 2. End-stage renal disease with hemodialysis. Status post hemodialysis, 07/06/2020. We will consult Nephrology Service in the a.m. for any further recommendations and timing of next session. No evidence of acute volume overload. 3. Chronic congestive heart failure with ejection fraction 45% to 50%. Compensated currently. No evidence of clinical decompensation. Continue supportive management. 4. Parkinson disease with deconditioning and recent falls. Continue general supportive management. PT evaluation for functional assessment. The patient will benefit from ongoing supervised physical therapy after discharge. 5. Hypothyroidism. Resume levothyroxine 25 mcg daily. 6. Prophylaxis. SCDs while in bed. General fall risk precautions. PT evaluation in the a.m. Pepcid 20 mg p.o. b.i.d. 7. Code status is full. Surrogate medical decision maker is the patient's spouse. Job ID: [id number]
[2020-07-07 04:07] LABS: #Eosinphils 0.3 thou/uL (0.0-0.7); #Lymphocytes 1.5 thou/uL (1.20-3.40); #Monocytes 0.6 thou/uL (0.11-0.59); %Basophils 0.4 % (0.0-1.0); %Eosinophils 5.3 % (0.0-10.0); %Lymphocytes 27.5 % (21.0-51.0); %Monocytes 10.8 % (0.0-10.0); %Neutrophils 55.9 % (42.0-75.0); Hemoglobin 10.5 g/dL (14.0-18.0); Mean Corpuscular HGB CONC 31.6 g/dL (32.0-36.0); Mean Platelet Volume 9.4 fL (7.4-10.4); Platelet Count 153 thou/uL (130-400); RBC Distribution Width 15.3 % (11.5-14.5); White Blood Cell (WBC) Count 5.4 thou/uL (4.8-10.8)
[2020-07-07 04:28] LABS: Anion Gap 15 mmol/L (10-20); BUN (Urea Nitrogen) 36 mg/dL (8.4-25.7); Calc. Creatinine Clearance 17 mL/min (70-130); Calcium 8.8 mg/dL (7.8-10.44); Carbon Dioxide 31 mmol/L (23-31); Chloride 101 mmol/L (98-107); Estimated GFR-MDRD 12; Glucose 124 mg/dL (83-110); Potassium 3.7 mmol/L (3.5-5.1); Sodium 143 mmol/L (136-145)
[2020-07-07 04:33] LABS: Troponin I 0.044 ng/mL (< 0.028)
[2020-07-07] MEDS: Levothyroxine Sodium 25 MCG TAB PO SCH (05:10)
[2020-07-07] MEDS: Tamsulosin HCl 0.4 MG CAP PO SCH (08:50)
[2020-07-07] MEDS: Famotidine 20 MG TAB PO SCH (08:50)
[2020-07-07] MEDS: Folic Acid/Vit B Comp W-C PO SCH (08:50)
[2020-07-07] MEDS: Aspirin 81 mg Enteric Coated Tablet PO SCH (08:50)
[2020-07-07] MEDS: Midodrine HCl 5 MG TAB PO SCH ×2 (08:51→16:45)
--- NOTE | 2020-07-07 09:48 | PDOC.HOSPP ---
- Subjective Encounter Date: 07/07/20 Encounter Time: 09:47 Subjective: chest pain is reproducible sorenes in left lateral chest with palpation - Objective Vital Signs & Weight: Vital Signs (12 hours) Temp Pulse Resp BP Pulse Ox 07/07/20 08:44 96 07/07/20 08:40 97.9 F 61 18 103/54 L 93 L 07/07/20 03:30 97.4 F L 60 18 116/56 L 96 07/07/20 00:00 60 07/06/20 23:09 96 07/06/20 22:12 98.2 F 61 16 114/53 L 96 Weight Weight 214 lb 6.4 oz I&O: 07/06/20 07/07/20 07/08/20 06:59 06:59 06:59 Intake Total 240 Output Total 100 Balance 140 Result Diagrams: 07/07/20 02:50 07/07/20 02:50 Hospitalist ROS - Medication Medications: Active Medications Generic Name Dose Route Start Last Admin Trade Name Freq PRN Reason Stop Dose Admin Aspirin 81 mg 07/07/20 09:00 07/07/20 08:50 Ecotrin PO 81 mg DAILY CHARISSE Administration Famotidine 20 mg 07/07/20 09:00 07/07/20 08:50 Pepcid PO 20 mg DAILY CHARISSE Administration Levothyroxine Sodium 25 mcg 07/07/20 06:00 07/07/20 05:10 Synthroid PO 25 mcg 0600 CHARISSE Administration Midodrine 10 mg 07/07/20 08:00 07/07/20 08:51 Proamatine PO 10 mg BID-WM CHARISSE Administration Ondansetron HCl 4 mg 07/06/20 23:09 07/07/20 03:12 Zofran IVP 4 mg Q6H PRN Administration Nausea/Vomiting Tamsulosin HCl 0.4 mg 07/07/20 09:00 07/07/20 08:50 Flomax PO 0.4 mg DAILY CHARISSE Administration Vitamin B Complex/Vit C/Folic Acid 1 tab 07/07/20 09:00 07/07/20 08:50 Nephro-Radha Tablet PO 1 tab DAILY CHARISSE Administration - Exam General Appearance: awake alert Neck: no JVD Heart: RRR Respiratory: CTAB Gastrointestinal: soft, normal bowel sounds Extremities: no edema Hosp A/P (1) Chest pain Code(s): R07.9 - CHEST PAIN, UNSPECIFIED Status: Acute (2) ESRD (end stage renal disease) Code(s): N18.6 - END STAGE RENAL DISEASE Status: Acute (3) Postural instability Code(s): R29.3 - ABNORMAL POSTURE Status: Acute (4) CAD (coronary artery disease) Code(s): I25.10 - ATHSCL HEART DISEASE OF [place] CORONARY ARTERY W/O ANG PCTRS Status: Chronic Qualifiers: Coronary Disease-Associated Artery/Lesion type: bypass graft [place] vs. transplanted heart: [place] heart Associated angina: without angina Qualified Code(s): I25.810 - Atherosclerosis of coronary artery bypass graft(s) without angina pectoris (5) Chronic anticoagulation Code(s): Z79.01 - RADIATION CONTROL HEALTH PHYSICIST (CURRENT) USE OF ANTICOAGULANTS Status: Chronic (6) Ischemic cardiomyopathy Code(s): I25.5 - ISCHEMIC CARDIOMYOPATHY Status: Chronic - Plan troponin chronically elevated pain atypical for cardiac pain Dr Huff states no need HD today Return to swing bed
[2020-07-07 10:04] LABS: INR-International Normal Ratio 3.1; Prothrombin Time 31.6 sec (12.0-14.7)
--- NOTE | 2020-07-07 13:48 | CT ---
CT BRAIN NONCONTRAST: DATE: 07/07/2020 HISTORY: Head trauma: 80-year-old male on anticoagulation medication status post fall. COMPARISON: 06/28/2020 FINDINGS: There is no evidence of acute intra-axial or extra-axial hemorrhage. There is no midline shift or any other mass effect. There is no extra-axial fluid collection. There is no evidence of obstructive hydrocephalus. Calvarium is intact. There is diffuse brain parenchymal volume loss. There are low att enuation areas in the white matter. These are nonspecific, but in a patient of this age, they are probably chronic ischemic white matter changes due to microvascular atherosclerosis. Moderate-sized r egion of right upper frontal lobe encephalomalacia and gliosis. Heavy atherosclerotic calcification of intracranial portions of bilateral vertebral arteries, basilar arteries, and carotid siphons. No i nterval change. IMPRESSION: 1) No acute intracranial findings. 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 3.) Severe atherosclerotic calcification of vertebral arteries, basilar arteries and carotid siphons. 4) involutional changes and chronic ischemic white matter changes.
--- NOTE | 2020-07-07 13:59 | PDOC.EVN ---
Event Note - Event Note Event Note: pattient told nurses he fail out of bed and got back in. some headache. stat CT brain -no acute bleed, etc. neuro CN 2-12 intact, FERNANDA, strength symmetric arms, legs, DTRs symetric upper and lowr extremities. alert, appropriate on verbal exam cancel DC, q 4h neuro checks
[2020-07-07] MEDS: Warfarin Sodium 3 MG TAB PO SCH (16:45)
[2020-07-07] MEDS ORDERED: Warfarin Sodium 3 MG TAB PO SCH (17:00)
--- NOTE | 2020-07-07 17:27 | PRG ---
DATE OF SERVICE: 07/07/2020 SUBJECTIVE: Mr. Chaudhary is a 80-year-old white male with ESRD and currently on maintenance hemodialysis on Monday, Monday, and Monday. He was admitted for chest pain. He has been ruled out for ND. He voices no new complaints today. He early had a fall and had a ? of contusion. CAT scan of the head showed no acute intracranial abnormality. The patient voices no new complaints of chest pain or shortness of breath. OBJECTIVE: VITAL SIGNS: Blood pressure is 134/61, heart rate 62, respiratory rate 18, O2 saturations 94% on room air. GENERAL: Awake, alert, comfortable, not in distress. SKIN: Adequate turgor. HEENT: Pinkish conjunctivae. Anicteric sclerae. NECK: No neck mass. No carotid bruits. No JVD. CHEST: No deformities. LUNGS: Clear breath sounds. No wheezing. No crackles. HEART: Normal sinus rhythm. No murmur. No gallops. No rubs. ABDOMEN: Globular, soft, and nontender. No masses. EXTREMITIES: No edema. MEDICATIONS: Medications of July 07, 2020, reviewed. LABORATORY DATA: Laboratories of July 07, 2020; sodium 143, potassium 3.7, chloride 101, carbon dioxide 31, BUN 36, creatinine 4.86, glucose 124, calcium 8.8. Troponin I 0.044. White count 5.4, hemoglobin 10.5. ASSESSMENT/PLAN: 1. End-stage renal disease, stable. We will continue current hemodialysis regimen on Monday, Monday, and Monday. No emergent hemodialysis today. 2. Borderline anemia. We will start Epogen 7500 units subcu q.week. 3. Chest pain, resolved. 4. Recheck CBC and basic metabolic profile in a.m. Job ID: [id number]
[2020-07-07] MEDS ORDERED: EPOETIN ALFA-EPBX (ESRD) 4,000 UNIT/ML VIAL SC SCH (17:30)
--- NOTE | 2020-07-07 19:06 | CON ---
DATE OF CONSULTATION: CONSULTING PHYSICIAN: Dr. Danny Lima. HISTORY OF PRESENT ILLNESS: The patient is a 80-year-old gentleman with a long history of coronary artery disease, who presented with chest discomfort and had a fall. The patient at this time is confused, cannot give a coherent history. He has previously undergone coronary artery bypass graft surgery and had a resection of left ventricular aneurysm. The patient also has had placement of an AICD. The patient has a long history of atrial fibrillation. He has also suffered several cerebrovascular accidents. He was most recently in the hospital with a CVA and the dose of his Coumadin was adjusted. The patient also has a history of GI hemorrhage. The patient today presented with chest discomfort. He was to be discharged, when he had a fall, The patient has subsequently been confused. PAST MEDICAL HISTORY: 1. Ischemic cardiomyopathy. 2. Atrial fibrillation. 3. History of ventricular aneurysm. 4. End-stage renal disease. 5. Hypertension. 6. COPD. 7. Dyslipidemia. PAST SURGICAL HISTORY: Appendectomy, coronary artery bypass surgery,and left ventricular aneurysm resection. ALLERGIES: LIPITOR, PRAVACHOL, TETANUS. SOCIAL HISTORY: nonsmoker MEDICATIONS: See nursing list. PHYSICAL EXAMINATION: GENERAL: Confused gentleman. VITAL SIGNS: Blood pressure of 130/59. NECK: Showed no jugular venous distention. LUNGS: Clear to auscultation. HEART: Regular rate and rhythm. Normal S1 and S2. No murmurs. ABDOMEN: Distended. EXTREMITIES: Showed mild bilateral edema. LABORATORY RESULTS: White blood cell count 5.4, hemoglobin 10.5, hematocrit 33.2, and his platelets are 153. Sodium is 143, potassium 3.7, chloride 101, bicarbonate 31, BUN 36, creatinine 4.8. Troponin 0.044. INR was 3.1. Telemetry monitoring electronic ventricular pacemaker. IMPRESSION: 1. Chest pain. 2. History of coronary artery bypass surgery. 3. Severe ischemic cardiomyopathy. 4. History of left ventricular aneurysm resection. 5. End-stage renal disease. 6. History of multiple cerebrovascular accidents. 7. Permanent atrial fibrillation. 8. History of gastrointestinal hemorrhage. 9. History of AICD placement. This unfortunate gentleman presented with chest discomfort. Cardiac enzymes revealed no evidence of myocardial infarction . he has a history of ischemic cardiomyopathy, but his most recent ejection fraction was 45%. The patient did have a fall. CT scan revealed no hemorrhage. Because of his long history of recurrent cerebrovascular accidents on atrial fibrillation, it is imperative he remain on Coumadin. He considered, but could not undergo a Watchman device. We will follow this patient with you through his hospitalization. Job ID: [id number]
[2020-07-07] MEDS ORDERED: Atorvastatin Calcium 40 MG TAB PO SCH (21:00)
[2020-07-08] MEDS: Levothyroxine Sodium 25 MCG TAB PO SCH (05:33)
[2020-07-08 07:29] VITALS: TEMP 97.6
--- NOTE | 2020-07-08 08:00 | PDOC.HOSPP ---
- Subjective Encounter Date: 07/08/20 Encounter Time: 07:56 Subjective: sleepy, confusion overnite - Objective Vital Signs & Weight: Vital Signs (12 hours) Temp Pulse Resp BP BP Pulse Ox 07/08/20 07:28 97.6 F 62 16 136/68 96 07/08/20 00:40 97.9 F 93 19 129/73 94 L Weight Weight 214 lb 6.4 oz I&O: 07/07/20 07/08/20 07/09/20 06:59 06:59 06:59 Intake Total 240 480 Output Total 100 Balance 140 480 Result Diagrams: 07/07/20 02:50 07/07/20 02:50 Additional Labs: Accuchecks 07/07/20 13:32 POC Glucose 99 Hospitalist ROS - Medication Medications: Active Medications Generic Name Dose Route Start Last Admin Trade Name Freq PRN Reason Stop Dose Admin Acetaminophen 1,000 mg 07/06/20 23:09 07/07/20 21:15 Tylenol PO 1,000 mg Q6H PRN Administration Mild Pain (1-3) Aspirin 81 mg 07/07/20 09:00 07/07/20 08:50 Ecotrin PO 81 mg DAILY CHARISSE Administration Atorvastatin Calcium 40 mg 07/07/20 21:00 07/07/20 21:15 Lipitor PO 40 mg QPM CHARISSE Administration Famotidine 20 mg 07/07/20 09:00 07/07/20 08:50 Pepcid PO 20 mg DAILY CHARISSE Administration Levothyroxine Sodium 25 mcg 07/07/20 06:00 07/08/20 05:33 Synthroid PO 25 mcg 0600 CHARISSE Administration Midodrine 10 mg 07/07/20 08:00 07/07/20 16:45 Proamatine PO 10 mg BID-WM CHARISSE Administration Ondansetron HCl 4 mg 07/06/20 23:09 07/07/20 03:12 Zofran IVP 4 mg Q6H PRN Administration Nausea/Vomiting Tamsulosin HCl 0.4 mg 07/07/20 09:00 07/07/20 08:50 Flomax PO 0.4 mg DAILY CHARISSE Administration Vitamin B Complex/Vit C/Folic Acid 1 tab 07/07/20 09:00 07/07/20 08:50 Nephro-Radha Tablet PO 1 tab DAILY CHARISSE Administration Warfarin Sodium 6 mg 07/07/20 17:00 07/07/20 16:45 Coumadin PO 6 mg 1700 CHARISSE Administration - Exam Neck: no JVD Heart: RRR Respiratory: CTAB Gastrointestinal: soft, normal bowel sounds Extremities: no edema Hosp A/P (1) Chest pain Code(s): R07.9 - CHEST PAIN, UNSPECIFIED Status: Acute Qualifiers: Chest pain type: pleurodynia Qualified Code(s): R07.81 - Pleurodynia (2) ESRD (end stage renal disease) Code(s): N18.6 - END STAGE RENAL DISEASE Status: Acute (3) Postural instability Code(s): R29.3 - ABNORMAL POSTURE Status: Acute (4) CAD (coronary artery disease) Code(s): I25.10 - ATHSCL HEART DISEASE OF [place] CORONARY ARTERY W/O ANG PCTRS Status: Chronic Qualifiers: Coronary Disease-Associated Artery/Lesion type: bypass graft [place] vs. transplanted heart: [place] heart Associated angina: without angina Qualified Code(s): I25.810 - Atherosclerosis of coronary artery bypass graft(s) without angina pectoris (5) Chronic anticoagulation Code(s): Z79.01 - GROUP HOME (CURRENT) USE OF ANTICOAGULANTS Status: Chronic (6) Ischemic cardiomyopathy Code(s): I25.5 - ISCHEMIC CARDIOMYOPATHY Status: Chronic - Plan post poss fall yesterday. CT brain demonstrated no evidence of bleeding wiill need HD today before RT SNF appreciate Cardiology input
[2020-07-08 08:13] LABS: #Eosinphils 0.2 thou/uL (0.0-0.7); #Lymphocytes 1.5 thou/uL (1.20-3.40); #Monocytes 0.6 thou/uL (0.11-0.59); #Neutrophils 2.3 thou/uL (1.40-6.50); %Basophils 0.1 % (0.0-1.0); %Eosinophils 4.8 % (0.0-10.0); %Lymphocytes 32.6 % (21.0-51.0); %Monocytes 13.1 % (0.0-10.0); %Neutrophils 49.3 % (42.0-75.0); Hemoglobin 10.5 g/dL (14.0-18.0); Mean Corpuscular HGB CONC 32.2 g/dL (32.0-36.0); Mean Corpuscular Hemoglobin 36.3 pg (27.0-31.0); Platelet Count 161 thou/uL (130-400); RBC Distribution Width 15.2 % (11.5-14.5); Red Blood Cell (RBC) Count 2.89 mill/uL (4.70-6.10); White Blood Cell (WBC) Count 4.7 thou/uL (4.8-10.8)
[2020-07-08 08:33] LABS: Anion Gap 17 mmol/L (10-20); BUN (Urea Nitrogen) 51 mg/dL (8.4-25.7); Calc. Creatinine Clearance 13 mL/min (70-130); Calcium 8.5 mg/dL (7.8-10.44); Carbon Dioxide 29 mmol/L (23-31); Chloride 101 mmol/L (98-107); Estimated GFR-MDRD 8; Glucose 73 mg/dL (83-110); Potassium 4.2 mmol/L (3.5-5.1); Sodium 143 mmol/L (136-145)
[2020-07-08] MEDS: Aspirin 81 mg Enteric Coated Tablet PO SCH (08:42)
[2020-07-08] MEDS: Midodrine HCl 5 MG TAB PO SCH ×2 (08:42→16:54)
[2020-07-08] MEDS: Tamsulosin HCl 0.4 MG CAP PO SCH (08:42)
[2020-07-08] MEDS: Famotidine 20 MG TAB PO SCH (08:42)
[2020-07-08] MEDS: Folic Acid/Vit B Comp W-C PO SCH (08:42)
--- NOTE | 2020-07-08 09:53 | PRG ---
DATE OF SERVICE: 07/08/2020 SUBJECTIVE: Mr. Chaudhary is a 80-year-old white male, who has ESRD and was admitted for chest pain. He ruled out for [place]. Recommendation by Cardiology is conservative management. The patient did have a fall yesterday, and a CT scan of the brain actually showed no acute intracranial abnormality. We have scheduled the patient for his regular dialysis today. The patient voices no new complaints. OBJECTIVE: VITAL SIGNS: Blood pressure is 136/68, heart rate 62, respiratory rate 16, temperature 97.6, and O2 saturation 96%. GENERAL: The patient is noted to be awake, alert, comfortable, not in distress. SKIN: Adequate turgor. HEENT: He has pinkish conjunctivae. Anicteric sclerae. NECK: No neck mass. No carotid bruits. No JVD. CHEST: No deformities. LUNGS: Clear breath sounds. HEART: Normal sinus rhythm. No murmurs, no gallops, no rubs. ABDOMEN: Globular, soft, nontender. No masses. EXTREMITIES: No edema. No deformities. MEDICATIONS: Of July 08, 2020, reviewed. LABORATORY DATA: Of July 08, 2020; white count 4.7, hemoglobin 10.5. Sodium 143, potassium 4.2, chloride 101, carbon dioxide 29, BUN 51, creatinine 6.55, calcium 8.5. ASSESSMENT AND PLAN: 1. End-stage renal disease, stable. We will continue current Monday, Monday, and Monday dialysis. Fluid removal as tolerated by the patient. 2. Chest pain, resolved. 3. Chronic anemia-the patient has been restarted back on his Epogen at 7500 units subcu q.7 days. P.r.n. blood transfusion only for hemoglobin of less than 7. Job ID: [id number]
[2020-07-08 15:22] LABS: HBSAB Concentration Less than 8.00 mIU/mL; HBSAg Index 0.22 S/CO (0-0.99); Hep B Surf AB Non-Reactive (NonReactive); Hep B Surf Ag Non-Reactive S/CO (NonReactive)
[2020-07-08 16:49] VITALS: BP 143/70
[2020-07-08] MEDS: Warfarin Sodium 3 MG TAB PO SCH (16:54)
--- NOTE | 2020-07-09 07:47 | DIS ---
DATE OF ADMISSION: 07/07/2020 DATE OF DISCHARGE: 07/08/2020 PRIMARY FORGING DIE FINISHER: Solange Robbins MD. DISPOSITION: Discharged to [facility] bed. FINAL DIAGNOSES: Noncardiac chest pain, end-stage renal disease, Parkinson's, hypothyroidism, postural hypotension, chronic anticoagulation with warfarin, congestive heart failure with ejection fraction 45% to 50% and diastolic dysfunction, chronic atrial fibrillation, hypothyroidism, dyslipidemia. DISCHARGE MEDICINES: Same as his home medicines 1. Trazodone 50 mg at bedtime p.r.n. 2. Klonopin 0.25 mg t.i.d. p.r.n. 3. Geodon 10 mg q.6 hours p.r.n. 4. Midodrine 10 mg p.o. b.i.d. 5. Levothyroxine 25 mcg a day. 6. Atorvastatin 40 mg a day. 7. Aspirin 81 mg a day. 8. Flomax 0.4 mg a day. 9. Polyethylene glycol 17 mg in water daily p.r.n. ALLERGIES: TO CODEINE, TETANUS. CODE STATUS: Full. PENDING AT TIME OF DISCHARGE: Nothing. DIET: Renal, high protein. HOSPITAL COURSE: The patient was referred to the hospital with atypical chest pain. He has been in detention, undergoing PT/OT for deconditioning, unsteady gait, falls. He has had three previous admissions during the month of June 2020 to [place] regarding TIA and CVA workups. The patient states he had a burning sensation down his rib cage. When I spoke to him personally, it is on the left side and was with movement. Nursing staff became concerned that his AICD might be discharging, was referred here. EKG revealed ventricular pacing with a rate in the 70s. LABORATORY: CBC: White count 5.4, hemoglobin 10.5, platelet count 153,000. INR 3.1. His troponins were 0.039, 0.044. Creatinine was 4.86 with no acidosis. Previous troponin 0.060, 0.072, 0.085. He was seen in consultation by Dr. Alfredo Kaye, Cardiology, who saw no reason for further invasive work. The patient claimed he fell out of the bed when the nurses visited him on 07/07 as he was preparing to be discharged. He was never on the floor. He had no significant sign of trauma. CT scan revealed no acute head injury. Because of the possible fall, he was monitored overnight. Today being his normal dialysis day and his normal facility being the [facility], Dr. Huff was consulted, had dialysis done today. Dr. Huff agreed with transfer back to [facility]. I saw him this morning. His neurological exam was intact. I just saw him in the last hour. His neurological exam is intact. His heart had an irregular rate and rhythm. Chest is grossly clear. He is being discharged back to [facility] for continuing PT, OT, etc. He is to be followed up by his PCP in 3 to 7 days at the [facility]. Job ID: [id number]
[2020-07-14] MEDS ORDERED: EPOETIN ALFA-EPBX (ESRD) 4,000 UNIT/ML VIAL SC SCH (09:00)
== END 2020-07-08 18:20 | disposition swing bed (61) | DRG 313 ==
LOC: INTOOBSV 19:07 → 2NO 19:07 → OBSVTOIN 07-07 15:42 → T4-B 07-07 19:03
PROVIDERS: ADMIT Student in an Organized Health Care Education/Training Program; ATTEND Student in an Organized Health Care Education/Training Program
DX: R07.89 Other chest pain (principal); N18.6 End stage renal disease; I48.20 Chronic atrial fibrillation, unspecified; I50.32 Chronic diastolic (congestive) heart failure; I25.810 Atherosclerosis of coronary artery bypass graft(s) without angina pectoris; I13.2 Hypertensive heart and chronic kidney disease with heart failure and with stage 5 chronic kidney disease, or end stage renal disease; G20 Parkinson's disease; E78.5 Hyperlipidemia, unspecified; E03.9 Hypothyroidism, unspecified; I95.1 Orthostatic hypotension; N40.0 Benign prostatic hyperplasia without lower urinary tract symptoms; R53.81 Other malaise; R29.6 Repeated falls; I25.5 Ischemic cardiomyopathy; D63.1 Anemia in chronic kidney disease; J44.9 Chronic obstructive pulmonary disease, unspecified; R29.3 Abnormal posture; Z79.01 Long term (current) use of anticoagulants; Z95.810 Presence of automatic (implantable) cardiac defibrillator; Z99.2 Dependence on renal dialysis; Z95.1 Presence of aortocoronary bypass graft; Z90.49 Acquired absence of other specified parts of digestive tract; Z79.82 Long term (current) use of aspirin; Z88.5 Allergy status to narcotic agent; Z88.7 Allergy status to serum and vaccine; Z86.73 Personal history of transient ischemic attack (TIA), and cerebral infarction without residual deficits
CPT/HCPCS: 36415; 36416; 70450; 80048; 84484; 85025; 85610; 86706; 87340; 90935; 93005; 93010; 94760; 96374; G0257; G0378; J2405; Q5105

== ENCOUNTER 2020-07-21 19:13 | Inpatient (IN) | payer MEDICARE, MEDICAID, OTHER ==
[~2020-07-21 19:13] MED LIST changes: +Iopamidol 370 76% 100 ML VIAL ONE; -Ketamine 50 MG/ML (10ML VIAL) ONE; -PROPOFOL 20 ML ONE
[2020-07-21 20:11] LABS: #Basophils 0.1 thou/uL (0.0-0.2); #Eosinphils 0.2 thou/uL (0.0-0.7); #Lymphocytes 1.7 thou/uL (1.20-3.40); #Monocytes 0.9 thou/uL (0.11-0.59); #Neutrophils 4.8 thou/uL (1.40-6.50); %Basophils 0.9 % (0.0-1.0); %Eosinophils 3.1 % (0.0-10.0); %Monocytes 11.7 % (0.0-10.0); %Neutrophils 62.2 % (42.0-75.0); Mean Corpuscular HGB CONC 32.6 g/dL (32.0-36.0); Mean Corpuscular Hemoglobin 36.3 pg (27.0-31.0); Mean Platelet Volume 8.6 fL (7.4-10.4); Platelet Count 180 thou/uL (130-400); RBC Distribution Width 14.9 % (11.5-14.5); Red Blood Cell (RBC) Count 2.76 mill/uL (4.70-6.10); White Blood Cell (WBC) Count 7.7 thou/uL (4.8-10.8)
[2020-07-21 20:18] LABS: INR-International Normal Ratio 3.1; PTT 48.5 sec (22.9-36.1); Prothrombin Time 31.7 sec (12.0-14.7)
[2020-07-21 20:23] LABS: Bacteria/HPF None Seen HPF (None Seen); Bilirubin Negative (Negative); Blood, Urine 1+ (Negative); Clarity Clear (Clear); Glucose, Urine (Dipstick) Normal (Negative); Ketone, Urine Negative (Negative); Leukocyte 25 Leu/uL (Negative); Nitrite Negative (Negative); Protein, Urine (Dipstick) 100 mg/dL (Neg-Trace); RBC/HPF 0-3 HPF (0-3); Specific Gravity, Urine 1.018 (1.002-1.036); Squamous Epithelial None Seen HPF (0-3); Urobilinogen Normal mg/dL (Less than 2); WBC/HPF 0-3 HPF (0-3); pH, Urine 6.5 (5.0-9.0)
[2020-07-21 20:28] LABS: Albumin 3.5 g/dL (3.4-4.8)
[2020-07-21 20:30] LABS: Calcium 8.7 mg/dL (7.8-10.44); Chloride 103 mmol/L (98-107); Potassium 4.6 mmol/L (3.5-5.1); Sodium 144 mmol/L (136-145)
--- NOTE | 2020-07-21 20:38 | RAD ---
Frontal and lateral imaging right tibia/fibula: 07/21/2020 COMPARISON: None HISTORY: Weakness, fall FINDINGS: No fracture or dislocation. No radiopaque foreign body or subcutaneous gas. Vascular calcif ications are noted within the calf and posterior to the distal femur. Degenerative changes are noted at the level of the right ankle joint. IMPRESSION: No acute fracture or dislocation seen.
--- NOTE | 2020-07-21 21:31 | CT ---
CT of the abdomen and pelvis: 07/21/2020 COMPARISON: 06/03/2020 HISTORY: Hemodialysis, history of GI bleeding, weakness TECHNIQUE: Axial CT imaging obtained at 5 mm intervals from lung bases through pubic symphysis with I V contrast. Coronal and sagittal reformatted imaging obtained. FINDINGS: There is nonspecific pleural and parenchymal density within the left base with prominent pl eural thickening and loculated left basilar pleural fluid. There is also masslike rounded consolidation of the left lower lobe which may signify rounded atelectasis. Nonemergent follow-up ded icated chest CT advised. There is a transvenous pacing device present. Midline sternotomy wires are noted. Cardiac silhouette appears enlarged on the felt carbonizer view. No free intraperitoneal air or fluid is seen. Hepatic and splenic granulomata and arterial calcification noted. Hyperdense material within the gall bladder noted, consistent with gallstones and/or gallbladder sludge. There is small volume fluid inferior to the gallbladder within the right upper quadrant which is new fluid within compared to the 06/03/2020 exam. The pancreas appears grossly unremarkable as do the adrenal glands. The kidneys are atrophic and demonstrate prominent cortical thinning, consistent with the provided history of end -stage renal disease. There is a exophytic hypodense lesion emanating from the mid pole of the right kidney, too small to characterize, which may represent a cyst. Nonemergent follow-up renal ultr asound is advised. The rectum is expanded and filled with stool. Findings may signify fecal impaction. There is mild str anding of the presacral fat which could be related to a degree of associated stercoral colitis. There is diverticulosis of the descending colon and sigmoid colon with no evidence for diverticulitis . There is extensive atherosclerotic calcification of the abdominal aorta and its branches. Review of the osseous structures demonstrates multilevel degenerative change within the spine, especi ally the lower lumbar spine. There are prominent erosive changes at the L2-3 level which are new when compared to a 02/15/2019 CT a ngiogram. Findings are possibly on the basis of discitis/osteomyelitis. IMPRESSION: 1. New mild fat stranding within the right lower quadrant inferior to the gallbladder. Gallstones are noted. Cholecystitis cannot be excluded. 2. Prominent erosive changes at the L2-3 level which may be related to discitis/osteomyelitis in the proper clinical setting. Clinical correlation is essential. 3. Possible fecal impaction within the rectum with associated posterior small volume fluid which coul d be related to stercoral colitis. 4. Incidental findings within the left lung base and right kidney for which follow-up imaging is advi sed as detailed above. CODE T
[2020-07-21 21:39] LABS: Anion Gap 22 mmol/L (10-20); Carbon Dioxide 24 mmol/L (23-31)
[2020-07-21 21:40] LABS: BUN (Urea Nitrogen) 74 mg/dL (8.4-25.7); Bilirubin, Total 0.7 mg/dL (0.2-1.2); Calc. Creatinine Clearance 0 mL/min (70-130); Estimated GFR-MDRD 6; Globulin 3.2 g/dL (2.4-3.5); Glucose 90 mg/dL (83-110); Protein, Total 6.7 g/dL (5.8-8.1)
[2020-07-21 21:41] LABS: ALT (SGPT) 15 U/L (8-55); AST (SGOT) 20 U/L (5-34); Alkaline Phosphatase 123 U/L (40-110)
--- NOTE | 2020-07-21 21:42 | CT ---
CT BRAIN WITHOUT CONTRAST: 07/21/20 HISTORY: Worsening weakness. Multiple falls. COMPARISON: 07/07/20 FINDINGS: Changes of cortical atrophy, chronic small vessel ischemic disease, and old right MCA infarction are again seen. The ventricular size is stable and the basilar cisterns patent. No evidence of acute infarct, hemorrhage, midline shift or abnormal extra-axial fluid collections are seen. The bony calvarium is intact. The visualized paranasal sinuses and mastoid air cells are well aerated. Heavy atherosclerotic calcifications of the intracranial portions of the bilateral vertebral arteries, basilar arteries and carotid siphons are again seen. IMPRESSION: Stable exam. No CT evidence of acute intracranial process. POS: [facility]
[2020-07-21] MEDS ORDERED: Piperacillin/Tazobactam 3.375 GM VIAL ONE (21:48)
[2020-07-21] MEDS ORDERED: Fentanyl 100 MCG/2 ML VIAL ONE (21:48)
[2020-07-21] MEDS ORDERED: Vancomycin 1 GM/200 ML BAG ONE ×2 (21:48→22:46)
--- NOTE | 2020-07-21 22:55 | ULT ---
Right upper quadrant ultrasound: 07/21/2020 HISTORY: Fluid adjacent to the gallbladder on recent CT TECHNIQUE: Multiplanar grayscale sonographic imaging of the right upper quadrant obtained. FINDINGS: The pancreas is poorly assessed secondary to obscuration by bowel gas. No focal liver lesio n is evident. Hepatic granulomata are noted. The right kidney measures 7.8 cm in craniocaudal dimension and demonstrates diffuse cortical thinning . A probable small posterior right renal cyst noted measuring 1.7 cm. The gallbladder is contracted. There is hyperdense material within the gallbladder suggesting stones and/or milk of calcium. The common bile duct measures 4 mm, within normal limits. The cash register balancer reports a positive Reddy's sign. There is a suggestion of small volume pericholecyst ic fluid and the gallbladder wall is mildly thickened. IMPRESSION: Thickened gallbladder wall with small volume pericholecystic fluid and echogenic material within the gallbladder suggesting milk of calcium and/or gallstones. Findings are suspicious for acute cholecystitis in the proper clinical setting.
[2020-07-22] MEDS ORDERED: Fentanyl 100 MCG/2 ML VIAL ONE ×4 (00:18→05:29)
[2020-07-22 01:30] VITALS: BMI 31.2
[2020-07-22] MEDS ORDERED: Ondansetron PF 4 MG/2 ML Vial IVP PRN (02:42)
[2020-07-22] MEDS ORDERED: Piperacillin/Tazobactam 2.25 GM VIAL ONE ×2 (05:07→05:29)
--- NOTE | 2020-07-22 06:10 | HP ---
REASON FOR ADMISSION: Weakness. HISTORY OF PRESENT ILLNESS: This is a 80-year-old male patient who was recently in our hospital and he had multiple admissions this year, last admission was for a chest pain, deemed to be noncardiac. He returns for increased weakness, usually he exercises every day and today he was not able to do much. After his dialysis, he went home and felt that he is very tired, felt warm. In the ER, he complained of abdominal discomfort. A CAT scan of the abdomen did show possible cholecystitis and incidentally osteomyelitis of his spine. He did report to me some back pain, but the pain was mild in intensity. He did not report fevers or chills. I did review his records and he had admissions this year for fall and deconditioning. PAST MEDICAL HISTORY: 1. End-stage renal disease. 2. High blood pressure. 3. Carotid artery disease. 4. Atrial fibrillation. 5. Status post AICD. 6. Kidney stones. 7. High cholesterol. 8. Stroke with left-sided weakness. 9. CABG. 10. Appendectomy. 11. Hypothyroidism. 12. BPH. 13. Chronic atrial fibrillation. ALLERGIES: TO CODEINE, TETANUS VACCINE, AND TOXOID. FAMILY HISTORY: Positive for end-stage renal disease and coronary artery disease. SOCIAL HISTORY: Does not drink. Does not smoke. REVIEW OF SYSTEMS: All systems reviewed except the above mentioned, found to be negative. PHYSICAL EXAMINATION: GENERAL: Awake, alert, and oriented, does complain of abdominal pain, does not appear in distress. VITAL SIGNS: His blood pressure is 97/55, temperature is 98.2, heart rate 62, and saturating 97% on room air. HEENT: Head is nontraumatic and normocephalic. Pupils are equal and reactive. Extraocular movements are intact. Nonicteric sclerae. Well injected conjunctivae. Oral mucosa dry. Nasal mucosa normal. NECK: Supple. No adenopathy. No murmur. Thyroid is not palpable. Trachea is midline. No supraclavicular lymphadenopathy. CARDIAC: S1 and S2 regular. No murmurs. No gallops. No friction rubs. No displacement of PMI. LUNGS: Clear to auscultation bilaterally. No wheezes, rhonchi, or crackles. GI: Bowel sounds are decreased. Abdomen is distended. Tenderness on palpation of the right upper quadrant area and the epigastric area. EXTREMITIES: He does have 2+ pitting edema in bilateral lower extremities. NEURO: Cranial nerves 2 through 12 within normal limits. Normal motor function. Normal sensory function. Normal reflexes. LABORATORY DATA: Blood work shows WBC 7.7, hemoglobin of 10, and platelets of 180. INR of 3. Sodium 144, potassium 4.6, bicarb of 24, BUN of 74, creatinine 8.3, and alkaline phosphatase 123. Urinalysis, positive leukocyte esterase. CT of the abdomen shows new mild fat stranding within the right lower quadrant inferior to the gallbladder. Gallstones are noted. Cholecystitis cannot be excluded. Prominent erosive changes at the L2-L3 level, which may be related to diskitis/osteomyelitis in the proper clinical setting. Clinical correlation is essential. Possible fecal impaction within the rectum with associated posterior small volume fluid, which could be related to stercoral colitis. Incidental finding within the left lung base and right kidney for which followup imaging is advised. CT of the brain shows no acute disease. Tib-fib x-ray shows no acute fracture. Ultrasound of the abdomen shows thickened gallbladder wall with small volume pericholecystic fluid and echogenic material within the gallbladder suggesting milk of calcium and/or gallstone. Findings are suspicious for acute cholecystitis in the proper clinical setting. ASSESSMENT AND PLAN: This is a 80-year-old male patient who is presenting with generalized fatigue, did report abdominal discomfort, found to have possible cholecystitis and incidentally osteomyelitis. The CAT scan did show incidental finding of a renal mass, possibly needing an ultrasound at some point. ID: The patient has osteomyelitis and cholecystitis. He did receive Zosyn and vancomycin in the ER. He does have end-stage renal disease. We will continue with Zosyn, adjust his kidney function. The dose of vancomycin received in the ER would suffice for the next 24/48 hours. We will consult ID for further input. GI. The patient possibly has cholecystitis. General Surgery was consulted for further input. We will also provide him with pain control. Renal system, electrolytes: The patient has end-stage renal disease. We will continue with hemodialysis. Consult Nephrology for that. Cardiac: The patient is on midodrine. We will continue with that. The patient is on warfarin for his atrial fibrillation. We will stop that for now. He might need to undergo a procedure to address his cholecystitis. His INR is therapeutic, so we will trend it on a daily basis. I did discuss with him his code status, he wishes to be full code. Job ID: [id number]
[2020-07-22 10:12] LABS: INR-International Normal Ratio 3.2; Prothrombin Time 32.4 sec (12.0-14.7)
[2020-07-22 10:16] LABS: #Eosinphils 0.3 thou/uL (0.0-0.7); #Lymphocytes 1.6 thou/uL (1.20-3.40); #Monocytes 0.8 thou/uL (0.11-0.59); #Neutrophils 3.9 thou/uL (1.40-6.50); %Basophils 0.2 % (0.0-1.0); %Eosinophils 4.9 % (0.0-10.0); %Lymphocytes 24.8 % (21.0-51.0); %Monocytes 11.7 % (0.0-10.0); %Neutrophils 58.5 % (42.0-75.0); Hemoglobin 10.4 g/dL (14.0-18.0); Mean Corpuscular HGB CONC 32.9 g/dL (32.0-36.0); Mean Corpuscular Hemoglobin 36.6 pg (27.0-31.0); Mean Platelet Volume 8.8 fL (7.4-10.4); Platelet Count 153 thou/uL (130-400); RBC Distribution Width 14.8 % (11.5-14.5); Red Blood Cell (RBC) Count 2.86 mill/uL (4.70-6.10); White Blood Cell (WBC) Count 6.6 thou/uL (4.8-10.8)
[2020-07-22 10:17] LABS: Macrocytosis SLIGHT = 6-15 cells (100X) (0-5/hpf)
[2020-07-22 10:28] LABS: Anion Gap 20 mmol/L (10-20); BUN (Urea Nitrogen) 79 mg/dL (8.4-25.7); Calc. Creatinine Clearance 11 mL/min (70-130); Calcium 8.3 mg/dL (7.8-10.44); Carbon Dioxide 23 mmol/L (23-31); Chloride 102 mmol/L (98-107); Estimated GFR-MDRD 6; Glucose 70 mg/dL (83-110); Potassium 4.6 mmol/L (3.5-5.1); Sodium 140 mmol/L (136-145)
[2020-07-22] MEDS: Piperacillin/Tazobactam 2.25 GM in Sodium Chloride 0.9% 100 ML IVPB SCH ×4 (12:07→20:46)
[2020-07-22 12:38] LABS: SARS-CoV-2 MS2 Positive; SARS-CoV-2 N Gene Negative; SARS-CoV-2 S Gene Negative; SARS-CoV-2 by NAA Not Detected (NotDetected); SARS-CoV-2 orf1ab Negative
--- NOTE | 2020-07-22 14:52 | NM ---
NUCLEAR MEDICINE HIDA SCAN: HISTORY: Evaluate for cystitis. COMPARISON: None. TECHNIQUE: The patient was premedicated with 2 mcg of CCK intravenously over 20 minutes, prior to imaging. Subs equently, the patient was administered 4.7 mCi of Technetium 99m mebrofenin intravenously. FINDINGS: Uptake of the radiotracer by the hepatic parenchyma. There is localization of radiotracer into the i ntrahepatic and extrahepatic biliary system. There is localization of the gallbladder. IMPRESSION: No scintigraphic evidence of acute cholecystitis. POS: [facility]
[2020-07-22] MEDS: Midodrine HCl 5 MG TAB PO SCH ×2 (18:24→20:46)
[2020-07-22] MEDS: Carbidopa/Levodopa 25-100 mg Tablet PO SCH (20:46)
[2020-07-22] MEDS: Fentanyl 100 MCG/2 ML VIAL SLOW IVP PRN (20:46)
[2020-07-23] MEDS: Fentanyl 100 MCG/2 ML VIAL SLOW IVP PRN ×2 (00:42→04:48)
[2020-07-23] MEDS: Piperacillin/Tazobactam 2.25 GM in Sodium Chloride 0.9% 100 ML IVPB SCH ×3 (04:49→20:40)
[2020-07-23 05:49] LABS: #Eosinphils 0.3 thou/uL (0.0-0.7); #Lymphocytes 1.6 thou/uL (1.20-3.40); #Monocytes 0.8 thou/uL (0.11-0.59); #Neutrophils 4.5 thou/uL (1.40-6.50); %Basophils 0.6 % (0.0-1.0); %Eosinophils 4.5 % (0.0-10.0); %Lymphocytes 21.8 % (21.0-51.0); %Monocytes 11.1 % (0.0-10.0); Hemoglobin 9.8 g/dL (14.0-18.0); Mean Corpuscular HGB CONC 32.7 g/dL (32.0-36.0); Mean Platelet Volume 8.3 fL (7.4-10.4); Platelet Count 163 thou/uL (130-400); RBC Distribution Width 14.7 % (11.5-14.5); Red Blood Cell (RBC) Count 2.71 mill/uL (4.70-6.10); White Blood Cell (WBC) Count 7.2 thou/uL (4.8-10.8)
--- NOTE | 2020-07-23 05:52 | CON ---
DATE OF CONSULTATION: 07/22/2020 SUBJECTIVE: Mr. Chaudhary is a 80-year-old white male with known history of ESRD and admitted for generalized weakness and frequent falls. There was a complaint of some abdominal discomfort and hepatobiliary scan was done, which showed negative findings. We are being consulted for management of his ESRD. The patient is currently undergoing hemodialysis today. We are following up his outpatient dialysis regimen. He voices no new complaints except for generalized weakness. The concern is he has had frequent falls. PAST MEDICAL HISTORY: Significant for ESRD, atrial fibrillation, frequent falls, hypothyroidism, chronic atrial fibrillation, peripheral vascular disease, status post CVA. PHYSICAL EXAMINATION: VITAL SIGNS: Blood pressure is noted at 130/70 with a heart rate of 70. GENERAL: The patient is awake and lethargic, but not in overt distress. SKIN: Adequate turgor. HEENT: Pinkish conjunctivae. Anicteric sclerae. NECK: No neck mass. No carotid bruits. No JVD. CHEST: No deformities. LUNGS: Clear breath sounds. No wheezing. No crackles. HEART: Normal sinus rhythm. No murmurs. No gallops. No rubs. ABDOMEN: Globular, soft, nontender. No masses. EXTREMITIES: Trace edema. MEDICATIONS: Medications of July 22, 2020, were reviewed. LABORATORY DATA: Laboratories of July 22, 2020, were also reviewed. ASSESSMENT AND PLAN: 1. End-stage renal disease, stable. We will continue current hemodialysis regimen of 3-1/2 hours. Fluid removal will be done as tolerated only by the patient. 2. Frequent falls - the patient has associated history of resting tremors. At one time, he was considered for possible treatment for Parkinson disease. However, he has not been able to follow up with his outpatient neurologist due to several reasons. We will empirically treat him with Sinemet while he is in the hospital. ADDENDUM: On July 22, 2020, hemoglobin was 10.4. On July 22, 2020, potassium was 4.6 with a BUN 79, creatinine 8.32. Agree with current management. Job ID: [id number]
[2020-07-23 06:14] LABS: ALT (SGPT) Less than 7 U/L (8-55); AST (SGOT) 16 U/L (5-34); Albumin 2.9 g/dL (3.4-4.8); Alkaline Phosphatase 97 U/L (40-110); Anion Gap 18 mmol/L (10-20); BUN (Urea Nitrogen) 39 mg/dL (8.4-25.7); Bilirubin, Total 0.7 mg/dL (0.2-1.2); Calc. Creatinine Clearance 17 mL/min (70-130); Calcium 7.5 mg/dL (7.8-10.44); Carbon Dioxide 24 mmol/L (23-31); Chloride 104 mmol/L (98-107); Estimated GFR-MDRD 11; Globulin 2.9 g/dL (2.4-3.5); Glucose 80 mg/dL (83-110); Potassium 3.9 mmol/L (3.5-5.1); Protein, Total 5.8 g/dL (5.8-8.1); Sodium 142 mmol/L (136-145)
[2020-07-23] MEDS ORDERED: Epoetin (ESRD) 20,000 UNITS/ML SC SCH (09:15)
--- NOTE | 2020-07-23 09:28 | PRG ---
DATE OF SERVICE: 07/23/2020 SUBJECTIVE: Mr. Chaudhary is a 80-year-old white male, who was admitted for frequent falls. We are following him up for his management of his ESRD and for maintenance hemodialysis. He underwent hemodialysis yesterday without any difficulty. Fluid removal was done. No new complaints today. He feels a little better. The possibility of Parkinson disease remains with this patient explain the frequent falls and resting tremor. He was started on Sinemet. The patient tells me he is able to ambulate to the restroom without any difficulty early today. He feels his legs are a bit stronger. OBJECTIVE: VITAL SIGNS: Blood pressure is 116/66, heart rate 59, respiratory rate 16, temperature 97.9, and O2 saturation 96%. GENERAL: The patient is noted to be awake, alert, and comfortable, not in distress. SKIN: Adequate turgor. HEENT: Pinkish conjunctivae. Anicteric sclerae. NECK: No neck mass. No carotid bruits. No JVD. CHEST: No deformities. LUNGS: Clear breath sounds. HEART: Normal sinus rhythm. No murmur. No gallops. No rubs. ABDOMEN: Globular, soft, and nontender. No masses. EXTREMITIES: No edema. Positive for resting tremors. MEDICATIONS: Medications of July 23, 2020, reviewed. LABORATORY DATA: Laboratories of July 23, 2020, white count 7.2 and hemoglobin 9.8. Sodium 142, potassium 3.9, chloride 104, carbon dioxide 24, BUN 39, creatinine 5.18, calcium 7.5, AST 16, ALT less than 7, and albumin 2.9. ASSESSMENT AND PLAN: 1. Frequent fall/resting tremor - empirically we will treat with Sinemet. This was started yesterday. Continue to observe. 2. End-stage renal disease, stable, tolerating current hemodialysis regimen. The plan is to continue Monday, Monday, and Monday hemodialysis. There is no indication for any emergent dialysis with this patient. Potassium is within normal and the patient is euvolemic. 3. Anemia. The patient will be started on his regular weekly Epogen of 7500 units subcu every week. 4. Recheck CBC and basic metabolic in a.m. Job ID: [id number]
[2020-07-23] MEDS ORDERED: Iopamidol 370 76% 100 ML VIAL ONE (09:42)
[2020-07-23] MEDS: Midodrine HCl 5 MG TAB PO SCH ×2 (09:49→20:40)
[2020-07-23] MEDS: Carbidopa/Levodopa 25-100 mg Tablet PO SCH ×3 (09:50→20:40)
[2020-07-23] MEDS ORDERED: Warfarin Sodium 5 MG TAB PO SCH (10:15)
--- NOTE | 2020-07-23 10:16 | PDOC.HOSPP ---
- Subjective Encounter Date: 07/23/20 Encounter Time: 08:20 Subjective: Patient seen for follow-up regarding spinal osteomyelitis. He reports feeling better. He denies any abdominal pain, nausea or vomiting. - Objective Vital Signs & Weight: Vital Signs (12 hours) Temp Pulse Resp BP Pulse Ox 07/23/20 07:34 97.8 F 59 L 16 116/66 96 07/23/20 04:00 97.8 F 60 18 104/62 96 07/22/20 23:39 98.5 F 60 18 113/64 94 L Weight Weight 224 lb 3.2 oz I&O: 07/22/20 07/23/20 07/24/20 06:59 06:59 06:59 Intake Total 240 Balance 240 Result Diagrams: 07/23/20 05:34 07/23/20 05:34 Additional Labs: I reviewed patient's labs and MAR Hospitalist ROS - Review of Systems Cardiovascular: denies: chest pain, palpitations, orthopnea, paroxysmal noc. dyspnea, edema, light headedness Gastrointestinal: denies: nausea, vomiting, abdominal pain, diarrhea, constipation, melena, hematochezia - Medication Medications: Active Medications Generic Name Dose Route Start Last Admin Trade Name Freq PRN Reason Stop Dose Admin Carbidopa/Levodopa 1 tab 07/22/20 21:00 07/23/20 09:50 Carbidopa/Levodopa 25-100 Mg Tablet PO 1 tab TID CHARISSE Administration Fentanyl 25 mcg 07/22/20 02:48 07/23/20 04:48 Sublimaze SLOW IVP 25 mcg Q4H PRN Administration Pain Piperacillin Sod/Tazobactam 100 mls @ 200 mls/hr 07/22/20 06:00 07/23/20 04:49 Sod 2.25 gm/ Sodium Chloride IVPB 100 mls Q8HR CHARISSE Administration Midodrine 10 mg 07/22/20 09:00 07/23/20 09:49 Proamatine PO 10 mg BID CHARISSE Administration - Exam General - other findings: Obese Eye: anicteric sclera ENT: moist mucosa Neck: supple Heart: RRR Respiratory: CTAB Gastrointestinal: soft, non-tender, normal bowel sounds Gastrointestinal - other findings: Reddy sign is negative Extremities: no cyanosis Skin: no rashes Psychiatric: normal affect, normal behavior Hosp A/P (1) Acute osteomyelitis of lumbar spine Code(s): M46.26 - OSTEOMYELITIS OF [place], LUMBAR REGION Status: Acute (2) Discitis Code(s): M46.40 - DISCITIS, UNSPECIFIED, SITE UNSPECIFIED Status: Suspected (3) Atrial fibrillation Code(s): I48.91 - UNSPECIFIED ATRIAL FIBRILLATION Status: Chronic Qualifiers: Atrial fibrillation type: longstanding persistent Qualified Code(s): I48.11 - Longstanding persistent atrial fibrillation (4) CAD (coronary artery disease) Code(s): I25.10 - ATHSCL HEART DISEASE OF [place] CORONARY ARTERY W/O ANG PCTRS Status: Chronic Qualifiers: Coronary Disease-Associated Artery/Lesion type: bypass graft [place] vs. transplanted heart: [place] heart Associated angina: without angina Qualified Code(s): I25.810 - Atherosclerosis of coronary artery bypass graft(s) without angina pectoris (5) ESRD (end stage renal disease) on dialysis Code(s): N18.6 - END STAGE RENAL DISEASE; Z99.2 - DEPENDENCE ON RENAL DIALYSIS Status: Chronic (6) Heart failure with reduced ejection fraction Code(s): I50.20 - UNSPECIFIED SYSTOLIC (CONGESTIVE) HEART FAILURE Status: Podiatric Surgeon nicki (7) CVA (cerebral vascular accident) Code(s): I63.9 - CEREBRAL INFARCTION, UNSPECIFIED Status: Resolved Qualifiers: Laterality of affected vessel: right - Plan continue antibiotics Clinically, there is no evidence of acute cholecystitis. HIDA scan is negative. Start patient on clear liquid diet. Resume warfarin. Continue Zosyn for now for suspected discitis/spinal osteomyelitis. Await ID service input. Check right renal ultrasound to evaluate lesion seen on CT scan of abdomen and pelvis. Ambulate patient Dialysis per nephrology service. Start patient on scheduled MiraLAX.
[2020-07-23 10:42] LABS: INR-International Normal Ratio 2.8; Prothrombin Time 29.6 sec (12.0-14.7)
[2020-07-23 10:43] LABS: PTT 65.7 sec (22.9-36.1)
[2020-07-23] MEDS ORDERED: EPOETIN ALFA-EPBX (ESRD) 4,000 UNIT/ML VIAL SC SCH (12:00)
--- NOTE | 2020-07-23 14:10 | CON ---
DATE OF CONSULTATION: 07/23/2020 REASON FOR CONSULTATION: Evaluate LS spine changes serendipitously, identified on CT scan. HISTORY OF PRESENT ILLNESS: A 80-year-old who has had complications related to nephrolithiasis, which culminated in end-stage renal disease. He also has coronary artery disease and ischemic cardiomyopathy with an AICD in place. He has had numerous admissions for weakness and falls. He has been on anticoagulation for atrial fibrillation. He has been admitted pretty much every 2 weeks over the past 2 to 3 months because of those episodes of fall associated with weakness. During those evaluations, they have adjusted his presumed Parkinson disease medication. At this time, he presented with again worsening weakness. He also had some abdominal pain and dark tarry stool. He had an abdomen and pelvis CT, which found those L2-L3 osteolytic areas in the lumbar spine. Those changes were prominent according to the description. I double-checked these findings with the radiologist, and they were not present last year, but they were present in 05/2020. The patient is sitting at the bedside. He states that he is feeling miraculously better after admission and reportedly a new Parkinson's medication has been started. It looks like he was started on Sinemet. Most likely, it has helped. In addition to that, he has been started on ProAmatine. Actually, he is on piperacillin and tazobactam. Denies any headaches. No change in visual symptoms. No dyspnea. No chest pain. No sputum production. He still has some urine output, but no symptoms there. He is dialyzed through an AV fistula. The weakness in his legs seemed to have vanished overnight with the new medication. PAST MEDICAL HISTORY: Includes: 1. Coronary artery disease. 2. Ischemic cardiomyopathy. 3. AICD. 4. Hypertension. 5. Nephrolithiasis, which culminated in loss of right and left kidney and end- stage renal disease, hemodialysis through an AV fistula. 6. Hyperlipidemia. 7. 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 8. CVA x2. 9. Hypothyroidism. SURGICAL HISTORY: 1. Dialysis fistula placement. 2. Aneurysm repair. 3. Bypass graft surgery, 4-vessel in 2002. 4. Appendectomy. 5. Defibrillator placement. SOCIAL HISTORY: Lives in [place], with his . He is retired. He lives at a land to friend. He chews tobacco, but does not smoke. He used to smoke in the past. He does not drink alcoholic beverages. MEDICATIONS: Have been listed above. He had been on Mirapex and now the Sinemet has been started, which seem to have been miraculous for the patient's functional state at least for the time being. PHYSICAL EXAMINATION: VITAL SIGNS: Temperature was normal, BP 140/73, pulse 60, respirations 16, and O2 saturation 98. SKIN: Areas of bruising in the upper extremities. Peripheral IV access. He is voiding in the urinal. No lymphadenopathy. GENERAL: Chronically ill appearing, but in no distress. HEENT: Ocular movements conjugate. Sclerae white. Conjunctivae normal. Oral cavity with numerous missing teeth. NECK: Supple. LUNGS: Symmetric air entry. Faint crackles at the bases. HEART: S1 and S2 with a soft aortic murmur. Regular rate. ABDOMEN: Soft. Mild tenderness in the midline. No ascites. No bladder distention. No organomegaly. BACK: [id number]-kc-[id number] tenderness in the lumbosacral spine. EXTREMITIES: No joint inflammatory activity. Actually, he does have some lymphedema and 1 to 2+ edema in lower extremities, symmetric. Pulses 1+ in dorsalis pedis. He moves all extremities equally. Stiffness noted and some cogwheel rigidity and some resting tremor. NEUROLOGIC: He is awake, oriented, follows commands. He is pretty sharp. Good recollection, orientation, etc. LABORATORY DATA: Sodium 144 and 142, creatinine is at 5.18, and glucose 80. Liver profile normal. Albumin down to 2.9. White cell count 7.7 and 7.2, hemoglobin 9.8, and platelets 163 with normal differential. INR 2.8. Urinalysis was normal. COVID negative. Two sets of blood culture, no growth in 5 days, another one on 07/22, those are still being worked up. Urine culture, no growth in 48 hours. Hepatobiliary scan was normal. There is a tibia-fibula x-ray from 07/21. No fracture or dislocation. Then, findings in the abdomen and pelvis CT. It showed mild fat stranding within the right lower quadrant inferior to the gallbladder, probably fluid, erosive changes at L2-L3 level. ASSESSMENT: 1. End-stage renal disease due to nephrolithiasis, on hemodialysis through an arteriovenous fistula. 2. Ischemic cardiomyopathy. 3. Recurrent episodes of fall, probably related to Parkinson disease, which now have been treated with Sinemet with marked improvement thus far. 4. Serendipitous findings in the lumbosacral spine area in the process of workup for his abdominal pain. DISCUSSION: Those findings are not straightforward to interpret. They were not present in February of last year. They could be just degenerative changes. We cannot do an MRI, which would be the test of choice. Some devices can be managed or MRI suitable and I will talk to Radiology and see if we can do an MRI any ways with this device after consultation. He does have a pain there, which is mild to moderate, and if we cannot do the MRI, then I will order a dedicated CT of the lumbosacral spine and go from there. Job ID: [id number] MTDD
--- NOTE | 2020-07-23 14:16 | CT ---
Exam: Lumbar spine CT without contrast HISTORY: Possible discitis osteomyelitis at the L2-L3 level. COMPARISON: 07/21/[address] FINDINGS: Postcontrast images redemonstrate a left-sided pleural effusion, fatty infiltration liver, atrophic k idneys with exophytic hypodensities of both kidneys, incompletely characterized. There is atherosclerosis of a nonaneurysmal aorta. Lumbar spine vertebral body heights have not changed. There is no significant acute fracture. Stable sclerosis and erosive/destructive changes along the inferior plate of L2, superior plate of L3 which are worrisome for a possible developing discitis osteomyelitis. Postcontrast images demonstrate subtle increased soft tissue density in the paraspinal region at the disc space level. De veloping phlegmonous change cannot be entirely excluded. There is also prominent soft tissue along the dural space which may represent disc material. However, the posterior epidural abscess cannot be excluded. There is ligamentum flavum thickening and facet hypertrophy. Overall there is severe central canal stenosis. T11-T12 and T12-L1: No high-grade central canal stenosis L1-L2: Broad-based disc bulge with mild central canal stenosis. Moderate to severe right and moderate left neural foraminal narrowing L2-L3: As above L3-L4: Broad-based disc bulge, ligament flavum thickening and facet hypertrophy. Moderate central can al stenosis. Moderate bilateral neural foraminal narrowing L4-L5: Broad-based disc bulge, ligament flavum thickening and facet hypertrophy. Moderate to severe c entral canal stenosis. Moderate to severe right and severe left neural foraminal narrowing L5-S1: Vacuum disc phenomenon. Broad-based discussed by complex encroaches upon the left and right katz barticular zone secondary to an inferior extrusion. There is complete obscuration of bilateral traversing S1 nerve roots. Severe bilateral neural foraminal narrowing Impression: 1. Multilevel degenerative changes of lumbar spine as described above 2. Findings worrisome for a possible discitis osteomyelitis at the L2-L3 level. There appears to be p hlegmonous tissue in the paraspinal region at L2-L3 with possible anterior epidural extension versus disc material. Correlate clinically. Findings conveyed to Dr. Jacobson via [employer] connect 07/23/2020 at 3:32 PM Code CR Transcribed Date/Time: 07/23/2020 2:25 PM
[2020-07-23] MEDS: Atorvastatin Calcium 40 MG TAB PO SCH (20:40)
[2020-07-24] MEDS: Fentanyl 100 MCG/2 ML VIAL SLOW IVP PRN ×3 (02:37→17:45)
[2020-07-24] MEDS: Levothyroxine Sodium 25 MCG TAB PO SCH (02:38)
--- NOTE | 2020-07-24 03:21 | CON ---
DATE OF CONSULTATION: 07/23/2020 Patient was evaluated at approximately 2000. HISTORY OF PRESENT ILLNESS: Mr. Chaudhary is a 80-year-old male with a history of end-stage renal disease on hemodialysis, atrial fibrillation, coronary artery disease, and ischemic cardiomyopathy with an AICD in place. The patient has experienced weakness and multiple falls at for which he has been evaluated recently. He was recently in a rehab facility in [place]. He reports after dialysis last Monday he became unable to walk and this lasted for several days. However, he states that as of today he began to have feeling back in his legs and has been ambulating about the hallways 250 feet. He denies any leg pain, paresthesias, or weakness at this time. Again, his symptoms improved as of today. He reports mild low back pain. PAST MEDICAL HISTORY: Past medical history has been reviewed and is pertinent for: 1. End-stage renal disease, on hemodialysis. 2. Atrial fibrillation. 3. Coronary artery disease. 4. Ischemic cardiomyopathy. 5. History of AICD placement. 6. Hypertension. 7. Hyperlipidemia. 8. BPH. ALLERGIES: CODEINE, TETANUS VACCINE, AND TOXOID. PHYSICAL EXAMINATION: VITALS: Afebrile. BP 146/72. HR 61. RR 16. GENERAL: The patient is awake, alert, and appropriate. He was resting in bed comfortably during the evening, in no apparent painful distress. NEUROLOGIC: He has 5/5 strength throughout his bilateral lower extremity myotomes. Sensation to light touch is intact. Gait was not assessed. LABORATORY DATA: White blood cell 7.2. ESR 40. CRP 6. Blood cultures, no growth at 48 hours. Urine cultures negative. IMPRESSION: Possible lumbar osteodiskitis/osteomyelitis. PLAN: Case has been discussed and imaging reviewed with Dr. Abarca. CT of the lumbar spine with contrast demonstrates possible osteodiskitis/osteomyelitis at the L2- L3 level. Our team recommends CT-guided needle biopsy at this level. The patient has already been started on antibiotics. He will likely require 6 weeks of therapy for osteodiskitis/osteomyelitis dependent on his FNA findings. This antibiotic therapy will be guided on recommendations from Infectious Disease. A consult has been placed to [facility] ([facility]) for the patient to be fitted with a TLSO clamshell brace, which was instructed to wear when out of bed. Given the patient is neurologically intact with full strength throughout his bilateral lower extremities, a CT myelogram of the lumbar spine is not recommended at this time. Please call for any neurologic changes or other concerns. This was a 50-minute initial visit on July, in which greater than 50% of the time was spent in review of records, review of imaging, evaluation, examination, and formulation of a plan. The remaining time was spent in counseling and coordination of care. Job ID: [id number] [facility]
[2020-07-24] MEDS: Piperacillin/Tazobactam 2.25 GM in Sodium Chloride 0.9% 100 ML IVPB SCH ×3 (04:08→20:39)
[2020-07-24] MEDS ORDERED: Levothyroxine Sodium 50 MCG TAB PO SCH (06:00)
[2020-07-24 06:26] LABS: #Basophils 0.1 thou/uL (0.0-0.2); #Eosinphils 0.4 thou/uL (0.0-0.7); #Lymphocytes 1.3 thou/uL (1.20-3.40); #Monocytes 0.8 thou/uL (0.11-0.59); #Neutrophils 3.9 thou/uL (1.40-6.50); %Basophils 0.9 % (0.0-1.0); %Eosinophils 6.1 % (0.0-10.0); %Lymphocytes 19.8 % (21.0-51.0); %Monocytes 12.3 % (0.0-10.0); Hemoglobin 10.9 g/dL (14.0-18.0); Mean Corpuscular Hemoglobin 35.2 pg (27.0-31.0); Mean Platelet Volume 8.7 fL (7.4-10.4); Platelet Count 158 thou/uL (130-400); RBC Distribution Width 14.6 % (11.5-14.5); Red Blood Cell (RBC) Count 3.09 mill/uL (4.70-6.10); White Blood Cell (WBC) Count 6.4 thou/uL (4.8-10.8)
[2020-07-24 06:32] LABS: INR-International Normal Ratio 3.2; Prothrombin Time 32.4 sec (12.0-14.7)
[2020-07-24 06:44] LABS: Anion Gap 21 mmol/L (10-20); BUN (Urea Nitrogen) 49 mg/dL (8.4-25.7); Calc. Creatinine Clearance 14 mL/min (70-130); Calcium 8.4 mg/dL (7.8-10.44); Carbon Dioxide 23 mmol/L (23-31); Chloride 100 mmol/L (98-107); Estimated GFR-MDRD 8; Glucose 66 mg/dL (83-110); Potassium 4.5 mmol/L (3.5-5.1); Sodium 139 mmol/L (136-145)
[2020-07-24 06:45] LABS: Phosphorus 7.1 mg/dL (2.3-4.7)
[2020-07-24] MEDS: Midodrine HCl 5 MG TAB PO SCH ×2 (08:34→20:39)
[2020-07-24] MEDS: Carbidopa/Levodopa 25-100 mg Tablet PO SCH ×3 (08:34→20:39)
[2020-07-24] MEDS: Aspirin 81 mg Enteric Coated Tablet PO SCH (08:34)
[2020-07-24] MEDS: Polyethylene Glycol 3350 17 GM Packet PO SCH (08:34)
[2020-07-24] MEDS: Tamsulosin HCl 0.4 MG CAP PO SCH (08:34)
--- NOTE | 2020-07-24 09:11 | PRG ---
DATE OF SERVICE: 07/24/2020 SERVICE: Renal Medicine. SUBJECTIVE: Mr. Chaudhary is a 80-year-old white male with ESRD, who was initially admitted for frequent falls. He was empirically treated for possible Parkinson's. He is on Sinemet. No new complaints today. He is feeling better. He is undergoing hemodialysis right now. OBJECTIVE: VITAL SIGNS: Blood pressure is 146/72, heart rate 61, respiratory rate 16, temperature 97.6, and O2 saturation 96%. GENERAL: Awake, alert, comfortable, not in distress. SKIN: Adequate turgor. HEENT: He has a pinkish conjunctivae. Anicteric sclerae. NECK: No neck mass. No carotid bruits. No JVD. CHEST: No deformities. LUNGS: Clear breath sounds. HEART: Normal sinus rhythm. No murmur. No gallops. No rubs. ABDOMEN: Globular, soft, and nontender. EXTREMITIES: Minimal hand tremors. MEDICATIONS: Of July 24, 2020, reviewed. LABORATORY DATA: Laboratories of July 24, 2020, hemoglobin 10.9. Sodium 139, potassium 4.5, chloride 100, carbon dioxide 23, BUN 49, creatinine 6.4, glucose 66, and calcium 8.4. PTH 279. Phosphorus is 7.1. ASSESSMENT AND PLAN: 1. End-stage renal disease, stable, continuing current hemodialysis regimen, tolerating said treatment. 2. Tremors/Parkinson disease - continue Sinemet one tablet t.i.d. 3. Elevated phosphorus and elevated PTH. Start calcitriol and Renvela. Job ID: [id number] MTDD
[2020-07-24] MEDS: Calcitriol 0.25 MCG CAP PO SCH (09:36)
--- NOTE | 2020-07-24 11:41 | PDOC.HOSPP ---
- Subjective Encounter Date: 07/24/20 Encounter Time: 11:40 Subjective: Patient seen for follow-up regarding spinal osteomyelitis. Denies fevers. Reports low back pain. - Objective Vital Signs & Weight: Vital Signs (12 hours) Temp Pulse Resp BP Pulse Ox 07/24/20 09:01 97.7 F 63 18 124/69 07/24/20 08:00 97 Weight Weight 224 lb 3.2 oz I&O: 07/23/20 07/24/20 07/25/20 06:59 06:59 06:59 Intake Total 240 1200 Balance 240 1200 Result Diagrams: 07/24/20 06:01 07/24/20 06:01 Additional Labs: I reviewed patient's labs and MAR Hospitalist ROS - Review of Systems Cardiovascular: denies: chest pain, palpitations, orthopnea, paroxysmal noc. dyspnea, edema, light headedness Genitourinary: denies: dysuria, frequency, incontinence, hematuria, retention Musculoskeletal: reports: back pain - Medication Medications: Active Medications Generic Name Dose Route Start Last Admin Trade Name Freq PRN Reason Stop Dose Admin Aspirin 81 mg 07/24/20 09:00 07/24/20 08:34 Aspirin 81 Mg Enteric Coated Tablet PO 81 mg DAILY CHARISSE Administration Atorvastatin Calcium 40 mg 07/23/20 21:00 07/23/20 20:40 Atorvastatin Calcium 40 Mg Tab PO 40 mg QPM CHARISSE Administration Calcitriol 0.25 mcg 07/24/20 09:00 07/24/20 09:36 Calcitriol 0.25 Mcg Cap PO 0.25 mcg DAILY CHARISSE Administration Carbidopa/Levodopa 1 tab 07/22/20 21:00 07/24/20 08:34 Carbidopa/Levodopa 25-100 Mg Tablet PO 1 tab TID CHARISSE Administration Epoetin Danial-epbx 7,500 unit 07/23/20 12:00 07/23/20 15:07 Epoetin Danial-Epbx (Esrd) 4,000 Unit/Ml Vial SC 7,500 unit Q7D CHARISSE Administration Fentanyl 25 mcg 07/22/20 02:48 07/24/20 06:32 Sublimaze SLOW IVP 25 mcg Q4H PRN Administration Pain Piperacillin Sod/Tazobactam 100 mls @ 200 mls/hr 07/22/20 06:00 07/24/20 04:08 Sod 2.25 gm/ Sodium Chloride IVPB 100 mls Q8HR CHARISSE Administration Levothyroxine Sodium 25 mcg 07/24/20 06:00 07/24/20 02:38 Levothyroxine Sodium 25 Mcg Tab PO 25 mcg 0600 CHARISSE Administration Midodrine 10 mg 07/22/20 09:00 07/24/20 08:34 Proamatine PO 10 mg BID CHARISSE Administration Ondansetron HCl 4 mg 07/22/20 02:42 07/23/20 16:14 Zofran IVP 4 mg Q6H PRN Administration Nausea/Vomiting Polyethylene Glycol 17 gm 07/24/20 09:00 07/24/20 08:34 Polyethylene Glycol 3350 17 Gm Packet PO 17 gm DAILY CHARISSE Administration Sodium Chloride 10 ml 07/23/20 21:00 07/24/20 08:34 Flush - Normal Saline 10 Ml Syringe IVF 10 ml Q12HR CHARISSE Administration Tamsulosin HCl 0.4 mg 07/24/20 09:00 07/24/20 08:34 Tamsulosin Hcl 0.4 Mg Cap PO 0.4 mg DAILY CHARISSE Administration - Exam General - other findings: Obese Eye: anicteric sclera ENT: no oropharyngeal lesions Neck: supple Heart: RRR Respiratory: CTAB Gastrointestinal: soft Extremities: no cyanosis Skin: no rashes Psychiatric: normal affect, normal behavior Hosp A/P (1) Acute osteomyelitis of lumbar spine Code(s): M46.26 - OSTEOMYELITIS OF [place], LUMBAR REGION Status: Acute (2) Discitis Code(s): M46.40 - DISCITIS, UNSPECIFIED, SITE UNSPECIFIED Status: Acute (3) Atrial fibrillation Code(s): I48.91 - UNSPECIFIED ATRIAL FIBRILLATION Status: Chronic Qualifiers: Atrial fibrillation type: longstanding persistent Qualified Code(s): I48.11 - Longstanding persistent atrial fibrillation (4) CAD (coronary artery disease) Code(s): I25.10 - ATHSCL HEART DISEASE OF [place] CORONARY ARTERY W/O ANG PCTRS Status: Chronic Qualifiers: Coronary Disease-Associated Artery/Lesion type: bypass graft [place] vs. transplanted heart: [place] heart Associated angina: without angina Qualified Code(s): I25.810 - Atherosclerosis of coronary artery bypass graft(s) without angina pectoris (5) ESRD (end stage renal disease) on dialysis Code(s): N18.6 - END STAGE RENAL DISEASE; Z99.2 - DEPENDENCE ON RENAL DIALYSIS Status: Chronic (6) Heart failure with reduced ejection fraction Code(s): I50.20 - UNSPECIFIED SYSTOLIC (CONGESTIVE) HEART FAILURE Status: Chronic - Plan Continue Zosyn discitis/spinal osteomyelitis. Discussed with infectious disease service as well as radiology service. Vertebral biopsy for osteomyelitis/discitis is a low yield procedure. If patient does not improve, may need to consider for alternate diagnosis. If biopsy is needed, warfarin will be reversed. Ambulate patient Nephrology service is following for dialysis. Continue patient on scheduled MiraLAX.
[2020-07-24] MEDS: Sevelamer Carbonate 800 MG TAB PO SCH ×2 (13:13→15:22)
[2020-07-24] MEDS: Atorvastatin Calcium 40 MG TAB PO SCH (20:39)
[2020-07-25] MEDS ORDERED: OLANZapine 2.5 MG TAB PO PRN (00:49)
[2020-07-25] MEDS ORDERED: Haloperidol Lactate 5 MG/ML VIAL IM SCH (01:15)
[2020-07-25] MEDS ORDERED: Haloperidol Lactate 5 MG/ML VIAL SLOW IVP SCH (01:15)
[2020-07-25] MEDS ORDERED: Sterile Water 10 ML VIAL FS PRN (01:15)
[2020-07-25] MEDS ORDERED: OLANZapine 10 MG VIAL IM SCH (01:15)
[2020-07-25] MEDS ORDERED: Haloperidol Lactate 5 MG/ML VIAL IM PRN (01:45)
[2020-07-25] MEDS ORDERED: Haloperidol Lactate 5 MG/ML VIAL SLOW IVP PRN (01:45)
[2020-07-25] MEDS: Piperacillin/Tazobactam 2.25 GM in Sodium Chloride 0.9% 100 ML IVPB SCH ×3 (02:08→21:19)
[2020-07-25] MEDS: Levothyroxine Sodium 25 MCG TAB PO SCH (02:08)
[2020-07-25] MEDS: Carbidopa/Levodopa 25-100 mg Tablet PO SCH ×3 (08:51→21:18)
[2020-07-25] MEDS: Aspirin 81 mg Enteric Coated Tablet PO SCH (08:51)
[2020-07-25] MEDS: Sevelamer Carbonate 800 MG TAB PO SCH ×3 (08:51→15:34)
[2020-07-25] MEDS: Calcitriol 0.25 MCG CAP PO SCH (08:51)
[2020-07-25] MEDS: Midodrine HCl 5 MG TAB PO SCH ×2 (08:51→21:18)
[2020-07-25] MEDS: Tamsulosin HCl 0.4 MG CAP PO SCH (08:52)
[2020-07-25] MEDS: Polyethylene Glycol 3350 17 GM Packet PO SCH (08:52)
--- NOTE | 2020-07-25 11:52 | PDOC.HOSPP ---
- Subjective Encounter Date: 07/25/20 Encounter Time: 09:00 Subjective: Patient followed up for spinal osteomyelitis. He reports pain is better. He denies any fevers or chills. - Objective Vital Signs & Weight: Vital Signs (12 hours) Temp Pulse Resp BP Pulse Ox 07/25/20 07:26 97.7 F 60 18 113/66 97 Weight Weight 224 lb 3.2 oz I&O: 07/24/20 07/25/20 07/26/20 06:59 06:59 06:59 Intake Total 1200 Balance 1200 Result Diagrams: 07/24/20 06:01 07/24/20 06:01 Additional Labs: I reviewed patient's labs and MAR Hospitalist ROS - Review of Systems Cardiovascular: denies: chest pain, palpitations, orthopnea, paroxysmal noc. dyspnea, edema, light headedness Skin: denies: rash, lesions, [place], bruising - Medication Medications: Active Medications Generic Name Dose Route Start Last Admin Trade Name Freq PRN Reason Stop Dose Admin Aspirin 81 mg 07/24/20 09:00 07/25/20 08:51 Aspirin 81 Mg Enteric Coated Tablet PO 81 mg DAILY CHARISSE Administration Atorvastatin Calcium 40 mg 07/23/20 21:00 07/24/20 20:39 Atorvastatin Calcium 40 Mg Tab PO 40 mg QPM CHARISSE Administration Calcitriol 0.25 mcg 07/24/20 09:00 07/25/20 08:51 Calcitriol 0.25 Mcg Cap PO 0.25 mcg DAILY CHARISSE Administration Carbidopa/Levodopa 1 tab 07/22/20 21:00 07/25/20 08:51 Carbidopa/Levodopa 25-100 Mg Tablet PO 1 tab TID CHARISSE Administration Epoetin Danial-epbx 7,500 unit 07/23/20 12:00 07/23/20 15:07 Epoetin Danial-Epbx (Esrd) 4,000 Unit/Ml Vial SC 7,500 unit Q7D CHARISSE Administration Fentanyl 25 mcg 07/22/20 02:48 07/24/20 17:45 Sublimaze SLOW IVP 25 mcg Q4H PRN Administration Pain Piperacillin Sod/Tazobactam 100 mls @ 200 mls/hr 07/22/20 06:00 07/25/20 02:08 Sod 2.25 gm/ Sodium Chloride IVPB Not Given Q8HR CHARISSE Levothyroxine Sodium 25 mcg 07/24/20 06:00 07/25/20 02:08 Levothyroxine Sodium 25 Mcg Tab PO Not Given 0600 CHARISSE Midodrine 10 mg 07/22/20 09:00 07/25/20 08:51 Proamatine PO 10 mg BID CHARISSE Administration Ondansetron HCl 4 mg 07/22/20 02:42 07/23/20 16:14 Zofran IVP 4 mg Q6H PRN Administration Nausea/Vomiting Polyethylene Glycol 17 gm 07/24/20 09:00 07/25/20 08:52 Polyethylene Glycol 3350 17 Gm Packet PO 17 gm DAILY CHARISSE Administration Sevelamer Carbonate 1,600 mg 07/24/20 12:00 07/25/20 08:51 Sevelamer Carbonate 800 Mg Tab PO 1,600 mg TID-WM CHARISSE Administration Sodium Chloride 10 ml 07/23/20 21:00 07/25/20 08:52 Flush - Normal Saline 10 Ml Syringe IVF 10 ml Q12HR CHARISSE Administration Tamsulosin HCl 0.4 mg 07/24/20 09:00 07/25/20 08:52 Tamsulosin Hcl 0.4 Mg Cap PO 0.4 mg DAILY CHARISSE Administration - Exam General Appearance: awake alert ENT: moist mucosa Neck: supple Heart: RRR Respiratory: CTAB Gastrointestinal: soft, non-tender Skin: no rashes Psychiatric: normal affect, normal behavior Hosp A/P (1) Acute osteomyelitis of lumbar spine Code(s): M46.26 - OSTEOMYELITIS OF [place], LUMBAR REGION Status: Acute (2) Discitis Code(s): M46.40 - DISCITIS, UNSPECIFIED, SITE UNSPECIFIED Status: Acute (3) Atrial fibrillation Code(s): I48.91 - UNSPECIFIED ATRIAL FIBRILLATION Status: Chronic Qualifiers: Atrial fibrillation type: longstanding persistent Qualified Code(s): I48.11 - Longstanding persistent atrial fibrillation (4) CAD (coronary artery disease) Code(s): I25.10 - ATHSCL HEART DISEASE OF [place] CORONARY ARTERY W/O ANG PCTRS Status: Chronic Qualifiers: Coronary Disease-Associated Artery/Lesion type: bypass graft [place] vs. transplanted heart: [place] heart Associated angina: without angina Qualified Code(s): I25.810 - Atherosclerosis of coronary artery bypass graft(s) without angina pectoris (5) ESRD (end stage renal disease) on dialysis Code(s): N18.6 - END STAGE RENAL DISEASE; Z99.2 - DEPENDENCE ON RENAL DIALYSIS Status: Chronic (6) Heart failure with reduced ejection fraction Code(s): I50.20 - UNSPECIFIED SYSTOLIC (CONGESTIVE) HEART FAILURE Status: Chronic - Plan discitis/spinal osteomyelitis on CT scan. Could not obtain MRI secondary to AICD. Continue Zosyn. Preliminary blood cultures are negative. Continue warfarin, pharmacy managing warfarin dosing. Ambulate patient Dialysis per nephrology service. Disposition: Once blood cultures are finalized, patient may need long-term antibiotics.
--- NOTE | 2020-07-25 12:22 | EKG ---
Test Reason : Blood Pressure : / mmHG Vent. Rate : 062 BPM Atrial Rate : 330 BPM P-R Int : 000 ms QRS Dur : 160 ms QT Int : 512 ms P-R-T Axes : 000 -79 095 degrees QTc Int : 519 ms Ventricular-paced rhythm Abnormal ECG Confirmed by ANALY WOLFE ([id number]), scientific publications editor NELSON HERRING ([id number]) on 07/25/2020 12:21:43 PM Referred By: Confirmed By:ANALY WOLFE
[2020-07-25] MEDS: Atorvastatin Calcium 40 MG TAB PO SCH (21:18)
[2020-07-25] MEDS: Melatonin 3 MG TAB PO PRN (21:18)
[2020-07-25] MEDS ORDERED: Melatonin 3 MG TAB PO SCH (22:45)
[2020-07-26 06:12] LABS: INR-International Normal Ratio 1.6; Prothrombin Time 19.4 sec (12.0-14.7)
[2020-07-26] MEDS: Piperacillin/Tazobactam 2.25 GM in Sodium Chloride 0.9% 100 ML IVPB SCH ×2 (06:26→13:09)
[2020-07-26] MEDS: Levothyroxine Sodium 25 MCG TAB PO SCH (06:26)
[2020-07-26] MEDS: Sevelamer Carbonate 800 MG TAB PO SCH ×3 (08:53→15:11)
[2020-07-26] MEDS: Polyethylene Glycol 3350 17 GM Packet PO SCH (08:54)
[2020-07-26] MEDS: Carbidopa/Levodopa 25-100 mg Tablet PO SCH ×3 (08:54→20:37)
[2020-07-26] MEDS: Midodrine HCl 5 MG TAB PO SCH ×2 (08:54→20:37)
[2020-07-26] MEDS: Aspirin 81 mg Enteric Coated Tablet PO SCH (08:54)
[2020-07-26] MEDS: Tamsulosin HCl 0.4 MG CAP PO SCH (08:54)
[2020-07-26] MEDS: Calcitriol 0.25 MCG CAP PO SCH (08:54)
--- NOTE | 2020-07-26 09:50 | PRG ---
DATE OF SERVICE: 07/26/2020 SUBJECTIVE: Mr. Chaudhary is a 80-year-old white male with ESRD and followed up by the Renal service for his maintenance hemodialysis and management of his ESRD. He was initially admitted for frequent falls and having balance problem. He was empirically treated for Parkinson's. He is currently on Sinemet. He has also had intermittent confusion and agitation. During this hospitalization, the patient had a CT of the lumbar spine and findings of diskitis/osteomyelitis at L2-L3. He is currently on IV antibiotics. Infectious Disease consultation has been done with Dr. Jacobson. The patient voices no new complaints today. He denies any chest pain or shortness of breath. OBJECTIVE: VITAL SIGNS: Blood pressure is noted at 120/60, heart rate 68, respiratory rate 16, temperature 97.5, O2 saturation 96%. GENERAL: The patient is awake, alert, comfortable, not in distress. SKIN: Adequate turgor. HEENT: He has pinkish conjunctivae. Anicteric sclerae. NECK: No neck mass. No carotid bruits. No JVD. CHEST: No deformities. LUNGS: Clear breath sounds. No wheezing. No crackles. HEART: Normal sinus rhythm. No murmur. No gallops. No rubs. ABDOMEN: Globular, soft, nontender. No masses. EXTREMITIES: No edema. No deformities. MEDICATIONS: July 26, 2020, was reviewed. LABORATORY DATA: July 24, 2020; white count 6.4, hemoglobin 10.9. Sodium 139, potassium 4.5, chloride 100, carbon dioxide 23, BUN 49, creatinine 6.4. ASSESSMENT AND PLAN: 1. End-stage renal disease, stable. No indication for any emergent hemodialysis today. We will continue current Monday, Monday, and Monday hemodialysis with fluid removal as tolerated by the patient. 2. Osteomyelitis/L2-L3 diskitis -- on empiric IV antibiotics. Awaiting final recommendation from Dr. Jacobson. 3. Resting hand tremors -- frequent falls. Empiric treatment with Sinemet for possible Parkinson disease. He is ambulating a little better now. 4. Agitation/confusion -- intermittent in nature. He is mentating better this morning. 5. Recheck CBC, basic metabolic panel in a.m. Job ID: [id number]
[2020-07-26] MEDS ORDERED: Polyethylene Glycol 3350 17 GM Packet PO PRN (15:34)
[2020-07-26] MEDS ORDERED: HOLD VANCOMYCIN FOR LEVEL >20 FS SCH (16:00)
[2020-07-26] MEDS ORDERED: Vancomycin HCl 750 MG in Sodium Chloride 0.9% 250 ML 250 ML IVPB SCH (16:00)
[2020-07-26] MEDS ORDERED: Vancomycin HCl 1.25 GM in Sodium Chloride 0.9% 250 ML 250 ML IVPB SCH (16:00)
[2020-07-26] MEDS ORDERED: Vancomycin HCl 1.5 GM in Sodium Chloride 0.9% 250 ML 300 ML IVPB SCH (16:00)
[2020-07-26] MEDS ORDERED: Vancomycin 1 GM in Premix Bag 1 BAG IVPB SCH (16:00)
--- NOTE | 2020-07-26 16:20 | PRG ---
DATE OF SERVICE: 07/26/2020 SUBJECTIVE: Mr. Chaudhary is having less pain. No dyspnea. No vomiting or diarrhea. OBJECTIVE: VITAL SIGNS: He has been afebrile. BP 120/60, pulse 68, respirations 16, and O2 saturation 96. LUNGS: Clear. HEART: S1, S2. Regular rate. ABDOMEN: Soft. Not distended. NEUROLOGIC: Unchanged. LABORATORY DATA: Sodium 139, creatinine 6.4. White cell count 6.4, hemoglobin 10.9, platelets 158. Cultures are negative thus far, and the repeat scan with a lumbar spine CT read by Dr. Lin showed worrisome findings for diskitis, osteomyelitis at L2-3 level, appears to be phlegmonous tissue in the paraspinal region at L2-3. ASSESSMENT AND DISCUSSION: End-stage renal disease due to nephrolithiasis and on hemodialysis through an arteriovenous fistula, ischemic cardiomyopathy, episodes of fall, and serendipitous finding with lumbosacral spine osteomyelitis, diskitis, and phlegmonous changes. We are not going to have microbiology identification, so we will have to treat empirically. I would suggest vancomycin sliding scale plus oral quinolone for at least 6 weeks with followup of lumbosacral spine films in a few weeks, maybe 4 or 5 weeks. I can follow him up in the outpatient clinic and he will need weekly labs with C-reactive protein, CBC. The vancomycin levels could be monitored at dialysis. Job ID: [id number]
--- NOTE | 2020-07-26 16:31 | PDOC.HOSPP ---
- Subjective Encounter Date: 07/26/20 Encounter Time: 11:30 Subjective: Patient seen for follow-up regarding vertebral osteomyelitis. He denies fevers or chills. - Objective Vital Signs & Weight: Vital Signs (12 hours) Temp Pulse Resp BP Pulse Ox 07/26/20 08:00 97.5 F L 68 16 120/60 96 Weight Weight 224 lb 3.2 oz I&O: 07/25/20 07/26/20 07/27/20 06:59 06:59 06:59 Intake Total 580 Balance 580 Result Diagrams: 07/24/20 06:01 07/24/20 06:01 Additional Labs: I reviewed patient's labs and MAR Hospitalist ROS - Review of Systems Cardiovascular: denies: chest pain, palpitations, orthopnea, paroxysmal noc. dyspnea, edema, light headedness Gastrointestinal: denies: nausea, vomiting, abdominal pain, diarrhea, constipation, melena, hematochezia - Medication Medications: Active Medications Generic Name Dose Route Start Last Admin Trade Name Freq PRN Reason Stop Dose Admin Aspirin 81 mg 07/24/20 09:00 07/26/20 08:54 Aspirin 81 Mg Enteric Coated Tablet PO 81 mg DAILY CHARISSE Administration Atorvastatin Calcium 40 mg 07/23/20 21:00 07/25/20 21:18 Atorvastatin Calcium 40 Mg Tab PO 40 mg QPM CHARISSE Administration Calcitriol 0.25 mcg 07/24/20 09:00 07/26/20 08:54 Calcitriol 0.25 Mcg Cap PO 0.25 mcg DAILY CHARISSE Administration Carbidopa/Levodopa 1 tab 07/22/20 21:00 07/26/20 15:11 Carbidopa/Levodopa 25-100 Mg Tablet PO 1 tab TID CHARISSE Administration Epoetin Danial-epbx 7,500 unit 07/23/20 12:00 07/23/20 15:07 Epoetin Danial-Epbx (Esrd) 4,000 Unit/Ml Vial SC 7,500 unit Q7D CHARISSE Administration Fentanyl 25 mcg 07/22/20 02:48 07/24/20 17:45 Sublimaze SLOW IVP 25 mcg Q4H PRN Administration Pain Levothyroxine Sodium 25 mcg 07/24/20 06:00 07/26/20 06:26 Levothyroxine Sodium 25 Mcg Tab PO 25 mcg 0600 CHARISSE Administration Melatonin 3 mg 07/25/20 19:41 07/25/20 21:18 Melatonin 3 Mg Tab PO 3 mg HS PRN Administration Insomnia Midodrine 10 mg 07/22/20 09:00 07/26/20 08:54 Proamatine PO 10 mg BID CHARISSE Administration Ondansetron HCl 4 mg 07/22/20 02:42 07/23/20 16:14 Zofran IVP 4 mg Q6H PRN Administration Nausea/Vomiting Polyethylene Glycol 17 gm 07/24/20 09:00 07/26/20 08:54 Polyethylene Glycol 3350 17 Gm Packet PO 17 gm DAILY CHARISSE Administration Sevelamer Carbonate 1,600 mg 07/24/20 12:00 07/26/20 15:11 Sevelamer Carbonate 800 Mg Tab PO 1,600 mg TID-WM CHARISSE Administration Sodium Chloride 10 ml 07/23/20 21:00 07/26/20 08:55 Flush - Normal Saline 10 Ml Syringe IVF 10 ml Q12HR CHARISSE Administration Tamsulosin HCl 0.4 mg 07/24/20 09:00 07/26/20 08:54 Tamsulosin Hcl 0.4 Mg Cap PO 0.4 mg DAILY CHARISSE Administration - Exam General Appearance: awake alert Eye: anicteric sclera ENT: moist mucosa Neck: supple Heart: RRR Respiratory: CTAB Gastrointestinal: soft, non-tender Extremities: no cyanosis Skin: no rashes Musculoskeletal: normal tone, normal strength Psychiatric: normal affect, normal behavior Hosp A/P (1) Acute osteomyelitis of lumbar spine Code(s): M46.26 - OSTEOMYELITIS OF [place], LUMBAR REGION Status: Acute (2) Discitis Code(s): M46.40 - DISCITIS, UNSPECIFIED, SITE UNSPECIFIED Status: Acute (3) Atrial fibrillation Code(s): I48.91 - UNSPECIFIED ATRIAL FIBRILLATION Status: Chronic Qualifiers: Atrial fibrillation type: longstanding persistent Qualified Code(s): I48.11 - Longstanding persistent atrial fibrillation (4) CAD (coronary artery disease) Code(s): I25.10 - ATHSCL HEART DISEASE OF [place] CORONARY ARTERY W/O ANG PCTRS Status: Chronic Qualifiers: Coronary Disease-Associated Artery/Lesion type: bypass graft [place] vs. transplanted heart: [place] heart Associated angina: without angina Qualified Code(s): I25.810 - Atherosclerosis of coronary artery bypass graft(s) without angina pectoris (5) ESRD (end stage renal disease) on dialysis Code(s): N18.6 - END STAGE RENAL DISEASE; Z99.2 - DEPENDENCE ON RENAL DIALYSIS Status: Chronic (6) Heart failure with reduced ejection fraction Code(s): I50.20 - UNSPECIFIED SYSTOLIC (CONGESTIVE) HEART FAILURE Status: Chronic - Plan discitis/spinal osteomyelitis on CT scan. Patient is on Zosyn, preliminary blood cultures continue to be negative. pharmacy managing warfarin dosing. Ambulate patient Dialysis per nephrology service. Disposition: Likely home in 24 to 48 hours.
[2020-07-26] MEDS: Warfarin Sodium 5 MG TAB PO SCH (17:11)
[2020-07-26] MEDS: Melatonin 3 MG TAB PO PRN (20:37)
[2020-07-26] MEDS: Atorvastatin Calcium 40 MG TAB PO SCH (20:37)
[2020-07-27] MEDS: Levothyroxine Sodium 25 MCG TAB PO SCH (05:38)
[2020-07-27 06:00] LABS: INR-International Normal Ratio 1.3
[2020-07-27 06:12] LABS: #Eosinphils 0.6 thou/uL (0.0-0.7); #Lymphocytes 1.6 thou/uL (1.20-3.40); #Monocytes 0.7 thou/uL (0.11-0.59); #Neutrophils 4.8 thou/uL (1.40-6.50); %Basophils 0.1 % (0.0-1.0); %Eosinophils 7.7 % (0.0-10.0); %Lymphocytes 20.6 % (21.0-51.0); %Monocytes 9.5 % (0.0-10.0); %Neutrophils 62.1 % (42.0-75.0); Hemoglobin 10.1 g/dL (14.0-18.0); Mean Corpuscular HGB CONC 32.3 g/dL (32.0-36.0); Mean Corpuscular Hemoglobin 35.6 pg (27.0-31.0); Platelet Count 157 thou/uL (130-400); RBC Distribution Width 14.2 % (11.5-14.5); Red Blood Cell (RBC) Count 2.83 mill/uL (4.70-6.10); White Blood Cell (WBC) Count 7.7 thou/uL (4.8-10.8)
[2020-07-27 06:18] LABS: Anion Gap 19 mmol/L (10-20); BUN (Urea Nitrogen) 52 mg/dL (8.4-25.7); Calc. Creatinine Clearance 12 mL/min (70-130); Calcium 9.1 mg/dL (7.8-10.44); Carbon Dioxide 25 mmol/L (23-31); Chloride 102 mmol/L (98-107); Estimated GFR-MDRD 8; Glucose 92 mg/dL (83-110); Potassium 4.5 mmol/L (3.5-5.1); Sodium 141 mmol/L (136-145)
[2020-07-27] MEDS: Sevelamer Carbonate 800 MG TAB PO SCH ×3 (07:38→16:22)
--- NOTE | 2020-07-27 08:16 | PRG ---
DATE OF SERVICE: 07/27/2020 SUBJECTIVE: Mr. Chaudhary is a 80-year-old white male with ESRD, currently on maintenance hemodialysis. The patient is currently undergoing hemodialysis today and tolerating said treatment. States he is occasional confused. The patient recently diagnosed with osteomyelitis of the L2-L3, but blood culture was negative. As per recommendation by ID, six weeks of quinolone and vancomycin treatment. The patient denies any chest pain or shortness of breath. He is also being treated empirically for Parkinson disease. OBJECTIVE: VITAL SIGNS: Blood pressure 125/70, heart rate 60, respiratory rate 18, temperature 97.3, and O2 saturations 98%. GENERAL: The patient is awake, comfortable, not in distress. SKIN: Adequate turgor. HEENT: Slightly pale conjunctivae. Anicteric sclerae. NECK: No neck mass. No carotid bruits. No JVD. CHEST: No deformities. LUNGS: Clear breath sounds. No wheezing. No crackles. HEART: Normal sinus rhythm. No murmur. No gallops. No rubs. ABDOMEN: Globular, soft, and nontender. No masses. EXTREMITIES: No edema. No deformities. MEDICATIONS: Medications of July 27, 2020, were reviewed. LABORATORY DATA: On July 27, 2020, white count 7.7 and hemoglobin 10.1. Sodium 141, potassium 4.5, chloride 102, carbon dioxide 25, BUN 52, creatinine 7.09, glucose 92, and calcium 9.1. PTH is 279. ASSESSMENT AND PLAN: 1. End-stage renal disease, stable. We will continue current hemodialysis regimen. Fluid removal as tolerated. He is to undergo 3 hours of hemodialysis with 2 to 3 L of fluid to be removed. 2. Anemia. Continuing Epogen. 3. Osteomyelitis/diskitis - as per recommendation by ID, quinolones/vancomycin, sliding scale. 4. Secondary hyperparathyroidism - currently on calcitriol. Agree with current management. Job ID: [id number]
[2020-07-27] MEDS: Carbidopa/Levodopa 25-100 mg Tablet PO SCH ×3 (11:58→21:36)
[2020-07-27] MEDS: Aspirin 81 mg Enteric Coated Tablet PO SCH (12:13)
[2020-07-27] MEDS: Calcitriol 0.25 MCG CAP PO SCH (12:13)
[2020-07-27] MEDS: Folic Acid/Vit B Comp W-C PO SCH (12:14)
[2020-07-27] MEDS: Tamsulosin HCl 0.4 MG CAP PO SCH (12:14)
[2020-07-27] MEDS: Midodrine HCl 5 MG TAB PO SCH ×2 (12:14→21:36)
[2020-07-27] MEDS: Polyethylene Glycol 3350 17 GM Packet PO SCH (12:15)
--- NOTE | 2020-07-27 13:44 | PDOC.HOSPP ---
- Subjective Encounter Date: 07/27/20 Encounter Time: 10:00 Subjective: Patient seen for follow-up regarding vertebral osteomyelitis and discitis. Denies any back pain. - Objective Vital Signs & Weight: Vital Signs (12 hours) Temp Pulse Resp BP Pulse Ox 07/27/20 12:06 97.3 F L 61 18 112/61 98 07/27/20 08:00 98 07/27/20 07:19 97.3 F L 60 18 125/70 98 Weight Weight 224 lb 3.2 oz I&O: 07/26/20 07/27/20 07/28/20 06:59 06:59 06:59 Intake Total 580 780 Balance 580 780 Result Diagrams: 07/27/20 05:22 07/27/20 05:22 Additional Labs: I reviewed patient's labs and MAR Hospitalist ROS - Review of Systems Constitutional: denies: fever, chills, sweats, weakness, malaise Gastrointestinal: denies: nausea, vomiting, abdominal pain, diarrhea, constipation, melena, hematochezia - Medication Medications: Active Medications Generic Name Dose Route Start Last Admin Trade Name Freq PRN Reason Stop Dose Admin Aspirin 81 mg 07/24/20 09:00 07/27/20 12:13 Aspirin 81 Mg Enteric Coated Tablet PO 81 mg DAILY CHARISSE Administration Atorvastatin Calcium 40 mg 07/23/20 21:00 07/26/20 20:37 Atorvastatin Calcium 40 Mg Tab PO 40 mg QPM CHARISSE Administration Calcitriol 0.25 mcg 07/24/20 09:00 07/27/20 12:13 Calcitriol 0.25 Mcg Cap PO 0.25 mcg DAILY CHARISSE Administration Carbidopa/Levodopa 1 tab 07/22/20 21:00 07/27/20 11:58 Carbidopa/Levodopa 25-100 Mg Tablet PO Not Given TID CHARISSE Epoetin Danial-epbx 7,500 unit 07/23/20 12:00 07/23/20 15:07 Epoetin Danial-Epbx (Esrd) 4,000 Unit/Ml Vial SC 7,500 unit Q7D CHARISSE Administration Fentanyl 25 mcg 07/22/20 02:48 07/24/20 17:45 Sublimaze SLOW IVP 25 mcg Q4H PRN Administration Pain Levofloxacin 250 mg 07/27/20 06:00 07/27/20 05:38 Levofloxacin 250 Mg Tab PO 250 mg 0600 CHARISSE Administration Levothyroxine Sodium 25 mcg 07/24/20 06:00 07/27/20 05:38 Levothyroxine Sodium 25 Mcg Tab PO 25 mcg 0600 CHARISSE Administration Melatonin 3 mg 07/25/20 19:41 07/26/20 20:37 Melatonin 3 Mg Tab PO 3 mg HS PRN Administration Insomnia Midodrine 10 mg 07/22/20 09:00 07/27/20 12:14 Proamatine PO 10 mg BID CHARISSE Administration Ondansetron HCl 4 mg 07/22/20 02:42 07/23/20 16:14 Zofran IVP 4 mg Q6H PRN Administration Nausea/Vomiting Polyethylene Glycol 17 gm 07/24/20 09:00 07/27/20 12:15 Polyethylene Glycol 3350 17 Gm Packet PO Not Given DAILY CHARISSE Sevelamer Carbonate 1,600 mg 07/24/20 12:00 07/27/20 12:13 Sevelamer Carbonate 800 Mg Tab PO 1,600 mg TID-WM CHARISSE Administration Sodium Chloride 10 ml 07/23/20 21:00 07/27/20 12:15 Flush - Normal Saline 10 Ml Syringe IVF 10 ml Q12HR CHARISSE Administration Tamsulosin HCl 0.4 mg 07/24/20 09:00 07/27/20 12:14 Tamsulosin Hcl 0.4 Mg Cap PO 0.4 mg DAILY CHARISSE Administration Vitamin B Complex/Vit C/Folic Acid 1 tab 07/27/20 09:00 07/27/20 12:14 Folic Acid/Vit B Comp W-C PO 1 tab QAM CHARISSE Administration Warfarin Sodium 5 mg 07/26/20 17:00 07/26/20 17:11 Warfarin Sodium 5 Mg Tab PO 5 mg 1700 CHARISSE Administration - Exam General - other findings: Obese ENT: moist mucosa Neck: supple Heart: RRR Respiratory: no wheezes, normal chest expansion Gastrointestinal: soft, non-tender Extremities: no cyanosis Skin: no rashes Psychiatric: normal affect, normal behavior Hosp A/P (1) Acute osteomyelitis of lumbar spine Code(s): M46.26 - OSTEOMYELITIS OF [place], LUMBAR REGION Status: Acute (2) Discitis Code(s): M46.40 - DISCITIS, UNSPECIFIED, SITE UNSPECIFIED Status: Acute (3) Atrial fibrillation Code(s): I48.91 - UNSPECIFIED ATRIAL FIBRILLATION Status: Chronic Qualifiers: Atrial fibrillation type: longstanding persistent Qualified Code(s): I48.11 - Longstanding persistent atrial fibrillation (4) ESRD (end stage renal disease) on dialysis Code(s): N18.6 - END STAGE RENAL DISEASE; Z99.2 - DEPENDENCE ON RENAL DIALYSIS Status: Chronic (5) CAD (coronary artery disease) Code(s): I25.10 - ATHSCL HEART DISEASE OF [place] CORONARY ARTERY W/O ANG PCTRS Status: Chronic Qualifiers: Coronary Disease-Associated Artery/Lesion type: bypass graft [place] vs. transplanted heart: [place] heart Associated angina: without angina Qualified Code(s): I25.810 - Atherosclerosis of coronary artery bypass graft(s) without angina pectoris (6) Heart failure with reduced ejection fraction Code(s): I50.20 - UNSPECIFIED SYSTOLIC (CONGESTIVE) HEART FAILURE Status: Chronic - Plan Patient has been switched to vancomycin with dialysis and daily oral levoflox acin, will need 6 weeks treatment with repeat imaging. pharmacy managing warfarin dosing. INR subtherapeutic at 1.3 today. Ambulate patient Nephrology following for maintenance dialysis. Disposition: Likely home in 24 to 48 hours.
[2020-07-27 15:44] LABS: Vancomycin, Random 19.5 ug/mL (See Comment)
[2020-07-27] MEDS: Warfarin Sodium 5 MG TAB PO SCH (16:22)
[2020-07-27] MEDS: Atorvastatin Calcium 40 MG TAB PO SCH (21:36)
[2020-07-27] MEDS: Melatonin 3 MG TAB PO PRN (21:36)
[2020-07-28 05:43] LABS: INR-International Normal Ratio 1.3; Prothrombin Time 15.7 sec (12.0-14.7)
[2020-07-28] MEDS: Levothyroxine Sodium 25 MCG TAB PO SCH (05:54)
[2020-07-28] MEDS: Carbidopa/Levodopa 25-100 mg Tablet PO SCH ×3 (07:24→20:30)
[2020-07-28] MEDS: Calcitriol 0.25 MCG CAP PO SCH (07:25)
[2020-07-28] MEDS: Folic Acid/Vit B Comp W-C PO SCH (07:25)
[2020-07-28] MEDS: Midodrine HCl 5 MG TAB PO SCH ×2 (07:25→20:29)
[2020-07-28] MEDS: Aspirin 81 mg Enteric Coated Tablet PO SCH (07:25)
[2020-07-28] MEDS: Sevelamer Carbonate 800 MG TAB PO SCH ×3 (07:25→17:44)
[2020-07-28] MEDS: Tamsulosin HCl 0.4 MG CAP PO SCH (07:25)
[2020-07-28] MEDS: Polyethylene Glycol 3350 17 GM Packet PO SCH (07:29)
--- NOTE | 2020-07-28 09:08 | PRG ---
DATE OF SERVICE: 07/28/2020 SUBJECTIVE: Mr. Chaudhary is a 80-year-old white male with ESRD and followed up by the Renal Service for management of his ESRD as well as maintenance hemodialysis. He was admitted for generalized malaise. He is being treated for Parkinson disease. He has less tremors. He has had balance problem in the past. During this hospitalization, he was diagnosed to have osteomyelitis/diskitis at L2-L3. Currently, on IV antibiotics. ID following. This morning, he voices no new complaints. He is tolerating the said dialysis regimen. OBJECTIVE: VITAL SIGNS: Blood pressure 145/75, heart rate 67, respiratory rate 16, temperature 97.8, O2 saturation 97%. GENERAL: The patient is awake, alert, comfortable, not in distress, sitting. SKIN: Adequate turgor. HEENT: Pinkish conjunctivae. Anicteric sclerae. NECK: No neck mass. No carotid bruits. No JVD. CHEST: No deformities. LUNGS: Clear breath sounds. No wheezing. No crackles. HEART: Normal sinus rhythm. No murmurs, gallops, or rubs. ABDOMEN: Globular, soft nontender, no masses. EXTREMITIES: No edema. MEDICATIONS: July 28, 2020, reviewed. LABORATORY DATA: July 27, 2020, white count 7.7, hemoglobin 10.1. Sodium 141, potassium 4.5, chloride 102, carbon dioxide 25, BUN 52, creatinine 7.09, calcium 9.1. PTH 279. ASSESSMENT AND PLAN: 1. End-stage renal disease stable, no indication for any emergent hemodialysis. Continuing Monday, Monday, and Monday hemodialysis regimen. 2. Parkinson disease, on Sinemet. 3. Osteomyelitis/diskitis, currently on IV vancomycin and p.o. levothyroxine. 4. Anemia. Continue weekly Epogen. Job ID: [id number]
--- NOTE | 2020-07-28 14:49 | PDOC.HOSPP ---
- Subjective Encounter Date: 07/28/20 Encounter Time: 12:30 Subjective: Patient seen for follow-up for vertebral osteomyelitis. Denies any complaints today. - Objective Vital Signs & Weight: Vital Signs (12 hours) Temp Pulse Resp BP Pulse Ox 07/28/20 08:00 97.8 F 67 16 145/75 H 97 Weight Weight 224 lb 3.2 oz I&O: 07/27/20 07/28/20 07/29/20 06:59 06:59 06:59 Intake Total 780 970 Output Total 1999 Balance 780 -1030 Result Diagrams: 07/27/20 05:22 07/27/20 05:22 Additional Labs: I reviewed patient's labs and MAR Hospitalist ROS - Review of Systems Gastrointestinal: denies: nausea, vomiting, diarrhea, constipation, melena, hematochezia Genitourinary: denies: dysuria, frequency, incontinence, hematuria, retention - Medication Medications: Active Medications Generic Name Dose Route Start Last Admin Trade Name Freq PRN Reason Stop Dose Admin Aspirin 81 mg 07/24/20 09:00 07/28/20 07:25 Aspirin 81 Mg Enteric Coated Tablet PO 81 mg DAILY CHARISSE Administration Atorvastatin Calcium 40 mg 07/23/20 21:00 07/27/20 21:36 Atorvastatin Calcium 40 Mg Tab PO 40 mg QPM CHARISSE Administration Calcitriol 0.25 mcg 07/24/20 09:00 07/28/20 07:25 Calcitriol 0.25 Mcg Cap PO 0.25 mcg DAILY CHARISSE Administration Carbidopa/Levodopa 1 tab 07/22/20 21:00 07/28/20 07:24 Carbidopa/Levodopa 25-100 Mg Tablet PO 1 tab TID CHARISSE Administration Epoetin Danial-epbx 7,500 unit 07/23/20 12:00 07/23/20 15:07 Epoetin Danial-Epbx (Esrd) 4,000 Unit/Ml Vial SC 7,500 unit Q7D CHARISSE Administration Fentanyl 25 mcg 07/22/20 02:48 07/24/20 17:45 Sublimaze SLOW IVP 25 mcg Q4H PRN Administration Pain Levofloxacin 250 mg 07/27/20 06:00 07/28/20 05:54 Levofloxacin 250 Mg Tab PO 250 mg 0600 CHARISSE Administration Levothyroxine Sodium 25 mcg 07/24/20 06:00 07/28/20 05:54 Levothyroxine Sodium 25 Mcg Tab PO 25 mcg 0600 CHARISSE Administration Melatonin 3 mg 07/25/20 19:41 07/27/20 21:36 Melatonin 3 Mg Tab PO 3 mg HS PRN Administration Insomnia Midodrine 10 mg 07/22/20 09:00 07/28/20 07:25 Proamatine PO 10 mg BID CHARISSE Administration Ondansetron HCl 4 mg 07/22/20 02:42 07/23/20 16:14 Zofran IVP 4 mg Q6H PRN Administration Nausea/Vomiting Polyethylene Glycol 17 gm 07/24/20 09:00 07/28/20 07:29 Polyethylene Glycol 3350 17 Gm Packet PO 17 gm DAILY CHARISSE Administration Sevelamer Carbonate 1,600 mg 07/24/20 12:00 07/28/20 12:16 Sevelamer Carbonate 800 Mg Tab PO 1,600 mg TID-WM CHARISSE Administration Sodium Chloride 10 ml 07/23/20 21:00 07/28/20 07:29 Flush - Normal Saline 10 Ml Syringe IVF 10 ml Q12HR CHARISSE Administration Tamsulosin HCl 0.4 mg 07/24/20 09:00 07/28/20 07:25 Tamsulosin Hcl 0.4 Mg Cap PO 0.4 mg DAILY CHARISSE Administration Vitamin B Complex/Vit C/Folic Acid 1 tab 07/27/20 09:00 07/28/20 07:25 Folic Acid/Vit B Comp W-C PO 1 tab QAM CHARISSE Administration - Exam General Appearance: NAD Eye: anicteric sclera ENT: normocephalic atraumatic Neck: no thyromegaly, no lymphadenopathy Heart: RRR Respiratory: CTAB Gastrointestinal: soft, non-tender Skin: no rashes Psychiatric: normal affect, normal behavior Hosp A/P (1) Acute osteomyelitis of lumbar spine Code(s): M46.26 - OSTEOMYELITIS OF VERTEBRA, LUMBAR REGION Status: Acute (2) Discitis Code(s): M46.40 - DISCITIS, UNSPECIFIED, SITE UNSPECIFIED Status: Acute (3) ESRD (end stage renal disease) on dialysis Code(s): N18.6 - END STAGE RENAL DISEASE; Z99.2 - DEPENDENCE ON RENAL DIALYSIS Status: Chronic (4) Atrial fibrillation Code(s): I48.91 - UNSPECIFIED ATRIAL FIBRILLATION Status: Chronic Qualifiers: Atrial fibrillation type: longstanding persistent Qualified Code(s): I48.11 - Longstanding persistent atrial fibrillation (5) Heart failure with reduced ejection fraction Code(s): I50.20 - UNSPECIFIED SYSTOLIC (CONGESTIVE) HEART FAILURE Status: Chronic (6) CAD (coronary artery disease) Code(s): I25.10 - ATHSCL HEART DISEASE OF [place] CORONARY ARTERY W/O ANG PCTRS Status: Chronic Qualifiers: Coronary Disease-Associated Artery/Lesion type: bypass graft [place] vs. transplanted heart: tanana heart Associated angina: without angina Qualified Code(s): I25.810 - Atherosclerosis of coronary artery bypass graft(s) without angina pectoris - Plan Continue vancomycin with dialysis and daily oral levofloxacin 250 mg. Current dose being increased to 6 mg today. Ambulate patient Maintenance dialysis per nephrology service. Occasional episodes of confusion.
[2020-07-28] MEDS: Warfarin Sodium 3 MG TAB PO SCH (17:44)
[2020-07-28] MEDS: Atorvastatin Calcium 40 MG TAB PO SCH (20:29)
[2020-07-28] MEDS: Melatonin 3 MG TAB PO PRN (20:29)
[2020-07-29] MEDS: Levothyroxine Sodium 25 MCG TAB PO SCH (05:37)
[2020-07-29 05:51] LABS: INR-International Normal Ratio 1.3; Prothrombin Time 16.1 sec (12.0-14.7)
[2020-07-29 08:22] LABS: Vancomycin, Random 14.1 ug/mL (See Comment)
--- NOTE | 2020-07-29 08:34 | PRG ---
DATE OF SERVICE: 07/29/2020 SUBJECTIVE: Mr. Chaudhary is a 80-year-old white male with known history of ESRD, on maintenance hemodialysis. We are following up this patient for management of his ESRD. He is currently undergoing hemodialysis. Attempting fluid removal between 2 and 3 L. He has also been diagnosed with osteomyelitis/wfstqxsb-C6-O3 during this hospitalization, currently on IV vancomycin and p.o. Levaquin. No new complaints today. No chest pain or shortness of breath. Please note with this hospitalization, we also empirically started the patient on Sinemet for possible Parkinson's disease. He has had a history of a resting tremor and frequent falls and balance problem. OBJECTIVE: VITAL SIGNS: Blood pressure is 145/68, heart rate 61, respiratory rate 18, temperature 97.7, and O2 saturation is 99%. GENERAL: The patient is awake, alert, supine, and comfortable, not in distress. SKIN: Adequate turgor. HEENT: He has a pinkish conjunctivae. Anicteric sclerae. No neck mass. No carotid bruits. No JVD. CHEST: No deformities. LUNGS: Clear breath sounds. HEART: Normal sinus rhythm. No murmur. No gallops. No rubs. ABDOMEN: Globular, soft, and nontender. No masses. EXTREMITIES: No edema. No deformities. MEDICATIONS: July 29, 2020, was reviewed. LABORATORY DATA: Laboratories of July 27, 2020; white count 7.7 and hemoglobin 10.1. Sodium 141, potassium 4.5, chloride 102, carbon dioxide 25, BUN 52, creatinine 7.09, glucose 92, and calcium 9.1. ASSESSMENT AND PLAN: 1. End-stage renal disease-currently on maintenance hemodialysis. He is tolerating said treatment, fluid removal 2 to 3 L today as tolerated. No changes will be made with the current hemodialysis regimen. 2. Anemia, on weekly Epogen. 3. Osteomyelitis/diskitis-currently on IV vancomycin and p.o. Levaquin. 4. Parkinson's disease. Continuing Sinemet. 5. Recheck CBC and basic metabolic profile in a.m. Job ID: [id number]
[2020-07-29] MEDS: Sevelamer Carbonate 800 MG TAB PO SCH ×3 (11:41→16:45)
[2020-07-29] MEDS: Polyethylene Glycol 3350 17 GM Packet PO SCH (11:45)
[2020-07-29] MEDS: Midodrine HCl 5 MG TAB PO SCH (11:46)
[2020-07-29] MEDS: Calcitriol 0.25 MCG CAP PO SCH (11:46)
[2020-07-29] MEDS: Aspirin 81 mg Enteric Coated Tablet PO SCH (11:46)
[2020-07-29] MEDS: Tamsulosin HCl 0.4 MG CAP PO SCH (11:47)
[2020-07-29] MEDS: Folic Acid/Vit B Comp W-C PO SCH (11:47)
[2020-07-29] MEDS: Carbidopa/Levodopa 25-100 mg Tablet PO SCH ×3 (11:50→16:46)
[2020-07-29 14:15] VITALS: BP 101/61; TEMP 98.2
[2020-07-29] MEDS: Warfarin Sodium 3 MG TAB PO SCH (16:46)
--- NOTE | 2020-07-30 00:48 | DIS ---
DATE OF ADMISSION: 07/21/2020 DATE OF DISCHARGE: 07/29/2020 PRIMARY CARE PROVIDER: Solange Robbins MD DISCHARGE DIAGNOSES: 1. Vertebral osteomyelitis. 2. Diskitis. 3. Lumbar spinal stenosis. 4. COVID-19 PCR test negative. 5. Subtherapeutic INR. CONDITION OF PATIENT ON THE DAY OF DISCHARGE: Stable. I assessed Mr. Chaudhary on the day of discharge. He denies any chest pain or shortness of breath. Vital signs are stable. S1 and S2 are heard, regular. Lungs are clear to auscultation bilaterally. CONSULTATIONS DURING THIS HOSPITALIZATION: 1. Nephrology, Dr. Huff. 2. Neurosurgery, Dr. Abarca. 3. Infectious Diseases, Dr. Jacobson. DISCHARGE MEDICATIONS: The patient will be on; 1. Vancomycin per sliding scale with dialysis for 6 weeks. 2. Levofloxacin 250 mg daily for 6 weeks. 3. He has also been started on calcitriol 0.25 mcg daily. 4. Sinemet 25/100 mg t.i.d. 5. Renvela 1600 mg t.i.d. p.r.n. Otherwise, no change was made to his pre-admission home medications, which include; 1. Warfarin 6 mg daily. 2. Atorvastatin 40 mg in the evening. 3. Aspirin 81 mg daily. 4. Flomax 0.4 mg daily. 5. Midodrine 10 mg two times a day. 6. Nephro-Radha one tablet daily. 7. MiraLAX daily as needed. 8. Trazodone as needed. HOSPITAL COURSE: Mr. Chaudhary is a pleasant 80-year-old gentleman, who was admitted to [facility] on July 21, 2020, for abdominal discomfort and generalized fatigue. Initially, concern was regarding cholecystitis. He had CT scan of the abdomen and pelvis, which showed diskitis and vertebral osteomyelitis at L2-L3 level. HIDA scan was normal. He was seen by Neurosurgery Service because the lumbar spine CT without contrast showed findings worrisome for possible diskitis and osteomyelitis at L2-L3 level. He also had moderate to severe central canal stenosis at L4-L5 level. Neurosurgery team felt that this was nonsurgical at this time because he did not have any deficits. He was also seen by Infectious Disease Service for antibiotics and Nephrology Service for maintenance dialysis. He was initially treated with broad-spectrum antibiotics. All cultures came back negative. He has been transitioned to vancomycin with dialysis and daily levofloxacin. He was recommended home with Home Health versus rehab. He preferred to go home with Home Health. His INR was subtherapeutic on the day of discharge. He has been advised to have his PT/INR checked through his primary care provider's office in 3 to 5 days. He has also been advised to have lumbosacral films done through primary care provider's office in four weeks. POST-ACUTE CARE FOLLOWUP: With primary care provider in 3 days, with Neurosurgery Service in 3 to 4 weeks, and with Infectious Diseases, Dr. Jacobson in 3 to 4 weeks. DIET: Renal and heart-healthy. ACTIVITY: As tolerated. DISCHARGE DESTINATION: Home. TIME SPENT: Total amount of time spent coordinating this discharge: 33 minutes. Job ID: [id number]
== END 2020-07-29 17:52 | disposition home or self-care (01) | DRG 539 ==
LOC: ERS 19:13 → 2NO 23:41 → T4-A 07-22 19:38
PROVIDERS: ADMIT Internal Medicine; ATTEND Internal Medicine
PROC: 5A1D70Z Performance of Urinary Filtration, Intermittent, Less than 6 Hours Per Day (ICD-10-PCS; principal; 2020-07-22)
PROC: 5A1D70Z Performance of Urinary Filtration, Intermittent, Less than 6 Hours Per Day (ICD-10-PCS; 2020-07-24)
PROC: 5A1D70Z Performance of Urinary Filtration, Intermittent, Less than 6 Hours Per Day (ICD-10-PCS; 2020-07-27)
PROC: 5A1D70Z Performance of Urinary Filtration, Intermittent, Less than 6 Hours Per Day (ICD-10-PCS; 2020-07-29)
DX: M46.26 Osteomyelitis of vertebra, lumbar region (principal); N18.6 End stage renal disease; I13.2 Hypertensive heart and chronic kidney disease with heart failure and with stage 5 chronic kidney disease, or end stage renal disease; N25.81 Secondary hyperparathyroidism of renal origin; I50.22 Chronic systolic (congestive) heart failure; G20 Parkinson's disease; M48.061 Spinal stenosis, lumbar region without neurogenic claudication; M46.46 Discitis, unspecified, lumbar region; I48.91 Unspecified atrial fibrillation; E03.9 Hypothyroidism, unspecified; R29.6 Repeated falls; I25.5 Ischemic cardiomyopathy; D64.9 Anemia, unspecified; E78.00 Pure hypercholesterolemia, unspecified; Z20.828 Contact with and (suspected) exposure to other viral communicable diseases; Z95.1 Presence of aortocoronary bypass graft; Z90.49 Acquired absence of other specified parts of digestive tract; Z88.8 Allergy status to other drugs, medicaments and biological substances; Z79.899 Other long term (current) drug therapy; Z79.82 Long term (current) use of aspirin; Z88.6 Allergy status to analgesic agent; Z99.2 Dependence on renal dialysis; Z95.810 Presence of automatic (implantable) cardiac defibrillator
CPT/HCPCS: 36415; 70450; 72132; 74177; 76705; 78226; 80048; 80053; 80202; 81003; 81015; 82274; 83605; 83970; 84100; 85025; 85610; 85652; 85730; 86140; 86850; 86900; 86901; 87040; 87086; 87635; 90935; 93005; 94760; 96365; 96367; 96375; 96376; A9537; G0257; J2405; J2543; J3010; J3370; J3490; J7030; Q5105; Q9967; U0003

== ENCOUNTER 2020-10-23 20:48 | Inpatient (IN) | payer MEDICARE, MEDICAID ==
--- NOTE | 2020-10-23 21:17 | RAD ---
EXAM: CHEST ONE VIEW HISTORY: Chest pain which is now resolved. Patient states pain comes and goes. Dizziness. COMPARISON: 10/13/2020 FINDINGS: Triple lead left subclavian acid device remains in place. Postoperative changes related to CABG are a gain noted. Cardiac silhouette does appear enlarged. Central pulmonary vasculature is mildly increased. There is increased density at the left lung base which may represent left pleural effusion and/or atelectasis. Calcified granuloma is seen in the right mid lung zone with calcified right hilar lymph nodes related to prior granulomatous disease. Vascular calcifications overlie the axillar y regions bilaterally with vascular calcifications in the abdominal aorta. IMPRESSION: 1 Cardiomegaly with mild pulmonary vascular congestion. 2. Pleural and parenchymal changes left lung base which may represent left pleural effusion and/or at electasis.
[2020-10-23 21:32] LABS: #Eosinphils 0.2 thou/uL (0.0-0.7); #Lymphocytes 1.7 thou/uL (1.20-3.40); #Monocytes 0.9 thou/uL (0.11-0.59); #Neutrophils 4.8 thou/uL (1.40-6.50); %Basophils 0.3 % (0.0-1.0); %Eosinophils 2.5 % (0.0-10.0); %Lymphocytes 22.9 % (21.0-51.0); %Monocytes 11.5 % (0.0-10.0); %Neutrophils 62.8 % (42.0-75.0); Hemoglobin 7.1 g/dL (14.0-18.0); Mean Corpuscular HGB CONC 32.7 g/dL (32.0-36.0); Mean Corpuscular Hemoglobin 36.9 pg (27.0-31.0); Mean Platelet Volume 8.5 fL (7.4-10.4); Platelet Count 169 thou/uL (130-400); RBC Distribution Width 14.5 % (11.5-14.5); Red Blood Cell (RBC) Count 1.93 mill/uL (4.70-6.10); White Blood Cell (WBC) Count 7.6 thou/uL (4.8-10.8)
[2020-10-23 21:51] LABS: ALT (SGPT) Less than 7 U/L (8-55); AST (SGOT) 15 U/L (5-34); Albumin 3.2 g/dL (3.4-4.8); Alkaline Phosphatase 111 U/L (40-110); Anion Gap 24 mmol/L (10-20); BUN (Urea Nitrogen) 91 mg/dL (8.4-25.7); Bilirubin, Total 0.5 mg/dL (0.2-1.2); CK (CPK) 79 U/L (30-200); Calc. Creatinine Clearance 0 mL/min (70-130); Calcium 7.9 mg/dL (7.8-10.44); Carbon Dioxide 23 mmol/L (23-31); Chloride 100 mmol/L (98-107); Globulin 2.6 g/dL (2.4-3.5); Glucose 120 mg/dL (83-110); Potassium 4.9 mmol/L (3.5-5.1); Protein, Total 5.8 g/dL (5.8-8.1); Sodium 142 mmol/L (136-145)
[2020-10-23 22:13] LABS: CKMB 2.3 ng/mL (0-6.6)
[2020-10-23] MEDS ORDERED: Fentanyl 100 MCG/2 ML VIAL ONE (22:28)
--- NOTE | 2020-10-23 23:26 | CT ---
CT HEAD WITHOUT IV CONTRAST COMPARISON: 07/21/2020 HISTORY: Headache. Patient fell and is on anticoagulants. TECHNIQUE: Axial CT imaging at 5 mm intervals from vertex through skull base without contrast FINDINGS: There is decreased attenuation in the periventricular white matter which is nonspecific but likely re flective of chronic small vessel ischemic changes. Area of encephalomalacia in the right anterior frontal lobe is seen related to remote infarction. There is mild cerebral volume loss. The ventricula r system is normal in size, shape, and position for the degree of sulcal atrophy. There is no evidence of an acute infarction, hemorrhage, mass effect, or midline shift. Dense vascular calcifications are seen in the carotid siphons and distal vertebral arteries. Small polyp or focal area of mucosal thickening is seen in the posterior left ethmoidal air cell. The re is opacification of the bifrontal sinuses similar to prior study. Mastoid air cells are clear. Osseous structures appear intact. No depressed calvarial fracture is seen. IMPRESSION: 1. No acute intracranial abnormality demonstrated. 2. Stable chronic changes.
[2020-10-24 05:08] LABS: Troponin I 0.499 ng/mL (< 0.028)
--- NOTE | 2020-10-24 06:31 | HP ---
REASON FOR ADMISSION: Chest pain. HISTORY OF PRESENT ILLNESS: This is a 80-year-old male patient who is somewhat of a poor historian. He was brought to the ER because he complained of chest pain and dizziness. He went to get dialyzed today. After dialysis, he felt dizzy. He could not walk. Upon his arrival to the ER, his chest pain resolved, however, he continued to feel dizzy and weak. He did receive a full dose of aspirin. His blood work did show a hemoglobin of 7.1, down from his baseline that ranges between 8 and 9. ER physician did order 2 units of PRBCs that were transfused. His initial troponin was abnormal. He was admitted to telemetry. His troponins were trended, currently he appears to be lying comfortably in bed. I was notified by his nurse that he had 1 melenic bowel movement. The patient did not complain of epigastric pain. Did not complain of chest pain. He did report some shortness of breath. The patient was recently admitted to the hospital couple of months ago for vertebral osteomyelitis and diskitis. He was seen by Infectious Disease. Initially treated with broad-spectrum antibiotics. Cultures came back all negative. He was transitioned to vancomycin with dialysis and daily Levaquin. PAST MEDICAL HISTORY: 1. End-stage renal disease, on hemodialysis. 2. High blood pressure. 3. Carotid artery disease. 4. Atrial fibrillation. 5. Post automatic implantable cardioverter defibrillator. 6. Kidney stones. 7. High cholesterol. 8. Stroke with left-sided weakness. 9. Coronary artery bypass graft. 10. Appendectomy. 11. Hypothyroidism. 12. BPH. 13. Atrial fibrillation. ALLERGIES: CODEINE, TETANUS VACCINE, AND TOXOID. FAMILY HISTORY: Positive for end-stage renal disease and coronary artery disease. SOCIAL HISTORY: Does not drink. Does not smoke. REVIEW OF SYSTEMS: All systems reviewed except the above-mentioned chest pain found to be negative. PHYSICAL EXAMINATION: GENERAL: He is awake, alert, oriented. Does not appear in distress. VITAL SIGNS: His blood pressure is 101/61, his saturation is 98% on room air, temperature is 98.2, heart rate was 63. HEENT: Head: Nontraumatic, normocephalic. Pupils equal, reactive. Extraocular movements are intact. Nonicteric sclerae. Well injected conjunctivae. Oral mucosa normal. Nasal mucosa normal. NECK: Supple. No adenopathy. No murmur. Thyroid is not palpable. Trachea is midline. No supraclavicular lymphadenopathy. CARDIOVASCULAR: S1, S2 regular. No murmur. No gallops. No friction rubs. No displacement of PMI. LUNGS: Inspiratory crackles in bilateral bases. ABDOMEN: Bowel sounds are positive. Nontender abdomen. EXTREMITIES: He does have 2+ pitting edema in bilateral lower extremities. NEUROLOGIC: He is moving all his 4 extremities. He does have left facial droop. He is weak on the left side more than the right side. LABORATORY DATA: Blood work shows WBC of 7.6, hemoglobin of 7.1, platelets of 169. Sodium 142, potassium of 4.9, creatinine of 6.11, BUN of 91. ALT less than 7, alkaline phosphatase 111. Troponin initially 0.077. Last troponin 0.499. Urinalysis not showing evidence of infection. COVID-19 undetected. IMAGING DATA: EKG shows nonspecific changes. A CT of the brain shows no acute intracranial findings. A CT of the chest shows: 1. No mass lesion within the right lower lobe. New bilateral subacute rib fractures. 2. Chronic effusion in the left lung base with probable left lower lobe rounded atelectasis. 3. Angulated hypodensity posterior to the upper pole of the left kidney, new when compared to prior imaging. This presumably represents a resolving retroperitoneal hematoma. Short-term followup CT advised as above. 4. Extensive atherosclerotic disease. ASSESSMENT AND PLAN: This is a 80-year-old male patient presenting with chest pain, found to be anemic. While in the hospital, he was noted to have increasing troponin also. Reported to me that he had one episode of melena. The CAT scan did show possible retroperitoneal hematoma that is resolving. The patient is known to have frequent falls. GI: The patient will be kept n.p.o. We will start on IV Protonix. We will ask GI to see him for possible upper gastrointestinal bleed, the patient is on Coumadin. We will recheck his INR. We will keep on holding his Coumadin. Hematology: The patient is anemic, could be due to the retroperitoneal hematoma, also possible gastrointestinal bleed. He did receive blood transfusions. We will recheck his blood. Renal system/Electrolytes: The patient will have a consultation with Nephrology for continuation of his hemodialysis. Cardiac: The patient does have abnormal troponin. This could be due to his developing anemia, but we will have Cardiology see him in consultation. As per previous record, he is a full code. We will keep with that. Job ID: [id number]
[2020-10-24 08:34] LABS: SARS-CoV-2 MS2 Positive; SARS-CoV-2 N Gene Negative; SARS-CoV-2 S Gene Negative; SARS-CoV-2 by NAA Not Detected (NotDetected); SARS-CoV-2 orf1ab Negative
[2020-10-24] MEDS: Pantoprazole 40 MG VIAL IVP SCH ×2 (09:57→20:53)
[2020-10-24] MEDS ORDERED: Epoetin (ESRD) 20,000 UNITS/ML SC SCH (10:15)
[2020-10-24 10:19] LABS: INR-International Normal Ratio 3.3; Prothrombin Time 34.4 sec (12.0-14.7)
[2020-10-24 10:21] LABS: #Eosinphils 0.3 thou/uL (0.0-0.7); #Lymphocytes 1.9 thou/uL (1.20-3.40); #Monocytes 1.2 thou/uL (0.11-0.59); #Neutrophils 5.4 thou/uL (1.40-6.50); %Basophils 0.3 % (0.0-1.0); %Lymphocytes 22.1 % (21.0-51.0); %Monocytes 13.1 % (0.0-10.0); %Neutrophils 61.5 % (42.0-75.0); Hemoglobin 7.7 g/dL (14.0-18.0); Mean Corpuscular HGB CONC 33.9 g/dL (32.0-36.0); Mean Corpuscular Hemoglobin 36.3 pg (27.0-31.0); Mean Platelet Volume 8.1 fL (7.4-10.4); Platelet Count 122 thou/uL (130-400); RBC Distribution Width 18.6 % (11.5-14.5); Red Blood Cell (RBC) Count 2.12 mill/uL (4.70-6.10); White Blood Cell (WBC) Count 8.8 thou/uL (4.8-10.8)
[2020-10-24 10:31] LABS: Anion Gap 24 mmol/L (10-20); BUN (Urea Nitrogen) 115 mg/dL (8.4-25.7); Calc. Creatinine Clearance 13 mL/min (70-130); Calcium 7.6 mg/dL (7.8-10.44); Carbon Dioxide 23 mmol/L (23-31); Chloride 102 mmol/L (98-107); Glucose 92 mg/dL (83-110); Potassium 5.2 mmol/L (3.5-5.1); Sodium 144 mmol/L (136-145)
[2020-10-24 10:44] LABS: Troponin I 4.893 ng/mL (< 0.028)
--- NOTE | 2020-10-24 11:17 | CON ---
DATE OF CONSULTATION: REASON FOR CONSULTATION: Elevated troponin. PRIMARY SHEARER HELPER: Dr. Alfredo Kaye. HISTORY OF PRESENT ILLNESS: Mr. Chaudhary is a 80-year-old gentleman with a past history of paroxysmal atrial fibrillation, who recently presented with increased dizziness and lightheadedness. Troponin was elevated at 4.8. He denied chest pain, pressure, or other associated symptoms. No nausea or vomiting. His hemoglobin after reviewing previous records was 10.3 on 09/22/2020. His hemoglobin yesterday was 7.1. He also admits to melenic stools. The patient did have a last echo dated 06/20/2020 with LVEF 45% to 50%. Technical difficult study. The patient was paced. He did have moderate tricuspid regurgitation. The patient does have a Watchman. CURRENT HOME MEDICATIONS: Include 1. Aspirin. 2. Atorvastatin. 3. Amiodarone. 4. Midodrine. 5. Vascepa. 6. Flomax. PAST MEDICAL HISTORY: Paroxysmal atrial fibrillation, CVA, renal insufficiency, hyperlipidemia, hypertension, and cardiomyopathy. SURGICAL HISTORY: AICD placement, appendectomy, CABG, and ventricular aneurysm resection. FAMILY HISTORY: Negative for CAD. SOCIAL HISTORY: No current tobacco or alcohol use. ALLERGIES: TETANUS. REVIEW OF SYSTEMS: A 10-point review of systems is reviewed and is as above, otherwise negative. PHYSICAL EXAMINATION: GENERAL: Patient is a pleasant gentleman, who is in no acute distress. The patient appears their stated age. VITAL SIGNS: Blood pressure 105/57, pulse 68, temperature 98.5. NEUROLOGIC: The patient is alert and oriented x3 with no focal neurologic deficits. HEENT: Sclerae without icterus. Mouth has moist mucous membranes with normal pallor. NECK: No JVD. Carotid upstroke brisk. No bruits bilaterally. LUNGS: Clear to auscultation with unlabored respirations. BACK: No scoliosis or kyphosis. CARDIAC: Regular rate and rhythm with normal S1 and S2. No S3 or S4 noted. No significant rubs, murmurs, thrills, or gallops noted throughout the precordium. PMI is not displaced. There is no parasternal heave. ABDOMEN: Soft, nontender, nondistended. No peritoneal signs present. No hepatosplenomegaly. No abnormal striae. EXTREMITIES: 2+ femoral and 2+ dorsalis pedis pulses. No cyanosis, clubbing, or edema. SKIN: No gross abnormalities. PERTINENT LABORATORY DATA: Hemoglobin 7.1, up to 7.7. Troponin 4.8. EKG shows paced rhythm. IMPRESSION: 1. Elevated troponin. 2. Anemia, likely upper GI. 3. Paroxysmal atrial fibrillation, status post Watchman. RECOMMENDATIONS: Mr. Chaudhary has no current symptoms suggesting angina. This is likely related to demand ischemia. At this point, we would recommend transfusion to hemoglobin above 8. He will be evaluated by GI. We will likely need to wait on scoping Mr. Chaudhary for the next several days. We would not recommend anticoagulation therapy at this point given melenic stools and profound anemia. He appears to be hemodynamically stable. Echo with Doppler will be ordered. Job ID: [id number]
[2020-10-24 11:22] LABS: SARS-CoV-2 IgG Ab Non-Reactive (NonReactive); SARS-CoV-2 IgG Index 0.03 S/CO (< 1.40)
--- NOTE | 2020-10-24 11:42 | CON ---
DATE OF CONSULTATION: 10/24/2020 HISTORY OF PRESENT ILLNESS: Mr. Chaudhary is a 80-year-old white male with ESRD, currently on maintenance hemodialysis, who was admitted due to generalized weakness and complaints of chest pain. He was seen at the [place] [facility] earlier and prior to the admission to [facility] in [place]. He had rib fractures noted. He was also noted to have resolving retroperitoneal hematoma. Please note, he has had frequent falls. In addition, his Coumadin is now placed on hold. We are being consulted for management of his ESRD. REVIEW OF SYSTEMS: Positive for chest pain, reproducible. No shortness of breath. Positive for generalized malaise. Appetite is fair. Positive for dizziness. No syncopal episode. No gross hematuria. No dysuria. No urinary frequency. No hematochezia. No melena. No hematemesis. No abdominal pain. No headache. No fever or chills. HOME MEDICATIONS: Included the followin. Trazodone 50 mg at bedtime p.r.n. 2. Coumadin as directed. 3. Vancomycin p.r.n. 4. Tamsulosin 0.4 mg daily. 5. Sevelamer 800 mg two tablets t.i.d. with meals. 6. MiraLAX 17 g daily. 7. Midodrine 10 mg p.o. b.i.d. 8. Levothyroxine 25 mcg daily. 9. Folic acid one tablet q.a.m. 10. Sinemet 25/100 one tablet t.i.d. 11. Calcitriol 0.25 daily. 12. Atorvastatin 40 mg at bedtime. 13. Aspirin 81 mg daily. CURRENT MEDICATIONS: Protonix 40 mg IV q.12 was added. PAST MEDICAL HISTORY: 1. Parkinson disease. 2. ESRD, currently on maintenance hemodialysis. 3. COPD. 4. Hypothyroidism. 5. Hyperlipidemia. 6. Chronic . 7. Atrial fibrillation, status post CHF, decreased ejection fraction/cardiomyopathy. 8. Peripheral vascular disease. 9. Status post nephrolithiasis. 10. Status post GI bleed. 11. Currently Xarelto, previously placed on hold. 12. Type 2 diabetes mellitus. PAST SURGICAL HISTORY: Status post cardiac cath, status post CABG, status post cuffed dialysis catheter placement, status post cardioversion, status post ureteroscopy with stone extraction, status post appendectomy, status post AV fistula, status post percutaneous nephrostomy placement. ALLERGIES: TETANUS. TRAUMA: Status post multiple falls. IMMUNIZATIONS: Up to date. HOSPITALIZATIONS: Please see past medical history. SOCIAL HISTORY: The patient , lives in [place]. 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 Two children. No history of smoking. No alcohol intake. No IV drug abuse. Education, 12th grade. Sedentary lifestyle. FAMILY HISTORY: No family history of ESRD. PHYSICAL EXAMINATION: VITAL SIGNS: Blood pressure 110/70, heart rate 70, respiratory rate 12. GENERAL: The patient is awake, lethargic, not in distress. SKIN: Adequate turgor. HEENT: Slightly pale conjunctivae. Anicteric sclerae. No neck mass. No carotid bruits. No JVD. CHEST: No deformities. LUNGS: Clear breath sounds. HEART: Normal sinus rhythm. No murmurs, gallops, or rubs. ABDOMEN: Globular, soft, nontender. No masses. EXTREMITIES: No edema. No deformities. LABORATORY DATA: Laboratories of October 23, 2020: White count 7.6, hemoglobin 7.1. Sodium 142, potassium 4.9, chloride 100, carbon dioxide 23, BUN 91, creatinine 6.11, glucose 120. AST 15, ALT 7. Troponin I is 0.499. ASSESSMENT AND PLAN: 1. Anemia, the patient is symptomatic. The patient received two units of packed RBC. Resume Epogen regimen with this patient. 2. Status post fall, this could be related from his underlying Parkinson disease. 3. End-stage renal disease, the patient will receive extra hemodialysis for fluid removal. He did receive 2 units of packed RBC last night. Due to the recent retroperitoneal hematoma, Coumadin is on hold, and we will use no heparin with dialysis. I had a long discussion with the to consider placing this patient in a snf. She will re-discuss it with the family. 4. Elevated troponin I, the patient being ruled out for myocardial infarction. Job ID: [id number]
--- NOTE | 2020-10-24 12:27 | PDOC.HOSPP ---
- Subjective Encounter Date: 10/24/20 Encounter Time: 12:25 Subjective: This patient was seen and evaluated. He is a 80-year-old with multiple underlying medical history including end-stage renal disease on hemodialysis Mondays, Wednesdays and Fridays, he has coronary artery disease and does follow- up with a clerk of court, he has Parkinson disease, he has had recurrent falls as a result of the Parkinson who reportedly was brought in here due to generalized weakness and some chest discomfort. The was at the bedside and she provided most of the history as the patient is not a reliable historian. At any rate she reports that he was evaluated at an outside emergency room and discharged home but he just was not doing very well prompting them to bring him here. Patient reported to me that he had chest pain earlier but at this time he is no longer having any chest pain. He has had upward trending troponins since admission. Cardiology was asked to evaluate him. I will defer to them about any further intervention of this patient. The patient is anemic with a hemoglobin around 7. He has received 2 units of packed red cells. Nephrology service is also following with ongoing plan for dialysis while he is hospitalized. The patient's prognosis appears to be poor. - Objective Vital Signs & Weight: Vital Signs (12 hours) Temp Pulse Resp BP BP Pulse Ox 10/24/20 07:36 98.5 F 68 16 105/57 L 99 10/24/20 05:00 98 F 72 17 99/50 L 98 10/24/20 03:05 98.6 F 70 15 96/54 L 97 10/24/20 01:00 97.5 F L 69 17 95/50 L 100 Weight Weight 220 lb I&O: 10/23/20 10/24/20 10/25/20 06:59 06:59 06:59 Intake Total 370 Balance 370 Result Diagrams: 10/24/20 10:06 10/24/20 10:06 Additional Labs: Accuchecks 10/24/20 08:36 POC Glucose 87 Radiology Reviewed by me: Yes EKG Reviewed by me: Yes Hospitalist ROS - Review of Systems Constitutional: reports: sweats, weakness, malaise Respiratory: reports: shortness of breath, SOB with excertion Cardiovascular: reports: paroxysmal noc. dyspnea Gastrointestinal: reports: nausea, vomiting Neurological: reports: weakness - Medication Medications: Active Medications Generic Name Dose Route Start Last Admin Trade Name Rajiv PRN Reason Stop Dose Admin Pantoprazole Sodium 40 mg 10/24/20 09:00 10/24/20 09:57 Pantoprazole 40 Mg Vial IVP 40 mg Q12HR CHARISSE Administration - Exam General Appearance: awake alert, ill appearing Eye: PERRL, anicteric sclera ENT: normocephalic atraumatic, no oropharyngeal lesions, dry oral mucosa Neck: supple, symmetric, no lymphadenopathy, JVD Heart: RRR, no murmur, no gallops Respiratory: CTAB, no wheezes, no rales Gastrointestinal: soft, non-tender, non-distended Extremities: 2+ LE edema, clubbing Neurological: cranial nerve grossly intact Psychiatric: normal affect, normal behavior, A&O x 3 Hosp A/P - Plan #1. NSTEMI. Patient with a complaint of chest pain and upward trending troponin. I will ask a clerk of court to take a look at this care and consider invasive evaluation if deemed appropriate. 2. Anemia. Likely multifactorial in the context of chronic kidney disease and recent acute blood loss. 3. End-stage renal disease on hemodialysis. Nephrology evaluation appreciated. He will resume his regularly scheduled dialysis while hospitalized. 4. Hypertensive heart disease. Blood pressure appears stable. 5. CAD. Resume his home medications.
[2020-10-24 14:12] LABS: HBSAg Index 0.28 S/CO (0-0.99); Hep B Surf Ag Non-Reactive S/CO (NonReactive)
[2020-10-24] MEDS: EPOETIN ALFA-EPBX (ESRD) 10,000 UNIT/ML VIAL SC SCH (15:45)
[2020-10-24] MEDS: Midodrine HCl 5 MG TAB PO SCH (20:53)
--- NOTE | 2020-10-24 22:30 | CON ---
DATE OF CONSULTATION: 10/24/2020 REASON FOR CONSULTATION: Anemia and history of melena. HISTORY OF PRESENT ILLNESS: Rylan Chaudhary is a 80-year-old male with previous history of CVA, history of chronic kidney disease on dialysis. The patient has residual left-sided weakness from before. The patient is awake and communicative; however, somewhat difficult to understand. The patient has been having dialysis three times a week. Apparently, he went to dialysis yesterday and he had some chest pain and dizziness. He was brought to the ER because of the above reason. When he came to the ER, he has no more chest pain and no more difficulty breathing. However, he was complaining of dizziness off and on. There was only anemia with CBCs showing hemoglobin to 7.1. The baseline is around 8 to 9 g. The patient had an episode of melena after admitted to the hospital. The patient does take warfarin 6 mg once a day. The patient denies abdominal pain, nausea, or vomiting. No history of indigestion. No history of dyspepsia. No similar episodes in the past. The evaluation revealed high troponin level. The Cardiology consult is pending at the present time. At the time of the consultation, he appears very comfortable, in no acute distress. Denies abdominal pain. No chest pain. No difficulty breathing. He has no prior history of any GI bleeding. The patient has had osteomyelitis and diskitis in the recent past. He was seen by Dr. Jacobson for Infectious Disease consult and was placed on IV antibiotics. At the present time, he has no back pain. No joint pains. No relevant history. ALLERGIES: CODEINE, TETANUS VACCINE, AND TOXOID. MEDICAL ILLNESSES: 1. Chronic kidney disease versus kidney disease, on dialysis. 2. Hypertension. 3. Coronary artery disease. 4. Atrial fibrillation. 5. Status post AICD placement done. 6. Kidney stone. 7. Hyperlipidemia. 8. Coronary artery bypass graft. 9. Previous CVA with residual left-sided weakness. 10. Appendectomy. 11. Hypothyroidism. 12. Benign prostatic hypertrophy. FAMILY HISTORY: Coronary artery disease and chronic kidney disease. SOCIAL HISTORY: Does not smoke or drink alcohol. No drug use. REVIEW OF SYSTEMS: A 10 point system review; CONSTITUTIONAL: No weight loss. No fever or chills. HEAD: No chronic headache with history of dizziness. EYES: No impaired vision. No diplopia. ENT: No hearing loss. No sore throat. No dysphagia. LUNGS: No chronic coughing. No hemoptysis. No dyspnea. CARDIOVASCULAR SYSTEM: Chest pain yesterday, but no chest pain today. No difficulty breathing. No orthopnea or PND. GI: No abdominal pain. No nausea or vomiting. : He has chronic kidney disease. He is anuric. PHYSICIAN LIAISON: Left-sided weakness from before. PHYSICAL EXAMINATION: GENERAL: He is actually obese, appears comfortable, in no acute distress. He is awake, alert, and communicative. VITAL SIGNS: He is afebrile. Pulse is 63 and blood pressure is 100/61. HEENT: Conjunctivae are clear. NECK: Supple. CARDIOVASCULAR SYSTEM: Normal heart sounds. LUNGS: Clear to auscultation. ABDOMEN: Soft. No organomegaly. No tenderness. No masses. EXTREMITIES: Reveals 1+ pitting edema. LABORATORY DATA: On admission showed WBC 7,600, hemoglobin 7.1, and hematocrit 23. BUN is 91, alkaline phosphatase 111, ALT 7, sodium 142, potassium 4.9, creatinine 6.11. Troponin 0.077 and then came up to 0.499. COVID-19 test is negative. EKG shows no acute ischemic changes. A CAT scan of the chest done shows pleural effusion, extensive atherosclerotic disease. No liver masses. CLINICAL IMPRESSION: 1. A 80-year-old male with previous cerebrovascular accident with residual weakness. History of atrial fibrillation on anticoagulation. Chronic kidney disease. Presents with chest pain and findings of abnormal troponin level. He has history of coronary artery disease with bypass graft in the past. 2. Melena. 3. Anemia due to blood loss in combination of chronic kidney disease. 4. Hypertension. 5. Atrial fibrillation. 6. Benign prostatic hyperplasia. 7. Status post automatic implantable cardioverter-defibrillator placement. 8. History of kidney stones. RECOMMENDATION: I will await the Cardiology input before deciding any further workup. He has abnormal troponin level. I will defer endoscopic studies until Cardiology clears him to proceed with endoscopy studies. In the meantime, we would teach with renal diet and follow up H and H and transfuse p.r.n. Job ID: [id number] MTDD
[2020-10-24] MEDS: Acetaminophen 500 MG TAB PO PRN (22:48)
[2020-10-24] MEDS: Melatonin 3 MG TAB PO PRN (22:48)
[2020-10-25] MEDS ORDERED: Midodrine HCl 5 MG TAB PO SCH (01:30)
[2020-10-25 01:43] LABS: #Eosinphils 0.3 thou/uL (0.0-0.7); #Lymphocytes 2.8 thou/uL (1.20-3.40); #Monocytes 1.1 thou/uL (0.11-0.59); #Neutrophils 5.4 thou/uL (1.40-6.50); %Basophils 0.3 % (0.0-1.0); %Eosinophils 3.2 % (0.0-10.0); %Lymphocytes 28.6 % (21.0-51.0); %Monocytes 11.3 % (0.0-10.0); %Neutrophils 56.6 % (42.0-75.0); Hemoglobin 7.6 g/dL (14.0-18.0); Mean Corpuscular Hemoglobin 36.2 pg (27.0-31.0); Mean Platelet Volume 8.7 fL (7.4-10.4); Platelet Count 148 thou/uL (130-400); RBC Distribution Width 18.6 % (11.5-14.5); Red Blood Cell (RBC) Count 2.09 mill/uL (4.70-6.10); White Blood Cell (WBC) Count 9.6 thou/uL (4.8-10.8)
[2020-10-25 01:47] LABS: Phosphorus 5.3 mg/dL (2.3-4.7)
[2020-10-25 01:48] LABS: Anion Gap 24 mmol/L (10-20); BUN (Urea Nitrogen) 96 mg/dL (8.4-25.7); Calc. Creatinine Clearance 16 mL/min (70-130); Calcium 7.9 mg/dL (7.8-10.44); Carbon Dioxide 21 mmol/L (23-31); Chloride 101 mmol/L (98-107); Glucose 83 mg/dL (83-110); Magnesium 2.2 mg/dL (1.6-2.6); Potassium 4.7 mmol/L (3.5-5.1); Sodium 141 mmol/L (136-145)
[2020-10-25 02:22] LABS: CKMB 13.8 ng/mL (0-6.6)
[2020-10-25] MEDS ORDERED: Lorazepam 2 MG/ML VIAL SLOW IVP PRN (03:31)
--- NOTE | 2020-10-25 03:38 | PDOC.BPN ---
- Brief Progress Note Encounter Date: 10/25/20 Code dada was called: Patient was noted to have fallen which was unwitnessed. His primary nurse notes she was informed by telemetrypatient's leads had come off. She came to his room and noted that he was sitting on the floor. He was placed in bed and his initial blood pressures were very low with systolic in the 60s however this improved while he was in bed. He had bitten his tongue but there was no indication that he had any bruise on his head. Telemetry noted no concerning arrhythmias. His blood pressure improved while in bed without any intervention with systolic in the 90s. On examination: He was at baseline oriented to person place and time. His speech was slightly slurred however this is baseline as well. Heart soundsnormal Respiratory system: No abnormality detected Abdomenbenign Plan: Fallfall precautions To do CT of head to rule out any acute intracranial events Labs orderedCBC, CMP and troponin Patient generally stablewe will continue monitoring
[2020-10-25 04:28] LABS: #Eosinphils 0.2 thou/uL (0.0-0.7); #Lymphocytes 1.3 thou/uL (1.20-3.40); #Monocytes 0.9 thou/uL (0.11-0.59); #Neutrophils 5.5 thou/uL (1.40-6.50); %Basophils 0.2 % (0.0-1.0); %Eosinophils 2.1 % (0.0-10.0); %Lymphocytes 16.8 % (21.0-51.0); %Monocytes 11.8 % (0.0-10.0); %Neutrophils 69.1 % (42.0-75.0); Hemoglobin 7.4 g/dL (14.0-18.0); Mean Corpuscular HGB CONC 34.8 g/dL (32.0-36.0); Mean Corpuscular Hemoglobin 37.5 pg (27.0-31.0); Mean Platelet Volume 8.7 fL (7.4-10.4); Platelet Count 133 thou/uL (130-400); RBC Distribution Width 18.7 % (11.5-14.5); Red Blood Cell (RBC) Count 1.96 mill/uL (4.70-6.10)
[2020-10-25 04:51] LABS: Anion Gap 23 mmol/L (10-20); BUN (Urea Nitrogen) 92 mg/dL (8.4-25.7); Calc. Creatinine Clearance 15 mL/min (70-130); Calcium 7.8 mg/dL (7.8-10.44); Carbon Dioxide 23 mmol/L (23-31); Chloride 101 mmol/L (98-107); Glucose 84 mg/dL (83-110); Potassium 4.5 mmol/L (3.5-5.1); Sodium 142 mmol/L (136-145)
--- NOTE | 2020-10-25 07:43 | CT ---
PRELIMINARY REPORT/DIRECT RADIOLOGY/EMERGENCY AFTER HOURS PROCEDURE: EXAM: CT Head Without Intravenous Contrast. CLINICAL HISTORY: UNWITNESSED FALL TECHNIQUE: Axial computed tomography images of the head/brain without intravenous contrast. COMPARISON: CT\SR - CT BRAIN WO CON - 10/23/2020 11:05 PM NURSE SITTER FINDINGS: BRAIN: No acute intraparenchymal hemorrhage. No mass lesion. No CT evidence for acute territorial inf arct. No midline shift or extra-axial collection. VENTRICLES: No hydrocephalus. ORBITS: The orbits are unremarkable. SINUSES AND MASTOIDS: Opacification is noted of the left portion of the frontal sinus. SOFT TISSUES: No significant facial or scalp soft tissue swelling evident. No radiopaque foreign body is seen. BONES: There is the suggestion of an anterior left-sided nasal fracture, though the finding was evide nt on prior examination. IMPRESSION: 1. No findings of acute intracranial hemorrhage. 2. Periventricular deep white matter low attenuation changes most consistent with small vessel ischem ia considering patient age. The findings are most prevalent adjacent to the frontal horn of the right lateral ventricle. The appearance however is similar to the appearance on prior examination. 3. Frontal sinus disease. 4. A suggested anterior left nasal fracture, though the finding was evident on previous examination a s well. ELECTRONICALLY SIGNED BY: Sina Bermudez MD Oct 25, 2020 1:53:36 AM NURSE SITTER FINAL REPORT CT BRAIN WITHOUT CONTRAST: History: Fall. Comparison: CT brain 2 days prior. Findings: No acute hemorrhage or infarct. Old right frontal infarct. Moderate vascular calcifications. Calvarium is intact. There appears to be some scar along the right frontal forehead superficial soft tissues. Impression: Chronic findings. No acute posttraumatic intracranial sequelae. Findings and impression are concordant with the initial report. Transcribed Date/Time: 10/25/2020 8:09 AM
[2020-10-25] MEDS ORDERED: traZODone HCl 50 MG TAB PO PRN (08:04)
[2020-10-25] MEDS: Midodrine HCl 5 MG TAB PO SCH ×2 (08:59→21:05)
[2020-10-25] MEDS: Carbidopa/Levodopa 25-100 mg Tablet PO SCH ×3 (08:59→21:05)
[2020-10-25] MEDS: Tamsulosin HCl 0.4 MG CAP PO SCH (09:00)
[2020-10-25] MEDS: Pantoprazole 40 MG VIAL IVP SCH ×2 (09:00→21:04)
[2020-10-25] MEDS: Amiodarone 200 MG TAB PO SCH (09:03)
[2020-10-25] MEDS ORDERED: Phytonadione 1 MG/0.5 ML Miniject SYRINGE IM SCH (09:45)
--- NOTE | 2020-10-25 09:52 | PRG ---
DATE OF SERVICE: 10/25/21 SUBJECTIVE: Mr. Chaudhary is a 80-year-old white male with ESRD-on maintenance hemodialysis and was admitted due to symptomatic anemia. He has received 2 units of packed RBC. GI consult has been done. I had a long discussion with the patient's regarding placing the patient to a residential due to the frequent falls he has been having. Please note last night the patient had another fall. CT scan of the brain was done, which showed no acute intracranial abnormality or any bleeding. The patient voices no new complaints today. He still occasionally confused. OBJECTIVE: VITAL SIGNS: Blood pressure 133/57, heart rate 79, respiratory rate 17, temperature 98, O2 saturation 98%. GENERAL: The patient is awake, lethargic, not in overt distress. SKIN: Adequate turgor. HEENT: Slightly pale conjunctivae. Anicteric sclerae. NECK: No neck mass. No carotid bruits. No JVD. CHEST: No deformities. LUNGS: Clear breath sounds. HEART: Normal sinus rhythm. No murmur. No gallops. No rubs. ABDOMEN: Globular, soft, nontender. No masses. EXTREMITIES: No edema. MEDICATIONS: Medications of October 25, 2020, was reviewed. LABORATORY DATA: Laboratories of October 25, 2020; white count 8, hemoglobin 7.4. October 24, 2020, INR 3.3. October 25, 2020; sodium 142, potassium 4.5, chloride 101, carbon dioxide 23, BUN 92, creatinine 5.65, calcium 7.8. Troponin I 5.8. ASSESSMENT AND PLAN: 1. Elevated troponin I. Cardiology consult has been done. 2. Anemia. GI consult has been done. Holding off any endoscopy until the patient is cleared from a Cardiology point of view. 3. End-stage renal disease, stable. We are continuing heparin free hemodialysis with this patient. Fluid removal only as tolerated. There is no indication for any emergent hemodialysis with this patient. 4. Chronic anemia-continuing weekly Epogen of 10,000 units subcu q.week. Recheck CBC and basic met in a.m. Job ID: [id number] MTDD
[2020-10-25] MEDS ORDERED: Phytonadione 10 MG/ML AMP IM SCH (10:15)
--- NOTE | 2020-10-25 10:27 | PDOC.CPN ---
- Subjective Date: 10/25/20 Time: 09:40 Interval history: Last night had fall while off tele. Not witnessed and unknown if syncope. - Review of Systems General: reports: fatigue Respiratory: reports: exercise intolerance Cardiovascular: denies: chest pain, palpitation, edema, paroxysmal nocturnal dyspnea, orthopnea Gastrointestinal: denies: nausea, vomiting, diarrhea, constipation, abd pain, GI bleeding Neurological: reports: weakness - Objective Allergies/Adverse Reactions: Allergies Allergy/AdvReac Type Severity Reaction Status Date / Time Tetanus Vaccines and Toxoid Allergy MOUTH Verified 10/24/20 04:58 SWELLING Visit Medications: Current Medications Acetaminophen (Acetaminophen 500 Mg Tab) 500 mg PO Q6H PRN PRN Reason: Pain Last Admin: 10/24/20 22:48 Dose: 500 mg Documented by: Amiodarone HCl (Amiodarone 200 Mg Tab) 200 mg PO DAILY [facility] Last Admin: 10/25/20 09:03 Dose: 200 mg Documented by: Carbidopa/Levodopa (Carbidopa/Levodopa 25-100 Mg Tablet) 1 tab PO TID [facility] Last Admin: 10/25/20 08:59 Dose: 1 tab Documented by: Epoetin Danial-epbx (Epoetin Danial-Epbx (Esrd) 10,000 Unit/Ml Vial) 10,000 unit SC Q7D [facility] Last Admin: 10/24/20 15:45 Dose: 10,000 unit Documented by: Melatonin (Melatonin 3 Mg Tab) 3 mg PO HS PRN PRN Reason: Insomnia Last Admin: 10/24/20 22:48 Dose: 3 mg Documented by: Midodrine (Midodrine Hcl 5 Mg Tab) 10 mg PO BID [facility] Last Admin: 10/25/20 08:59 Dose: 10 mg Documented by: Pantoprazole Sodium (Pantoprazole 40 Mg Vial) 40 mg IVP Q12HR [facility] Last Admin: 10/25/20 09:00 Dose: 40 mg Documented by: Phytonadione (Phytonadione 10 Mg/Ml Amp) 5 mg IM NOW [facility] Stop: 10/25/20 12:15 Sodium Chloride (Flush - Normal Saline 10 Ml Syringe) 10 ml IVF PRN PRN PRN Reason: Saline Flush Tamsulosin HCl (Tamsulosin Hcl 0.4 Mg Cap) 0.4 mg PO DAILY [facility] Last Admin: 10/25/20 09:00 Dose: 0.4 mg Documented by: Trazodone HCl (Trazodone Hcl 50 Mg Tab) 50 mg PO HS PRN PRN Reason: Insomnia Vital Signs & Weight: Vital Signs Temp Pulse Pulse Pulse Pulse Pulse Pulse 10/25/20 07:51 98 F 79 10/25/20 04:00 98.5 F 84 10/25/20 01:45 63 10/25/20 01:10 69 70 73 67 70 Resp Resp Resp Resp BP BP BP 10/25/20 07:51 17 10/25/20 04:00 115 H 10/25/20 01:45 10/25/20 01:10 20 22 H 18 74/45 L 105/54 L 107/55 L BP BP BP Pulse Ox Pulse Ox Pulse Ox Pulse Ox 10/25/20 07:51 133/57 L 98 10/25/20 04:00 103/57 L 100 10/25/20 01:45 97/50 L 10/25/20 01:10 94/54 L 95/52 L 99 98 99 Pulse Ox Pulse Ox 10/25/20 07:51 10/25/20 04:00 10/25/20 01:45 10/25/20 01:10 99 99 Weight 220 lb - Physical Exam General: appears well, no apparent distress HEENT: mucus membranes moist Neck: supple neck Cardiac: regular rate and rhythm Lungs: no wheezes, no rales Abdomen: soft Skin: clear - Labs Result Diagrams: 10/25/20 03:37 10/25/20 03:37 Troponin/CKMB CK-MB (CK-2) 13.8 ng/mL (0-6.6) H* 10/25/20 01:26 Troponin I 5.864 ng/mL (< 0.028) H* 10/25/20 01:26 - Assessment/Plan Assessment/Plan: 1. Anemia 2. Hx GIB 3. Paroxysmal AF s/p watchman 4. Elevated Trop secondary to demand ischemia 5. s/p fall and unknown if syncope 6. ICMO s/p BiV ICD 7. Chronic systolic CHF 8. ESRD 9. Hypotension 10. Parkinsons At this time needs anemia corrected. Hold OAC due to bleed and fall risk. Resume po Amio. 10/25 RG Pt seen and examined Pt with code green last pm after fall. Pt hypotensive. now resolved. Pt with continued anemia present with elevated INR Recommend transfusion to Hb >8 and reversal of INR; pt on coumadin conservative treatment from CV standpoint Pt without symoptoms of angina
--- NOTE | 2020-10-25 12:52 | PDOC.HOSPP ---
- Subjective Encounter Date: 10/25/20 Encounter Time: 12:50 Subjective: Events from last night are reviewed. Patient had a fall overnight which was unwitnessed. He was pretty confused and out of it when I came to visit this morning. Noticed further decrease in his hemoglobin despite prior blood transfusion. Cardiology is seen him and I will defer to them about any angiogram studies. His INR is 3.3. I would like to give him fresh frozen plasma and some vitamin K and hopefully get this corrected in anticipation of cardiology doing some procedure by tomorrow. I will call and update the patient's spouse. - Objective Vital Signs & Weight: Vital Signs (12 hours) Temp Pulse Pulse Pulse Pulse Pulse Pulse 10/25/20 12:00 97.7 F 66 10/25/20 09:49 10/25/20 07:51 98 F 79 10/25/20 04:00 98.5 F 84 10/25/20 01:45 63 10/25/20 01:10 69 70 73 67 70 Pulse Pulse Pulse Resp Resp Resp Resp 10/25/20 12:00 15 10/25/20 09:49 71 68 64 10/25/20 07:51 17 10/25/20 04:00 115 H 10/25/20 01:45 10/25/20 01:10 20 22 H 18 BP BP BP BP BP BP BP 10/25/20 12:00 10/25/20 09:49 114/58 L 103/59 L 10/25/20 07:51 10/25/20 04:00 10/25/20 01:45 10/25/20 01:10 74/45 L 105/54 L 107/55 L 94/54 L 95/52 L BP BP Pulse Ox Pulse Ox Pulse Ox Pulse Ox Pulse Ox 10/25/20 12:00 101/59 L 97 10/25/20 09:49 97/50 L 10/25/20 07:51 133/57 L 98 10/25/20 04:00 103/57 L 100 10/25/20 01:45 97/50 L 10/25/20 01:10 99 98 99 99 Pulse Ox 10/25/20 12:00 10/25/20 09:49 10/25/20 07:51 10/25/20 04:00 10/25/20 01:45 12/20/20 01:10 99 Weight Weight 220 lb I&O: 10/24/20 10/25/20 10/26/20 06:59 06:59 06:59 Intake Total 370 100 Balance 370 100 Result Diagrams: 10/25/20 03:37 10/25/20 03:37 Additional Labs: Accuchecks 10/25/20 01:16 POC Glucose 89 Radiology Reviewed by me: Yes EKG Reviewed by me: Yes Hospitalist ROS - Review of Systems ROS unobtainable: due to mental status Constitutional: reports: weakness, malaise Gastrointestinal: reports: nausea Neurological: reports: weakness - Medication Medications: Active Medications Generic Name Dose Route Start Last Admin Trade Name Freq PRN Reason Stop Dose Admin Acetaminophen 500 mg 10/24/20 22:06 10/24/20 22:48 Acetaminophen 500 Mg Tab PO 500 mg Q6H PRN Administration Pain Amiodarone HCl 200 mg 10/25/20 09:00 10/25/20 09:03 Amiodarone 200 Mg Tab PO 200 mg DAILY CHARISSE Administration Carbidopa/Levodopa 1 tab 10/25/20 09:00 10/25/20 08:59 Carbidopa/Levodopa 25-100 Mg Tablet PO 1 tab TID CHARISSE Administration Epoetin Danial-epbx 10,000 unit 10/24/20 11:00 10/24/20 15:45 Epoetin Danial-Epbx (Esrd) 10,000 Unit/Ml Vial SC 10,000 unit Q7D CHARISSE Administration Melatonin 3 mg 10/24/20 22:06 10/24/20 22:48 Melatonin 3 Mg Tab PO 3 mg HS PRN Administration Insomnia Midodrine 10 mg 10/24/20 21:00 10/25/20 08:59 Midodrine Hcl 5 Mg Tab PO 10 mg BID CHARISSE Administration Pantoprazole Sodium 40 mg 10/24/20 09:00 10/25/20 09:00 Pantoprazole 40 Mg Vial IVP 40 mg Q12HR CHARISSE Administration Tamsulosin HCl 0.4 mg 10/25/20 09:00 10/25/20 09:00 Tamsulosin Hcl 0.4 Mg Cap PO 0.4 mg DAILY CHARISSE Administration - Exam General Appearance: ill appearing Eye: PERRL ENT: no oropharyngeal lesions, moist mucosa Neck: supple, symmetric, no JVD, no lymphadenopathy Heart: RRR Respiratory: CTAB Gastrointestinal: soft, non-tender, non-distended, normal bowel sounds Extremities: 2+ LE edema Neurological: cranial nerve grossly intact, normal sensation to touch Psychiatric: oriented to person, somnolent Hosp A/P - Plan #1. NSTEMI. Patient with a complaint of chest pain and upward trending troponin. I will ask a limo driver to take a look at this care and consider invasive evaluation if deemed appropriate. 2. Anemia. Likely multifactorial in the context of chronic kidney disease and recent acute blood loss. 10/25/2020. He remains anemic despite multiple units of packed red cells. I would like to give him an extra unit of packed red cell. 3. End-stage renal disease on hemodialysis. Nephrology evaluation appreciated. He will resume his regularly scheduled dialysis while hospitalized. 4. Hypertensive heart disease. Blood pressure appears stable. 5. CAD. Resume his home medications. 6. Fall He had another fall overnight that was unwitnessed. I suspect this has something to do with his Parkinson disease. 7. History of Parkinson disease. I will resume his home medicines.
--- NOTE | 2020-10-25 14:45 | ULT ---
US Carotid Doppler STANDARD History: Dizziness Comparison: Carotid Doppler June 2020 Findings: Real-time grayscale, color and spectral analysis of the extracranial carotid and vertebral arteries was performed. High-grade plaque of both common carotid arteries. Technologist states there is reversal of flow with in the left internal carotid and vertebral arteries. Impression: Severe atherosclerotic plaque. CT angiogram recommended.
--- NOTE | 2020-10-25 17:15 | PRG ---
DATE OF SERVICE: 10/25/2020 SUBJECTIVE: This is a 80-year-old male seen by me yesterday because of history of melena, anemia. He also has chest pain and was seen by Dr. Dominick Willis. He is not planning for any cardiology workup. He cleared the patient having endoscopy studies. The patient was awake and alert yesterday. However, today he is very sleepy. He has a sitter in the room. As per sitter, he is not eating very well. There is some mention of possibly difficulty swallowing. The patient is talkative, but he has been to fall asleep right away. The patient denies any chest pain, abdominal pain, nausea, vomiting, . OBJECTIVE: VITAL SIGNS: Afebrile, , pulse is 70, blood pressure _130 / 76. CARDIOVASCULAR SYSTEM: Normal heart sounds. LUNGS: Clear to auscultation. ABDOMEN: Soft , non tender bowel sounds are normal. . PLAN: Hopefully an endoscopy study can be done in the near future. In the meantime we would recommend symptomatic treatment. Job ID: [id number] [facility]
[2020-10-25] MEDS: Acetaminophen 500 MG TAB PO PRN (21:04)
[2020-10-26] MEDS: Melatonin 3 MG TAB PO PRN (00:34)
[2020-10-26] MEDS: Acetaminophen 500 MG TAB PO PRN (03:34)
[2020-10-26 04:54] LABS: Anion Gap 25 mmol/L (10-20); BUN (Urea Nitrogen) 113 mg/dL (8.4-25.7); Calc. Creatinine Clearance 12 mL/min (70-130); Carbon Dioxide 19 mmol/L (23-31); Chloride 102 mmol/L (98-107); Glucose 96 mg/dL (83-110); Potassium 4.9 mmol/L (3.5-5.1); Sodium 141 mmol/L (136-145)
[2020-10-26 05:46] LABS: Anisocytosis SLIGHT = 6-15 cells (100X) (0-5/hpf); Band 6 % (5-11); Eosinophils 4 % (0-10); Hemoglobin 8.7 g/dL (14.0-18.0); Lymphocytes 10 % (21-51); MDiff Complete? YES; Macrocytosis SLIGHT = 6-15 cells (100X) (0-5/hpf); Mean Corpuscular HGB CONC 33.3 g/dL (32.0-36.0); Mean Corpuscular Hemoglobin 35.3 pg (27.0-31.0); Mean Platelet Volume 8.9 fL (7.4-10.4); Monocytes 7 % (0-10); Neutrophil 72 % (42-75); Nucleated RBC 1 % (0); Platelet Count 136 thou/uL (130-400); Polychromasia SLIGHT = 2-3 cells (100X) (0-2/hpf); RBC Distribution Width 18.6 % (11.5-14.5); Red Blood Cell (RBC) Count 2.46 mill/uL (4.70-6.10); White Blood Cell (WBC) Count 9.6 thou/uL (4.8-10.8)
[2020-10-26] MEDS ORDERED: traMADol HCl 50 MG TAB PO SCH (06:06)
--- NOTE | 2020-10-26 08:51 | PRG ---
DATE OF SERVICE: 10/26/20 SUBJECTIVE: Mr. Chaudhary is a 80-year-old white male with ESRD, was admitted for symptomatic anemia. He has had frequent falls, and CT scan of the abdomen showed retroperitoneal hematoma. Anticoagulation has been discontinued. In addition, he has received 2 units of packed RBC. He is also on maintenance Epogen. We are following up this patient for his ESRD management. I have scheduled this patient for hemodialysis today. We are continuing hemodialysis without any heparin. He still is intermittently confused. He has had a fall 2 nights ago at his bedroom. OBJECTIVE: VITAL SIGNS: Blood pressure is 111/54, heart rate 67, respiratory rate 16, temperature 97.4, O2 saturation 96%. GENERAL: The patient is awake and somewhat confused, but not in distress. SKIN: Adequate turgor. HEENT: Pinkish conjunctivae. Anicteric sclerae. NECK: No neck mass. No carotid bruits. No JVD. CHEST: No deformities. LUNGS: Clear breath sounds. No wheezing. No crackles. HEART: Normal sinus rhythm. No murmurs, gallops, or rubs. ABDOMEN: Globular, soft, nontender. No masses. EXTREMITIES: No edema. No deformities. MEDICATIONS: From October 26, 2020, were reviewed. LABORATORY DATA: From October 26, 2020; white count 9.6, hemoglobin 8.7. Sodium 141, potassium 4.9, chloride 102, carbon dioxide 19, BUN 113, creatinine 7.1, glucose 96. Calcium is 8. ASSESSMENT/PLAN: 1. End-stage renal disease. We will continue heparin-free hemodialysis with this patient. He is currently being evaluated by GI due to the symptomatic anemia. However, endoscopy is on hold due to the elevated troponin I. 2. End-stage renal disease, stable. We will continue current heparin-free hemodialysis. Fluid removal as tolerated by the patient. 3. Chronic anemia. Continuing weekly Epogen. 4. Elevated troponin I - Cardiology has evaluated this patient and the feeling this could be from a demand ischemia. Overall prognosis remains guarded with this patient. Discussion has been made with the patient and regarding long term placement. They would like to think about it. We will recheck CBC and basic met in the morning. Job ID: [id number] MTDD
[2020-10-26] MEDS ORDERED: Iopamidol-370 76% 500 ML 1 ML ONE (10:35)
--- NOTE | 2020-10-26 11:58 | PQF ---
CLINICAL DOCUMENTATION CLARIFICATION FORM: Dear Dr. Konrad Perez Date: 10.26.20 Please exercise your independent, professional judgment in responding to the clarification form. Clinical indicators are provided on the bottom of this form for your review. Please check appropriate box(es): AMI TYPE: [ x ] Type 1 CO (NSTEMI) [ ] Type 2 CO (T2MI) secondary to anemia [ ] Demand Ischemia w/o CO type 2 [ ] Other: [ ] Unable to determine For continuity of documentation, please document condition throughout progress notes and discharge summary. Thank You. To be completed by CDI/Coding staff for physician review: CLINICAL INDICATORS - SIGNS / SYMPTOMS / LABS / RESULTS AND LOCATION IN EMR LABS: Troponin I 12.18 @ 2120 0.079 12.19 @ 0410 0.499 12.19 @ 1006 4.893 12.20 @ 0126 5.864 ED: SBP 84-116 DBP 43-51 P 65-70 RR 17-20 T 98.1 ORAL H&P ([facility]): Presented w/ CP found to be anemic. He was noted to have increasing troponin also. Reported to me that he had one episode of melena; CAT scan did show possible retroperitoneal hematoma that was resolving - known to have frequent falls 10.24 Consult (Lazaro): elevated troponin; anemia, likely upper GI, paroxysmal a-fib s/o watchman. Symptoms suggesting angina. This is likely r/t demand ischemia; 10.24. PN (Chris): NSTEMI; ANEMIA likely multifactorial in the context of CKD and recent acute bld loss 12.20 PN (Sugarek): elevated Trop secondary to demand ischemia; chronic systolic CHF 12-20 PN (Chris): * pretty confused and out of it when I came to visit this morning. * Noticed further decrease in his hemoglobin despite prior bld transfusion. * Will give fresh frozen plasma and some vitamin K * NSTEMI; anemia RISKS / RESULTS AND LOCATION IN EMR H&P ([facility]): Possible upper GI bleed - pt on Coumadin - could be d/t retroperitoneal hematoma TREATMENTS / RESULTS AND LOCATION IN EMR CPOE: *admit to Telemetry (10/23 present) *Consult Cardiology (10.24 Lazaro) * GI consult (10.24 Rosalind) 12.18/12.19/12.20 Transfused PRBC 12.20 Transfused FFP CDS Signature: Gina Doyle RN, CCDS Phone #: [phone] [email or web address] This is a permanent part of the Medical Record [facility]
--- NOTE | 2020-10-26 12:07 | PQF ---
CLINICAL DOCUMENTATION CLARIFICATION FORM: Dear Dr. Konrad Perez Date: 10.26.20 Please exercise your independent, professional judgment in responding to the clarification form. Clinical indicators are provided on the bottom of this form for your review. Please check appropriate box(es): [x ] Acute Blood Loss Anemia [ ] Chronic Blood Loss Anemia [ ] Acute on Chronic Blood Loss Anemia [ ] Other: [ ] Unable to determine For continuity of documentation, please document condition throughout progress notes and discharge summary. Thank You. To be completed by CDI/Coding staff for physician review: CLINICAL INDICATORS - SIGNS / SYMPTOMS / LABS / RESULTS AND LOCATION IN EMR ED: SBP 84-116 DBP 43-51 LABS: Hgb Hct 12.18 7.1 21.8 12.19 7.7 22.7 12.20 @ 0126 7.6 22.2 12.20 @ 0337 7.4 21.2 12.21 @ 0411 8.7 26.0 H&P ([facility]): Presented w/ CP found to be anemic. He was noted to have increasing troponin also. Reported to me that he had one episode of melena; CAT scan did show possible retroperitoneal hematoma that was resolving - known to have frequent falls . Consult (Lazaro): elevated troponin; anemia, likely upper GI, paroxysmal a-fib s/o watchman. Symptoms suggesting angina. This is likely r/t demand ischemia; 10.24. PN (Chris): NSTEMI; ANEMIA likely multifactorial in the context of CKD and recent acute bld loss 12.20 PN (Huff): Chronic anemia; ESRD 12-20 PN (Chris): * pretty confused and out of it when I came to visit this morning. * Noticed further decrease in his hemoglobin despite prior bld transfusion. * Will give fresh frozen plasma and some vitamin K * NSTEMI; anemia . PN (Ragupathi): seen for hx of melena, anemia RISKS / RESULTS AND LOCATION IN EMR [facility] Possible upper GI bleed - pt on coumadin - could be d/t retroperitoneal hematoma TREATMENTS / RESULTS AND LOCATION IN EMR CPOE: *admit to Telemetry (10/23 present) *Consult Cardiology (10.24 Lazaro) * GI consult (10.24 Ragupathi) 12.18/12.19/12.20 Transfused PRBC 12.20 Transfused FFP 12.20 PN (Huff): continuing weekly epogen of 10,000 units subcu q. week. Recheck CBC and basic met in a.m. 12.20 PN (Elviraupjakei): Hopefully an endoscopy study can be donein meantime we would recommend symptomatic treatment. CDS Signature: Gina Doyle RN, CCDS Phone #: [phone] [email or web address] This is a permanent part of the Medical Record [facility]
[2020-10-26] MEDS: Carbidopa/Levodopa 25-100 mg Tablet PO SCH ×3 (12:30→22:48)
[2020-10-26] MEDS: Gabapentin 100 MG CAP PO SCH ×3 (12:31→22:47)
[2020-10-26] MEDS: Amiodarone 200 MG TAB PO SCH (14:14)
[2020-10-26] MEDS: Midodrine HCl 5 MG TAB PO SCH ×2 (14:15→22:48)
[2020-10-26] MEDS: Pantoprazole 40 MG VIAL IVP SCH ×2 (14:15→22:48)
[2020-10-26] MEDS: Tamsulosin HCl 0.4 MG CAP PO SCH (14:15)
--- NOTE | 2020-10-26 14:16 | CT ---
CTA Angio Neck W WO Con History: Severe carotid disease Comparison: Ultrasound prior day Findings: CT angiogram of the head and neck performed after the intravenous administration of contras t. 3-D rendering provided. Calcified granuloma right upper lobe. No apical pneumothorax. Mild atelectasis. The heart size is enlarged. No aortic aneurysm. Multilevel anterolisthesis due to high-grade facet arthrosis throughout the cervical spine. Vessels: Low-grade narrowing intradural right vertebral artery, less than 50%. The vertebral arteries are codominant. The right common carotid artery is patent. Right internal carotid artery is patent. 60-70% stenosis r ight proximal internal carotid artery for length of 1.2 cm at the carotid bulb. Left common carotid artery is patent. 50-60% stenosis proximal left internal carotid artery just afte r the carotid bulb. Impression: 1. No hemodynamically significant stenosis of the internal carotid arteries per NASCET criteria. 2. High-grade atherosclerotic plaque both carotid bulbs and proximal internal carotid arteries. 3. Patent vertebral arteries.
--- NOTE | 2020-10-26 14:30 | PDOC.HOSPP ---
- Subjective Encounter Date: 10/26/20 Encounter Time: 14:27 Subjective: I saw and examined patient today while he was getting dialysis. This is a 80-year-old who was admitted to the hospital with generalized weakness. He reportedly had chest discomfort earlier and his troponin has been elevated. He was seen earlier on admission by chore tender who recommends medical management at this time. The patient had carotid ultrasound obtained earlier which showed high-grade stenosis involving the carotid system. I will discuss thisv ascular surgeon see if he will be a candidate for surgical intervention. - Objective Vital Signs & Weight: Vital Signs (12 hours) Temp Pulse Resp BP Pulse Ox 10/26/20 13:40 97.0 F L 68 17 120/57 L 96 10/26/20 11:41 97.8 F 64 15 119/60 98 10/26/20 07:41 97.4 F L 67 16 111/54 L 96 10/26/20 03:41 97.5 F L 64 17 118/53 L 97 Weight Weight 219 lb 12.814 oz I&O: 10/25/20 10/26/20 10/27/20 06:59 06:59 06:59 Intake Total 420 Balance 420 Result Diagrams: 10/26/20 04:11 10/26/20 04:11 Radiology Reviewed by me: Yes EKG Reviewed by me: Yes Hospitalist ROS - Review of Systems Respiratory: reports: cough, shortness of breath, SOB with excertion Gastrointestinal: reports: nausea Neurological: reports: weakness - Medication Medications: Active Medications Generic Name Dose Route Start Last Admin Trade Name Freq PRN Reason Stop Dose Admin Acetaminophen 500 mg 10/24/20 22:06 10/26/20 03:34 Acetaminophen 500 Mg Tab PO 500 mg Q6H PRN Administration Pain Amiodarone HCl 200 mg 10/25/20 09:00 10/26/20 14:14 Amiodarone 200 Mg Tab PO 200 mg DAILY CHARISSE Administration Carbidopa/Levodopa 1 tab 10/25/20 09:00 10/26/20 14:15 Carbidopa/Levodopa 25-100 Mg Tablet PO 1 tab TID CHARISSE Administration Epoetin Danial-epbx 10,000 unit 10/24/20 11:00 10/24/20 15:45 Epoetin Danial-Epbx (Esrd) 10,000 Unit/Ml Vial SC 10,000 unit Q7D CHARISSE Administration Gabapentin 100 mg 10/26/20 09:00 10/26/20 14:16 Gabapentin 100 Mg Cap PO 100 mg TID CHARISSE Administration Melatonin 3 mg 10/24/20 22:06 10/26/20 00:34 Melatonin 3 Mg Tab PO 3 mg HS PRN Administration Insomnia Midodrine 10 mg 10/24/20 21:00 10/26/20 14:15 Midodrine Hcl 5 Mg Tab PO 10 mg BID CHARISSE Administration Pantoprazole Sodium 40 mg 10/24/20 09:00 10/26/20 14:15 Pantoprazole 40 Mg Vial IVP 40 mg Q12HR CHARISSE Administration Tamsulosin HCl 0.4 mg 10/25/20 09:00 10/26/20 14:15 Tamsulosin Hcl 0.4 Mg Cap PO 0.4 mg DAILY CHARISSE Administration - Exam General Appearance: NAD, awake alert Eye: PERRL, anicteric sclera ENT: normocephalic atraumatic, no oropharyngeal lesions Neck: supple, symmetric, no JVD, no thyromegaly Heart: RRR, no murmur, no gallops Respiratory: CTAB, no wheezes, no rales, no ronchi Gastrointestinal: soft, non-tender, non-distended, normal bowel sounds, no bruit, no guarding Neurological: cranial nerve grossly intact Musculoskeletal: normal tone Psychiatric: normal affect, normal behavior, A&O x 3 Hosp A/P (1) ESRD (end stage renal disease) Code(s): N18.6 - END STAGE RENAL DISEASE Status: Acute (2) CHF (NYHA class III, ACC/AHA stage C) Code(s): I50.9 - HEART FAILURE, UNSPECIFIED Status: Chronic (3) Chronic anticoagulation Code(s): Z79.01 - ALF (CURRENT) USE OF ANTICOAGULANTS Status: Chronic (4) ESRD (end stage renal disease) on dialysis Code(s): N18.6 - END STAGE RENAL DISEASE; Z99.2 - DEPENDENCE ON RENAL DIALYSIS Status: Chronic (5) Physical deconditioning Code(s): R53.81 - OTHER MALAISE Status: Chronic (6) Acute metabolic encephalopathy Code(s): G93.41 - METABOLIC ENCEPHALOPATHY Status: Resolved - Plan PT/OT Consults: Palliative Care #1. NSTEMI. Patient with a complaint of chest pain and upward trending troponin. I will ask a chore tender to take a look at this care and consider invasive evaluation if deemed appropriate. 2. Anemia. Likely multifactorial in the context of chronic kidney disease and recent acute blood loss. 10/25/2020. He remains anemic despite multiple units of packed red cells. I would like to give him an extra unit of packed red cell. 3. End-stage renal disease on hemodialysis. Nephrology evaluation appreciated. He will resume his regularly scheduled dialysis while hospitalized. 4. Hypertensive heart disease. Blood pressure appears stable. 5. CAD. Resume his home medications. 6. Fall He had another fall overnight that was unwitnessed. I suspect this has something to do with his Parkinson disease. 7. History of Parkinson disease. I will resume his home medicines. #8. Carotid artery disease. He had an ultrasound that showed a high-grade stenosis involving the internal carotid vessels. I would like to get the vascular surgeon involved.
[2020-10-26] MEDS: Lorazepam 0.5 MG TAB PO PRN (14:57)
--- NOTE | 2020-10-26 18:19 | RAD ---
EXAM: Single view of the chest HISTORY: Possible rib fractures. Unwitnessed fall COMPARISON: 10/23/2020 FINDINGS: Single view of the chest shows a normal sized cardiomediastinal silhouette. The patient is status post sternotomy. The pacemaker is unchanged in position. Atherosclerotic calcifications are seen in the aorta. A calcified granuloma projects over the right mid thorax. There appears to be a sm all left pleural effusion with adjacent atelectasis versus infiltrate. Increased interstitial markings are present. No pneumothorax is seen. No displaced rib fracture is appreciated. IMPRESSION: Cardiomegaly with left pleural effusion
--- NOTE | 2020-10-26 18:45 | EKG ---
Test Reason : Blood Pressure : / mmHG Vent. Rate : 067 BPM Atrial Rate : 286 BPM P-R Int : 000 ms QRS Dur : 110 ms QT Int : 480 ms P-R-T Axes : 156 -26 110 degrees QTc Int : 507 ms Electronic ventricular pacemaker Confirmed by FEROZ AARON, DR. Reeder ([id number]) on 10/26/2020 6:44:44 PM Referred By: MELECIO Confirmed By:DR. Lilli REDMAN MD
--- NOTE | 2020-10-27 05:52 | PRG ---
DATE OF SERVICE: 10/26/2020 SUBJECTIVE: This is a 80-year-old male with prior CVA, atrial fibrillation, status post AICD placement, chronic kidney disease, presented with chest pain and was found to have elevated troponin level. He was seen by Cardiology . He has history of melena. He has a high troponin level and had to _wait for a while for the EGD. The patient does communicate, but difficult to understand his speech as he has had previous CVA. He was more alert when he came to the hospital, but now he is more sleepy. His volume intake is not very good. He also fell down in the room yesterday. He denies any chest pain, any difficulty breathing, or abdominal pain. OBJECTIVE: GENERAL: He is awake, but he is sleepy. VITAL SIGNS: Afebrile, pulse is 64, blood pressure 120/76. CARDIOVASCULAR: normal heart sounds LUNGS: clear to auscultation. ABDOMEN: Soft. non distended, non tender_. Bowel sounds are normal. LABORATORY DATA: after one unit of_ transfusion _Hb up to 8.4_ platelet count 136. PLAN: 1. Continue to follow labs p.r.n. 2. We will discuss with Cardiology about the EGD. Also try to talk with HIS . .. Job ID: [id number] [facility]
--- NOTE | 2020-10-27 06:29 | CON ---
DATE OF CONSULTATION: 10/26/2020 REQUESTING PHYSICIAN: Dr. Perez. CHIEF COMPLAINT: Chest pain and dizziness. HISTORY OF PRESENT ILLNESS: The patient is a 80-year-old dialysis patient who was admitted to the hospital 3 days ago after complaining of chest pain and dizziness following a dialysis treatment. His systolic blood pressures were mostly in the 80s and 90s in the emergency room and heart rates in the 60s to 70s. His hemoglobin was 7.1 with a baseline hemoglobin of 10 to 11. By report, he had melenic stool and although he had a negative stool for occult blood in July of this year, I have not found a specimen from this hospitalization. During the course of his evaluation, he had a carotid ultrasound that my report described "high-grade plaque of both common carotid arteries." On the study itself, velocities and ratios on the right side were normal. On the left side, there is reversal of flow in the common carotid and distal internal carotid. On CT angiography, there was obvious plaque in the carotids with about 40% or 50% lesion in the left internal carotid. A couple of cuts on the right side near the bulbar origin of the internal carotid suggesting it may be closer to 80%. This corresponds with an area of oblique course of the vessel that possibly overestimates the degree of stenosis on the right side. PAST MEDICAL HISTORY: Significant for paroxysmal atrial fibrillation, right frontal stroke, end-stage renal disease, hypertension, and cardiomyopathy. He has had a previous AICD placement, previous coronary artery bypass grafting and resection of ventricular aneurysm. HOME MEDICINES: 1. Aspirin. 2. Lipitor. 3. Amiodarone. 4. Midodrine. 5. . 6. Flomax. SOCIAL HISTORY: Does not currently smoke. REVIEW OF SYSTEMS: Unobtainable as the patient was hostile and uncooperative. PHYSICAL EXAMINATION: GENERAL: The patient appears about his stated age. He has dried drool dribbling down his left cheek and neck. VITAL SIGNS: In the emergency room, his heart rates were in the 60s to 70s and systolic blood pressures in the mid 80s to mid 90s. He was mumbling something about I could not make him do anything without a senior speech pathologist present and he began yelling at the sitter who tried to help him answer his phone. Currently, his heart rate in the 60s, blood pressure 118/56, temperature 97.4. EXTREMITIES: He appeared to have spontaneous movement of his extremities, but he was not cooperative with exam. LABORATORY DATA: His laboratories are as above, as are his imaging studies. IMPRESSION AND PLAN: No one has documented anything that would suggest a symptomatic carotid stenosis. The patient at best is delirious, perhaps is demented. In any event, he is hostile and uncooperative and I will not make any further attempt at this time to assess or treat the patient. Job ID: [id number]
--- NOTE | 2020-10-27 08:36 | PRG ---
DATE OF SERVICE: 10/27/2020 SUBJECTIVE: Mr. Chaudhary is a 80-year-old white male with ESRD, who was admitted for symptomatic anemia. He was given several units of blood, and he has improved. However, this morning, the patient was more sedated. He was hard to arouse. I did review his medication, and he has been restarted on Neurontin, trazodone, and Ativan. This all may have played a factor in him being more sedated. His vital signs were reviewed and they were all stable. The patient underwent hemodialysis yesterday. OBJECTIVE: VITAL SIGNS: Blood pressure is 101/53, heart rate 61, respiratory rate 17, temperature 97.7, O2 saturation 99% on room air. GENERAL: The patient is sleepy, very hard to arouse, but noted to be comfortable. SKIN: Adequate turgor. HEENT: Slightly pale conjunctivae. Anicteric sclerae. NECK: No neck mass. No carotid bruits. No JVD. CHEST: No deformities. LUNGS: Clear breath sounds. HEART: Normal sinus rhythm. No murmur. No gallops. No rubs. ABDOMEN: Globular, soft, nontender. No masses. EXTREMITIES: No edema. No deformities. MEDICATIONS: Of October 27, 2020, was reviewed. LABORATORY DATA: Laboratories of October 26, 2020: Sodium 141, potassium 4.9, chloride 102, carbon dioxide 19, BUN 113, creatinine 7.1. White count 9.6, hemoglobin 8.7. On October 26, 2020: CT angio of the neck showed no hemodynamically significant stenosis of the internal carotid; however, there is a high-grade atherosclerotic plaque on both carotid bulbs and proximal internal carotid arteries. ASSESSMENT AND PLAN: 1. End-stage renal disease stable: We will continue current Monday, Monday, and Monday hemodialysis. Fluid removal as tolerated by the patient. 2. CT angio of the neck-surgical consult was done. As per Cardiothoracic Surgery, the patient was evaluated and patient was unable to make any decision in regard to his care. The plan is simply to observe him. 3. Decreased mentation-this could be related from his medications. Please note gabapentin/Neurontin has been discontinued. 4. Anemia. Continue weekly Epogen. P.r.n. blood transfusion. Recheck CBC, and basic metabolic panel in a.m. Job ID: [id number] [facility]
[2020-10-27] MEDS: Amiodarone 200 MG TAB PO SCH (09:59)
[2020-10-27] MEDS: Midodrine HCl 5 MG TAB PO SCH ×2 (10:00→20:18)
[2020-10-27] MEDS: Tamsulosin HCl 0.4 MG CAP PO SCH (10:00)
[2020-10-27] MEDS: Pantoprazole 40 MG VIAL IVP SCH ×2 (10:00→20:18)
[2020-10-27] MEDS: Carbidopa/Levodopa 25-100 mg Tablet PO SCH ×3 (10:00→20:17)
[2020-10-27 10:08] LABS: Hemoglobin 8.4 g/dL (14.0-18.0); Mean Corpuscular HGB CONC 33.1 g/dL (32.0-36.0); Mean Corpuscular Hemoglobin 35.4 pg (27.0-31.0); Mean Platelet Volume 8.7 fL (7.4-10.4); Platelet Count 156 thou/uL (130-400); RBC Distribution Width 18.7 % (11.5-14.5); Red Blood Cell (RBC) Count 2.37 mill/uL (4.70-6.10); White Blood Cell (WBC) Count 7.7 thou/uL (4.8-10.8)
[2020-10-27 10:10] LABS: INR-International Normal Ratio 1.2
[2020-10-27 10:53] LABS: Band 2 % (5-11); Eosinophils 1 % (0-10); Lymphocytes 20 % (21-51); MDiff Complete? YES; Monocytes 16 % (0-10); Myelocyte 1 % (0-0); Neutrophil 60 % (42-75); Nucleated RBC 2 % (0); Platelet Morphology Comment Appears Adequate; Polychromasia SLIGHT = 2-3 cells (100X) (0-2/hpf)
--- NOTE | 2020-10-27 15:34 | PDOC.HOSPP ---
- Subjective Encounter Date: 10/27/20 Encounter Time: 15:32 Subjective: Mr. Dykes was seen and evaluated today. He was very sleepy this morning but easily arousable. This is an elderly 80-year-old with end-stage renal disease on hemodialysis and Parkinson disease who was admitted to the hospital with generalized weakness and had some chest discomfort. He was evaluated by cardiology earlier on this admission who recommended medical management. The patient is unable to really tell me at this point if he has any chest pain or not. As part of his exam we had a carotid duplex obtained that showed moderate to severe atherosclerotic disease. Cardiovascular service attempted to evaluate him but he was too confused and disoriented. His aspirin and warfarin are both on hold due to bleeding that had occurred earlier on admission. He also has had anemia and has received a couple units of packed red cells. I will discuss with family about plans for postacute placement. - Objective Vital Signs & Weight: Vital Signs (12 hours) Temp Pulse Resp BP Pulse Ox 10/27/20 11:22 98.0 F 60 15 111/53 L 97 10/27/20 07:39 97.7 F 61 17 101/53 L 99 Weight Weight 217 lb 9.54 oz I&O: 10/26/20 10/27/20 10/28/20 06:59 06:59 06:59 Intake Total 420 350 Balance 420 350 Result Diagrams: 10/27/20 09:45 10/26/20 04:11 Radiology Reviewed by me: Yes EKG Reviewed by me: Yes Hospitalist ROS - Review of Systems ROS unobtainable: due to mental status Constitutional: reports: weakness, malaise Eyes: reports: pain Respiratory: reports: shortness of breath, SOB with excertion Gastrointestinal: reports: nausea Neurological: reports: weakness, incoordination, confusion - Medication Medications: Active Medications Generic Name Dose Route Start Last Admin Trade Name Freq PRN Reason Stop Dose Admin Acetaminophen 500 mg 10/24/20 22:06 10/26/20 03:34 Acetaminophen 500 Mg Tab PO 500 mg Q6H PRN Administration Pain Amiodarone HCl 200 mg 10/25/20 09:00 10/27/20 09:59 Amiodarone 200 Mg Tab PO 200 mg DAILY CHARISSE Administration Carbidopa/Levodopa 1 tab 10/25/20 09:00 10/27/20 10:00 Carbidopa/Levodopa 25-100 Mg Tablet PO 1 tab TID CHARISSE Administration Epoetin Danial-epbx 10,000 unit 10/24/20 11:00 10/24/20 15:45 Epoetin Danial-Epbx (Esrd) 10,000 Unit/Ml Vial SC 10,000 unit Q7D CHARISSE Administration Lorazepam 0.5 mg 10/26/20 14:33 10/26/20 14:57 Lorazepam 0.5 Mg Tab PO 0.5 mg Q4H PRN Administration Anxiety Melatonin 3 mg 10/24/20 22:06 10/26/20 00:34 Melatonin 3 Mg Tab PO 3 mg HS PRN Administration Insomnia Midodrine 10 mg 10/24/20 21:00 10/27/20 10:00 Midodrine Hcl 5 Mg Tab PO 10 mg BID CHARISSE Administration Pantoprazole Sodium 40 mg 10/24/20 09:00 10/27/20 10:00 Pantoprazole 40 Mg Vial IVP 40 mg Q12HR CHARISSE Administration Tamsulosin HCl 0.4 mg 10/25/20 09:00 10/27/20 10:00 Tamsulosin Hcl 0.4 Mg Cap PO 0.4 mg DAILY CHARISSE Administration - Exam General Appearance: NAD, ill appearing Eye: PERRL ENT: normocephalic atraumatic, no oropharyngeal lesions, moist mucosa Neck: supple, symmetric, no JVD, no lymphadenopathy Heart: RRR, no murmur, no gallops, no rubs, normal peripheral pulses Respiratory: CTAB, no wheezes Gastrointestinal: soft, non-tender, non-distended Neurological: cranial nerve grossly intact Musculoskeletal: normal tone Hosp A/P (1) ESRD (end stage renal disease) Code(s): N18.6 - END STAGE RENAL DISEASE Status: Acute (2) CHF (NYHA class III, ACC/AHA stage C) Code(s): I50.9 - HEART FAILURE, UNSPECIFIED Status: Chronic (3) Chronic anticoagulation Code(s): Z79.01 - SHELTER (CURRENT) USE OF ANTICOAGULANTS Status: Chronic (4) ESRD (end stage renal disease) on dialysis Code(s): N18.6 - END STAGE RENAL DISEASE; Z99.2 - DEPENDENCE ON RENAL DIALYSIS Status: Chronic (5) Physical deconditioning Code(s): R53.81 - OTHER MALAISE Status: Chronic (6) Acute metabolic encephalopathy Code(s): G93.41 - METABOLIC ENCEPHALOPATHY Status: Resolved - Plan 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 NSTEMI. Patient with a complaint of chest pain and upward trending troponin. I will ask a wood stainer to take a look at this care and consider invasive evaluation if deemed appropriate. 2. Anemia. Likely multifactorial in the context of chronic kidney disease and recent acute blood loss. 10/25/2020. He remains anemic despite multiple units of packed red cells. I would like to give him an extra unit of packed red cell. 3. End-stage renal disease on hemodialysis. Nephrology evaluation appreciated. He will resume his regularly scheduled dialysis while hospitalized. 4. Hypertensive heart disease. Blood pressure appears stable. 5. CAD. Resume his home medications. 6. Fall He had another fall overnight that was unwitnessed. I suspect this has something to do with his Parkinson disease. 7. History of Parkinson disease. I will resume his home medicines. #8. Carotid artery disease. He had an ultrasound that showed a high-grade stenosis involving the internal carotid vessels. I would like to get the vascular surgeon involved.
[2020-10-27 15:39] LABS: Anion Gap 20 mmol/L (10-20); BUN (Urea Nitrogen) 76 mg/dL (8.4-25.7); Calc. Creatinine Clearance 13 mL/min (70-130); Calcium 7.9 mg/dL (7.8-10.44); Carbon Dioxide 23 mmol/L (23-31); Chloride 101 mmol/L (98-107); Glucose 96 mg/dL (83-110); Potassium 4.4 mmol/L (3.5-5.1); Sodium 140 mmol/L (136-145)
--- NOTE | 2020-10-27 18:46 | EKG ---
Test Reason : CP Blood Pressure : / mmHG Vent. Rate : 067 BPM Atrial Rate : 066 BPM P-R Int : 000 ms QRS Dur : 126 ms QT Int : 498 ms P-R-T Axes : 000 032 206 degrees QTc Int : 526 ms Electronic ventricular pacemaker When compared with ECG of 24-OCT-2020 12:44, No significant change was found Confirmed by FEROZ AARON, DR. Reeder ([id number]) on 10/27/2020 6:46:08 PM Referred By: MELECIO Confirmed By:DR. Lilli REDMAN MD
[2020-10-28] MEDS: Acetaminophen 500 MG TAB PO PRN ×2 (00:13→09:50)
[2020-10-28] MEDS: Lorazepam 0.5 MG TAB PO PRN ×2 (02:37→20:11)
[2020-10-28 05:32] LABS: #Eosinphils 0.3 thou/uL (0.0-0.7); #Lymphocytes 1.7 thou/uL (1.20-3.40); #Neutrophils 3.9 thou/uL (1.40-6.50); %Basophils 0.6 % (0.0-1.0); %Eosinophils 4.6 % (0.0-10.0); %Lymphocytes 24.4 % (21.0-51.0); %Monocytes 14.8 % (0.0-10.0); %Neutrophils 55.6 % (42.0-75.0); Anisocytosis SLIGHT = 6-15 cells (100X) (0-5/hpf); Hemoglobin 8.5 g/dL (14.0-18.0); MDiff Complete? YES; Macrocytosis SLIGHT = 6-15 cells (100X) (0-5/hpf); Mean Corpuscular HGB CONC 33.4 g/dL (32.0-36.0); Mean Corpuscular Hemoglobin 35.4 pg (27.0-31.0); Mean Platelet Volume 8.4 fL (7.4-10.4); Platelet Count 152 thou/uL (130-400); Polychromasia SLIGHT = 2-3 cells (100X) (0-2/hpf); RBC Distribution Width 18.1 % (11.5-14.5); Red Blood Cell (RBC) Count 2.39 mill/uL (4.70-6.10)
[2020-10-28 05:35] LABS: Anion Gap 20 mmol/L (10-20); BUN (Urea Nitrogen) 86 mg/dL (8.4-25.7); Calc. Creatinine Clearance 12 mL/min (70-130); Carbon Dioxide 23 mmol/L (23-31); Chloride 100 mmol/L (98-107); Glucose 91 mg/dL (83-110); Potassium 4.4 mmol/L (3.5-5.1); Sodium 139 mmol/L (136-145)
--- NOTE | 2020-10-28 06:12 | PRG ---
DATE OF SERVICE: 10/27/2020 SUBJECTIVE: This is a 80-year-old male with multiple medical problems, cardiac arrhythmia; chronic kidney disease, on dialysis; . The patient is undergoing dialysis. The patient has had no recurrence of bleeding. He has been transfused and his Hb is stable . The patient is very sleepy. Every time I try to see him he is always sleeping, difficulty waking him up. Patient has a sitter in the room and the sitter tells me that he did not eat well today. Overall, he is not complaining of any abdominal pain, nausea or vomiting . No family available at the time I came to see him. Apparently, the has been coming back and forth . OBJECTIVE: GENERAL: He appears comfortable, sleepy. VITAL SIGNS: Afebrile. Pulse is 61, blood pressure 115/53. CARDIOVASCULAR SYSTEM: Normal heart sounds. LUNGS: Clear to auscultation. ABDOMEN: Soft. No organomegaly. no tenderness noted . No mass. The patient has been seen by Cardiovascular Surgery. RECOMMENDATIONS: 1. Continue supportive care. 2. May need EGD and I will try to contact his . If is agreeable, I will plan EGD in the near future. Job ID: [id number] MTDD
--- NOTE | 2020-10-28 08:18 | PRG ---
DATE OF SERVICE: 10/28/2020 SERVICE: Renal Medicine. SUBJECTIVE: Mr. Chaudhary is a 80-year-old white male with ESRD, who was initially admitted for symptomatic anemia. He was given blood transfusion with improvement of his overall status. Yesterday, he was noted to have decreased mentation. We felt that this was iatrogenic in etiology. His Neurontin was discontinued. This morning, he is more awake. The patient is being followed up for GI and the plan is to eventually consider upper GI endoscopy. He is off his anticoagulation. He voices no complaints. He is currently undergoing heparin-free hemodialysis. OBJECTIVE: VITAL SIGNS: Blood pressure is 105/56 with heart rate of 62, respiratory rate 15, temperature 97.9, and O2 saturation 97%. GENERAL: The patient is awake, comfortable, not in distress. SKIN: Adequate turgor. HEENT: Slightly pale conjunctivae. Anicteric sclerae. NECK: No neck mass. No carotid bruits. No JVD. CHEST: No deformities. LUNGS: Clear breath sounds. No wheezing. No crackles. HEART: Normal sinus rhythm. No murmur. No gallops. No rubs. ABDOMEN: Globular, soft, and nontender. No masses. EXTREMITIES: No edema. No deformities. MEDICATIONS: Of October 28, 2020, was reviewed. LABORATORY DATA: Laboratories of October 28, 2020; white count 7, hemoglobin 8.5. Sodium 139, potassium 4.4, chloride 100, carbon dioxide 23, BUN 86, creatinine 7.14, glucose 91, and calcium 8. ASSESSMENT AND PLAN: 1. End-stage renal disease, stable, continuing heparin-free hemodialysis. Minimal fluid removal due to the low BP in the past and decreased p.o. intake. No other changes to be made. 2. Decreased mentation, much improved after discontinuation of sedative/Neurontin. 3. Failure to thrive - consider long term placement with this patient. This has been discussed with them before, but they are undecided - and the patient. 4. Anemia - for eventual upper GI endoscopy. GI following. Recheck CBC and basic metabolic panel in a.m. Job ID: [id number]
[2020-10-28] MEDS: Midodrine HCl 5 MG TAB PO SCH ×2 (09:49→20:11)
[2020-10-28] MEDS: Tamsulosin HCl 0.4 MG CAP PO SCH (09:49)
[2020-10-28] MEDS: Amiodarone 200 MG TAB PO SCH (09:50)
[2020-10-28] MEDS: Carbidopa/Levodopa 25-100 mg Tablet PO SCH ×3 (09:50→20:11)
[2020-10-28] MEDS: Pantoprazole 40 MG VIAL IVP SCH ×2 (09:51→20:12)
--- NOTE | 2020-10-28 17:14 | PRG ---
DATE OF SERVICE: 10/27/20 SUBJECTIVE: This is a 80-year-old male hospitalized over the weekend with black tarry stool and also chest pain. He was seen by Dr. Willis and it appears that he is pretty stable from cardiac standpoint. The patient was on anticoagulation before. He was off Coumadin for several days. He was very drowsy for several days. Today, he is actually awake and alert and communicative. However, somewhat difficult understanding because of his previous CVA with speech somewhat slurred. Denies any chest pain. No difficulty breathing. No abdominal pain. No nausea or vomiting. He has been transfused 1 unit of RBCs and blood count is noted to be stable at 8.5. OBJECTIVE: GENERAL: He is awake and alert and does communicate, but difficult to understand his speech. He is afebrile. VITAL SIGNS: Pulse is 65, blood pressure is 101/59. CARDIOVASCULAR: Normal heart sounds. LUNGS: Clear to auscultation. ABDOMEN: Soft, nondistended, and nontender. IMPRESSION: 1. History of melena, stable. No recurrence of bleeding. 2. Anemia, which is chronic in nature. 3. Chronic kidney disease, on dialysis. 4. Status post AICD placement. 5. Previous cerebrovascular accident. PLAN: Hopefully, an EGD can be done in the next couple of days. I tried to get in touch with his and I was not able to contact her yesterday. I will try again today and if she is agreeable, I will plan for EGD either tomorrow or on Monday. Job ID: [id number] MTDD
--- NOTE | 2020-10-28 17:20 | PDOC.HOSPP ---
- Subjective Encounter Date: 10/28/20 Encounter Time: 17:16 Subjective: I saw and evaluated Mr. Dykes earlier today. He remains very confused and disoriented. He is mumbling and largely incoherent. He also is cussing a lot. His is not at the bedside. I attempted to call her twice on the phone number [phone] and she did not pickers material handlers. Mr. Chaudhary is a dialysis patient who was admitted to the hospital for generalized weakness, falls and some very vague and nonspecific chest discomfort. He had upward trending troponin and was seen by cardiology who recommended medical management. The patient has had issues with GI bleeding recently and no antiplatelet or anticoagulant was i nitiated as a result. Beta-dakotah also is held because the patient blood pressure has been really on the borderline. He recently had an echocardiogram as outpatient back in June 2020 and his EF was around 45 to 50% with moderate mitral regurgitation. We will continue conservative care at this time. He had a carotid ultrasound done that showed some atherosclerosis and vascular surgery did see him but the patient was very disoriented and confused and could not provide any meaningful history and at this point in time they just want conservative management. We will try to call the again and hopefully update her on the plan of care and figure out what will be this patient's disposition post hospitalization. - Objective Vital Signs & Weight: Vital Signs (12 hours) Temp Pulse Resp BP Pulse Ox 10/28/20 15:28 97.7 F 65 18 101/51 L 99 10/28/20 12:19 97.5 F L 60 16 112/42 L 98 10/28/20 07:30 98 F 66 15 110/58 L 95 10/28/20 07:20 98 Weight Weight 214 lb 4.629 oz I&O: 10/27/20 10/28/20 10/29/20 06:59 06:59 06:59 Intake Total 350 500 120 Balance 350 500 120 Result Diagrams: 10/28/20 04:50 10/28/20 04:50 Radiology Reviewed by me: Yes EKG Reviewed by me: Yes Hospitalist ROS - Review of Systems ROS unobtainable: due to mental status Constitutional: reports: weakness, malaise Gastrointestinal: reports: nausea, vomiting Neurological: reports: weakness, confusion All other systems reviewed; all pertinent +/- noted in HPI/Subj - Medication Medications: Active Medications Generic Name Dose Route Start Last Admin Trade Name Freq PRN Reason Stop Dose Admin Acetaminophen 500 mg 10/24/20 22:06 10/28/20 09:50 Acetaminophen 500 Mg Tab PO 500 mg Q6H PRN Administration Pain Amiodarone HCl 200 mg 10/25/20 09:00 10/28/20 09:50 Amiodarone 200 Mg Tab PO 200 mg DAILY CHARISSE Administration Carbidopa/Levodopa 1 tab 10/25/20 09:00 10/28/20 14:22 Carbidopa/Levodopa 25-100 Mg Tablet PO 1 tab TID CHARISSE Administration Epoetin Danial-epbx 10,000 unit 10/24/20 11:00 10/24/20 15:45 Epoetin Danial-Epbx (Esrd) 10,000 Unit/Ml Vial SC 10,000 unit Q7D CHARISSE Administration Lorazepam 0.5 mg 10/26/20 14:33 10/28/20 02:37 Lorazepam 0.5 Mg Tab PO 0.5 mg Q4H PRN Administration Anxiety Melatonin 3 mg 10/24/20 22:06 10/26/20 00:34 Melatonin 3 Mg Tab PO 3 mg HS PRN Administration Insomnia Midodrine 10 mg 10/24/20 21:00 10/28/20 09:49 Midodrine Hcl 5 Mg Tab PO 10 mg BID CHARISSE Administration Pantoprazole Sodium 40 mg 10/24/20 09:00 10/28/20 09:51 Pantoprazole 40 Mg Vial IVP 40 mg Q12HR CHARISSE Administration Tamsulosin HCl 0.4 mg 10/25/20 09:00 10/28/20 09:49 Tamsulosin Hcl 0.4 Mg Cap PO 0.4 mg DAILY CHARISSE Administration - Exam General Appearance: NAD, awake alert, ill appearing Eye: PERRL, anicteric sclera ENT: normocephalic atraumatic, no oropharyngeal lesions, moist mucosa Neck: supple, symmetric, no JVD, no thyromegaly Heart: RRR, no murmur, no gallops, no rubs Respiratory: CTAB, no wheezes, no rales Gastrointestinal: soft, non-tender, non-distended, normal bowel sounds Neurological: cranial nerve grossly intact Musculoskeletal: generalized weakness Psychiatric: not oriented, somnolent Hosp A/P (1) ESRD (end stage renal disease) Code(s): N18.6 - END STAGE RENAL DISEASE Status: Acute (2) CHF (NYHA class III, ACC/AHA stage C) Code(s): I50.9 - HEART FAILURE, UNSPECIFIED Status: Chronic (3) Chronic anticoagulation Code(s): Z79.01 - HOT KNIFE FOXING CUTTER (CURRENT) USE OF ANTICOAGULANTS Status: Chronic (4) ESRD (end stage renal disease) on dialysis Code(s): N18.6 - END STAGE RENAL DISEASE; Z99.2 - DEPENDENCE ON RENAL DIALYSIS Status: Chronic (5) Physical deconditioning Code(s): R53.81 - OTHER MALAISE Status: Chronic (6) Acute metabolic encephalopathy Code(s): G93.41 - METABOLIC ENCEPHALOPATHY Status: Resolved - Plan old records reviewed/req, PT/OT, respiratory therapy #1. NSTEMI. Patient with a complaint of chest pain and upward trending troponin. I will ask a naval marine engineer to take a look at this care and consider invasive evaluation if deemed appropriate. 10/28/2020. The patient is not on any antiplatelet due to recent GI bleed. His Coumadin is also on hold. He also is not on a beta-dakotah due to low blood pressure. He recently had an echo in June 2020 which showed an EF around 40 to 45% with mild to moderate mitral regurgitation. He will likely need an echo as outpatient. 2. Anemia. Likely multifactorial in the context of chronic kidney disease and recent acute blood loss. 10/25/2020. He remains anemic despite multiple units of packed red cells. I would like to give him an extra unit of packed red cell. 3. End-stage renal disease on hemodialysis. Nephrology evaluation appreciated. He will resume his regularly scheduled dialysis while hospitalized. 4. Hypertensive heart disease. Blood pressure appears stable. 5. CAD. Resume his home medications. 6. Fall He had another fall overnight that was unwitnessed. I suspect this has something to do with his Parkinson disease. 7. History of Parkinson disease. I will resume his home medicines. #8. Carotid artery disease. He had an ultrasound that showed a high-grade stenosis involving the internal carotid vessels. I would like to get the vascular surgeon involved.
--- NOTE | 2020-10-28 17:22 | PRG ---
DATE OF SERVICE: 10/28/2020 I did talk to Ms. Kamini Chaudhary this afternoon about her . I did explain to her about the plan for EGD and the need for doing this is GI bleeding. She agreed. I will plan for EGD tomorrow. Job ID: [id number]
[2020-10-29 05:25] LABS: Anion Gap 19 mmol/L (10-20); BUN (Urea Nitrogen) 48 mg/dL (8.4-25.7); Calc. Creatinine Clearance 15 mL/min (70-130); Carbon Dioxide 23 mmol/L (23-31); Chloride 102 mmol/L (98-107); Glucose 98 mg/dL (83-110); Potassium 4.5 mmol/L (3.5-5.1); Sodium 139 mmol/L (136-145)
[2020-10-29 05:49] LABS: #Eosinphils 0.2 thou/uL (0.0-0.7); #Lymphocytes 1.2 thou/uL (1.20-3.40); #Monocytes 0.8 thou/uL (0.11-0.59); #Neutrophils 9.7 thou/uL (1.40-6.50); %Basophils 0.3 % (0.0-1.0); %Eosinophils 1.8 % (0.0-10.0); %Lymphocytes 10.4 % (21.0-51.0); %Monocytes 6.8 % (0.0-10.0); %Neutrophils 80.8 % (42.0-75.0); Anisocytosis MODERATE=16-30 cells (100X) (0-5/hpf); Hemoglobin 8.6 g/dL (14.0-18.0); MDiff Complete? YES; Macrocytosis SLIGHT = 6-15 cells (100X) (0-5/hpf); Mean Corpuscular HGB CONC 33.5 g/dL (32.0-36.0); Mean Corpuscular Hemoglobin 36.6 pg (27.0-31.0); Mean Platelet Volume 8.8 fL (7.4-10.4); Platelet Count 146 thou/uL (130-400); Platelet Morphology Comment Appears Adequate; RBC Distribution Width 19.8 % (11.5-14.5); Red Blood Cell (RBC) Count 2.35 mill/uL (4.70-6.10)
--- NOTE | 2020-10-29 08:45 | PRG ---
DATE OF SERVICE: 10/29/2020 SUBJECTIVE: Mr. Chaudhary is a 80-year-old white male with ESRD and being followed up for his maintenance hemodialysis. He underwent hemodialysis yesterday without any heparin. He tolerated the said treatment. He is also being evaluated by GI for symptomatic anemia. The plan is for him to undergo an upper GI endoscopy. No acute events noted last night. OBJECTIVE: VITAL SIGNS: Blood pressure is 113/58, heart rate 60, respiratory rate 16, temperature 98.2, O2 saturation 99%. GENERAL: The patient is awake, supine, comfortable, but confused. SKIN: Adequate turgor. HEENT: He has slightly pale conjunctivae. Anicteric sclerae. No neck mass. No carotid bruits. No JVD. CHEST: No deformities. LUNGS: Clear breath sounds. No wheezing. No crackles. HEART: Normal sinus rhythm. No murmur. No gallops. No rubs. ABDOMEN: Globular, soft, nontender. No masses. EXTREMITIES: No edema. No deformities. MEDICATIONS: Of October 29, 2020, were reviewed. LABORATORY DATA: Laboratories of October 29, 2020: White count 12, hemoglobin 8.6. Sodium 139, potassium 4.5, chloride 102, carbon dioxide 23, BUN 48, creatinine 5.65, glucose 98, calcium 8.0. ASSESSMENT AND PLAN: 1. End-stage renal disease, stable. We will continue current Monday, Monday, and Monday hemodialysis. Tolerating said treatment. No indication for any emergency hemodialysis today. 2. Anemia - for GI workup. Plan is eventual upper GI endoscopy with Dr. Boyer. We will continue current weekly Epogen regimen with this patient. 3. Confusion - possibility of underlying dementia remains with this patient. 4. Recheck CBC and basic metabolics in a.m. Addendum - I have changed his Hemodialysis date to today and Monday. I have instructed dialysis nurse to proceed with a 2 hour hemodialysis today with minimal fluid removal. Job ID: [id number] [facility]
[2020-10-29] MEDS: Carbidopa/Levodopa 25-100 mg Tablet PO SCH ×3 (10:11→20:40)
[2020-10-29] MEDS: Midodrine HCl 5 MG TAB PO SCH ×2 (10:12→20:40)
[2020-10-29] MEDS: Pantoprazole 40 MG VIAL IVP SCH (10:12)
[2020-10-29] MEDS ORDERED: Lidocaine 1% PF 5 ML VIAL ONE (10:25)
[2020-10-29] MEDS ORDERED: PHENYLEPHRINE-NS 100 MCG/ML 10 ML SYRINGE ONE ×2 (10:25→10:44)
[2020-10-29] MEDS ORDERED: PROPOFOL 200 MG/20 ML VIAL ONE (10:25)
[2020-10-29] MEDS ORDERED: Ondansetron HCl/PF 4 MG/2 ML Vial IVP PRN (11:03)
[2020-10-29] MEDS ORDERED: Promethazine HCl 25 MG/ML VIAL IM PRN (11:03)
[2020-10-29] MEDS ORDERED: Promethazine HCl 25 MG/ML VIAL SLOW IVP PRN (11:03)
--- NOTE | 2020-10-29 11:23 | PRG ---
DATE OF SERVICE: 10/29/2020 SUBJECTIVE: Mr. Chaudhary's upper endoscopy revealed no signs of bleeding today. He had upper and lower endoscopy in 2018 for GI bleed while on anticoagulation. He had a normal EGD. Small AVM in the ascending colon through the argon plasma coagulation. Small polyp was removed. At this time, he has no active bleeding. He likely has AVMs involving other areas of the GI tract. He is not a candidate for undergoing colonoscopy presently with this confusion. RECOMMENDATIONS: If any signs of acute GI bleed, please do not hesitate to re-consult, may be reasonable to consider other types of anticoagulation with regard to his fall risk. Cardiology has recommended discontinuing oral anticoagulations for this reason as well. Again, we will sign off. If I can be of any further assistance in the patient's care, please do not hesitate to contact me. Job ID: [id number]
[2020-10-29] MEDS: Amiodarone 200 MG TAB PO SCH (11:45)
[2020-10-29] MEDS: Tamsulosin HCl 0.4 MG CAP PO SCH (11:46)
--- NOTE | 2020-10-29 12:01 | OP ---
DATE OF PROCEDURE: 10/29/2020 PROCEDURE PERFORMED: Esophagogastroduodenoscopy. PREPROCEDURE DIAGNOSES: 1. Anemia. 2. Melena. 3. Chronic anticoagulation. ANESTHESIA: TIVA. POSTPROCEDURE DIAGNOSES: 1. Normal esophagus. 2. Stomach normal except for retained food in the cardia precluding complete visualization of the proximal cardia. 3. Normal duodenum to the third portion. RECOMMENDATION: 1. PPI therapy. 2. If the patient's mental status improves to the point where he bowel prep, we could consider a colonoscopy at a later date. Presently, he is not able to proceed with that study. Monitor H and H. continue PPI. PROCEDURE IN DETAIL: After the patient was informed of the risks, benefits, and possible complications of endoscopy including perforation, bleeding, reaction to medication, aspiration, informed consent was obtained. The patient was brought to the endoscopy suite, where he was sedated in gradual fashion. Once he was comfortable, bite block was placed in the incisural orifice. The endoscope was advanced into the esophagus, stomach, and second and third portions of the duodenum. The scope was slowly removed. There was good visualization of the mucosa. The esophagus was normal. The stomach was normal in the antrum and the distal body and fundus. The cardia could not be completely visualized secondary to retained food the large masses, but could not visualize all the mucosa. The duodenum was normal in the third portion. There was no stigmata of bleeding, AV malformations, ulcers, or erosions. The scope was removed. The patient tolerated the procedure well. There were no complications. Job ID: [id number]
--- NOTE | 2020-10-29 17:27 | PDOC.HOSPP ---
- Subjective Encounter Date: 10/29/20 Encounter Time: 17:26 Subjective: He had EGDs today and this was a fairly normal study. There has been no appreciable clinical changes noted on this unfortunate patient. He continues to tolerate his dialysis well. I have made couple attempts to speak with the regarding options for discharge planning. I have been unsuccessful in getting hold of her. This patient is going to need placement on discharge. I believe his dementia is quite extensive at this point that would preclude him being able to take care of himself. He is going to likely need [id number] care. - Objective Vital Signs & Weight: Vital Signs (12 hours) Temp Pulse Resp BP Pulse Ox 10/29/20 11:51 98.1 F 63 16 112/58 L 98 10/29/20 07:08 98.2 F 60 16 113/58 L 99 Weight Weight 208 lb 1.862 oz I&O: 10/28/20 10/29/20 10/30/20 06:59 06:59 06:59 Intake Total 500 240 120 Balance 500 240 120 Result Diagrams: 10/30/20 06:10 10/30/20 04:17 Radiology Reviewed by me: Yes EKG Reviewed by me: Yes Hospitalist ROS - Review of Systems ROS unobtainable: due to mental status Neurological: reports: weakness, confusion, seizures - Medication Medications: Active Medications Generic Name Dose Route Start Last Admin Trade Name Freq PRN Reason Stop Dose Admin Acetaminophen 500 mg 10/24/20 22:06 10/28/20 09:50 Acetaminophen 500 Mg Tab PO 500 mg Q6H PRN Administration Pain Amiodarone HCl 200 mg 10/25/20 09:00 10/29/20 11:45 Amiodarone 200 Mg Tab PO 200 mg DAILY CHARISSE Administration Carbidopa/Levodopa 1 tab 10/25/20 09:00 10/29/20 10:11 Carbidopa/Levodopa 25-100 Mg Tablet PO Not Given TID CHARISSE Epoetin Danial-epbx 10,000 unit 10/24/20 11:00 10/24/20 15:45 Epoetin Danial-Epbx (Esrd) 10,000 Unit/Ml Vial SC 10,000 unit Q7D CHARISSE Administration Lorazepam 0.5 mg 10/26/20 14:33 10/28/20 20:11 Lorazepam 0.5 Mg Tab PO 0.5 mg Q4H PRN Administration Anxiety Melatonin 3 mg 10/24/20 22:06 10/26/20 00:34 Melatonin 3 Mg Tab PO 3 mg HS PRN Administration Insomnia Midodrine 10 mg 10/24/20 21:00 10/29/20 10:12 Midodrine Hcl 5 Mg Tab PO Not Given BID CHARISSE Tamsulosin HCl 0.4 mg 10/25/20 09:00 10/29/20 11:46 Tamsulosin Hcl 0.4 Mg Cap PO 0.4 mg DAILY CHARISSE Administration - Exam General Appearance: NAD, awake alert, ill appearing Eye: PERRL, anicteric sclera ENT: normocephalic atraumatic, no oropharyngeal lesions Neck: supple, symmetric, no JVD Heart: RRR, no murmur, normal peripheral pulses Respiratory: CTAB, no wheezes, no rales, no ronchi Gastrointestinal: soft, non-tender, non-distended, normal bowel sounds Neurological: no new deficit Musculoskeletal: generalized weakness Psychiatric: somnolent, lethargic Hosp A/P (1) ESRD (end stage renal disease) Code(s): N18.6 - END STAGE RENAL DISEASE Status: Acute (2) CHF (NYHA class III, ACC/AHA stage C) Code(s): I50.9 - HEART FAILURE, UNSPECIFIED Status: Chronic (3) Chronic anticoagulation Code(s): Z79.01 - FPC (CURRENT) USE OF ANTICOAGULANTS Status: Chronic (4) ESRD (end stage renal disease) on dialysis Code(s): N18.6 - END STAGE RENAL DISEASE; Z99.2 - DEPENDENCE ON RENAL DIALYSIS Status: Chronic (5) Physical deconditioning Code(s): R53.81 - OTHER MALAISE Status: Chronic - Plan PT/OT, administrator social welfare #1. NSTEMI. Patient with a complaint of chest pain and upward trending troponin. I will ask a legal administrative secretary to take a look at this care and consider invasive evaluation if deemed appropriate. 10/28/2020. The patient is not on any antiplatelet due to recent GI bleed. His Coumadin is also on hold. He also is not on a beta-dakotah due to low blood pressure. He recently had an echo in June 2020 which showed an EF around 40 to 45% with mild to moderate mitral regurgitation. He will likely need an echo as outpatient. 2. Anemia. Likely multifactorial in the context of chronic kidney disease and recent acute blood loss. 10/25/2020. He remains anemic despite multiple units of packed red cells. I would like to give him an extra unit of packed red cell. 3. End-stage renal disease on hemodialysis. Nephrology evaluation appreciated. He will resume his regularly scheduled dialysis while hospitalized. 4. Hypertensive heart disease. Blood pressure appears stable. 5. CAD. Resume his home medications. 6. Fall He had another fall overnight that was unwitnessed. I suspect this has something to do with his Parkinson disease. 7. History of Parkinson disease. I will resume his home medicines. #8. Carotid artery disease. He had an ultrasound that showed a high-grade stenosis involving the internal carotid vessels. I would like to get the vascular surgeon involved.
[2020-10-29] MEDS: Atorvastatin Calcium 40 MG TAB PO SCH (20:40)
[2020-10-29] MEDS: Lorazepam 0.5 MG TAB PO PRN (20:40)
[2020-10-30 05:01] LABS: Anion Gap 23 mmol/L (10-20); BUN (Urea Nitrogen) 46 mg/dL (8.4-25.7); Calc. Creatinine Clearance 14 mL/min (70-130); Carbon Dioxide 21 mmol/L (23-31); Chloride 101 mmol/L (98-107); Glucose 91 mg/dL (83-110); Potassium 5.1 mmol/L (3.5-5.1); Sodium 140 mmol/L (136-145)
[2020-10-30 06:51] LABS: #Eosinphils 0.3 thou/uL (0.0-0.7); #Lymphocytes 1.4 thou/uL (1.20-3.40); #Monocytes 1.1 thou/uL (0.11-0.59); #Neutrophils 6.5 thou/uL (1.40-6.50); %Basophils 0.5 % (0.0-1.0); %Eosinophils 3.5 % (0.0-10.0); %Lymphocytes 15.2 % (21.0-51.0); %Monocytes 11.6 % (0.0-10.0); %Neutrophils 69.2 % (42.0-75.0); Band 3 % (5-11); Eosinophils 1 % (0-10); Hemoglobin 8.7 g/dL (14.0-18.0); Lymphocytes 16 % (21-51); MDiff Complete? YES; Macrocytosis SLIGHT = 6-15 cells (100X) (0-5/hpf); Mean Corpuscular HGB CONC 32.5 g/dL (32.0-36.0); Mean Corpuscular Hemoglobin 35.8 pg (27.0-31.0); Mean Platelet Volume 8.8 fL (7.4-10.4); Metamyelocyte 1 % (0-0); Monocytes 4 % (0-10); Neutrophil 74 % (42-75); Platelet Count 139 thou/uL (130-400); Platelet Morphology Comment Appears Adequate; RBC Distribution Width 19.3 % (11.5-14.5); Reactive Lymphocytes 1 % (0-10); Red Blood Cell (RBC) Count 2.43 mill/uL (4.70-6.10); White Blood Cell (WBC) Count 9.4 thou/uL (4.8-10.8)
--- NOTE | 2020-10-30 08:37 | PRG ---
DATE OF SERVICE: 10/30/2020 SUBJECTIVE: Mr. 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 He underwent hemodialysis yesterday and treatment was shortened due to severe agitation by the patient. He also underwent an upper GI endoscopy with a fairly normal result. No acute events noted last night. OBJECTIVE: VITAL SIGNS: Blood pressure is 110/62, heart rate 65, respiratory rate 19, temperature 98.1, and O2 saturation 98%. GENERAL: The patient is noted to be sleeping, comfortable, not in distress. SKIN: Adequate turgor. HEENT: Slightly pale conjunctivae. Anicteric sclerae. NECK: No neck mass. No carotid bruits. No JVD. CHEST: No deformities. LUNGS: Clear breath sounds. HEART: Normal sinus rhythm. No murmur. No gallops. No rubs. ABDOMEN: Globular, soft, and nontender. No masses. EXTREMITIES: No edema. No deformities. MEDICATIONS: Of October 30, 2020, reviewed. LABORATORY DATA: Laboratories of October 30, 2020; white count 9.4, hemoglobin 8.7, and hematocrit 26.7. Sodium 140, potassium 5.1, chloride 101, carbon dioxide 21, BUN 46, creatinine 6.01, glucose 91, and calcium 8. ASSESSMENT AND PLAN: 1. Anemia. Continue weekly Epogen. Upper GI endoscopy showed no active bleeding. 2. End-stage renal disease, stable. We will continue current Monday, Monday, and Monday hemodialysis regimen. Again, fluid removal only as tolerated by the patient. Our plan is to do hemodialysis in a.m., then resume back on a Monday, Monday, and Monday schedule next week. 3. Confusion/agitation - the possibility of underlying dementia remains with this patient. The patient and have been advised to consider long-term placement. Recheck CBC and basic metabolic panel in a.m. Job ID: [id number]
[2020-10-30] MEDS: Carbidopa/Levodopa 25-100 mg Tablet PO SCH ×3 (12:05→20:14)
[2020-10-30] MEDS: Midodrine HCl 5 MG TAB PO SCH ×2 (12:05→20:14)
--- NOTE | 2020-10-30 14:26 | PDOC.HOSPP ---
- Subjective Encounter Date: 10/30/20 Encounter Time: 14:24 Subjective: Patient is encephalopathic today. He received Ativan overnight it appears. He will wake up on sternal rub but will go right back to sleep. I believe his somnolence is likely related to the Ativan that he received overnight. I am going to consider giving him Romazicon to reverse the effect of the benzos. We will consider CT of the head to see if there is anything else that would explain his somnolence. - Objective Vital Signs & Weight: Vital Signs (12 hours) Temp Pulse Resp BP BP BP BP 10/30/20 11:40 98.2 F 64 20 127/59 L 10/30/20 09:07 107/60 141/80 H 10/30/20 07:33 98.1 F 65 19 110/62 10/30/20 05:10 97.5 F L 60 20 117/58 L Pulse Ox 10/30/20 11:40 94 L 10/30/20 09:07 10/30/20 07:33 98 10/30/20 05:10 99 Weight Weight 207 lb 6.4 oz I&O: 10/29/20 10/30/20 10/31/20 06:59 06:59 06:59 Intake Total 240 120 Output Total 200 Balance 240 -80 Result Diagrams: 10/30/20 06:10 10/30/20 04:17 Additional Labs: Accuchecks 10/30/20 10/30/20 14:15 09:43 POC Glucose 73 90 Radiology Reviewed by me: Yes EKG Reviewed by me: Yes Hospitalist ROS - Review of Systems ROS unobtainable: due to mental status Gastrointestinal: reports: nausea Neurological: reports: weakness, confusion - Medication Medications: Active Medications Generic Name Dose Route Start Last Admin Trade Name Freq PRN Reason Stop Dose Admin Acetaminophen 500 mg 10/24/20 22:06 10/28/20 09:50 Acetaminophen 500 Mg Tab PO 500 mg Q6H PRN Administration Pain Amiodarone HCl 200 mg 10/25/20 09:00 10/29/20 11:45 Amiodarone 200 Mg Tab PO 200 mg DAILY CHARISSE Administration Atorvastatin Calcium 40 mg 10/29/20 21:00 10/29/20 20:40 Atorvastatin Calcium 40 Mg Tab PO 40 mg HS CHARISSE Administration Carbidopa/Levodopa 1 tab 10/25/20 09:00 10/30/20 12:05 Carbidopa/Levodopa 25-100 Mg Tablet PO Not Given TID CHARISSE Epoetin Danial-epbx 10,000 unit 10/24/20 11:00 10/24/20 15:45 Epoetin Danial-Epbx (Esrd) 10,000 Unit/Ml Vial SC 10,000 unit Q7D CHARISSE Administration Melatonin 3 mg 10/24/20 22:06 10/26/20 00:34 Melatonin 3 Mg Tab PO 3 mg HS PRN Administration Insomnia Midodrine 10 mg 10/24/20 21:00 10/30/20 12:05 Midodrine Hcl 5 Mg Tab PO Not Given BID CHARISSE Tamsulosin HCl 0.4 mg 10/25/20 09:00 10/29/20 11:46 Tamsulosin Hcl 0.4 Mg Cap PO 0.4 mg DAILY CHARISSE Administration - Exam General Appearance: NAD, ill appearing Eye: PERRL ENT: normocephalic atraumatic, no oropharyngeal lesions, moist mucosa Neck: supple Heart: RRR, no murmur, no gallops, no rubs, normal peripheral pulses Respiratory: CTAB, no wheezes, no rales, no ronchi, normal chest expansion Gastrointestinal: soft, non-tender, non-distended, normal bowel sounds Neurological: no focal deficits Psychiatric: somnolent, lethargic Hosp A/P (1) ESRD (end stage renal disease) Code(s): N18.6 - END STAGE RENAL DISEASE Status: Acute (2) CHF (NYHA class III, ACC/AHA stage C) Code(s): I50.9 - HEART FAILURE, UNSPECIFIED Status: Chronic (3) Chronic anticoagulation Code(s): Z79.01 - BOOMSWING OPERATOR (CURRENT) USE OF ANTICOAGULANTS Status: Chronic (4) ESRD (end stage renal disease) on dialysis Code(s): N18.6 - END STAGE RENAL DISEASE; Z99.2 - DEPENDENCE ON RENAL DIALYSIS Status: Chronic (5) Physical deconditioning Code(s): R53.81 - OTHER MALAISE Status: Chronic - Plan PT/OT, social media content specialist, speech therapy, respiratory therapy #1. NSTEMI. Patient with a complaint of chest pain and upward trending troponin. I will ask a rn pool to take a look at this care and consider invasive evaluation if deemed appropriate. 10/28/2020. The patient is not on any antiplatelet due to recent GI bleed. His Coumadin is also on hold. He also is not on a beta-dakotah due to low blood pressure. He recently had an echo in June 2020 which showed an EF around 40 to 45% with mild to moderate mitral regurgitation. He will likely need an echo as outpatient. 2. Anemia. Likely multifactorial in the context of chronic kidney disease and recent acute blood loss. 10/25/2020. He remains anemic despite multiple units of packed red cells. I would like to give him an extra unit of packed red cell. 3. End-stage renal disease on hemodialysis. Nephrology evaluation appreciated. He will resume his regularly scheduled dialysis while hospitalized. 4. Hypertensive heart disease. Blood pressure appears stable. 5. CAD. Resume his home medications. 6. Fall He had another fall overnight that was unwitnessed. I suspect this has something to do with his Parkinson disease. 7. History of Parkinson disease. I will resume his home medicines. #8. Carotid artery disease. He had an ultrasound that showed a high-grade stenosis involving the internal carotid vessels. I would like to get the vascular surgeon involved. 10/30/2020. Vascular surgery says no intervention at this time.
--- NOTE | 2020-10-30 16:21 | CT ---
CT BRAIN NONCONTRAST: DATE: 10/30/2020 HISTORY: 80-year-old male with worsening altered mental status and lethargy. COMPARISON: 11/02/2020 FINDINGS: There is no evidence of acute intra-axial or extra-axial hemorrhage. There is no midline shift or any other mass effect. There is no extra-axial fluid collection. There is no evidence of obstructive hydrocephalus. Calvarium is intact. There is diffuse brain parenchymal volume loss. There are low att enuation areas in the white matter. These are nonspecific, but in a patient of this age, they are probably chronic ischemic white matter changes due to microvascular atherosclerosis. There is a moder ate-sized old right frontal infarction. There is heavy atherosclerotic calcification of the intracranial vertebral arteries, basilar artery, and bilateral carotid siphons, and scattered atheros clerotic callus patient of branches of bilateral MCAs. IMPRESSION: 1) No acute intracranial findings. 2) involutional changes and chronic ischemic white matter changes. 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
[2020-10-30] MEDS: Amiodarone 200 MG TAB PO SCH (17:27)
[2020-10-30] MEDS: Tamsulosin HCl 0.4 MG CAP PO SCH (17:28)
[2020-10-30] MEDS: Atorvastatin Calcium 40 MG TAB PO SCH (20:14)
[2020-10-31 04:55] LABS: #Eosinphils 0.4 thou/uL (0.0-0.7); #Lymphocytes 1.4 thou/uL (1.20-3.40); #Monocytes 0.9 thou/uL (0.11-0.59); #Neutrophils 6.9 thou/uL (1.40-6.50); %Basophils 0.1 % (0.0-1.0); %Eosinophils 4.1 % (0.0-10.0); %Lymphocytes 14.2 % (21.0-51.0); %Monocytes 9.5 % (0.0-10.0); %Neutrophils 72.2 % (42.0-75.0); Hemoglobin 8.2 g/dL (14.0-18.0); Mean Corpuscular HGB CONC 32.1 g/dL (32.0-36.0); Mean Corpuscular Hemoglobin 35.5 pg (27.0-31.0); Mean Platelet Volume 8.7 fL (7.4-10.4); Platelet Count 142 thou/uL (130-400); RBC Distribution Width 18.8 % (11.5-14.5); White Blood Cell (WBC) Count 9.6 thou/uL (4.8-10.8)
[2020-10-31 05:12] LABS: Anion Gap 19 mmol/L (10-20); BUN (Urea Nitrogen) 52 mg/dL (8.4-25.7); Calc. Creatinine Clearance 11 mL/min (70-130); Calcium 8.1 mg/dL (7.8-10.44); Carbon Dioxide 24 mmol/L (23-31); Chloride 103 mmol/L (98-107); Glucose 70 mg/dL (83-110); Potassium 4.3 mmol/L (3.5-5.1); Sodium 142 mmol/L (136-145)
[2020-10-31] MEDS: Midodrine HCl 5 MG TAB PO SCH ×2 (08:09→22:50)
[2020-10-31] MEDS: Carbidopa/Levodopa 25-100 mg Tablet PO SCH ×3 (08:09→22:51)
[2020-10-31] MEDS: Amiodarone 200 MG TAB PO SCH (08:09)
[2020-10-31] MEDS: Tamsulosin HCl 0.4 MG CAP PO SCH (08:09)
--- NOTE | 2020-10-31 09:16 | PRG ---
DATE OF SERVICE: 10/31/2020 SUBJECTIVE: Mr. Chaudhary is a 80-year-old white male with ESRD, who was admitted due to symptomatic anemia. Upper GI endoscopy was done, which showed no active bleeding. We are following him up for his maintenance hemodialysis. He is more awake today. He has been agitated and restless in the past. No complaints of chest pain or shortness of breath. He does mention about being hungry. OBJECTIVE: VITAL SIGNS: Blood pressure is 128/67, heart rate 69, respiratory rate 18, temperature 97.7, O2 saturation 99%. GENERAL: Patient is awake, alert, comfortable, not in overt distress. SKIN: Adequate turgor. HEENT: Slightly pale conjunctivae. Anicteric sclerae. NECK: No neck mass. No carotid bruits. No JVD. CHEST: No deformities. LUNGS: Clear breath sounds. HEART: Normal sinus rhythm. No murmur. No gallops. No rubs. ABDOMEN: Globular, soft, nontender. No masses. EXTREMITIES: No edema. No deformities. MEDICATIONS: October 31, 2020, reviewed. LABORATORY DATA: October 31, 2020; white count 9.6, hemoglobin 8.2. Sodium 142, potassium 4.3, chloride 103, carbon dioxide 24, BUN 52, creatinine 7.37, glucose 70, calcium 8.1. Vitamin B12 1955. ASSESSMENT AND PLAN: 1. Anemia. Continuing weekly Epogen of 10,000 units subcu q.week. Patient is status post upper gastrointestinal endoscopy with no active bleeding. 2. End-stage renal stage, stable. Currently minimizing or no heparin use with hemodialysis. Continue current hemodialysis regimen three times a week. Patient is scheduled for dialysis later this afternoon. We will then bring him back to his regular Monday, Monday, and Monday dialysis. 3. Confusion/dementia. Continue supportive care. Awaiting fpc placement once the family agrees. Job ID: [id number]
[2020-10-31] MEDS ORDERED: Aspirin 81 mg Enteric Coated Tablet PO SCH ×2 (10:34→10:45)
--- NOTE | 2020-10-31 15:12 | PDOC.HOSPP ---
- Subjective Encounter Date: 10/31/20 Encounter Time: 08:00 Subjective: awake, responds to verbal question when asked twice or 3 times says he is hungry no sob - Objective Vital Signs & Weight: Vital Signs (12 hours) Temp Pulse Resp BP Pulse Ox 10/31/20 07:21 97.7 F 69 18 128/67 99 10/31/20 07:20 99 10/31/20 03:42 98.7 F 60 20 115/59 L 97 Weight Weight 206 lb 1.6 oz I&O: 10/30/20 10/31/20 11/01/20 06:59 06:59 06:59 Intake Total 120 0 Output Total 200 Balance -80 0 Result Diagrams: 10/31/20 04:29 10/31/20 04:29 Hospitalist ROS - Medication Medications: Active Medications Generic Name Dose Route Start Last Admin Trade Name Freq PRN Reason Stop Dose Admin Acetaminophen 500 mg 10/24/20 22:06 10/28/20 09:50 Acetaminophen 500 Mg Tab PO 500 mg Q6H PRN Administration Pain Amiodarone HCl 200 mg 10/25/20 09:00 10/31/20 08:09 Amiodarone 200 Mg Tab PO 200 mg DAILY CHARISSE Administration Atorvastatin Calcium 40 mg 10/29/20 21:00 10/30/20 20:14 Atorvastatin Calcium 40 Mg Tab PO Not Given HS CHARISSE Carbidopa/Levodopa 1 tab 10/25/20 09:00 10/31/20 08:09 Carbidopa/Levodopa 25-100 Mg Tablet PO 1 tab TID CHARISSE Administration Epoetin Danial-epbx 10,000 unit 10/24/20 11:00 10/24/20 15:45 Epoetin Danial-Epbx (Esrd) 10,000 Unit/Ml Vial SC 10,000 unit Q7D CHARISSE Administration Flumazenil 0.2 mg 10/30/20 14:18 10/30/20 16:39 Flumazenil 0.5 Mg/5 Ml Vial IVP 0.2 mg Q1M PRN Administration Drowsiness Melatonin 3 mg 10/24/20 22:06 10/26/20 00:34 Melatonin 3 Mg Tab PO 3 mg HS PRN Administration Insomnia Midodrine 10 mg 10/24/20 21:00 10/31/20 08:09 Midodrine Hcl 5 Mg Tab PO 10 mg BID CHARISSE Administration Pantoprazole Sodium 40 mg 10/30/20 09:00 10/31/20 08:09 Pantoprazole 40 Mg Tab PO 40 mg DAILY CHARISSE Administration Tamsulosin HCl 0.4 mg 10/25/20 09:00 10/31/20 08:09 Tamsulosin Hcl 0.4 Mg Cap PO 0.4 mg DAILY CHARISSE Administration - Exam General Appearance: awake alert Eye: PERRL, anicteric sclera ENT: no oropharyngeal lesions, dry oral mucosa Neck: supple, no JVD Heart: RRR, no murmur Respiratory: no wheezes, no rales Gastrointestinal: soft, non-tender, non-distended, normal bowel sounds Extremities: no cyanosis, 1+ LE edema Neurological: cranial nerve grossly intact Neurological - other findings: hemiparesis Hosp A/P (1) Acute metabolic encephalopathy Code(s): G93.41 - METABOLIC ENCEPHALOPATHY Status: Acute (2) Retroperitoneal bleed Code(s): R58 - HEMORRHAGE, NOT ELSEWHERE CLASSIFIED Status: Chronic (3) Carotid stenosis Code(s): I65.29 - OCCLUSION AND STENOSIS OF UNSPECIFIED CAROTID ARTERY Status: Chronic Qualifiers: Laterality: bilateral Qualified Code(s): I65.23 - Occlusion and stenosis of bilateral carotid arteries (4) Parkinson disease Code(s): G20 - PARKINSON'S DISEASE Status: Chronic (5) Anemia in chronic kidney disease (CKD) Code(s): N18.9 - CHRONIC KIDNEY DISEASE, UNSPECIFIED; D63.1 - ANEMIA IN CHRONIC KIDNEY DISEASE Status: Chronic Qualifiers: Chronic kidney disease stage: on chronic dialysis Qualified Code(s): N18.6 - End stage renal disease; D63.1 - Anemia in chronic kidney disease; Z99.2 - Dependence on renal dialysis (6) Atrial fibrillation Code(s): I48.91 - UNSPECIFIED ATRIAL FIBRILLATION Status: Chronic Qualifiers: Atrial fibrillation type: longstanding persistent Qualified Code(s): I48.11 - Longstanding persistent atrial fibrillation (7) CAD (coronary artery disease) Code(s): I25.10 - ATHSCL HEART DISEASE OF [place] CORONARY ARTERY W/O ANG PCTRS Status: Chronic Qualifiers: Coronary Disease-Associated Artery/Lesion type: bypass graft [place] vs. transplanted heart: [place] heart Associated angina: without angina Qualified Code(s): I25.810 - Atherosclerosis of coronary artery bypass graft(s) without angina pectoris (8) ESRD (end stage renal disease) on dialysis Code(s): N18.6 - END STAGE RENAL DISEASE; Z99.2 - DEPENDENCE ON RENAL DIALYSIS Status: Chronic (9) History of CVA (cerebrovascular accident) Code(s): Z86.73 - PRSNL HX OF TIA (TIA), AND CEREB INFRC W/O RESID DEFICITS Status: Chronic (10) Physical deconditioning Code(s): R53.81 - OTHER MALAISE Status: Acute (11) Multiple falls Code(s): R29.6 - REPEATED FALLS Status: Acute (12) CHF (congestive heart failure) Code(s): I50.9 - HEART FAILURE, UNSPECIFIED Status: Chronic Qualifiers: Heart failure type: combined systolic and diastolic Heart failure chronicity: chronic Qualified Code(s): I50.42 - Chronic combined systolic (congestive) and diastolic (congestive) heart failure - Plan egd did not reveal ac bleeding source CT scan showed findings of retroperitoneal bleed is off coumadin now d/w and daughter over phone, they want him going to [facility], will consult CM has multiple med issues with deconditioning, prognosis guarded, is aware continue amiodarone, sinemet, protonix, flomax, midodrine, lipitor he has recieved a total of 3 u prbc and 1 ffp during this admission dc plan to [facility] hospital bed when ready PT to mobilize as tolerated, encourage po intake
[2020-10-31] MEDS: EPOETIN ALFA-EPBX (ESRD) 10,000 UNIT/ML VIAL SC SCH (15:20)
[2020-10-31] MEDS: Atorvastatin Calcium 40 MG TAB PO SCH (22:50)
[2020-10-31] MEDS: Acetaminophen 500 MG TAB PO PRN (22:51)
[2020-10-31] MEDS: Melatonin 3 MG TAB PO PRN (22:51)
[2020-10-31] MEDS ORDERED: diphenhydrAMINE 25 MG CAP PO SCH (23:59)
[2020-11-01] MEDS: Nicotine 14 MG PATCH TD SCH ×2 (00:26→21:24)
[2020-11-01] MEDS: Midodrine HCl 5 MG TAB PO SCH ×2 (09:13→21:23)
[2020-11-01] MEDS: Amiodarone 200 MG TAB PO SCH (09:14)
[2020-11-01] MEDS: Carbidopa/Levodopa 25-100 mg Tablet PO SCH ×3 (09:14→21:23)
[2020-11-01] MEDS: Aspirin 81 mg Enteric Coated Tablet PO SCH (09:14)
[2020-11-01] MEDS: Tamsulosin HCl 0.4 MG CAP PO SCH (09:14)
--- NOTE | 2020-11-01 10:41 | PRG ---
DATE OF SERVICE: 11/01/2020 SUBJECTIVE: Mr. Chaudhary is a 80-year-old white male, who was initially admitted for symptomatic anemia and followed up by the [facility] for his maintenance hemodialysis. He has undergone upper GI endoscopy with no active bleeding noted. He has received p.r.n. blood transfusion. We are continuing his weekly Epogen. He is also tolerating his dialysis regimen. He has no new complaints today. He is still confused. OBJECTIVE: VITAL SIGNS: Blood pressure is 113/56, heart rate 66, respiratory rate 16, temperature 98.1, and O2 saturation 99%. GENERAL: The patient is awake, confused, not in distress. SKIN: Adequate turgor. HEENT: Slightly pale conjunctivae. Anicteric sclerae. No neck mass. No carotid bruits. No JVD. CHEST: No deformities. LUNGS: Clear breath sounds. HEART: Normal sinus rhythm. No murmur. No gallops. No rubs. ABDOMEN: Globular, soft, nontender. No masses. EXTREMITIES: No edema. No deformities. MEDICATIONS: Medications of November 01, 2020, were reviewed. LABORATORY DATA: Laboratories of October 31, 2020; white count 9.6, hemoglobin 8.2. Sodium 142, potassium 4.3, chloride 103, carbon dioxide is 24, BUN 52, creatinine 7.37, calcium 8.1, glucose 70. ASSESSMENT AND PLAN: 1. Anemia, continuing weekly Epogen regimen, p.r.n. blood transfusion. 2. End-stage renal disease, stable. No indication for an emergent hemodialysis today. I have rescheduled him back for his regular Monday, Monday, and Monday hemodialysis in a.m. Again, fluid removal as tolerated. 3. Confusion/early dementia-continue supportive care. The patient and family decided about intermediate placement. 4. Recheck CBC and basic met in a.m. Job ID: [id number]
--- NOTE | 2020-11-01 13:15 | PDOC.HOSPP ---
- Subjective Encounter Date: 11/01/20 Encounter Time: 08:15 Subjective: is wide awake and wants to go home no sob or weakness, feels good - Objective Vital Signs & Weight: Vital Signs (12 hours) Temp Pulse Resp BP Pulse Ox 11/01/20 12:23 97.3 F L 66 16 101/58 L 98 11/01/20 07:28 98.1 F 66 16 113/56 L 99 11/01/20 07:25 99 11/01/20 03:58 97.5 F L 60 20 99/55 L 99 Weight Weight 212 lb 8.41 oz I&O: 10/31/20 11/01/20 11/02/20 06:59 06:59 06:59 Intake Total 0 360 Output Total 0 Balance 0 360 Result Diagrams: 10/31/20 04:29 10/31/20 04:29 Hospitalist ROS - Medication Medications: Active Medications Generic Name Dose Route Start Last Admin Trade Name Freq PRN Reason Stop Dose Admin Acetaminophen 500 mg 10/24/20 22:06 10/31/20 22:51 Acetaminophen 500 Mg Tab PO 500 mg Q6H PRN Administration Pain Amiodarone HCl 200 mg 10/25/20 09:00 11/01/20 09:14 Amiodarone 200 Mg Tab PO 200 mg DAILY CHARISSE Administration Aspirin 81 mg 11/01/20 09:00 11/01/20 09:14 Aspirin 81 Mg Enteric Coated Tablet PO 81 mg DAILY CHARISSE Administration Atorvastatin Calcium 40 mg 10/29/20 21:00 10/31/20 22:50 Atorvastatin Calcium 40 Mg Tab PO 40 mg HS CHARISSE Administration Carbidopa/Levodopa 1 tab 10/25/20 09:00 11/01/20 09:14 Carbidopa/Levodopa 25-100 Mg Tablet PO 1 tab TID CHARISSE Administration Epoetin Danial-epbx 10,000 unit 10/24/20 11:00 10/31/20 15:20 Epoetin Danial-Epbx (Esrd) 10,000 Unit/Ml Vial SC 10,000 unit Q7D CHARISSE Administration Flumazenil 0.2 mg 10/30/20 14:18 10/30/20 16:39 Flumazenil 0.5 Mg/5 Ml Vial IVP 0.2 mg Q1M PRN Administration Drowsiness Melatonin 3 mg 10/24/20 22:06 10/31/20 22:51 Melatonin 3 Mg Tab PO 3 mg HS PRN Administration Insomnia Midodrine 10 mg 10/24/20 21:00 11/01/20 09:13 Midodrine Hcl 5 Mg Tab PO 10 mg BID CHARISSE Administration Nicotine 14 mg 10/31/20 23:59 11/01/20 00:26 Nicotine 14 Mg Patch TD 14 mg Q24HR CHARISSE Administration Pantoprazole Sodium 40 mg 10/30/20 09:00 11/01/20 09:14 Pantoprazole 40 Mg Tab PO 40 mg DAILY CHARISSE Administration Tamsulosin HCl 0.4 mg 10/25/20 09:00 11/01/20 09:14 Tamsulosin Hcl 0.4 Mg Cap PO 0.4 mg DAILY CHARISSE Administration - Exam General Appearance: awake alert Eye: PERRL, anicteric sclera ENT: no oropharyngeal lesions, dry oral mucosa Neck: supple, no JVD Heart: RRR, no murmur Respiratory: no wheezes, no rales Gastrointestinal: soft, non-tender, non-distended, normal bowel sounds Extremities: no cyanosis, no edema Neurological: cranial nerve grossly intact, no new deficit Hosp A/P (1) Acute metabolic encephalopathy Code(s): G93.41 - METABOLIC ENCEPHALOPATHY Status: Acute (2) Retroperitoneal bleed Code(s): R58 - HEMORRHAGE, NOT ELSEWHERE CLASSIFIED Status: Chronic (3) Carotid stenosis Code(s): I65.29 - OCCLUSION AND STENOSIS OF UNSPECIFIED CAROTID ARTERY Status: Chronic Qualifiers: Laterality: bilateral Qualified Code(s): I65.23 - Occlusion and stenosis of bilateral carotid arteries (4) Parkinson disease Code(s): G20 - PARKINSON'S DISEASE Status: Chronic (5) Anemia in chronic kidney disease (CKD) Code(s): N18.9 - CHRONIC KIDNEY DISEASE, UNSPECIFIED; D63.1 - ANEMIA IN CHRONIC KIDNEY DISEASE Status: Chronic Qualifiers: Chronic kidney disease stage: on chronic dialysis Qualified Code(s): N18.6 - End stage renal disease; D63.1 - Anemia in chronic kidney disease; Z99.2 - Dependence on renal dialysis (6) Atrial fibrillation Code(s): I48.91 - UNSPECIFIED ATRIAL FIBRILLATION Status: Chronic Qualifiers: Atrial fibrillation type: longstanding persistent Qualified Code(s): I48.11 - Longstanding persistent atrial fibrillation (7) CAD (coronary artery disease) Code(s): I25.10 - ATHSCL HEART DISEASE OF [place] CORONARY ARTERY W/O ANG PCTRS Status: Chronic Qualifiers: Coronary Disease-Associated Artery/Lesion type: bypass graft [place] vs. transplanted heart: [place] heart Associated angina: without angina Qualified Code(s): I25.810 - Atherosclerosis of coronary artery bypass graft(s) without angina pectoris (8) ESRD (end stage renal disease) on dialysis Code(s): N18.6 - END STAGE RENAL DISEASE; Z99.2 - DEPENDENCE ON RENAL DIALYSIS Status: Chronic (9) History of CVA (cerebrovascular accident) Code(s): Z86.73 - PRSNL HX OF TIA (TIA), AND CEREB INFRC W/O RESID DEFICITS Status: Chronic (10) Physical deconditioning Code(s): R53.81 - OTHER MALAISE Status: Acute (11) Multiple falls Code(s): R29.6 - REPEATED FALLS Status: Acute (12) CHF (congestive heart failure) Code(s): I50.9 - HEART FAILURE, UNSPECIFIED Status: Chronic Qualifiers: Heart failure type: combined systolic and diastolic Heart failure chronicity: chronic Qualified Code(s): I50.42 - Chronic combined systolic (congestive) and diastolic (congestive) heart failure - Plan egd did not reveal ac bleeding source CT scan showed findings of retroperitoneal bleed is off coumadin d/w and daughter over phone, they want him going to [facility], consult CM has multiple med issues with deconditioning, prognosis guarded, is aware continue amiodarone, sinemet, protonix, flomax, midodrine, lipitor he has recieved a total of 3 u prbc and 1 ffp during this admission dc plan to [facility] bed when ready PT to mobilize as tolerated, encourage po intake
[2020-11-01] MEDS: Atorvastatin Calcium 40 MG TAB PO SCH (21:24)
[2020-11-01] MEDS: Melatonin 3 MG TAB PO PRN (21:24)
[2020-11-02 05:11] LABS: #Eosinphils 0.4 thou/uL (0.0-0.7); #Lymphocytes 1.2 thou/uL (1.20-3.40); #Monocytes 0.8 thou/uL (0.11-0.59); #Neutrophils 4.2 thou/uL (1.40-6.50); %Basophils 0.2 % (0.0-1.0); %Eosinophils 6.6 % (0.0-10.0); %Lymphocytes 18.4 % (21.0-51.0); %Monocytes 11.3 % (0.0-10.0); %Neutrophils 63.5 % (42.0-75.0); Hemoglobin 7.7 g/dL (14.0-18.0); Mean Corpuscular HGB CONC 31.5 g/dL (32.0-36.0); Mean Corpuscular Hemoglobin 34.9 pg (27.0-31.0); Mean Platelet Volume 8.3 fL (7.4-10.4); Platelet Count 141 thou/uL (130-400); RBC Distribution Width 18.3 % (11.5-14.5); Red Blood Cell (RBC) Count 2.21 mill/uL (4.70-6.10); White Blood Cell (WBC) Count 6.6 thou/uL (4.8-10.8)
[2020-11-02 05:32] LABS: Anion Gap 19 mmol/L (10-20); BUN (Urea Nitrogen) 57 mg/dL (8.4-25.7); Calc. Creatinine Clearance 11 mL/min (70-130); Calcium 7.8 mg/dL (7.8-10.44); Carbon Dioxide 24 mmol/L (23-31); Chloride 103 mmol/L (98-107); Glucose 101 mg/dL (83-110); Potassium 3.8 mmol/L (3.5-5.1); Sodium 142 mmol/L (136-145)
[2020-11-02] MEDS: Midodrine HCl 5 MG TAB PO SCH ×2 (08:09→21:01)
--- NOTE | 2020-11-02 08:10 | PRG ---
DATE OF SERVICE: 11/02/2020 SUBJECTIVE: Mr. Chaudhary is a 80-year-old white male with ESRD and followed up by the [facility] for his maintenance hemodialysis. No new complaints today. He feels well. He is less confused today. The patient denies any chest pain or any shortness of breath. OBJECTIVE: VITAL SIGNS: Blood pressure is 115/55, heart rate 60, respiratory rate 16, temperature 97.6, O2 saturation 100%--room air. GENERAL: Awake, alert, comfortable, not in overt distress. SKIN: Adequate turgor. HEENT: Slightly pale conjunctivae. Anicteric sclerae. NECK: No neck mass. No carotid bruits. No JVD. CHEST: No deformities. LUNGS: Clear breath sounds. HEART: Normal sinus rhythm. No murmur. No gallops. No rubs. ABDOMEN: Globular, soft, nontender. No masses. EXTREMITIES: No edema. No deformities. MEDICATIONS: November 02, 2020, reviewed. LABORATORY DATA: November 02, 2020, showed hemoglobin 7.7, hematocrit 24.4. Sodium 142, potassium 3.8, chloride 103, carbon dioxide 24, BUN 57, creatinine 7.69, glucose 101. ASSESSMENT AND PLAN: 1. End-stage renal disease--currently undergoing hemodialysis. Fluid removal as tolerated by the patient. 2. Anemia--previous upper GI endoscopy showed no acute bleeding. Continue supportive care p.r.n. blood transfusion. Continue current Epogen regimen with this patient. 3. Awaiting custodial facility placement. Job ID: [id number]
[2020-11-02] MEDS: Tamsulosin HCl 0.4 MG CAP PO SCH (13:52)
[2020-11-02] MEDS: Carbidopa/Levodopa 25-100 mg Tablet PO SCH ×3 (13:52→21:01)
[2020-11-02] MEDS: Amiodarone 200 MG TAB PO SCH (13:53)
[2020-11-02] MEDS: Aspirin 81 mg Enteric Coated Tablet PO SCH (13:54)
--- NOTE | 2020-11-02 13:59 | PDOC.HOSPP ---
- Subjective Encounter Date: 11/02/20 Encounter Time: 07:15 Subjective: is getting HD, no sob or pain feels good - Objective Vital Signs & Weight: Vital Signs (12 hours) Temp Pulse Resp BP Pulse Ox 11/02/20 12:37 97.6 F 61 16 110/57 L 100 11/02/20 07:15 97.4 F L 60 16 102/55 L 98 11/02/20 03:00 97.6 F 60 16 115/55 L 100 Weight Weight 214 lb 8.156 oz I&O: 11/01/20 11/02/20 11/03/20 06:59 06:59 06:59 Intake Total 360 480 Output Total 0 150 Balance 360 330 Result Diagrams: 11/02/20 04:37 11/02/20 04:37 Additional Labs: Accuchecks 11/02/20 12:56 POC Glucose 87 Hospitalist ROS - Medication Medications: Active Medications Generic Name Dose Route Start Last Admin Trade Name Freq PRN Reason Stop Dose Admin Acetaminophen 500 mg 10/24/20 22:06 10/31/20 22:51 Acetaminophen 500 Mg Tab PO 500 mg Q6H PRN Administration Pain Amiodarone HCl 200 mg 10/25/20 09:00 11/02/20 13:53 Amiodarone 200 Mg Tab PO 200 mg DAILY CHARISSE Administration Aspirin 81 mg 11/01/20 09:00 11/02/20 13:54 Aspirin 81 Mg Enteric Coated Tablet PO 81 mg DAILY CHARISSE Administration Atorvastatin Calcium 40 mg 10/29/20 21:00 11/01/20 21:24 Atorvastatin Calcium 40 Mg Tab PO 40 mg HS CHARISSE Administration Carbidopa/Levodopa 1 tab 10/25/20 09:00 11/02/20 13:53 Carbidopa/Levodopa 25-100 Mg Tablet PO 1 tab TID CHARISSE Administration Epoetin Danial-epbx 10,000 unit 10/24/20 11:00 10/31/20 15:20 Epoetin Danial-Epbx (Esrd) 10,000 Unit/Ml Vial SC 10,000 unit Q7D CHARISSE Administration Flumazenil 0.2 mg 10/30/20 14:18 10/30/20 16:39 Flumazenil 0.5 Mg/5 Ml Vial IVP 0.2 mg Q1M PRN Administration Drowsiness Melatonin 3 mg 10/24/20 22:06 11/01/20 21:24 Melatonin 3 Mg Tab PO 3 mg HS PRN Administration Insomnia Midodrine 10 mg 10/24/20 21:00 11/02/20 08:09 Midodrine Hcl 5 Mg Tab PO 10 mg BID CHARISSE Administration Nicotine 14 mg 10/31/20 23:59 11/01/20 21:24 Nicotine 14 Mg Patch TD 14 mg Q24HR CHARISSE Administration Pantoprazole Sodium 40 mg 10/30/20 09:00 11/02/20 13:53 Pantoprazole 40 Mg Tab PO 40 mg DAILY CHARISSE Administration Sodium Chloride 10 ml 10/25/20 04:00 11/01/20 21:23 Flush - Normal Saline 10 Ml Syringe IVF 10 ml PRN PRN Administration Saline Flush Tamsulosin HCl 0.4 mg 10/25/20 09:00 11/02/20 13:52 Tamsulosin Hcl 0.4 Mg Cap PO 0.4 mg DAILY CHARISSE Administration - Exam General Appearance: awake alert Eye: PERRL, anicteric sclera ENT: no oropharyngeal lesions, dry oral mucosa Neck: supple, no JVD Heart: RRR, no murmur Respiratory: no wheezes, no rales Gastrointestinal: soft, non-tender, non-distended, normal bowel sounds Extremities: no cyanosis, no edema Neurological: cranial nerve grossly intact, no focal deficits Hosp A/P (1) Acute metabolic encephalopathy Code(s): G93.41 - METABOLIC ENCEPHALOPATHY Status: Acute (2) Retroperitoneal bleed Code(s): R58 - HEMORRHAGE, NOT ELSEWHERE CLASSIFIED Status: Chronic (3) Carotid stenosis Code(s): I65.29 - OCCLUSION AND STENOSIS OF UNSPECIFIED CAROTID ARTERY Status: Chronic Qualifiers: Laterality: bilateral Qualified Code(s): I65.23 - Occlusion and stenosis of bilateral carotid arteries (4) Parkinson disease Code(s): G20 - PARKINSON'S DISEASE Status: Chronic (5) Anemia in chronic kidney disease (CKD) Code(s): N18.9 - CHRONIC KIDNEY DISEASE, UNSPECIFIED; D63.1 - ANEMIA IN CHRONIC KIDNEY DISEASE Status: Chronic Qualifiers: Chronic kidney disease stage: on chronic dialysis Qualified Code(s): N18.6 - End stage renal disease; D63.1 - Anemia in chronic kidney disease; Z99.2 - Dependence on renal dialysis (6) Atrial fibrillation Code(s): I48.91 - UNSPECIFIED ATRIAL FIBRILLATION Status: Chronic Qualifiers: Atrial fibrillation type: longstanding persistent Qualified Code(s): I48.11 - Longstanding persistent atrial fibrillation (7) CAD (coronary artery disease) Code(s): I25.10 - ATHSCL HEART DISEASE OF [place] CORONARY ARTERY W/O ANG PCTRS Status: Chronic Qualifiers: Coronary Disease-Associated Artery/Lesion type: bypass graft [place] vs. transplanted heart: [place] heart Associated angina: without angina Qualified Code(s): I25.810 - Atherosclerosis of coronary artery bypass graft(s) without angina pectoris (8) ESRD (end stage renal disease) on dialysis Code(s): N18.6 - END STAGE RENAL DISEASE; Z99.2 - DEPENDENCE ON RENAL DIALYSIS Status: Chronic (9) History of CVA (cerebrovascular accident) Code(s): Z86.73 - PRSNL HX OF TIA (TIA), AND CEREB INFRC W/O RESID DEFICITS Status: Chronic (10) Physical deconditioning Code(s): R53.81 - OTHER MALAISE Status: Acute (11) Multiple falls Code(s): R29.6 - REPEATED FALLS Status: Acute (12) CHF (congestive heart failure) Code(s): I50.9 - HEART FAILURE, UNSPECIFIED Status: Chronic Qualifiers: Heart failure type: combined systolic and diastolic Heart failure chronici ty: chronic Qualified Code(s): I50.42 - Chronic combined systolic (congestive) and diastolic (congestive) heart failure - Plan egd did not reveal ac bleeding source CT scan showed findings of retroperitoneal bleed, H/H stable. is off coumadin d/w and daughter over phone, they want him going to [facility] has multiple med issues with deconditioning, prognosis guarded, is aware continue amiodarone, sinemet, protonix, flomax, midodrine, lipitor he has recieved a total of 3 u prbc and 1 ffp during this admission dc plan to [facility] bed when placement ready PT to mobilize as tolerated, encourage po intake
--- NOTE | 2020-11-02 19:44 | RAD ---
FOUR VIEWS LEFT KNEE: Date: 11-02-2020 History: Injury, trauma, fall, pain. FINDINGS: The lateral examination demonstrates no knee joint effusion. There is prominent posterior atheroscler otic calcification. Posterior and medial post-operative clips are present. There is enthesophyte form ation at the insertion of the quadriceps tendon. There is no displaced fracture or evidence of disloc ation seen. IMPRESSION: No acute fracture or dislocation. Chronic findings as detailed above. POS: JARAD
[2020-11-02] MEDS: Melatonin 3 MG TAB PO PRN (21:01)
[2020-11-02] MEDS: Atorvastatin Calcium 40 MG TAB PO SCH (21:01)
[2020-11-02] MEDS: Acetaminophen 500 MG TAB PO PRN (21:01)
[2020-11-03] MEDS: Nicotine 14 MG PATCH TD SCH (05:32)
[2020-11-03 05:39] VITALS: TEMP 98.7
[2020-11-03 08:20] VITALS: BMI 29.9
[2020-11-03] MEDS: Aspirin 81 mg Enteric Coated Tablet PO SCH (08:45)
[2020-11-03] MEDS: Amiodarone 200 MG TAB PO SCH (08:45)
[2020-11-03] MEDS: Carbidopa/Levodopa 25-100 mg Tablet PO SCH (08:45)
[2020-11-03] MEDS: Midodrine HCl 5 MG TAB PO SCH (08:45)
[2020-11-03] MEDS: Tamsulosin HCl 0.4 MG CAP PO SCH (08:45)
--- NOTE | 2020-11-03 09:21 | PRG ---
DATE OF SERVICE: 11/03/2020 SUBJECTIVE: Mr. Chaudhary is a 80-year-old white male with known history of ESRD and currently on maintenance hemodialysis. He was initially admitted for symptomatic anemia. He has received 3 units of packed RBC. Upper GI endoscopy did not show any acute bleeding. He is feeling better. His mentation is much improved. He is less drowsy and less sleepy. No complaints of chest pain or shortness of breath. OBJECTIVE: VITAL SIGNS: Blood pressure 110/54, heart rate 60, respiratory rate 17, temperature 98.7, O2 saturation 98%. GENERAL: The patient is awake, alert, comfortable, not in overt distress. SKIN: Adequate turgor. HEENT: Slightly pale conjunctivae. Anicteric sclerae. No neck mass. No carotid bruits. No JVD. CHEST: No deformities. LUNGS: Clear breath sounds. HEART: Normal sinus rhythm. No murmurs, no gallops, no rubs. ABDOMEN: Globular, soft, nontender. No masses. EXTREMITIES: No edema. No deformities. MEDICATIONS: Of November 03, 2020, were reviewed. LABORATORY DATA: Of November 02, 2020; white count 6.6, hemoglobin 7.7. Sodium was 142, potassium 3.8, chloride 103, carbon dioxide 24, BUN 57, creatinine 7.69, and calcium 7.8. ASSESSMENT AND PLAN: 1. End-stage renal disease, stable, no indication for any emergent hemodialysis today. The patient looks euvolemic. My plan is to resume back hemodialysis in a.m.-Monday. Fluid removal only as tolerated. 2. Chronic anemia-continuing weekly Epogen regimen with this patient. He is currently on Epogen at 10,000 units subcu q.7 days. We will recheck CBC and basic metabolic panel in a.m. Agree with current management. Job ID: [id number]
[2020-11-03 11:42] LABS: #Eosinphils 0.3 thou/uL (0.0-0.7); #Lymphocytes 1.1 thou/uL (1.20-3.40); #Monocytes 0.9 thou/uL (0.11-0.59); #Neutrophils 4.8 thou/uL (1.40-6.50); %Basophils 0.1 % (0.0-1.0); %Eosinophils 4.5 % (0.0-10.0); %Lymphocytes 15.8 % (21.0-51.0); %Neutrophils 67.6 % (42.0-75.0); Hemoglobin 8.8 g/dL (14.0-18.0); Mean Corpuscular HGB CONC 32.5 g/dL (32.0-36.0); Mean Corpuscular Hemoglobin 35.7 pg (27.0-31.0); Mean Platelet Volume 8.3 fL (7.4-10.4); Platelet Count 166 thou/uL (130-400); RBC Distribution Width 17.8 % (11.5-14.5); Red Blood Cell (RBC) Count 2.45 mill/uL (4.70-6.10); White Blood Cell (WBC) Count 7.1 thou/uL (4.8-10.8)
[2020-11-03 12:12] VITALS: BP 107/53
[2020-11-03 12:17] LABS: Anion Gap 16 mmol/L (10-20); BUN (Urea Nitrogen) 36 mg/dL (8.4-25.7); Calc. Creatinine Clearance 14 mL/min (70-130); Calcium 8.4 mg/dL (7.8-10.44); Carbon Dioxide 30 mmol/L (23-31); Chloride 100 mmol/L (98-107); Glucose 110 mg/dL (83-110); Potassium 4.2 mmol/L (3.5-5.1); Sodium 142 mmol/L (136-145)
--- NOTE | 2020-11-03 15:01 | PDOC.HOSPP ---
- Subjective Encounter Date: 11/03/20 Encounter Time: 09:45 Subjective: awake, sitting in chair, is working with PT, can mobilize to bedside commode no sob, wants to get dc'd - Objective Vital Signs & Weight: Vital Signs (12 hours) Temp Pulse Pulse Pulse Resp BP BP 11/03/20 12:00 60 15 11/03/20 09:50 62 60 109/58 L 111/58 L 11/03/20 08:45 11/03/20 04:00 98.7 F 60 17 BP Pulse Ox 11/03/20 12:00 107/53 L 100 11/03/20 09:50 11/03/20 08:45 108/57 L 11/03/20 04:00 110/54 L 98 Weight Weight 214 lb 8.156 oz I&O: 11/02/20 11/03/20 11/04/20 06:59 06:59 06:59 Intake Total 480 Output Total 150 Balance 330 Result Diagrams: 11/03/20 11:31 11/03/20 11:31 - Exam General Appearance: awake alert Eye: PERRL, anicteric sclera ENT: no oropharyngeal lesions, moist mucosa Neck: supple, no JVD Heart: RRR, no murmur Respiratory: no wheezes, no rales, rhonchi Gastrointestinal: soft, non-tender, non-distended, normal bowel sounds Extremities: no cyanosis, 1+ LE edema Neurological: cranial nerve grossly intact, no focal deficits Hosp A/P (1) Acute metabolic encephalopathy Code(s): G93.41 - METABOLIC ENCEPHALOPATHY Status: Acute (2) Retroperitoneal bleed Code(s): R58 - HEMORRHAGE, NOT ELSEWHERE CLASSIFIED Status: Chronic (3) Carotid stenosis Code(s): I65.29 - OCCLUSION AND STENOSIS OF UNSPECIFIED CAROTID ARTERY Status: Chronic Qualifiers: Laterality: bilateral Qualified Code(s): I65.23 - Occlusion and stenosis of bilateral carotid arteries (4) Parkinson disease Code(s): G20 - PARKINSON'S DISEASE Status: Chronic (5) Anemia in chronic kidney disease (CKD) Code(s): N18.9 - CHRONIC KIDNEY DISEASE, UNSPECIFIED; D63.1 - ANEMIA IN CHRONIC KIDNEY DISEASE Status: Chronic Qualifiers: Chronic kidney disease stage: on chronic dialysis Qualified Code(s): N18.6 - End stage renal disease; D63.1 - Anemia in chronic kidney disease; Z99.2 - D ependence on renal dialysis (6) Atrial fibrillation Code(s): I48.91 - UNSPECIFIED ATRIAL FIBRILLATION Status: Chronic Qualifiers: Atrial fibrillation type: longstanding persistent Qualified Code(s): I48.11 - Longstanding persistent atrial fibrillation (7) CAD (coronary artery disease) Code(s): I25.10 - ATHSCL HEART DISEASE OF [place] CORONARY ARTERY W/O ANG PCTRS Status: Chronic Qualifiers: Coronary Disease-Associated Artery/Lesion type: bypass graft [place] vs. transplanted heart: [place] heart Associated angina: without angina Qualified Code(s): I25.810 - Atherosclerosis of coronary artery bypass graft(s) without angina pectoris (8) ESRD (end stage renal disease) on dialysis Code(s): N18.6 - END STAGE RENAL DISEASE; Z99.2 - DEPENDENCE ON RENAL DIALYSIS Status: Chronic (9) History of CVA (cerebrovascular accident) Code(s): Z86.73 - PRSNL HX OF TIA (TIA), AND CEREB INFRC W/O RESID DEFICITS Status: Chronic (10) Physical deconditioning Code(s): R53.81 - OTHER MALAISE Status: Acute (11) Multiple falls Code(s): R29.6 - REPEATED FALLS Status: Acute (12) CHF (congestive heart failure) Code(s): I50.9 - HEART FAILURE, UNSPECIFIED Status: Chronic Qualifiers: Heart failure type: combined systolic and diastolic Heart failure chronicity: chronic Qualified Code(s): I50.42 - Chronic combined systolic (congestive) and diastolic (congestive) heart failure - Plan egd did not reveal ac bleeding source CT scan showed findings of retroperitoneal bleed, H/H stable. is off coumadin d/w and daughter over phone, they want him going to [facility], they have accepted him and will be dc'd has multiple med issues with deconditioning, prognosis guarded, is aware continue amiodarone, sinemet, protonix, flomax, midodrine, lipitor he has recieved a total of 3 u prbc and 1 ffp during this admission PT to mobilize as tolerated, encourage po intake
--- NOTE | 2020-11-03 17:59 | DIS ---
DATE OF ADMISSION: 10/24/2020 DATE OF DISCHARGE: 11/03/2020 DISCHARGE DISPOSITION: [facility]. PRIMARY DISCHARGE DIAGNOSES: Acute blood loss anemia secondary to retroperitoneal bleed; chronic anemia due to end-stage renal disease, on hemodialysis; bilateral carotid stenosis; Parkinson disease; acute metabolic encephalopathy on arrival, resolved; chronic atrial fibrillation; coronary artery disease, end-stage renal disease, on hemodialysis; history of CVA; deconditioning; history of multiple falls; congestive heart failure with systolic and diastolic dysfunction; non-ST segment elevation myocardial infarction type 2 secondary to acute blood loss anemia. PROCEDURES DONE DURING HOSPITALIZATION: The patient has received a total of 3 units of packed cell and 1 unit of FFP during his hospitalization. Discharge hemoglobin and hematocrit 8.8 and 26, platelet count is 166, MCV is 110, white count of 7 on the day of discharge. Hemoglobin of 7.1 on arrival, hematocrit of 21.8 on arrival. BUN 36, creatinine 5.9 on the day of discharge. Troponin-I 5.86. CK-MB 13.8 on the October 25. COVID-19 PCR was not detected on 10/24/2020. CT brain without contrast done on admission showed no acute intracranial abnormality. There is an area of encephalomalacia in the right anterior frontal lobe with remote infarct. CT angio neck showed high-grade arthrosclerotic plaque in both carotid bulbs and proximal internal carotid arteries. Patent vertebral arteries. There was no hemodynamically significant stenosis of the internal carotid arteries per NASCET criteria. Upper endoscopy done by Dr. Costello on 10/29/2020 showed normal esophagus, stomach, and duodenum. There is no sign of active bleeding in the stomach. DISCHARGE MEDICATIONS: 1. Carbidopa/levodopa 25/100 mg one tablet 3 times daily. 2. Amiodarone 200 mg daily. 3. Aspirin 81 mg p.o. daily. 4. Flomax 0.4 mg daily. 5. Midodrine 10 mg twice daily. 6. Ferrous sulfate 325 mg daily. 7. Melatonin 3 mg p.o. at bedtime. 8. Nephro-Radha one tablet daily. 9. Protonix 40 mg daily. 10. Vitamin B12, 1000 mcg p.o. daily. ALLERGIES: TETANUS TOXOID. DISCHARGE PLAN: The patient to follow up with his primary care physician, Dr. Robbins on 11/05/2020 at 11 a.m. BRIEF COURSE DURING HOSPITALIZATION: The patient initially got admitted on the 24 of October with complaints of chest pain and dizziness. This happened soon after dialysis. His hemoglobin levels were 7.1 down from baseline of around 8 to 9 g. The patient was given 2 units of packed cell transfusion in the ER and a unit of FFP as the patient was on Coumadin. Coumadin was held and the patient was admitted to telemetry. His serial troponin also mirian up to 5. CT of the abdomen done revealed findings of retroperitoneal hematoma, which was stable. His hemoglobin and hematocrit have remained stable with no further transfusion requirements. The patient has had acute metabolic encephalopathy likely from acute blood loss anemia with hospitalization plus underlying Parkinson's with likely cognitive changes associated with that might have contributed for his encephalopathy. He has had nearly 3 CAT scans for his brain, which have remained stable with no acute abnormality detected. 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 The patient is not steady on his feet and needs help for ambulation. He needs to [facility] with [facility]. A total of 35 minutes was spent on discharge plan. Please see a [id number] documentation for the day of discharge on [employer]. Please note, the patient has multiple medical issues. His overall prognosis is also guarded. During his stay, the patient has had consultation with Dr. Chappell, Cardiothoracic Surgery. If the patient remains cognitively intact and hemodynamically stable and improves with his functional status, he might likely become a candidate for carotid intervention. Please note, his Coumadin was held in view of retroperitoneal bleed. His overall prognosis is guarded. Job ID: [id number]
== END 2020-11-03 14:36 | DRG 393 ==
LOC: ERS 20:48 → 2NO 23:05 → OBSVTOIN 10-24 06:13 → 2NO 10-27 18:32
PROVIDERS: ADMIT Internal Medicine; ATTEND Internal Medicine
PROC: 30233N1 Transfusion of Nonautologous Red Blood Cells into Peripheral Vein, Percutaneous Approach (ICD-10-PCS; 2020-10-23)
PROC: 30233L1 Transfusion of Nonautologous Fresh Plasma into Peripheral Vein, Percutaneous Approach (ICD-10-PCS; 2020-10-25)
PROC: 30233K1 Transfusion of Nonautologous Frozen Plasma into Peripheral Vein, Percutaneous Approach (ICD-10-PCS; 2020-10-25)
PROC: 5A1D70Z Performance of Urinary Filtration, Intermittent, Less than 6 Hours Per Day (ICD-10-PCS; 2020-10-26)
PROC: 0DJ08ZZ Inspection of Upper Intestinal Tract, Via Natural or Artificial Opening Endoscopic (ICD-10-PCS; principal; 2020-10-29)
DX: K66.1 Hemoperitoneum (principal); N18.6 End stage renal disease; I21.A1 Myocardial infarction type 2; G93.41 Metabolic encephalopathy; D62 Acute posthemorrhagic anemia; I69.354 Hemiplegia and hemiparesis following cerebral infarction affecting left non-dominant side; I13.2 Hypertensive heart and chronic kidney disease with heart failure and with stage 5 chronic kidney disease, or end stage renal disease; F02.81 Dementia in other diseases classified elsewhere, unspecified severity, with behavioral disturbance; I48.11 Longstanding persistent atrial fibrillation; I50.42 Chronic combined systolic (congestive) and diastolic (congestive) heart failure; D63.1 Anemia in chronic kidney disease; I65.23 Occlusion and stenosis of bilateral carotid arteries; G20 Parkinson's disease; I25.10 Atherosclerotic heart disease of native coronary artery without angina pectoris; Z20.828 Contact with and (suspected) exposure to other viral communicable diseases; E78.5 Hyperlipidemia, unspecified; E03.9 Hypothyroidism, unspecified; R29.6 Repeated falls; F17.220 Nicotine dependence, chewing tobacco, uncomplicated; N40.0 Benign prostatic hyperplasia without lower urinary tract symptoms; I25.5 Ischemic cardiomyopathy; I95.9 Hypotension, unspecified; Z95.810 Presence of automatic (implantable) cardiac defibrillator; Z99.2 Dependence on renal dialysis; Z95.1 Presence of aortocoronary bypass graft; Z90.49 Acquired absence of other specified parts of digestive tract; Z88.7 Allergy status to serum and vaccine; Z82.49 Family history of ischemic heart disease and other diseases of the circulatory system; Z84.1 Family history of disorders of kidney and ureter; Z87.442 Personal history of urinary calculi; Z79.899 Other long term (current) drug therapy; Z79.01 Long term (current) use of anticoagulants; Z79.82 Long term (current) use of aspirin
CPT/HCPCS: 36415; 36416; 36430; 70450; 70498; 71045; 80048; 82553; 82607; 82746; 83735; 84100; 84484; 85025; 85610; 86769; 86850; 86900; 86901; 87340; 87635; 90935; 93005; 93010; 93880; 96374; C9113; G0257; J2060; J2704; J3010; J3430; P9016; P9059; Q0163; Q5105; Q9967; U0003

== ENCOUNTER 2020-11-30 11:27 | Inpatient (IN) | payer MEDICARE, MEDICAID ==
[2020-11-30 13:48] LABS: CKMB 4.6 ng/mL (0-6.6)
[2020-11-30] MEDS ORDERED: Ondansetron PF 4 MG/2 ML Vial IVP PRN (16:03)
[2020-11-30] MEDS ORDERED: hydrALAZINE 20 MG/ML VIAL SLOW IVP PRN (16:33)
[2020-11-30] MEDS ORDERED: Labetalol HCl 100 MG/20 ML VIAL SLOW IVP PRN (16:33)
[2020-11-30] MEDS ORDERED: Cefepime 1 GM in Sodium Chloride 0.9% 100 ML IVPB SCH ×2 (17:00→22:00)
[2020-11-30] MEDS ORDERED: EPOETIN ALFA-EPBX (ESRD) 4,000 UNIT/ML VIAL SC SCH ×2 (18:00→22:00)
[2020-11-30] MEDS ORDERED: Dextrose 50% Abboject 50 ML SYRINGE ONE (22:31)
[2020-11-30] MEDS ORDERED: Dextrose 50% Abboject 50 ML SYRINGE SLOW IVP PRN (23:04)
[2020-11-30] MEDS ORDERED: HumaLOG 300 UNITS/3 ML VIAL SC PRN ×2 (23:04)
[2020-11-30] MEDS ORDERED: Dextrose 5% in Water 1,000 ML IV PRN (23:04)
[2020-12-01 01:02] VITALS: BMI 30.7
[2020-12-01 02:56] LABS: SARS-CoV-2 PCR by NAA Not Detected (NotDetected)
[2020-12-01 03:00] LABS: #Eosinphils 0.3 thou/uL (0.0-0.7); #Lymphocytes 1.3 thou/uL (1.20-3.40); #Monocytes 0.4 thou/uL (0.11-0.59); %Basophils 0.4 % (0.0-1.0); %Eosinophils 5.7 % (0.0-10.0); %Lymphocytes 20.9 % (21.0-51.0); %Monocytes 5.8 % (0.0-10.0); %Neutrophils 67.3 % (42.0-75.0); Hemoglobin 8.3 g/dL (14.0-18.0); Mean Corpuscular Hemoglobin 35.6 pg (27.0-31.0); Mean Platelet Volume 8.4 fL (7.4-10.4); Platelet Count 157 thou/uL (130-400); RBC Distribution Width 17.9 % (11.5-14.5); Red Blood Cell (RBC) Count 2.31 mill/uL (4.70-6.10)
[2020-12-01] MEDS: methylPREDNISolone Sod Succ 40 MG VIAL IVP SCH (03:11)
[2020-12-01 03:36] LABS: Anion Gap 17 mmol/L (10-20); BUN (Urea Nitrogen) 41 mg/dL (8.4-25.7); Calc. Creatinine Clearance 15 mL/min (70-130); Calcium 8.3 mg/dL (7.8-10.44); Carbon Dioxide 26 mmol/L (23-31); Chloride 100 mmol/L (98-107); Glucose 149 mg/dL (83-110); Potassium 4.3 mmol/L (3.5-5.1); Sodium 139 mmol/L (136-145)
[2020-12-01 04:26] LABS: Free T4 (Free Thyroxine) 0.41 ng/dL (0.70-1.48); Thyroid Stimulating Hormone 167.9183 uIU/mL (0.35-4.94)
[2020-12-01] MEDS ORDERED: Dextrose 5 %-0.45 % NaCl 1,000 ML IV SCH (05:15)
[2020-12-01] MEDS ORDERED: Melatonin 3 MG TAB PO PRN (14:39)
[2020-12-01] MEDS ORDERED: Nitroglycerin 0.4 MG TAB (25 Tab Bottle) SL PRN (14:39)
[2020-12-01] MEDS ORDERED: Ondansetron ODT 4 MG TAB PO PRN (14:44)
[2020-12-01] MEDS: Sevelamer Carbonate 800 MG TAB PO SCH ×2 (15:04→21:57)
[2020-12-01] MEDS: Carbidopa/Levodopa 25-100 mg Tablet PO SCH ×2 (16:24→21:58)
[2020-12-01] MEDS: Icosapent Ethyl 1 GM CAPSULE PO SCH (16:24)
[2020-12-01] MEDS ORDERED: FLU VACC QS2020-21(65YR UP)/PF 240 MCG/0.7 ML SYRINGE IM ONE (21:00)
[2020-12-01] MEDS: Cefepime 0.5 GM, Admixture Fee 1 EACH in Sodium Chloride 0.9% 100 ML IVPB SCH (21:58)
[2020-12-01] MEDS: Atorvastatin Calcium 40 MG TAB PO SCH (21:58)
[2020-12-01] MEDS: Midodrine HCl 5 MG TAB PO SCH (21:58)
[2020-12-02] MEDS: Levothyroxine Sodium 25 MCG TAB PO SCH (05:05)
[2020-12-02] MEDS ORDERED: Levothyroxine Sodium 50 MCG TAB PO SCH ×2 (06:00)
[2020-12-02] MEDS: Icosapent Ethyl 1 GM CAPSULE PO SCH ×2 (07:42→17:58)
[2020-12-02] MEDS: Midodrine HCl 5 MG TAB PO SCH ×2 (07:42→20:31)
[2020-12-02] MEDS: Aspirin 81 mg Enteric Coated Tablet PO SCH (07:42)
[2020-12-02] MEDS: Sevelamer Carbonate 800 MG TAB PO SCH ×3 (07:44→20:32)
[2020-12-02] MEDS: Folic Acid/Vit B Comp W-C PO SCH (07:44)
[2020-12-02] MEDS: Cyanocobalamin (Vitamin B-12) 1,000 MCG TAB PO SCH (07:44)
[2020-12-02] MEDS: Carbidopa/Levodopa 25-100 mg Tablet PO SCH ×3 (07:44→20:32)
[2020-12-02] MEDS: Amiodarone 200 MG TAB PO SCH (07:44)
[2020-12-02] MEDS: Tamsulosin HCl 0.4 MG CAP PO SCH (07:45)
[2020-12-02] MEDS: methylPREDNISolone Sod Succ 40 MG VIAL IVP SCH (07:53)
[2020-12-02] MEDS ORDERED: Amino Acids/Protein Hydrolys [Pro-Stat 64 Liquid] 30 ML Packet PO SCH (09:00)
[2020-12-02] MEDS: Atorvastatin Calcium 40 MG TAB PO SCH (20:30)
[2020-12-02] MEDS: Cefepime 0.5 GM, Admixture Fee 1 EACH in Sodium Chloride 0.9% 100 ML IVPB SCH ×2 (20:36→21:11)
[2020-12-03] MEDS: Levothyroxine Sodium 25 MCG TAB PO SCH (05:42)
[2020-12-03 06:29] LABS: #Eosinphils 0.4 thou/uL (0.0-0.7); #Lymphocytes 1.3 thou/uL (1.20-3.40); #Monocytes 0.6 thou/uL (0.11-0.59); #Neutrophils 6.7 thou/uL (1.40-6.50); %Basophils 0.4 % (0.0-1.0); %Eosinophils 3.9 % (0.0-10.0); %Lymphocytes 14.2 % (21.0-51.0); %Neutrophils 74.6 % (42.0-75.0); Hemoglobin 9.3 g/dL (14.0-18.0); Mean Corpuscular HGB CONC 31.6 g/dL (32.0-36.0); Mean Corpuscular Hemoglobin 34.5 pg (27.0-31.0); Platelet Count 166 thou/uL (130-400); RBC Distribution Width 17.9 % (11.5-14.5)
[2020-12-03 06:52] LABS: Anion Gap 15 mmol/L (10-20); BUN (Urea Nitrogen) 45 mg/dL (8.4-25.7); Calc. Creatinine Clearance 14 mL/min (70-130); Calcium 8.6 mg/dL (7.8-10.44); Carbon Dioxide 27 mmol/L (23-31); Chloride 104 mmol/L (98-107); Glucose 120 mg/dL (83-110); Potassium 4.2 mmol/L (3.5-5.1); Sodium 142 mmol/L (136-145)
[2020-12-03] MEDS: Aspirin 81 mg Enteric Coated Tablet PO SCH (07:59)
[2020-12-03] MEDS: methylPREDNISolone Sod Succ 40 MG VIAL IVP SCH (07:59)
[2020-12-03] MEDS: Cyanocobalamin (Vitamin B-12) 1,000 MCG TAB PO SCH (08:00)
[2020-12-03] MEDS: Carbidopa/Levodopa 25-100 mg Tablet PO SCH ×2 (08:00→15:22)
[2020-12-03] MEDS: Sevelamer Carbonate 800 MG TAB PO SCH ×2 (08:00→15:22)
[2020-12-03] MEDS: Tamsulosin HCl 0.4 MG CAP PO SCH (08:00)
[2020-12-03] MEDS: Icosapent Ethyl 1 GM CAPSULE PO SCH (08:00)
[2020-12-03] MEDS: Amiodarone 200 MG TAB PO SCH (08:00)
[2020-12-03] MEDS: Folic Acid/Vit B Comp W-C PO SCH (08:00)
[2020-12-03] MEDS: Midodrine HCl 5 MG TAB PO SCH (08:01)
[2020-12-03 15:22] VITALS: BP 113/63; TEMP 98
== END 2020-12-03 17:40 | disposition hospice, home (50) | DRG 56 ==
LOC: ERS 11:27 → T4-B 12:17
PROVIDERS: ADMIT Internal Medicine; ATTEND Internal Medicine
PROC: 5A1D70Z Performance of Urinary Filtration, Intermittent, Less than 6 Hours Per Day (ICD-10-PCS; 2020-11-30)
PROC: 5A1D70Z Performance of Urinary Filtration, Intermittent, Less than 6 Hours Per Day (ICD-10-PCS; principal; 2020-12-02)
DX: G20 Parkinson's disease (principal); G93.41 Metabolic encephalopathy; N18.6 End stage renal disease; I13.2 Hypertensive heart and chronic kidney disease with heart failure and with stage 5 chronic kidney disease, or end stage renal disease; N17.9 Acute kidney failure, unspecified; N30.00 Acute cystitis without hematuria; I25.810 Atherosclerosis of coronary artery bypass graft(s) without angina pectoris; I24.8 Other forms of acute ischemic heart disease; I50.22 Chronic systolic (congestive) heart failure; Z66 Do not resuscitate; E78.00 Pure hypercholesterolemia, unspecified; I48.91 Unspecified atrial fibrillation; E03.9 Hypothyroidism, unspecified; N40.0 Benign prostatic hyperplasia without lower urinary tract symptoms; D63.1 Anemia in chronic kidney disease; F02.80 Dementia in other diseases classified elsewhere, unspecified severity, without behavioral disturbance, psychotic disturbance, mood disturbance, and anxiety; R29.6 Repeated falls; I25.5 Ischemic cardiomyopathy; I25.2 Old myocardial infarction; Z95.810 Presence of automatic (implantable) cardiac defibrillator; Z86.73 Personal history of transient ischemic attack (TIA), and cerebral infarction without residual deficits; Z88.6 Allergy status to analgesic agent; Z79.82 Long term (current) use of aspirin; Z79.899 Other long term (current) drug therapy; Z95.1 Presence of aortocoronary bypass graft; Z90.49 Acquired absence of other specified parts of digestive tract; Z79.01 Long term (current) use of anticoagulants; Z82.49 Family history of ischemic heart disease and other diseases of the circulatory system; Z84.1 Family history of disorders of kidney and ureter
CPT/HCPCS: 36415; 36416; 80048; 82533; 82553; 84439; 84443; 85025; 87040; 87635; 90935; 93005; G0257; J0692; J2920; J3490; Q5105; U0003; U0005